=== PATIENT | female | born 1965 | race Caucasian/White ===

== ENCOUNTER 2020-11-22 10:21 | Outpatient (CLI) | payer OTHER, SELFPAY ==
--- NOTE | ~2020-11-22 | CT_ITS ---
EXAMINATION:CT lung screening DATE: 11/22/2020 10:38 INDICATION: Personal history of nicotine dependence. Current smoker with 30 pack year history. TECHNIQUE: Computed tomography (CT) of the chest was performed without intravenous contrast. Automate d exposure control and iterative reconstruction technique were employed. The dose-length product (DLP ) was 68.26 mGy-cm. COMPARISON: Chest CT 10/13/2018 FINDINGS: There is mild scarring at the lung apices. There is moderate emphysema. Calcified bilateral lung nodules and calcified right hilar lymph nodes are consistent with old granulomatous disease. Th ere is a 3 mm nodule in left upper lobe. There are three 1-2 mm nodules in right upper lobe. No pleur al effusion. The heart size is normal. There are coronary artery calcifications. No pericardial effus ion. Calcifications in the liver and spleen are consistent with old granulomatous disease. There are changes of anterior fusion procedure in cervical spine. There is mild thoracic spondylosis. IMPRESSION: 1. Lung-RADS category 2: Benign appearance or behavior. Continue annual screening with noncontrast lo w-dose chest CT in 12 months. Reviewed, dictated and finalized at location A. 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 Lung-RADS category 2: Benign appearance or behavior. Continue annual screeni ng with noncontrast low-dose chest CT in 12 months.
== END 2020-11-22 10:22 | disposition home or self-care (01) ==
PROVIDERS: PCP Family Medicine Sports Medicine; Visit Provider Nurse Practitioner Family
DX: Z12.2 Encounter for screening for malignant neoplasm of respiratory organs (principal); Z87.891 Personal history of nicotine dependence
CPT/HCPCS: 71271

== ENCOUNTER 2021-01-25 08:31 | Emergency (ER) | payer OTHER, SELFPAY ==
--- NOTE | ~2021-01-25 | XR_ITS ---
EXAMINATION: XR chest 2V EXAM DATE: 01/25/2021 09:01 INDICATION: Congestion, shortness of breath. TECHNIQUE: Frontal and lateral projections of the chest obtained and reviewed. Comparison is made to prior examination from 08/18/2019. FINDINGS: Some right lower lobe granulomata. The lungs are otherwise clear. Resolution of previous ly seen left midlung zone nodular density which was probably infection. The lungs are hyperinflated which can be seen with chronic obstructive pulmonary disease (a clinical diagnosis of functional impairment), but is not diagnostic of it. No pneumothorax or pleural effusion . There is narrow cardiac silhouette from the hyperinflated lungs. Cervical fusion hardware. IMPRESSION: 1. Severe hyperinflation. 2. No acute findings. Reviewed, dictated and finalized at location A.
--- NOTE | 2021-01-25 08:44 | ED.URI ---
HPI - URI/Sore Throat General Chief Complaint: Upper Respiratory Infection Stated Complaint: sinus infection Time Seen by Provider: 01/25/21 08:45 Source: patient and RN notes reviewed Mode of arrival: ambulatory Limitations: no limitations History of Present Illness HPI Narrative: 55-year-old female presents to the [facility] with complaints of sinus congestion and chest congestion for 1 week-10days. Patient reports that she has had congestion that started 10 to 14 days ago, and for the last week feels like the congestion has moved into her chest. Has had a nonproductive cough. Has been using her COPD medication. Has not used her rescue inhaler. Denies having chest pain. Denies abdominal pain. Denies fevers, nausea, vomiting or diarrhea. Has a history of COPD and is a smoker. Has tried taking mucinex and Tessalon Perles with no improvement. Related Data Home Medications Medication Instructions Recorded Confirmed [id number] 1 inh INHALATION BID 01/25/21 01/25/21 [Trelegy Ellipta] Allergies Allergy/AdvReac Type Severity Reaction Status Date / Time No Known Allergies Allergy Verified 01/25/21 09:18 Review of Systems Review of Systems: Narrative: CONSTITUTIONAL: Denies fever, chills, or sweats. EYES: Denies visual changes, redness, or discharge. ENT: Reports rhinorrhea and congestion. Denies sore throat, or otalgia. CARDIOVASCULAR: Denies chest pain, palpitations, or edema. RESPIRATORY: Reports nonproductive cough. Denies dyspnea. GASTROINTESTINAL: Denies abdominal pain, nausea, vomiting, or diarrhea. GENITOURINARY: Denies dysuria or hematuria. SKIN: Denies rash or itching. MUSCULOSKELETAL: Denies back pain, joint pain, or myalgia. NEUROLOGIC: Denies headache, numbness, or weakness. PSYCHIATRIC: Denies anxiety or depression. All other systems reviewed are negative, except as documented in HPI. [facility] Past Medical History Medical History Chronic obstructive pulmonary disease (COPD) Lung nodule Mildly underweight adult Recurrent pneumonia Shortness of breath Tobacco abuse Social History Social History Years smoked: 20 Smoking status: Current every day smoker Tobacco type: cigarettes Second hand tobacco smoke exposure: No Gender identity (if verbalized by the patient): Female Comments At the time of my signature, I reviewed and agree with the nursing past medical, surgical, social, and family history. There is no relevant family history pertinent to the patient complaint. Exam Narrative: Exam Narrative: GENERAL: This is a well-nourished, well-developed patient, in no apparent distress. Appears mildly ill. HEAD: normocephalic, atraumatic. EYES: PERRL. Sclera clear/white. Vision is grossly intact. EARS: External ears normal, auditory canals clear and without drainage, TMs normal without perforation. Hearing grossly intact. NOSE: External nose normal. Clear nasal drainage with nares red and inflamed. THROAT: Mucous membranes moist, posterior pharynx clear drainage noted. NECK: Neck supple, non-tender without lymphadenopathy, masses or thyromegaly. CARDIOVASCULAR: Regular rate and rhythm without murmurs, gallops, or rubs. RESPIRATORY: Coarseness bilaterally noted on auscultation. Strong cough noted GASTROINTESTINAL: Abdomen soft, non-tender, nondistended. SKIN: warm, intact with no suspicious lesions or rash, good texture and turgor. NEURO: awake, alert, and oriented to person, place and time. There were no obvious focal neurologic abnormalities. EXTREMITIES: No joint tenderness, effusion, or edema noted. BACK: Nontender without deformity. Course Vital Signs Vital signs: Vital Signs Temperature 97.1 F L 01/25/21 08:49 Pulse Rate 103 H 01/25/21 08:49 Respiratory Rate 20 01/25/21 08:49 Blood Pressure 129/67 01/25/21 08:49 Pulse Oximetry 97 01/25/21 08:49
[2021-01-25 08:49] VITALS: BP 129/67; PULSE 103; RESP 20; TEMP 36.2; O2SAT 97
[2021-01-26 00:39] LABS: SARS-CoV-2 RNA PCR Negative
== END 2021-01-25 09:36 | disposition home or self-care (01) ==
PROVIDERS: Emergency Provider Nurse Practitioner
DX: J40 Bronchitis, not specified as acute or chronic (principal); Z20.822 Contact with and (suspected) exposure to COVID-19; F17.210 Nicotine dependence, cigarettes, uncomplicated; J44.9 Chronic obstructive pulmonary disease, unspecified
CPT/HCPCS: 71046; 87426; 87804; 99213; C9803; G0463; U0003; U0005

== ENCOUNTER 2022-01-01 14:12 | Outpatient (CLI) | payer OTHER, SELFPAY ==
--- NOTE | ~2022-01-01 | CT_ITS ---
EXAMINATION: CT lung screening DATE: 01/01/2022 14:30 INDICATION: Tobacco use. History of smoking. COPD. TECHNIQUE: Computed tomography (CT) of the chest was performed without intravenous contrast. The dose -length product was 62.28 mGy-cm. Automated exposure control and iterative reconstruction technique w ere employed. COMPARISON: CT dated 11/22/2020 FINDINGS: No significant change to bilateral upper lobe nodules measuring 3 mm or less. There is a ne w 5 mm right upper lobe nodule, image 24. Moderate-severe emphysema. No endobronchial lesions. There are a few scattered calcified granulomas. No pneumothorax. No thoracic lymphadenopathy. There are balbina cified granulomas of the liver and spleen. There is atherosclerosis of the aorta and coronary arterie s. Mild thoracic spondylosis. IMPRESSION: 1. Lung-RADS category 3: Probably benign. Further evaluation is recommended with noncontrast low-dose chest CT in 6 months. Reviewed, dictated and finalized at location B. 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 Lung-RADS category 3: Probably benign. Further evaluation is recommended wit h noncontrast low-dose chest CT in 6 months.
== END 2022-01-01 14:13 | disposition home or self-care (01) ==
LOC: ANHIMG 14:16
PROVIDERS: Visit Provider Nurse Practitioner Family
DX: J44.9 Chronic obstructive pulmonary disease, unspecified (principal); Z87.891 Personal history of nicotine dependence
CPT/HCPCS: 71271

== ENCOUNTER → 2022-03-24 00:15 | Outpatient (CLI) | payer OTHER, SELFPAY ==
[2022-03-24 13:51] LABS: SARS-CoV-2 RNA PCR Negative
== END ==
DX: J01.90 Acute sinusitis, unspecified (principal); Z20.822 Contact with and (suspected) exposure to COVID-19
CPT/HCPCS: C9803; U0003; U0005

== ENCOUNTER 2022-05-13 09:32 | Emergency (ER) | payer OTHER, SELFPAY ==
--- NOTE | ~2022-05-13 | XR_ITS ---
XR chest 2V DATE: 05/13/2022 10:07 INDICATION: Difficulty breathing. Past smoker. TECHNIQUE: 2 views COMPARISON: None FINDINGS: Prominent bilateral hyperinflation with flattening the diaphragm and increased retrosternal airspace, consistent with emphysema. No pulmonary infiltrate or consolidation, pleural effusion or pulmonary vascular congestion or pneumo thorax is detected. There is old pulmonary granulomatous disease on the right. Normal heart size. No hilar or mediastinal enlargement. Lower lumbar posterior surgical spine fusion. IMPRESSION: COPD Reviewed, dictated and finalized at location A. IMPRESSION: COPD
--- NOTE | 2022-05-13 09:38 | ED.SOB ---
HPI - SOB/Dyspnea General Chief Complaint: Shortness of Breath/Dyspnea Stated Complaint: sob Source: patient, RN notes reviewed and old records reviewed Mode of arrival: ambulatory Limitations: no limitations History of Present Illness HPI Narrative: 56-year-old female presents to the [facility] with complaints of shortness of breath since Saturday. States that she quit smoking approximately 1 month ago. States that she was sick was given steroids and antibiotics and has not started smoking again. Patient states it feels like her COPD is acting up. Patient reports having albuterol at home but has not used it. elevated pulse. Oxygen saturation 92, patient states that is her normal. MD elicited complaint: shortness of breath Related Data Home Medications Medication Instructions Recorded Confirmed cyclobenzaprine 10 mg tablet 10 mg PO TID 02/13/22 05/13/22 hydrocodone 10 mg-acetaminophen 15 ml PO Q6H PRN Pain 02/13/22 05/13/22 325 mg/15 mL (15 mL) oral solution ergocalciferol (vitamin D2) 1,250 1 cap PO WEEKLY 05/13/22 05/13/22 mcg (50,000 unit) capsule metformin 500 mg tablet 1 tablet PO DAILY 05/13/22 05/13/22 rosuvastatin 40 mg tablet 1 tablet PO DAILY 05/13/22 05/13/22 Allergies Allergy/AdvReac Type Severity Reaction Status Date / Time No Known Allergies Allergy Verified 05/13/22 09:43 Review of Systems Review of Systems: All systems reviewed & are unremarkable except as noted in HPI and below Constitutional: Constitutional: Reports no additional constitutional complaints, Denies chills and Denies fever(s) Eyes: Eyes: Reports no additional eye complaints ENT: Reports system reviewed and no additional complaints, except as documented Cardiovascular: Cardiovascular: Reports no additional cardiovascular complaints Respiratory: Respiratory: Reports as per HPI and Reports dyspnea Gastrointestinal: Gastrointestinal: Reports no additional gastrointestinal complaints Musculoskeletal: Musculoskeletal: Reports no additional musculoskeletal complaints Integumentary/Breasts: Skin/Breast: Reports system reviewed and no additional complaints, except as docu Neurologic: Reports system reviewed and no additional complaints, except as documented Psychiatric: Psychiatric: Reports no additional psychiatric complaints Allergic/Immunologic: Allergic/Immunologic: Reports no additional allergic/immunologic complaints [facility] Past Medical History Medical History (Updated 05/13/22 @ 18:53 by Noris Lang, RENUKA) Chronic obstructive pulmonary disease (COPD) Lung nodule Mildly underweight adult Neck problem bone fusion on neck Recurrent pneumonia Shortness of breath Tobacco abuse Surgical History Surgical History H/O LEEP 1998 History of back surgery 2011 History of dilation and curettage 02/11/09 hscope d&c/novasure ablation History of endometrial ablation 02/11/09 hscope d&c/novasure ablation History of tubal ligation 2003 Family History Family History Sibling Chronic obstructive lung disease sister Mother Malignant tumor of urinary bladder Father Malignant neoplasm of bone Social History Social History (Updated 05/13/22 @ 18:50 by Noris Lang APRN) Smoking packs per day: 1 Smoking cigarettes per day: 20.0 Years smoked: 35 Smoking pack-years: 35.00 Smoking status: Current every day smoker Tobacco type: cigarettes Second hand tobacco smoke exposure: No Alcohol intake: never Substance use: never Substance use type: does not use Living arrangements: with family Additional living arrangements comments: 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
[2022-05-13 09:41] VITALS: BP 125/65; PULSE 120; RESP 16; TEMP 37.8; O2SAT 92
--- NOTE | 2022-05-13 10:01 | ECG_ITS ---
Measurements Intervals [place] Rate: 116 P: 83 DC: 115 QRS: 83 QRSD: 90 T: -10 QT: 283 QTc: 393 Interpretive Statements SINUS TACHYCARDIA WITH SHORT DC INTERVAL POSSIBLE LEFT ATRIAL ENLARGEMENT DELAYED PRECORDIAL R/S TRANSITION BORDERLINE ST-T WAVE ABNORMALITY- INFERIOR LEADS ABNORMAL ECG Electronically Signed On 05-13-2022 17:14:07 CDT by Herrera London D.O.
[2022-05-13] MEDS: LEVALBUTEROL NEB 1.25 MG/3 ML INHALATION (10:07)
[2022-05-13 10:30] VITALS: O2SAT 97
== END 2022-05-13 10:55 | disposition home or self-care (01) ==
PROVIDERS: Emergency Provider Nurse Practitioner; PCP Internal Medicine
DX: J44.9 Chronic obstructive pulmonary disease, unspecified (principal); F17.210 Nicotine dependence, cigarettes, uncomplicated; Z79.891 Long term (current) use of opiate analgesic; Z20.822 Contact with and (suspected) exposure to COVID-19
CPT/HCPCS: 71046; 87426; 87804; 93005; 99213; C9803; G0463

== ENCOUNTER 2022-11-26 16:21 | Emergency (ER) | payer OTHER, SELFPAY ==
[2022-11-26 16:50] VITALS: BP 116/71; PULSE 94; RESP 18; TEMP 36.2; O2SAT 97
--- NOTE | 2022-11-26 17:07 | ED.SKABFB ---
HPI - Skin/Abscess/Foreign Bdy General Chief complaint: Skin/Abscess/Foreign Body Stated complaint: Rash On Nose Time Seen by Provider: 11/26/22 17:07 Source: patient, RN notes reviewed and old records reviewed Mode of arrival: ambulatory Limitations: no limitations History of Present Illness HPI narrative: 57-year-old female presents to the [facility] with redness, warmth, irritation to the bilateral nares and surrounding facial tissue. Symptoms since Saturday, 3 days States has been there for several days. Had a similar episode back in July when she was prescribed an antibiotic. For small vesicular areas noted with induration surrounding tissue. Related Data Home Medications Medication Instructions Recorded Confirmed cyclobenzaprine 10 mg tablet 10 mg PO TID 02/13/22 11/26/22 hydrocodone 10 mg-acetaminophen 15 ml PO Q6H PRN Pain 02/13/22 11/26/22 325 mg/15 mL (15 mL) oral solution ergocalciferol (vitamin D2) 1,250 1 cap PO WEEKLY 05/13/22 11/26/22 mcg (50,000 unit) capsule metformin 500 mg tablet 1 tablet PO DAILY 05/13/22 11/26/22 rosuvastatin 40 mg tablet 1 tablet PO DAILY 05/13/22 11/26/22 Allergies Allergy/AdvReac Type Severity Reaction Status Date / Time No Known Allergies Allergy Verified 11/26/22 16:30 Review of Systems Review of Systems: All systems reviewed & are unremarkable except as noted in HPI and below Constitutional: Constitutional: Reports no additional constitutional complaints Eyes: Eyes: Reports no additional eye complaints ENT: Reports as per HPI Cardiovascular: Cardiovascular: Reports no additional cardiovascular complaints, Denies chest pain and Denies dyspnea Respiratory: Respiratory: Reports no additional respiratory complaints, Denies chest congestion, Denies cough and Denies dyspnea Gastrointestinal: Gastrointestinal: Reports no additional gastrointestinal complaints, Denies abdominal pain, Denies nausea and Denies vomiting Musculoskeletal: Musculoskeletal: Reports no additional musculoskeletal complaints Integumentary/Breasts: Skin/Breast: Reports system reviewed and no additional complaints, except as docu Neurologic: Reports system reviewed and no additional complaints, except as documented Psychiatric: Psychiatric: Reports no additional psychiatric complaints Allergic/Immunologic: Allergic/Immunologic: Reports no additional allergic/immunologic complaints PMFSH Past Medical History Medical History Chronic obstructive pulmonary disease (COPD) Lung nodule Mildly underweight adult Neck problem bone fusion on neck Recurrent pneumonia Shortness of breath Tobacco abuse Surgical History Surgical History H/O LEEP 1998 History of back surgery 2011 History of dilation and curettage 02/11/09 hscope d&c/novasure ablation History of endometrial ablation 02/11/09 hscope d&c/novasure ablation History of tubal ligation 2003 Family History Family History Sibling Chronic obstructive lung disease sister Mother Malignant tumor of urinary bladder Father Malignant neoplasm of bone Social History Social History Smoking packs per day: 1 Smoking cigarettes per day: 20.0 Years smoked: 35 Smoking pack-years: 35.00 Smoking status: Former smoker (recently quit 2 months ago) Tobacco type: cigarettes Second hand tobacco smoke exposure: Yes Smoking end date: 04/11/22 Alcohol intake: former Substance use: never Substance use type: does not use Additional living arrangements comments: 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
== END 2022-11-26 17:23 | disposition home or self-care (01) ==
PROVIDERS: Emergency Provider Nurse Practitioner; PCP Internal Medicine
DX: L03.211 Cellulitis of face (principal); R21 Rash and other nonspecific skin eruption; J44.9 Chronic obstructive pulmonary disease, unspecified; Z79.891 Long term (current) use of opiate analgesic; Z79.84 Long term (current) use of oral hypoglycemic drugs; Z87.891 Personal history of nicotine dependence
CPT/HCPCS: 87255; 99213; G0463

== ENCOUNTER 2022-12-11 15:09 | Outpatient (CLI) | payer OTHER, SELFPAY ==
[2022-12-11 15:22] LABS: Basophils Absolute Auto 0.1 K/mm3 (0.0-0.1); Basophils Percent Auto 0.6 % (0.2-1.2); Eosinophils Absolute Auto 0.1 K/mm3 (0-0.3); Eosinophils Percent Auto 1.3 % (0-4.4); Hematocrit 40.8 % (37.0-47.0); Hemoglobin 13.3 g/dL (12.0-15.0); Immature Granulocyte Absolute 0.02 K/mm3 (0.00-0.031); Immature Granulocyte Percent A 0.2 % (0-0.5); Lymphocytes Absolute Auto 3.14 K/mm3 (0.9-3.2); Lymphocytes Percent Auto 33.6 % (18.3-44.2); Mean Corpuscular HGB Conc 32.6 g/dl (32-36); Mean Corpuscular Hemoglobin 30.7 pg (26-34); Mean Corpuscular Volume 94.2 fl (80-100); Mean Platelet Volume 9.4 fl (7.4-10.4); Monocytes Absolute Auto 0.6 K/mm3 (0.1-0.6); Neutrophils Absolute Auto 5.5 K/mm3 (1.3-6.7); Neutrophils Percent Auto 58.3 % (45.5-73.1); Platelet Count Result 231 k/mm3 (150-375); Red Blood Count 4.33 M/mm3 (4.2-5.4); Red Cell Distribution Width 14.1 % (11.5-14.5); White Blood Count 9.4 K/mm3 (4.5-10.0)
[2022-12-11 15:59] LABS: Alanine Aminotransferase 27 U/L (6-35); Albumin Level 4.8 g/dL (3.5-5.1); Alkaline Phosphatase 65 U/L (38-126); Anion Gap 7 mmol/L (8-16); Aspartate Amino Transferase 33 U/L (14-36); Bilirubin,Total 0.6 mg/dL (0.2-1.3); Blood Urea Nitrogen 15 mg/dL (7-17); Calcium 9.1 mg/dL (8.4-10.2); Carbon Dioxide 30 mmol/L (22-30); Chloride 98 mmol/L (98-107); Estimated Glomerular Filt Rate > 60; Glucose 109 mg/dL (65-110); Potassium 4.3 mmol/L (3.4-5.0); Sodium 135 mmol/L (137-145)
[2022-12-13 16:25] LABS: Albumin 4.4 g/dL (3.8-4.8); Alpha 1 Globulin 0.4 g/dL (0.2-0.3); Alpha 2 Globulin 0.9 g/dL (0.5-0.9); Beta 1 Globulin 0.4 g/dL (0.4-0.6); Gamma Globulin 0.8 g/dL (0.8-1.7); Protein, Total 7.3 g/dL (6.1-8.1)
== END 2022-12-11 15:10 | disposition home or self-care (01) ==
LOC: ANHLAB 15:10
PROVIDERS: PCP Internal Medicine; Visit Provider Internal Medicine Hematology & Oncology
DX: R10.9 Unspecified abdominal pain (principal)
CPT/HCPCS: 36415; 80053; 84155; 84165; 84443; 85025

== ENCOUNTER 2022-12-19 12:14 | Outpatient (CLI) | payer OTHER, SELFPAY ==
--- NOTE | ~2022-12-19 | CT_ITS ---
EXAMINATION: CT chest abdomen pelvis w con DATE: 12/19/2022 12:59 INDICATION: Shortness of breath and abdominal pain, weight loss TECHNIQUE: Transaxial computed tomographic images of the chest, abdomen, and pelvis were obtained aft er the administration of 85 cc of Omnipaque 350 intravenous contrast. The dose-length product (DLP) w as 235.51 mGy-cm. Automated exposure control and iterative reconstruction technique were employed. COMPARISON: 01/01/2022 FINDINGS: CHEST CT: There is moderate emphysema. A stable 5 mm nodule is present in the right upper lobe. Additional stab le pulmonary nodules measure up to 3 mm. The lungs are free of acute opacities. No pleural effusion o r pneumothorax. Calcified pulmonary nodules and calcified right hilar No pathologically enlarged thor acic lymph nodes are identified. The heart size is normal. There is calcified coronary artery atheros clerosis. lymph nodes are consistent with old granulomatous disease. There are partially imaged garcia es of anterior fusion in the lower cervical spine. ABDOMEN/PELVIS CT: The mildly dilated common bile duct measures up to 8 mm. There is mild intrahepatic biliary dilatatio n. Punctate calcifications in otherwise normal appearing liver and spleen likely represent healed gra nulomatous disease. The pancreas, gallbladder, and adrenal glands are normal. The kidneys are unremar kable. There is calcified atherosclerosis of the aorta and many of the other arteries. No pathologica lly enlarged abdominal or pelvic lymph nodes are identified. A large volume of colonic stool is prese nt. There are changes of anterior and posterior fusion at L5-S1. IMPRESSION: 1. Moderate emphysema with stable pulmonary nodules. 2. Mild intrahepatic and extrahepatic biliary dilatation of unclear etiology. 3. Constipation. Reviewed, dictated and finalized at location B. WORK[employer]
== END 2022-12-19 12:15 | disposition home or self-care (01) ==
PROVIDERS: PCP Internal Medicine; Visit Provider Internal Medicine Hematology & Oncology
DX: R10.9 Unspecified abdominal pain (principal); R06.02 Shortness of breath; K59.00 Constipation, unspecified; J43.9 Emphysema, unspecified
CPT/HCPCS: 71260; 74177; Q9967

== ENCOUNTER 2023-02-04 11:33 | Emergency (ER) | payer OTHER, SELFPAY ==
--- NOTE | ~2023-02-04 | XR_ITS ---
XR chest 2V DATE: 02/04/2023 11:49 INDICATION: Left-sided chest pain. Shortness of breath. TECHNIQUE: PA and lateral views COMPARISON: December 2022 CT chest abdomen FINDINGS: There is bilateral hyperinflation consistent with emphysema. There is old pulmonary granulo matous disease. No pulmonary infiltrate or consolidation, pleural effusion or pulmonary vascular brody estion or pneumothorax is detected. Normal heart size. No hilar or mediastinal enlargement. Status post lower anterior cervical spine surgical fusion. IMPRESSION: COPD No active cardiopulmonary disease Reviewed, dictated and finalized at location B.
[2023-02-04 11:42] VITALS: BP 117/70; PULSE 108; RESP 18; TEMP 37; O2SAT 95
--- NOTE | 2023-02-04 11:57 | ED.GENADULT ---
HPI - General Adult General Chief complaint: Upper Respiratory Infection Stated complaint: SOB/Chest Pain Source: patient Mode of arrival: ambulatory Limitations: no limitations History of Present Illness HPI narrative: 57-year-old female with a history of COPD presented for complaint of left lower rib pain since this morning. Pain is worse with coughing, breathing, or movement. This is associated with frequent moist cough, nasal congestion, and not feeling well for 3-4 days. States it feels like pleurisy or pneumonia. Not taking anything for symptoms. Denies sick contacts. Denies significant shortness of breath, wheezing, nausea, vomiting, fevers or chills. current smoker down to 5 cigarettes per day. Has not required albuterol inhaler. Endorses compliance with Trelegy. History of pneumonia, emphysema, and pleurisy. Also with bilateral upper thompson nodules. Follows with pulmonology in [place]. Related Data Home Medications Medication Instructions Recorded Confirmed cyclobenzaprine 10 mg tablet 10 mg PO TID 02/13/22 02/04/23 hydrocodone 10 mg-acetaminophen 15 ml PO Q6H PRN Pain 02/13/22 02/04/23 325 mg/15 mL (15 mL) oral solution ergocalciferol (vitamin D2) 1,250 1 cap PO WEEKLY 05/13/22 02/04/23 mcg (50,000 unit) capsule metformin 500 mg tablet 1 tablet PO DAILY 05/13/22 02/04/23 rosuvastatin 40 mg tablet 1 tablet PO DAILY 05/13/22 02/04/23 calcitriol 0.25 mcg capsule 0.25 mcg PO DAILY 02/04/23 02/04/23 Allergies Allergy/AdvReac Type Severity Reaction Status Date / Time No Known Allergies Allergy Verified 02/04/23 12:01 Review of Systems Review of Systems: CONSTITUTIONAL: Denies body aches, fever, chills, or sweats. EYES: Denies visual changes, redness, or discharge. ENT: Reports rhinorrhea, congestion, denies sore throat, or otalgia. CARDIOVASCULAR: Denies chest pain, palpitations, or edema. RESPIRATORY: Reports cough, denies sob, wheezing. GASTROINTESTINAL: Denies abdominal pain, nausea, vomiting, or diarrhea. SKIN: Denies rash, itching, or wounds. MUSCULOSKELETAL: Reports left rib pain. NEUROLOGIC: Denies headache, numbness, tingling, or weakness. All systems reviewed & are unremarkable except as noted in HPI and below PMFSH Past Medical History Medical History Chronic obstructive pulmonary disease (COPD) Lung nodule Mildly underweight adult Neck problem bone fusion on neck Recurrent pneumonia Shortness of breath Tobacco abuse Surgical History Surgical History H/O LEEP 1998 History of back surgery 2011 History of dilation and curettage 02/11/09 hscope d&c/novasure ablation History of endometrial ablation 02/11/09 hscope d&c/novasure ablation History of tubal ligation 2003 Family History Family History Sibling Chronic obstructive lung disease sister Mother Malignant tumor of urinary bladder Father Malignant neoplasm of bone Social History Social History Smoking packs per day: 1 Smoking cigarettes per day: 20.0 Years smoked: 35 Smoking pack-years: 35.00 Smoking status: Former smoker (recently quit 2 months ago) Tobacco type: cigarettes Second hand tobacco smoke exposure: Yes Smoking end date: 04/11/22 Alcohol intake: former Substance use: never Substance use type: does not use Living arrangements: with family Additional living arrangements comments: 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
== END 2023-02-04 12:15 | disposition home or self-care (01) ==
PROVIDERS: Emergency Provider Nurse Practitioner Family; PCP Internal Medicine
DX: J40 Bronchitis, not specified as acute or chronic (principal); J44.9 Chronic obstructive pulmonary disease, unspecified; Z79.891 Long term (current) use of opiate analgesic; Z79.84 Long term (current) use of oral hypoglycemic drugs; Z87.891 Personal history of nicotine dependence
CPT/HCPCS: 71046; 99213; G0463

== ENCOUNTER 2024-08-03 09:36 | Emergency (ER) | payer OTHER, SELFPAY ==
--- NOTE | ~2024-08-03 | XR_ITS ---
XR chest 2V Ordering provider: Genevieve Smallwood APRN History: 58 years Female with . abnormal breath sounds RLL . Comparison: February 04, 2023, FINDINGS: MEDIASTINUM: The cardiac silhouette is not enlarged. LUNGS: No infiltrates, effusions or pneumothorax. Centimeters changes of the lungs. OTHER: No free air under the diaphragm. IMPRESSION: No acute cardiopulmonary pathology. Reviewed, dictated and finalized at location A.
[2024-08-03 09:38] VITALS: BP 115/80; PULSE 120; RESP 18; TEMP 37.4; O2SAT 96
--- NOTE | 2024-08-03 09:51 | ED.URI ---
HPI - URI/Sore Throat General Chief Complaint: Upper Respiratory Infection Stated Complaint: Sinus Time Seen by Provider: 08/03/24 09:51 Source: patient, RN notes reviewed and old records reviewed Mode of arrival: ambulatory Limitations: no limitations History of Present Illness HPI Narrative: Patient presents with complaints of cough for 5 days. She reports that she has pain in the right lower rib area, has had similar pain in the past when she has had pneumonia. She reports pain is increased when taking a deep breath. She reports the cough is gurgling, but nonproductive. She denies any shortness of breath. She denies any fever, chills, sweats. She does report that she has exhausted and has little energy. She has not been taking anything for her symptoms Related Data Home Medications Medication Instructions Recorded Confirmed cyclobenzaprine 10 mg tablet 10 mg PO TID 02/13/22 02/04/23 ergocalciferol (vitamin D2) 1,250 1 cap PO WEEKLY 05/13/22 02/04/23 mcg (50,000 unit) capsule metformin 500 mg tablet 1 tablet PO DAILY 05/13/22 02/04/23 rosuvastatin 40 mg tablet 1 tablet PO DAILY 05/13/22 02/04/23 calcitriol 0.25 mcg capsule 0.25 mcg PO DAILY 02/04/23 02/04/23 alendronate 70 mg tablet mg PO 08/03/24 hydrocodone 7.5 mg-acetaminophen tablet 08/03/24 325 mg tablet morphine 15 mg tablet,extended mg PO 08/03/24 release Allergies Allergy/AdvReac Type Severity Reaction Status Date / Time No Known Allergies Allergy Verified 08/03/24 09:52 Review of Systems Review of Systems: All systems reviewed & are unremarkable except as noted in HPI and below Constitutional: Constitutional: Reports no additional constitutional complaints ENT: Reports system reviewed and no additional complaints, except as documented Cardiovascular: Cardiovascular: Reports no additional cardiovascular complaints Respiratory: Respiratory: Reports as per HPI, Reports no additional respiratory complaints, Reports chest congestion, Reports cough, Reports pain on inspiration and Reports pain with cough Gastrointestinal: Gastrointestinal: Reports no additional gastrointestinal complaints PMFSH Past Medical History Medical History Chronic obstructive pulmonary disease (COPD) Lung nodule Mildly underweight adult Neck problem bone fusion on neck Recurrent pneumonia Shortness of breath Tobacco abuse Surgical History Surgical History H/O LEEP 1998 History of back surgery 2011 History of dilation and curettage 02/11/09 hscope d&c/novasure ablation History of endometrial ablation 02/11/09 hscope d&c/novasure ablation History of tubal ligation 2004 Family History Family History Sibling Chronic obstructive lung disease sister Mother Malignant tumor of urinary bladder Father Malignant neoplasm of bone Social History Social History Smoking packs per day: 1 Smoking cigarettes per day: 20.0 Years smoked: 35 Smoking pack-years: 35.00 Smoking status: Former smoker (recently quit 2 months ago) Tobacco type: cigarettes Second hand tobacco smoke exposure: Yes Smoking end date: 04/11/22 Alcohol intake: former Substance use: never Substance use type: does not use Living arrangements: with family Additional living arrangements comments: Occupation/Education: occupation 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 There is no relevant family history pertinent to the patient complaint. Exam Const: Gener
[2024-08-03 09:56] VITALS: PULSE 120; RESP 18; O2SAT 96
[2024-08-03 10:32] VITALS: PULSE 98; RESP 20; O2SAT 96
== END 2024-08-03 10:32 | disposition home or self-care (01) ==
PROVIDERS: Emergency Provider Nurse Practitioner Family; PCP Internal Medicine
DX: J44.1 Chronic obstructive pulmonary disease with (acute) exacerbation (principal); Z87.891 Personal history of nicotine dependence
CPT/HCPCS: 71046; 99213; G0463

== ENCOUNTER 2025-05-10 11:32 | Outpatient (CLI) | payer OTHER, SELFPAY ==
--- NOTE | ~2025-05-10 | US_ITS ---
EXAMINATION: US retroperitoneal comp DATE: 05/10/2025 11:55 INDICATION: Chronic kidney disease TECHNIQUE: Multiple ultrasound grayscale images of the kidneys were obtained. COMPARISON: CT dated 01/08/2023 FINDINGS: The right kidney measures 9.1 x 3.6 x 4.4 cm. The left kidney measures 9.3 x 4.3 x 4.2 cm. The kidney s demonstrate normal echogenicity. Mild right hydronephrosis. No left sided hydronephrosis. No stones identified. The bladder is normal. IMPRESSION: 1. Normal kidneys with mild right hydronephrosis. Reviewed, dictated and finalized at location B.
== END 2025-05-10 11:33 | disposition home or self-care (01) ==
LOC: MICIMG 11:33
PROVIDERS: PCP Internal Medicine; Visit Provider Specialist
DX: N13.30 Unspecified hydronephrosis (principal); N18.30 Chronic kidney disease, stage 3 unspecified
CPT/HCPCS: 76770

== ENCOUNTER 2025-08-29 12:57 | Emergency (ER) | payer OTHER, SELFPAY ==
--- NOTE | ~2025-08-29 | XR_ITS ---
Examination: XR chest 2V Clinical History: SOB cough Comparison: 08/03/2024 Technique: PA and Lateral Findings: Cardiomediastinal silhouette normal size and configuration. Lungs clear. Mild hyperinflation. No acute bony abnormality. IMPRESSION: 1. No acute cardiopulmonary findings. Reviewed, dictated and finalized at location R.
--- NOTE | 2025-08-29 13:02 | ED.URI ---
HPI - URI/Sore Throat General Chief Complaint: Upper Respiratory Infection Stated Complaint: SOB, Pneumonia? Time Seen by Provider: 08/29/25 13:00 Source: patient Mode of arrival: ambulatory Limitations: no limitations History of Present Illness HPI Narrative: Patient is a 5-year-old female who presents with low-grade temperature, shortness of breath on activity and cough. Patient has history of COPD. Patient was on Augmentin and prednisone 1 month ago, azithromycin and Medrol Dosepak finished 1 week ago. Denies any nausea, vomiting, diarrhea. Concern for pneumonia. Related Data Home Medications ?Medication ?Instructions ?Recorded ?Confirmed ?Last Taken ?Type cyclobenzaprine 10 mg tablet 10 mg PO TID 02/13/22 02/04/23 Unknown History ergocalciferol (vitamin D2) 1,250 1 cap PO WEEKLY 05/13/22 02/04/23 Unknown History mcg (50,000 unit) capsule metformin 500 mg tablet 1 tablet PO DAILY 05/13/22 02/04/23 Unknown History rosuvastatin 40 mg tablet 1 tablet PO DAILY 05/13/22 02/04/23 Unknown History calcitriol 0.25 mcg capsule 0.25 mcg PO DAILY 02/04/23 02/04/23 Unknown History alendronate 70 mg tablet mg PO 08/03/24 Unknown History hydrocodone 7.5 mg-acetaminophen tablet 08/03/24 Unknown History 325 mg tablet morphine 15 mg tablet,extended mg PO 08/03/24 Unknown History release Allergies Allergy/AdvReac Type Severity Reaction Status Date / Time No Known Allergies Allergy Verified 08/29/25 13:09 Review of Systems Review of Systems: All systems reviewed & are unremarkable except as noted in HPI and below Constitutional: Constitutional: Denies chills, Denies fatigue, Reports fever(s), Denies headache(s), Denies malaise and Denies weakness Eyes: Eyes: Denies blurry vision, Denies itchy eyes and Denies loss of vision ENT: Denies otalgia, Denies headache(s), Reports nasal congestion, Denies sinus pain and Denies sore throat Cardiovascular: Cardiovascular: Denies chest pain, Denies irregular heart rhythm and Reports dyspnea on exertion Respiratory: Respiratory: Reports cough and Denies dyspnea Gastrointestinal: Gastrointestinal: Denies abdominal pain, Denies diarrhea, Denies nausea and Denies vomiting Musculoskeletal: Musculoskeletal: Denies back pain, Denies myalgias and Denies arthralgias Integumentary/Breasts: Skin/Breast: Denies pruritus and Denies rash Neurologic: Denies headache(s), Denies loss of vision and Denies weakness Psychiatric: Psychiatric: Reports no additional psychiatric complaints Endocrine: Endocrine: Denies fatigue Allergic/Immunologic: Allergic/Immunologic: Denies itchy eyes PMFSH Past Medical History Medical History Neck problem bone fusion on neck Chronic obstructive pulmonary disease (COPD) Lung nodule Mildly underweight adult Recurrent pneumonia Shortness of breath Tobacco abuse Surgical History Surgical History H/O LEEP 1997 History of tubal ligation 2003 History of endometrial ablation 02/11/09 hscope d&c/novasure ablation History of dilation and curettage 02/11/09 hscope d&c/novasure ablation History of back surgery 2012 Family History Family History Sibling Chronic obstructive lung disease sister Mother Malignant tumor of urinary bladder Father Malignant neoplasm of bone Social History Social History Smoking packs per day: 1 Smoking cigarettes per day: 20.0 Years smoked: 35 Smoking pack-years: 35.00 Smoking status: Former smoker (recently quit 2 months ago) Tobacco type: cigarettes Second hand tobacco smoke exposure: Yes Smoking end date: 04/11/22 Alcohol intake: former Substance use: never Substance use type: does not use Living arrangements: with family Additional living arrangements comments: 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 There is no relevant family history pertinent to the presenting complaint. Exam Const: General: cooperative, healthy appearing, comfortable, no acute distress and well nourished Nutritional Appearance: well nourished Orientation/consciousness: patient oriented x3 Limitations: no limitations HENMT: Head: normal to inspection, normocephalic and atraumatic Ears: hearing grossly normal bilaterally, external ears normal, TM's normal bilaterally, EAC's normal and no periauricular adenopathy Face/Nose/Sinus: Normal external nose present, Abnormal mucous membranes and turbinates present erythematous bilateral and diffuse, normal facial exam, sinuses nontender and face symmetric Face and sinus: normal facial exam, sinuses nontender and face symmetric Mouth: Yes Normal oral and palatal mucosa present, Yes lip normal, Yes tongue normal, Yes Normal salivary glands and ducts present, Yes oropharynx normal and Yes moist mucous membranes Teeth and gingiva: dentition normal Throat: posterior oropharynx normal, tonsils normal and uvula midline Eyes: General: appearance normal, both eyes and all related structures Alignment and Position: alignment normal and position normal Periorbital: periorbital findings normal Eyelids: eyelids normal Pupils: Equal, round and reactive pupils present Neck: Neck: normal visual inspection, full ROM, no lymphadenopathy and supple Chest: Chest palpation & inspection: normal inspection of the chest and normal palpation of entire chest wall Resp: Effort & Inspection: normal respiratory effort and able to speak in complete sentences Auscultation: no crackles, no rales, no rhonchi, no wheezes and diminished lung sounds diffuse Cardio: Rate: tachycardic Rhythm: regular rhythm Heart sounds: S1 normal heart sound present and S2 normal heart sound present GI: Inspection: normal to inspection Skin: General skin exam: normal color and no rashes or lesions noted Neuro: General: patient oriented x3 and moves all extremities Cranial nerves: Yes Equal, round and reactive pupils present Speech: normal speech Gait exam (Neuro): Normal gait present Extrem: General: normal to inspection, full ROM and no edema Psych: Appearance: grossly normal and well kempt Mental Status: mental status grossly normal Speech and movement: Normal speech and movement present Affect: normal affect Attitude: cooperative Thought process: Normal thought process present Course Course Emergency Course: Discharge instructions reviewed with patient, as well as provided in writing per nursing staff. The instructions also include specific and strict return/GO TO THE ER as well as f/u information. All questions have been answered, and the patient deny any further questions with discharge and discharge plan. Portions of this record may have been created with voice recognition software Level of Care: Express Care Visit Vital Signs Vital signs: Reviewed MDM - URI/Sore Throat MDM Narrative Medical decision making narrative: Patient has not seen power generation technician in over a year and has been out of Trelegy inhaler for at least 6 months. Discussed that patient may need start wearing oxygen all times. Patient states her power generation technician did mention that a year ago. Patient states she will call her power generation technician tomorrow for appointment. Will treat with doxycycline. Will not treat with steroids as she has had 2 rounds in the last month. Pt well hydrated appearing, in no respiratory distress, hemodynamically stable. Recommend supportive care. The patient is stable at time of discharge the clinical impression was discussed and the patient was given the opportunity to ask questions, which were addressed as completely as possible given the information available at present. Anticipatory guidance and return to care precautions were discussed and the importance of primary care follow-up was stressed and encouraged. The patient voiced understanding of the plan, indications to return, and the need for follow-up. Exam findings show no acute concerns or changes Patient is appropriate for outpatient treatment and follow-up. Differential diagnosis considered: Newsome virus, strep pharyngitis, allergic rhinitis, upper respiratory tract infection, sinusitis, rhinosinusitis, nasopharyngitis. viral pharyngitis, otitis media, otitis externa, otitis effusion, foreign body, cerumen impaction, viral syndrome, and influenza.? Medical Records Attestation: I reviewed the patient's medical records. Imaging Data Radiologist's impression: Examination: XR chest 2V Clinical History: SOB cough Comparison: 08/03/2024 Technique: PA and Lateral Findings: Cardiomediastinal silhouette normal size and configuration. Lungs clear. Mild hyperinflation. No acute bony abnormality. IMPRESSION: 1. No acute cardiopulmonary findings. Reviewed, dictated and finalized at location R. Discharge Plan Discharge Clinical Impression: Acute exacerbation of chronic obstructive pulmonary disease, Tobacco abuse Patient Disposition: Home Condition: Stable Instructions: COPD (Chronic Obstructive Pulmonary Disease) (ED) Additional Instructions: Take antibiotic as prescribed Other symptomatic treatments include: -Alternate Tylenol and Motrin per package directions for fever or pain: Tylenol 650-1000mg by mouth every 4-6 hours. Do not exceed 4000mg in 24 hours. Advil (Ibuprofen) 600 mg by mouth every 6 hours. Do not exceed 2400mg in 24 hours. 8 AM: Tylenol 11 AM: Ibuprofen 2 PM: Tylenol 5 PM: Ibuprofen 8 PM: Tylenol 11 PM: Ibuprofen 2 AM: Tylenol 5 AM: Ibuprofen -Antihistamine medication such as Benadryl at night and Zyrtec/Claritin/Sarah during the day can help improve symptoms. -Use Flonase twice a day for 5 days then daily to help reduce the inflammation and dry up your sinuses. -You can also use Sudafed or Mucinex. Be sure to drink plenty of water with these medications at least 8 ounces with every dose and it is important to drink 8 to 10 glasses of water per day. Water is a natural decongestant -Eat and drink things that are easy to swallow, like tea or soup, or popsicles. -Oral rinses such as: Salt water gargles and/or may use topical anesthetic (eg. Chloraseptic spray) or lozenges to relieve dryness or throat pain). -Frequent hand washing or hand port drier is one of the best ways to prevent spread of infection. -Using a vaporizer or humidifier at night will also help thin secretions and help with coughing up phlegm. Call your Primary Care Doctor and make a follow-up appointment in 3 days. If your cough worsens, you develop a fever greater than 103, you develop shaking chills, a fast heartbeat, trouble breathing and/or feel you are are breathing much faster than usual, call your Primary Care Doctor or go to the ER. Patient Language: Salvadorean Prescriptions: New doxycycline monohydrate 100 mg tablet 100 mg PO BID 7 Days Qty: 14 0RF No Action metformin 500 mg tablet 1 tablet PO DAILY ergocalciferol (vitamin D2) 1,250 mcg (50,000 unit) capsule 1 cap PO WEEKLY rosuvastatin 40 mg tablet 1 tablet PO DAILY hydrocodone-acetaminophen 7.5-325 mg tablet morphine 15 mg tablet extended release PO alendronate 70 mg tablet PO prednisone 50 mg tablet 50 mg PO DAILY Qty: 5 0RF calcitriol 0.25 mcg capsule 0.25 mcg PO DAILY cyclobenzaprine 10 mg tablet 10 mg PO TID Rajeevlejuni Ellipta 100-62.5-25 mcg blister with device 1 inh INHALATION DAILY 90 Days Qty: 180 3RF Rx Instructions: rinse and spit Follow-up/Referrals: Josefina,MD Ken [Primary Care Provider, Unknown] - 3 Days Time of Disposition: 13:43
[2025-08-29 13:13] VITALS: BP 123/77; PULSE 107; RESP 16; TEMP 36.9; O2SAT 90
== END 2025-08-29 13:48 | disposition home or self-care (01) ==
PROVIDERS: Emergency Provider Nurse Practitioner Family; PCP Internal Medicine
DX: J44.1 Chronic obstructive pulmonary disease with (acute) exacerbation (principal); Z72.0 Tobacco use
CPT/HCPCS: 71046; 99213; G0463

== ENCOUNTER 2025-09-06 11:37 | Inpatient (IN) | payer OTHER, SELFPAY ==
--- OUTSIDE RECORDS SUMMARY | 2025-04-09 10:00 | XMS_ITS ---
Author Organization [facility] Office Address [address] [facility] 61 [facility] G30 [place] Child [address] Care Team Providers Care Funeral Home Makeup Artist Name Role Phone Jesse Vishnu Unavailable [phone] Medications Medication SIG (Take, Route, Frequency, Duration) Notes Start Date End Date Status Vitamin D (Ergocalciferol) 1.25 MG (24888 UT) TAKE 1 CAPSULE BY MOUTH ONCE A WEEK; Duration: 28 Active Losartan Potassium 25 MG 1 tablet Orally Once a day; Duration: 90 days 09/21/2022 Active Problems Problem Type SNOMED Code ICD Code Onset Dates Problem Status W/U Status Risk Notes Problem Essential hypertension (82415545) Essential hypertension (I10) Active confirmed Problem Chronic obstructive pulmonary disease (20192824) Chronic obstructive pulmonary disease, unspecified (J44.9) Active confirmed Encounters Encounter Location Date Provider Diagnosis [place] [facility] [address] [facility] 15 [place] [address] 04/09/2025 Vishnu Molina Chronic kidney disea se, [...] Name:Vishnu Jesse , 10/01/2025 03:45:00 PM, [address] [facility], [facility] 15, [place], [address], Progress Notes * Liya ROQUEaDOB:[birth year] (59 yo F)Acc No.[id number]:04/09/2025 Progress Notes Patient: Yoon HIRSCH Provider: Makenna BOWEN MD, F.A.C.P, F.A.S.N. :1965 A ge:59 Y S ex:Female Date:04/09/2025 Address:[address] [place] [address] Subjective: * Chief Complaints: * * Medical History: * Medications: T aking Losartan Potassium 25 MG Tablet 1 tablet Orally Once a day , Taking Vitamin D (Ergocalciferol) 1.25 MG (26323 UT) Capsule TAKE 1 CAPSULE BY MOUTH [...] Treatment: * Billing Information: * Visit Code: 42963 Office Visit, New Pt., Level 5. * Procedure Codes: * Electronic signature of Best Molina MD on 09/06/2025 at 01:18 PM CDT Sign off status: Pending * Provider: Makenna BOWEN MD, F.Morgan.C.P, F.A.S.N. Date: 0 04/09/2025 Generated for Printing/Faxing/eTransmitting on: 1 01:18 PM CDT
--- OUTSIDE RECORDS SUMMARY | 2025-05-28 09:00 | XMS_ITS ---
Author Organization [facility] Office Address [address] [address] [place] Child [address] Care Team Providers Care Exterminator Termite Name Role Phone Vishnu Molina Unavailable [phone] Problems Problem Type SNOMED Code ICD Code Onset Dates Problem Status W/U Status Risk Notes Problem Chronic kidney disease stage 1 (516691623) Chronic kidney disease, stage 1 (N18.1) Active confirmed Encounters Encounter Location Date Provider Diagnosis [place] [facility] [address] [facility] [address] [place] [address] 05/28/2025 Vishnu Molina Chronic kidney disea se, [...] INTACT AND CALCIUM (8837) COMPREHENSIVE METABOLIC PANEL (82067) URIC ACID (905) 05/28/2025 PROTEIN, TOTAL W/CREAT, RANDOM URINE (17 15) 05/28/2025 CBC (INCLUDES DIFF/PLT) (6399) URINALYSIS, COMPLETE W/REFLEX TO CULTURE (3020) 05/28/2025 URINALYSIS, COMPLETE (9423) 05/28/2025 SED RATE BY MODIFIED WESTERGREN (809) VITAMIN D,25-OH,TOTAL,IA (14112) 025 Next Appt Details Provider Name:Vishnu Molina , 10/01/2025 03:45:00 PM, [address] [facility], [place], [address], Progress Notes * Marlen ROQUEB:[birth year] (59 yo F)Acc No.[id number]:05/28/2025 Progress Notes Patient: Yoon HIRSCH Provider: Makenna BOWEN MD, F.A.CNataliyaP, F.A.S.N. :1965 A ge:59 Y S ex:Female Date:05/28/2025 Address:[address] [place] [address] Subjective: * Chief Complaints: * * Medical [...] Plan: * Treatment: ?LAB: COMPREHENSIVE METABOLIC PANEL (73531)* Justina Johns 08/30/2025 1 1:30:24 AM CDT >6 hr fasting ?LAB: URIC ACID (905)* Justina Johns 08/30/2025 1 1:30:24 AM CDT >6 hr fasting ?LAB: PROTEIN, TOTAL W/CREAT, RANDOM URINE (1715)* Justina Johns 08/30/2025 1 1:30:24 AM CDT >6 hr fasting ?LAB: CBC (INCLUDES DIFF/PLT) (6399)* Justina Johns 08/30/2025 1 1:30:24 AM CDT >6 hr fasting ?LAB: URINALYSIS, COMPLETE W/REFLEX TO CULTURE (0190)* Justina Johns 08/30/2025 1 1:30:24 AM CDT >6 hr fasting ?LAB: URINALYSIS, COMPLETE (0733)* Justina Johns 08/30/2025 1 1:30:24 AM CDT >6 hr fasting ?LAB: SED RATE BY MODIFIED WESTERGREN (749)* Justina Johns 08/30/2025 1 1:30:24 AM CDT >6 hr fasting ?LAB: VITAMIN D,25-OH,TOTAL,IA (46604)* Justina Johns 08/30/2025 1 1:30:24 AM CDT >6 hr fasting * Billing Information: * Visit Code: 44526 Office Visit, Est Pt., Level 4. * Procedure Codes: * Electronic signature of Best Molina MD on 09/06/2025 at 01:18 PM CDT Sign off status: Pending * Provider: Makenna BOWEN MD, F.A.C.P, F.A.S.N. Date: 0 05/28/2025 Generated for Printing/Faxing/eTransmitting on: 1 01:18 PM CDT
--- OUTSIDE RECORDS SUMMARY | 2025-07-09 14:00 | XMS_ITS ---
Author Organization [facility] Office Address [address] [facility] 61 [facility] [address] [place] Child [address] Care Team Providers Care Manager Of Financial Planning Name Role Phone Mario Molinajit Unavailable [phone] Encounters Encounter Location Date Provider Diagnosis [place] [facility] [address] [facility] [address] [place] [address] 07/09/2025 Vishnu Molina Plan Of Treatment Next Appt Details Provider Name:Vishnu Jesse , 10/01/2025 03:45:00 PM, [address] [facility], [facility] 15, [place], [address], Progress Notes * Liya ROQUEMeganB:[birth year] (59 yo F)Acc No.[id number]:07/09/2025 Progress Notes Patient: Yoon HIRSCH Provider: Makenna BOWEN MD, Sidney.Morgan.C.P, F.A.S.N. :1965 A ge:59 Y S ex:Female Date:07/09/2025 Address:[address] [place] [address] Subjective: * Chief Complaints: Objective: Assessment: Plan: * Billing Information: * Visit Code: * Procedure Codes: * Electronic signature of Best Molina MD on 09/06/2025 at 01:18 PM CDT Sign off status: Pending * Provider: Makenna BOWEN MD, Sidney.Morgan.C.P, F.A.S.N. Date: 0 07/09/2025 Generated for Printing/Faxing/eTransmitting on: 01:18 PM CDT
[2025-09-06] VITALS (15 sets, daily range): BP systolic 101–128; BP diastolic 70–89; PULSE 88–100; RESP 18–26; TEMP 36.6–36.7; O2SAT 92–100; BMI 14.5
--- NOTE | ~2025-09-06 | MR_ITS ---
EXAMINATION: MR MRCP wo/w con/w 3D wo ind DATE: 09/10/2025 13:22 INDICATION: Abnormal liver function tests. Biliary duct dilatation. TECHNIQUE: Magnetic resonance imaging (MRI) of the abdomen was performed without and with 9 mL MultiHance intravenous contrast. Sequences included coronal T2- weighted FS FSE, coronal T2-weighted FSE, axial T1-weighted LAVA, coronal FS FIESTA, axial dual-echo T1-weighted SPGR, coronal lava-FLEX, sagittal T2- weighted FSE, axial T2-weighted FSE, and axial DWI. Thick-slab T2-weighted FSE images were obtained for magnetic resonance cholangiopancreatography (MRCP). Maximum intensity projection 3-D reconstructions of the volumetric data were created by the technologist. Postcontrast sequences included coronal LAVA-flex and time course of axial T1-weighted LAVA. COMPARISON: Ultrasound 09/09/2025/29/20 FINDINGS: ABDOMEN MRI: There are small pleural effusions. The liver, gallbladder, spleen, pancreas, adrenal glands, and kidneys are normal. There is a large volume of stool in the colon. There are no dilated loops of bowel. There is a small volume of ascites. There are changes of posterior fusion procedure in the lumbosacral spine. ABDOMEN MRCP: The common duct is normal and measures 6 mm. No choledocholithiasis. IMPRESSION: 1. Small pleural effusions. 2. Small volume of ascites. Reviewed, dictated and finalized at location E.
--- NOTE | ~2025-09-06 | NM_ITS ---
EXAMINATION: NM lung vent and perfusion DATE: 09/08/2025 08:59 INDICATION: Severe right ventricular failure and COPD. TECHNIQUE: 8 mCi xenon-133 by inhalation and 5.5 mCi Tc-99m MAA by intravenous route. Scintigraphic images of the chest were obtained. COMPARISON: CT dated 12/19/2022 and chest radiograph dated 09/06/2025 FINDINGS: There is homogeneous radiotracer activity throughout the lungs on the single breath ventilation sequence. There is significant retention of activity diffusely throughout both lungs on the washout images consistent with provided history of COPD. There is a marked heterogeneous pattern of activity on the perfusion images with large perfusion defects at the superior segment and posterior basilar segment of the left lower lobe and anterobasilar segment of the right lower lobe. Multiple additional small to moderate-sized perfusion defects in each of the remaining lobes of both lungs. IMPRESSION: 1. Multiple perfusion defects involving all lobes of both lungs including large perfusion defects at the superior segment and posterior basilar segment of the left lower lobe and the anterior basilar segment of the right lower lobe. Perfusion imaging contributed alone would be consistent with a high probability for pulmonary embolism. There is however diffuse abnormal retention of activity on the washout images consistent with COPD which would render assessment formally nondiagnostic. Reviewed, dictated and finalized at location A. IMPRESSION: 1. Multiple perfusion defects involving all lobes of both lungs including larg e perfusion defects at the superior segment and posterior basilar segment of th e left lower lobe and the anterior basilar segment of the right lower lobe. Per fusion imaging contributed alone would be consistent with a high probability fo r pulmonary embolism. There is however diffuse abnormal retention of activity o n the washout images consistent with COPD which would render assessment formall y nondiagnostic.
--- NOTE | ~2025-09-06 | XR_ITS ---
Examination: XR chest 1V portable Clinical History: sob Comparison: Chest x-ray 08/29/2025 CT chest 12/19/2022 Technique: Portable AP Findings: Heart size normal. Lungs clear. Hyperinflation with emphysema. Right hilar calcifications. No acute bony abnormality. IMPRESSION: 1. No acute cardiopulmonary findings given portable technique. Reviewed, dictated and finalized at location R.
--- NOTE | ~2025-09-06 | CT_ITS ---
EXAMINATION: CTA chest PE protocol DATE: 09/08/2025 11:02 INDICATION: Hypoxia. TECHNIQUE: Computed tomography angiography (CTA) of the chest was performed with 100 mL Omnipaque-350 intravenous contrast timed to evaluate the pulmonary arteries. Coronal maximum intensity projection 3D-reconstructions were created by the technologist. Automated exposure control and iterative reconstruction technique were employed. The dose-length product was 148.29 mGy-cm. COMPARISON: Chest CT 12/19/2022 FINDINGS: There is severe emphysema. A calcified right lung nodule and calcified right hilar lymph nodes are consistent with old granulomatous disease. There are small pleural effusions. The heart size is normal. There are coronary artery calcifications. No pericardial effusion. There is no pulmonary embolus. Calcifications in the liver and spleen are consistent with old granulomatous disease. There are changes of anterior fusion procedure in cervical spine. There is mild thoracic spondylosis. IMPRESSION: 1. No pulmonary embolus. 2. Severe emphysema. 3. Small pleural effusions. Reviewed, dictated and finalized at location E.
--- NOTE | ~2025-09-06 | US_ITS ---
ULTRASOUND ABDOMEN LIMITED (RIGHT UPPER QUADRANT) Clinical History: elevated LFTs Comparison: None Technique: Right upper quadrant sonography Findings: Liver: Normal size. Echogenic. Intrahepatic biliary ductal dilatation. Normal hepatopedal flow main portal vein. Tiny calcified granulomata. Common Duct: 7 mm. Gallbladder: No stones. No wall thickening. No pericholecystic fluid. A few tiny polyps, no surveillance indicated given small size. Pancreas: Obscured by bowel gas. Ascites. Right pleural effusion. IMPRESSION: 1. Intrahepatic biliary ductal dilatation. Consider MRCP. 2. Hepatic steatosis and/or hepatocellular disease. 3. Ascites and right pleural effusion. Reviewed, dictated and finalized at location R.
--- NOTE | 2025-09-06 11:42 | ECG_ITS ---
Test Date: 2025-09-06 11:48:35 Measurements Intervals [place] Rate: 101 P: 86 WA: 104 QRS: 105 QRSD: 89 T: 0 QT: 312 QTc: 406 Interpretive Statements SINUS TACHYCARDIA RIGHT AXIS DEVIATION POSSIBLE LEFT ATRIAL ENLARGEMENT POOR R WAVE PROGRESSION BORDERLINE ST-T WAVE ABNORMALITY- INFERIOR LEADS BASELINE ARTIFACT- I, III, AVR, AVL, AVF, V1-V6 BORDERLINE ECG No previous ECG available for comparison Electronically Signed On 09-06-2025 12:56:38 CDT by Herrera London D.O.
--- NOTE | 2025-09-06 11:53 | ED.SOB ---
HPI - SOB/Dyspnea General Chief Complaint: Shortness of Breath/Dyspnea Stated Complaint: DIFF BREATHING,ANKLE SWELLING Time Seen by Provider: 09/06/25 11:44 Source: patient, family, RN notes reviewed and old records reviewed Mode of arrival: ambulatory Limitations: no limitations History of Present Illness HPI Narrative: THis is a 59 year old female with history of COPD who presents for evaluation of shortness of breath. She states starting 2 weeks ago she develop sinus infection, nonproductive cough . She reports she was started on antibiotics. She reports she has progressively developed shortness of breath, bilateral leg swelling, dizziness and fatigue. Her also reports patient has lost 60 pounds over the past year. She reports poor appetite. She denies chest pain, fever, nausea, vomiting or diarrhea. Related Data Home Medications ?Medication ?Instructions ?Recorded ?Confirmed ?Last Taken ?Type cyclobenzaprine 10 mg tablet 10 mg PO TID 02/13/22 09/06/25 Unknown History ergocalciferol (vitamin D2) 1,250 1 cap PO WEEKLY 05/13/22 09/06/25 09/03/25 08:00 History mcg (50,000 unit) capsule 1 cap calcitriol 0.25 mcg capsule 0.25 mcg PO DAILY 02/04/23 09/06/25 09/04/25 08:00 History 0.25 mcg atorvastatin 40 mg tablet 40 mg PO QPM 09/06/25 09/06/25 09/03/25 20:00 History 40 mg hydrocodone 10 mg-acetaminophen 1 tablet PO Q6H 09/06/25 09/06/25 09/06/25 08:00 History 325 mg tablet 1 tablet spironolactone 25 mg tablet 12.5 mg PO DAILY 09/06/25 09/06/25 09/03/25 08:00 History 12.5 mg Allergies Allergy/AdvReac Type Severity Reaction Status Date / Time No Known Allergies Allergy Verified 09/06/25 16:34 [facility] Past Medical History Medical History Neck problem bone fusion on neck Chronic obstructive pulmonary disease (COPD) Lung nodule Mildly underweight adult Recurrent pneumonia Shortness of breath Tobacco abuse Surgical History Surgical History H/O LEEP 1997 History of tubal ligation 2004 History of endometrial ablation 02/11/09 hscope d&c/novasure ablation History of dilation and curettage 02/11/09 hscope d&c/novasure ablation History of back surgery 2011 Family History Family History Sibling Chronic obstructive lung disease sister Mother Malignant tumor of urinary bladder Father Malignant neoplasm of bone Social History Social History Smoking packs per day: 1 Smoking cigarettes per day: 20.0 Years smoked: 40 Smoking pack-years: 40.00 Smoking status: Former smoker Tobacco type: cigarettes Second hand tobacco smoke exposure: Yes Smoking end date: 09/03/25 Alcohol intake: former Substance use: never Substance use type: painkillers Other substance usage details: prescrption pain pills per patient Lack of Transportation: No Lack of Food: Never True Current Housing: I Do Not Have Housing Concerned About Future Housing: No Difficulty Paying Gas/Electric Bills: No Difficulty Paying for Meds: No Currently Unemployed: No Education: Associate Degree Difficulty w/ Childcare or Family Care: No Living arrangements: with family Additional living arrangements comments: 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 I discussed plan to admit Date: 09/06/25 Time: 14:30 Consultations Consultation #1: I spoke with hospitalist about patient with no infection on chest xray and normal wbc. She accepts patient to service. Date: 09/06/25 Time: 14:32 Vital Signs Vital signs: Vital Signs Temperature 98.0 F 09/06/25 11:47 Pulse Rate 100 09/06/25 11:47 Respiratory Rate 25 H 09/06/25 11:47 Blood Pressure 128/89 09/06/25 11:47 Pulse Oximetry 96 09/06/25 11:47 Oxygen Delivery Nasal Cannula 09/06/25 11:47 Oxygen Flow Rate 2 09/06/25 11:47 Temperature 98 F 09/06/25 20:41 Pulse Rate 97 09/06/25 20:41 Respiratory Rate 18 09/06/25 20:41 Blood Pressure 101/70 09/06/25 20:41 Pulse Oximetry 92 09/06/25 20:41 Oxygen Delivery Nasal Cannula 09/06/25 20:15 Oxygen Flow Rate 2 09/06/25 20:15 MDM - SOB/Dyspnea MDM Narrative Medical decision making narrative: Patient presented ill appearing with shortness of breath. She was 89% on room air so she was placed on 2 l NC. labs, blood culture, chest xray ordered. Neb treatment ordered. PAtient given prednisone 40 mg PO given. labs shows normal wbc. CMP shows hyponatremia with elevated BUN. Patient is likely dehydrated. NS 500 ml given for hydration but will monitor closely has she seems to possible have heart failure. Chest xray shows hyperexpansion without infiltrates. Differential Diagnosis Differential diagnosis: Likely acute exacerbation of chronic obstructive airways disease, congestive heart failure, community acquired pneumonia, pulmonary embolism and other (cancer) Medical Records Attestation: I reviewed the patient's medical records. Lab Data Attestation: I reviewed the patient's lab results. 09/06/25 12:01 09/06/25 12:01 Labs: Lab Results 09/06/25 Range/Units 12:01 WBC 8.1 (4.5-10.0) K/mm3 RBC 4.72 (4.2-5.4) M/mm3 Hgb 14.0 (12.0-15.0) g/dL Hct 43.7 (37.0-47.0) % MCV 92.6 (80-100) fl MCH 29.7 (26-34) pg MCHC 32.0 (32-36) g/dl RDW 13.7 (11.5-14.5) % Plt Count 246 (150-375) k/mm3 MPV 9.5 (7.4-10.4) fl Immature Gran % (Auto) 0.4 (0-0.5) % Neut % (Auto) 78.7 H (45.5-73.1) % Lymph % (Auto) 12.4 L (18.3-44.2) % Barton % (Auto) 7.9 (2.6-8.5) % Eos % (Auto) 0.1 (0-4.4) % Baso % (Auto) 0.5 (0.2-1.2) % Lymph # (Auto) 1.01 (0.9-3.2) K/mm3 Barton # (Auto) 0.6 (0.1-0.6) K/mm3 Eos # (Auto) 0.0 (0-0.3) K/mm3 Baso # (Auto) 0.0 (0.0-0.1) K/mm3 Abs Immat Gran (auto) 0.03 (0.00-0.031) K/mm3 Absolute Neuts (auto) 6.4 (1.3-6.7) K/mm3 Absolute Nucleated RBC 0.000 (0.0-0.012) K/mm3 Nucleated RBC % 0.0 (0.0-0.2) % PT 15.2 H (11.1-14.7) Seconds INR 1.2 APTT 25.0 (22.3-36.8) Seconds Sodium 126 L (137-145) mmol/L Potassium 4.8 (3.4-5.0) mmol/L Chloride 83 L (98-107) mmol/L Carbon Dioxide 38 H (22-30) mmol/L Anion Gap 5 (4-12) mmol/L BUN 32 H D (7-17) mg/dL Creatinine 0.64 L (0.7-1.0) mg/dL Estim Creat Clear Calc 40 ml/min Estimated GFR > 60 (59 - ) Glucose 97 (65-110) mg/dL Calcium 8.5 (8.4-10.2) mg/dL Total Bilirubin 1.1 (0.2-1.3) mg/dL AST 161 H (14-36) U/L ALT 306 H (6-35) U/L Alkaline Phosphatase 83 (38-126) U/L Troponin I 0.013 (0.000-0.034) ng/mL NT-Pro-B Natriuret Pep 7860 H (19.9-100) pg/mL Total Protein 6.8 (6.3-8.2) g/dL Albumin 4.4 (3.5-5.1) g/dL Imaging Data Radiologist's impression: ITS Impressions Chest X-Ray 09/06/25 13:03 IMPRESSION: 1. No acute cardiopulmonary findings given portable technique. ECG Data EKG #1: Attestation: I personally reviewed and interpreted this ECG as follows: ECG completion date: 09/06/25 ECG completion time: 11:48 EKG Interpretation: tachycardia, sinus rhythm and right axis Critical Care Time Critical Care Time Critical Care Time: Yes Total Critical Care Time: 40 Discharge Plan Discharge Clinical Impression: Acute hypoxemic respiratory failure, Chronic obstructive pulmonary disease (COPD), Acute hyponatremia Patient Disposition: Still a Patient Condition: Serious
[2025-09-06 12:07] LABS: Hematocrit 43.7 % (37.0-47.0); Hemoglobin 14.0 g/dL (12.0-15.0); Immature Granulocyte Percent A 0.4 % (0-0.5); Lymphocytes Absolute Auto 1.01 K/mm3 (0.9-3.2); Mean Corpuscular HGB Conc 32.0 g/dl (32-36); Mean Corpuscular Hemoglobin 29.7 pg (26-34); Mean Corpuscular Volume 92.6 fl (80-100); Nucleated Red Blood Cells Absolute Auto 0.000 K/mm3 (0.0-0.012); Nucleated Red Blood Cells Perc 0.0 % (0.0-0.2); Platelet Count Result 246 k/mm3 (150-375); Red Blood Count 4.72 M/mm3 (4.2-5.4); White Blood Count 8.1 K/mm3 (4.5-10.0)
[2025-09-06] MEDS: IPRATROPIUM 0.5 MG/ALBUTEROL SULFATE 2.5 MG (BASE) AMPUL.NEB 3 ML INHALATION ×2 (12:09→20:05)
[2025-09-06 12:19] LABS: Alanine Aminotransferase 306 U/L (6-35); Albumin Level 4.4 g/dL (3.5-5.1); Alkaline Phosphatase 83 U/L (38-126); Anion Gap 5 mmol/L (4-12); Aspartate Amino Transferase 161 U/L (14-36); Bilirubin,Total 1.1 mg/dL (0.2-1.3); Blood Urea Nitrogen 32 mg/dL (7-17); Calcium 8.5 mg/dL (8.4-10.2); Carbon Dioxide 38 mmol/L (22-30); Chloride 83 mmol/L (98-107); Estimated CRCL calculation 40 ml/min; Estimated Glomerular Filt Rate > 60; Glucose 97 mg/dL (65-110); INR 1.2; Potassium 4.8 mmol/L (3.4-5.0); Prothrombin Time 15.2 Seconds (11.1-14.7); Sodium 126 mmol/L (137-145); Total Protein 6.8 g/dL (6.3-8.2)
[2025-09-06 12:20] LABS: Partial Thromboplastin Time 25.0 Seconds (22.3-36.8)
[2025-09-06 12:30] LABS: NT Pro B Type Natriuretic Pept 7860 pg/mL (19.9-100); Troponin I 0.013 ng/mL (0.000-0.034)
--- NOTE | 2025-09-06 12:33 | PCRCNOTE ---
Addendum entered by Caroline Weinberg, SMOG TECHNICIAN 09/07/25 09:53: ABG unobtained MD Newberry in room and aware. Original Note: ABG late due to hard stick. 2 RTs tried.
--- OUTSIDE RECORDS SUMMARY | 2025-09-06 13:18 | XMS_ITS | Patient Health Record ---
Author Organization [facility] Address [address] [place] [address] Care Team Providers Care Urology Physician Assistant Name Role Phone Vishnu Molina Unavailable [phone] Reason For Referral No Information Medications Medication SIG (Take, Route, Frequency, Duration) Notes Start Date End Date Status Spironolactone 25 MG 1/2 tablet Orally o nce a day; Duration: 90 days 04/09/2025 04/04/2026 Active Vitamin D (Ergocalciferol) 1.25 MG (40029 UT) TAKE 1 CAPSULE BY MOUTH ONCE A WEEK; Duration: 28 Active Losartan Potassium 25 MG 1 tablet Orally Once a day; Duration: 90 days 09/21/2022 Active Calcitriol 0.25 MCG 1 capsule Orally Onc e a day; Duration: 90 days 05/28/2025 05/23/2026 Active Ergocalciferol 1.25 MG (46582 UT) 1 capsule Orally twice a week; Duration: 30 days 05/28/2025 09/24/2025 Active Problems Problem Type SNOMED Code ICD Code Onset Dates Problem Status W/U Status Risk Notes Problem Hyperlipidemia (06212226) Hyperlipidemia, unspecified (E78.5) Active confirmed Problem Chronic obstructive pulmonary disease (01605869) Chronic obstructive pulmonary disease, unspecified (J44.9) Active confirmed Problem Chronic kidney disease stage 1 (577241151) Chronic kidney disease, stage 1 (N18.1) Active confirmed Problem Renal osteodystrophy (99377403) Renal osteodystrophy (N25.0) Active confirmed Problem Proteinuria (57495964) Other proteinuria (R80.8) Active confirmed Problem Essential hypertension (19134389) Essential hypertension (I10) Active confirmed Encounters Encounter Location Date Provider Diagnosis [place] [facility] [address] [facility] [address] [place] [address] 04/09/2025 Vishnu Molina Chronic kidney disea se, stage 2 (mild) N18.2 ; Hyperlipidemia, unspecified E78.5 ; Other proteinuria R80.8 ; Renal osteodystrophy N25.0 ; Essential hypertension I10 ; Proteinuria, unspecified R80.9 and Chronic obstructive pulmonary disease, unspecified J44.9 [facility] [address] [place] [address] 05/28/2025 Vishnu Molina Chronic kidney disea se, stage 1 N18.1 ; Hyperlipidemia, unspecified E78.5 ; Other proteinuria R80.8 ; Renal osteodystrophy N25.0 ; Essential hypertension I10 ; Chronic obstructive pulmonary disease, unspecified J44.9 and Tobacco use Z72.0 [facility] [address] [place] [address] 04/09/2025 Vishnu Molina [facility] [address] [place] [address] 05/28/2025 Vishnu Molina Assessments Encounter Date Diagnosis (ICD Code) Assessment Notes Treatment Notes Treatment Clinical Notes Section Notes 04/09/2025 Hyperlipidemia, unspecified (ICD-10 - E78.5) 04/09/2025 Chronic kidney disease, stage 2 (mild) (ICD-10 - N18.2) 05/28/2025 Hyperlipidemia, unspecified (ICD-10 - E78.5) 05/28/2025 Chronic kidney disease, stage 1 (ICD-10 - N18.1) 05/28/2025 Other proteinuria (ICD-10 - R80.8) 04/09/2025 Other proteinuria (ICD-10 - R80.8) 04/09/2025 Renal osteodystrophy (ICD-10 - N25.0) 05/28/2025 Renal osteodystrophy (ICD-10 - N25.0) 04/09/2025 Essential hypertension (ICD-10 - I10) 05/28/2025 Essential hypertension (ICD-10 - I10) 04/09/2025 Proteinuria, unspecified (ICD-10 - R80.9) 05/28/2025 Chronic obstructive pulmonary disease, unspecified (ICD-10 - J44.9) 05/28/2025 Tobacco use (ICD-10 - Z72.0) 04/09/2025 Chronic obstructive pulmonary disease, unspecified (ICD-10 - J44.9) Plan Of Treatment Pending Test Test Name Order Date PTH, INTACT AND CALCIUM (8837) COMPREHENSIVE METABOLIC PANEL (60067) URIC ACID (905) 05/28/2025 PROTEIN, TOTAL W/CREAT, RANDOM URINE (17 15) 05/28/2025 CBC (INCLUDES DIFF/PLT) (6399) URINALYSIS, COMPLETE W/REFLEX TO CULTURE (3020) 05/28/2025 URINALYSIS, COMPLETE (5863) 05/28/2025 SED RATE BY MODIFIED WESTERGREN (809) VITAMIN D,25-OH,TOTAL,IA (11094) 025 Next Appt Details Provider Name:Vishnu Molina , 10/01/2025 03:45:00 PM, [address] [facility], [facility] [address], [place], [address],
--- OUTSIDE RECORDS SUMMARY | 2025-09-06 13:18 | XMS_ITS | Clinical Summary ---
Author Organization [facility] Pavithra medina [facility] Address [address] [place] [address] Care Team Providers Care Boilermaker Mechanic Name Role Phone Ken Rocha MD Primary Care Provider Allergies No known active allergies Medications albuterol sulfate HFA 90 mcg/actuation aerosol inhaler 11/26/2022 Act julio c calcitRIOL (ROCALTROL) 0.25 mcg capsule 12/10/2022 Active ergocalciferol (VITAMIN D2) 50,000 unit capsule 12/10/2022 Active Trelegy Ellipta 100-62.5-25 mcg Disk with Device 11/26/2022 Ac tive metFORMIN (GLUCOPHAGE) 500 mg tablet 10/15/2022 Active rosuvastatin (CRESTOR) 40 mg tablet 10/31/2022 Active HYDROcodone-acetam inophen (NORCO) 10-325 mg Tablet 11/20/2022 Ac tive cyclobenzaprine (FLEXERIL) 10 mg tablet 10/15/2022 Active Active Problems No known active problems Family History Medical History Relation Name Comments Diabetes Brother Bone Cancer Father Cancer - Other Mother Bladder Cancer Sister Diabetes Sister Lung Cancer Sister Relation Name Status Comments Brother Alive Daughter Alive Father Mother Sister Alive Social History Tobacco Use Types Packs/Day Years Used Date Smoking Tobacco: Every Day Cigarettes Smokeless Tobacco: Never Tobacco Cessation:Ready to Q uit: Not Asked; Counseling Given: Not Answered Alcohol Use Standard Drinks/Week Comments Never 0 (1 standard drink = 0.6 oz pur e alcohol) Comments Unknown Sex and Gender Information Value Date Recorded Sex Assigned at Not on file Legal Sex Female 2:45 PM INFORMATION SERVICES MANAGER Gender Identity Not on file Sexual Orientation Not on file Last Filed Vital Signs Vital Sign Reading Time Taken Comments Blood Pressure 95/55 01/10/2023 3:04 PM INFORMATION SERVICES MANAGER Pulse 81 01/10/2023 3:04 PM INFORMATION SERVICES MANAGER Temperature 37.3 C (99.1 F) 01/10/2023 3:04 PM INFORMATION SERVICES MANAGER Respiratory Rate 8 01/10/2023 3:04 PM INFORMATION SERVICES MANAGER Oxygen Saturation 94% 01/10/2023 3:04 PM INFORMATION SERVICES MANAGER Inhaled Oxygen Concentration - - Weight 39.1 kg (86 lb 1.6 oz) 01/10/2023 3:04 PM INFORMATION SERVICES MANAGER Height 160 cm (5' 3) 12/11/2022 2:23 PM INFORMATION SERVICES MANAGER Body Mass Index 15.25 12/11/2022 2:23 PM INFORMATION SERVICES MANAGER Plan of Treatment Health Maintenance Due Date Last Done Comments HPV/Cotest (21-29) 1985 CERVICAL CANCER SCREENING 1994 HPV/Cotest (30-65) 1994 PAP SMEAR 1994 BREAST CANCER SCREENING 2004 COLORECTAL SCREENING 2009 Colorectal Cancer Screening 2009 FIT-DNA Q 3 years 2009 FIT/FOBT Q 1 year 2009 Flex Sig/CT Colonography Q 5 years 2009 RSV VACCINE (60+ or ) (1 - Risk 50-74 years 1-dose series) 2014 ZOSTER VACCINE (1 of 2) 2014 DTAP/TDAP/TD VACCINES (1 - Tdap) 06/15/2021 06/14/2021 INFLUENZA VACCINE (#1) 2025 08/14/2022 COVID-19 Vaccine ( season) 2025 10/03/2021, 08/20/2021, 01/21/2021, Additional history exists HEPATITIS B VACCINES Aged Out No long er eligible based on patient's age to complete this topic Insurance Care Teams Boilermaker Mechanic Relationship Specialty Start Date End Date Ken Rocha MD PCP - General Internal Medicine 12/11/22
--- OUTSIDE RECORDS SUMMARY | 2025-09-06 13:19 | XMS_ITS | Clinical Summary ---
Author Organization [facility] Address [address] [place] [address] Care Team Providers Care Tool Trouble Shooter Name Role Phone Unavailable Primary Care Provider Unavailabl e Immunizations Immunization Administration Dates Next Due Covid-19 Vaccine, Vector-nr, Rs-ad26, Pf, 0.5 Ml ([employer]) 10/03/2021 Social History Tobacco Use Types Packs/Day Years Used Date Smoking Tobacco: Never Assessed Comments Unknown Sex and Gender Information Value Date Recorded Sex Assigned at Not on file Legal Sex Female 9:54 PM CDT Gender Identity Not on file Sexual Orientation Not on file Plan of Treatment Health Maintenance Due Date Last Done Comments Hepatitis C Virus (HCV) Screening 1964 Pap Smear 1985 Cervical Cancer Screening (CCS) 1994 HPV/Cotest 1994 Cologuard 2009 Colonoscopy 2009 Colorectal Cancer Screening 2009 Immunochemical Fecal Occult Blood 2009 Pneumococcal Immunization (50+ years) (1 of 1 - PCV) 2014 Zoster Immunization (1 of 2) 2014 Influenza Immunization (#1) 2025 SARS-COV-2 Immunization ( season) 2025 10/03/2021, 08/20/2021, 01/21/2021, Additional history exists Respiratory Syncytial Virus (RSV) Immunization (Adult) (1 - 1-dose 75+ series) 2039 TdaP Immunization Completed 06/25/2020 DTaP/Tdap/Td Immunization Discontinued 06/14/2021, Hepatitis B Immunization Aged Out No longer eligible based on patient's age to complete this topic Human Papillomavirus (HPV) Immunization Aged Out No longer eligible based on patient's age to complete this topic Meningococcal Immunization (ACWY) Aged Out No longer eligible based on patient's age to complete this topic Rotavirus Immunization Aged Out No lo nger eligible based on patient's age to complete this topic
[2025-09-06] MEDS: ALBUTEROL SULFATE NEB 2.5 MG/3 ML INH 10 MG INHALATION (13:40)
--- OUTSIDE RECORDS SUMMARY | 2025-09-06 13:48 | XMS_ITS | Clinical Summary ---
Author Organization [facility] Pavithra medina [facility] Address [address] [place] [address] Care Team Providers Care Logistics Account Manager Name Role Phone Ken Rocha MD Primary [...] on file Legal Sex Female 2:45 PM ICE HOUSE SUPERVISOR Gender Identity Not on file Sexual Orientation Not on file Last Filed Vital Signs Vital Sign Reading Time Taken Comments Blood Pressure 95/55 01/10/2023 3:04 PM ICE HOUSE SUPERVISOR Pulse 81 01/10/2023 3:04 PM ICE HOUSE SUPERVISOR Temperature 37.3 C (99.1 F) 01/10/2023 3:04 PM ICE HOUSE SUPERVISOR Respiratory Rate 8 01/10/2023 3:04 PM ICE HOUSE SUPERVISOR Oxygen Saturation 94% 01/10/2023 3:04 PM ICE HOUSE SUPERVISOR Inhaled Oxygen Concentration - - Weight 39.1 kg (86 lb 1.6 oz) 01/10/2023 3:04 PM ICE HOUSE SUPERVISOR Height 160 cm (5' 3) 12/11/2022 2:23 PM ICE HOUSE SUPERVISOR Body Mass Index 15.25 12/11/2022 2:23 PM ICE HOUSE SUPERVISOR Plan of Treatment Health Maintenance Due Date [...] to complete this topic Insurance Care Teams Logistics Account Manager Relationship Specialty Start Date End Date Ken Rocha MD PCP - General Internal Medicine 12/11/22
--- OUTSIDE RECORDS SUMMARY | 2025-09-06 13:48 | XMS_ITS | Clinical Summary ---
Author Organization [facility] Address [address] [place] [address] Care Team Providers Care Bus Or Truck Garage Mechanic Name Role Phone Unavailable Primary Care Provider Unavailabl e Immunizations Immunization Administration Dates Next Due Covid-19 Vaccine, Vector-nr, Rs-ad26, Pf, 0.5 Ml ([employer]) 10/03/2021 Social History Tobacco Use Types Packs/Day [...]
--- OUTSIDE RECORDS SUMMARY | 2025-09-06 13:48 | XMS_ITS | Clinical Summary ---
Author Organization [facility] Address [address] [place] [id number] Care Team Providers Care Life Sciences Teacher Name Role Phone None, Provider Primary Care Provider Unavaila ble Social History Tobacco Use Types Packs/Day Years Used Date Smoking Tobacco: Never Assessed Comments Unknown Sex and Gender Information Value Date Recorded Sex Assigned at Not on file Legal Sex Female 2:52 PM CDT Gender Identity Not on file Sexual Orientation Not on file Plan of Treatment Health Maintenance Due Date Last Done Comments Cervical Cancer Screening Pa p Smear (Age 30 to 64) Every 3 Years 1964 Colorectal Cancer Screening Colonoscopy (10 Years) 1964 Annual Physical 1967 Hepatitis C 1982 Cervical Cancer Screening Pa p with HPV Testing (Age 30 to 64) Every 5 Years 1994 Cervical Cancer Screening wi th HPV 1994 Mammogram Screening 2004 Pneumococcal Vaccine: 50+ Years (1 of 1 - PCV) 2014 Zoster Vaccines (1 of 2) 2014 COVID-19 Vaccine ( - 2024-2 6 season) 2025 10/03/2021, 01/21/2021, 12/24/2020 Influenza Adult (#1) 2025 DTaP, Tdap and Td Vaccines ( 3 - Td or Tdap) 06/14/2031 06/14/2021, 06/25/2020 RSV Immunization or 60+ Years (1 - 1-dose 75+ series) 2039 Hepatitis A Vaccines Aged Out No long er eligible based on patient's age to complete this topic Meningococcal B Vaccine Aged Out No l onger eligible based on patient's age to complete this topic Meningococcal Vaccine Aged Out No rodolfo traci eligible based on patient's age to complete this topic RSV Immunizations Under 20 Months Aged Out No longer eligible b ased on patient's age to complete this topic Insurance [facility] Care Teams Life Sciences Teacher Relationship Specialty Start Date End Date None, Provider, PCP - General 04/10/22
[2025-09-06] MEDS: SODIUM CHLORIDE 0.9% IV 500 ML 999 ML IV CONT (14:21)
--- NOTE | 2025-09-06 16:39 | PM.IMHP ---
H&P: HPI History of Present Illness Date/Time: 09/06/25 16:39 Chief Complaint: Shortness of breath Narrative: 5-year-old female with a past medical history of COPD, tobacco abuse presents to the ED on 09/06/2025 with complaints of shortness of breath and ankle swelling. Patient states the shortness of breath and edema started 2 weeks ago when she developed a sinus infection with a nonproductive cough. Patient was on Augmentin and prednisone about 1 month ago and is erythromycin and Medrol Dosepak finished 2 weeks ago. Patient also endorses dizziness and fatigue. Her reports about a 60 lb weight loss over the past year. Patient denies chest pain, fever, nausea, vomiting or diarrhea. Initial vital signs 128/89, HR 100, respirations 25, afebrile, 86% on room air improved to 96% with 2 L nasal cannula. Labs revealed no leukocytosis, PT 15.2, sodium 126, chloride 83, carbon dioxide 38, BUN 32, creatinine 0.64, AST 161, ALT 306, proBNP is 7860. Chest x-ray shows no acute cardiopulmonary findings, hyperinflation with emphysema Review of Systems Review of Systems: All systems reviewed & are unremarkable except as noted in HPI and below PMFSH Past Medical History Medical History Neck problem bone fusion on neck Chronic obstructive pulmonary disease (COPD) Lung nodule Mildly underweight adult Recurrent pneumonia Shortness of breath Tobacco abuse Surgical History Surgical History H/O LEEP 1998 History of tubal ligation 2003 History of endometrial ablation 02/11/09 hscope d&c/novasure ablation History of dilation and curettage 02/11/09 hscope d&c/novasure ablation History of back surgery 2011 Family History Family History Sibling Chronic obstructive lung disease sister Mother Malignant tumor of urinary bladder Father Malignant neoplasm of bone Social History Social History Smoking packs per day: 1 Smoking cigarettes per day: 20.0 Years smoked: 40 Smoking pack-years: 40.00 Smoking status: Former smoker Tobacco type: cigarettes Second hand tobacco smoke exposure: Yes Smoking end date: 09/03/25 Alcohol intake: former Substance use: never Substance use type: painkillers Other substance usage details: prescrption pain pills per patient Lack of Transportation: No Lack of Food: Never True Current Housing: I Do Not Have Housing Concerned About Future Housing: No Difficulty Paying Gas/Electric Bills: No Difficulty Paying for Meds: No Currently Unemployed: No Education: Associate Degree Difficulty w/ Childcare or Family Care: No Living arrangements: with family Additional living arrangements comments: Occupation/Education: occupation 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 Gender identity (if verbalized by the patient): Female Sexual Orientation (if Verbalized by the Patient): Straight or Heterosexual Spiritual care concerns: No Meds Home Medications and Allergies Home Medications ?Medication ?Instructions ?Recorded ?Confirmed ?Type cyclobenzaprine 10 mg tablet 10 mg PO TID 02/13/22 09/06/25 History ergocalciferol (vitamin D2) 1,250 1 cap PO WEEKLY 05/13/22 09/06/25 History mcg (50,000 unit) capsule calcitriol 0.25 mcg capsule 0.25 mcg PO DAILY 02/04/23 09/06/25 History atorvastatin 40 mg tablet 40 mg PO QPM 09/06/25 09/06/25 History hydrocodone 10 mg-acetaminophen 1 tablet PO Q6H 09/06/25 09/06/25 History 325 mg tablet spironolactone 25 mg tablet 12.5 mg PO DAILY 09/06/25 09/06/25 History Allergies Allergy/AdvReac Type Severity Reaction Status Date / Time No Known Allergies Allergy Verified 09/06/25 16:34 Vital Signs Vital Signs - 24 hr 09/06/25 11:47 09/06/25 11:55 09/06/25 12:09 Temperature 98.0 F Pulse Rate 100 98 Respiratory Rate 25 H 19 Blood Pressure 128/89 Pulse Oximetry 96 96 Oxygen Delivery Nasal Cannula Nasal Cannula Oxygen Flow Rate 2 2 09/06/25 12:12 09/06/25 12:25 09/06/25 13:41 Temperature Pulse Rate 100 96 Respiratory Rate 26 H 19 Blood Pressure Pulse Oximetry 100 Oxygen Delivery Nasal Cannula Oxygen Flow Rate 2 09/06/25 14:25 09/06/25 14:42 Temperature Pulse Rate 97 Respiratory Rate 22 H Blood Pressure Pulse Oximetry 97 Oxygen Delivery Oxygen Flow Rate 2 Exam Narrative: GENERAL: non-toxic appearing, in no acute distress. HEAD: Normocephalic, atraumatic. EYES: PERRLA. Conjunctivae clear. NOSE: Normal no drainage. THROAT: Pharynx clear, no exudate. NECK: Trachea midline. No adenopathy, no masses. RESPIRATORY: Airway patent, respirations nonlabored. Decreased breath sounds throughout. On 2 L nasal cannula CARDIOVASCULAR: Regular rate and rhythm BREASTS: Defer GASTROINTESTINAL: Abdomen is soft and nontender. No organomegaly. Bowel sounds normal in all quadrants. GENITOURINARY: Defer MUSCULOSKELETAL: Moves all extremities. No gross deformities. No calf tenderness. SKIN: Warm, dry, normal color. Bilateral lower extremity edema from knees down. +2 pitting NEURO: A&O X4. Speech clear PSYCHIATRIC: Flat affect H&P: Results Labs Labs: Short CBC 09/06/25 Range/Units 12:01 WBC 8.1 (4.5-10.0) K/mm3 Hgb 14.0 (12.0-15.0) g/dL Hct 43.7 (37.0-47.0) % Plt Count 246 (150-375) k/mm3 BMP 09/06/25 12:01 Sodium 126 L Potassium 4.8 Chloride 83 L Carbon Dioxide 38 H BUN 32 H D Creatinine 0.64 L Glucose 97 Calcium 8.5 Cardiac Enzymes 09/06/25 Range/Units 12:01 Troponin I 0.013 (0.000-0.034) ng/mL Liver Function 09/06/25 Range/Units 12:01 Total Bilirubin 1.1 (0.2-1.3) mg/dL AST 161 H (14-36) U/L ALT 306 H (6-35) U/L Alkaline Phosphatase 83 (38-126) U/L Albumin 4.4 (3.5-5.1) g/dL Assessment and Plan Assessment and plan (1) Acute hypoxemic respiratory failure: Code(s): J96.01 - Acute respiratory failure with hypoxia Status: Acute Assessment and Plan: Patient with history of severe COPD presents to the ED with complaints of increased shortness of breath. Currently on no maintenance drugs for COPD but had been on trilogy in the past. Documented severe COPD in past pulmonology notes. Chest x-ray shows no acute cardiopulmonary findings, hyperinflation with emphysema -unable to obtain ABG - DuoNebs Q6H anthony - steroids: Prednisone 40 mg p.o. once in ED. methylprednisone 60 mg IV push q.6 hours scheduled -holding antibiotics as no signs of infection and recently treated for suspected pneumonia - currently requiring supplemental O2 at 2 L (2) Edema: Qualifiers: Edema type: localized Qualified Code(s): R60.0 - Localized edema Code(s): R60.9 - Edema, unspecified Status: Acute Assessment and Plan: Patient states this edema has been present for about 2 weeks. No signs of cellulitis. Concern for CHF -echo ordered. No past echo to compare to -continue home spironolactone 12.5 mg daily -compression stockings (3) Acute hyponatremia: Code(s): E87.1 - Hypo-osmolality and hyponatremia Status: Acute Assessment and Plan: Sodium 126. -500 mL NS bolus -trend electrolytes Plan Diet: Heart healthy GI prophylaxis: NA DVT prophylaxis: SCDs lines/drains: PIV Fluids: 500 mL NS bolus Code status: Full Quality VTE Prophylaxis VTE prophylaxis: mechanical ordered Hospitalist [facility] Advance Care Plan I have confirmed that the patient's Advanced Care Plan is present, code status is documented, or surrogate decision maker is listed in patient medical record.: Yes Medication Reconciliation I have utilized all available resources to obtain, update and review the patients current medications (includes all prescriptions, OTC, herbals, cannabis, and nutritional supplements).: Yes
--- NOTE | 2025-09-06 16:43 | PC.NURSE ---
Patient arrived from ER. Admission completed. Telemetry applied.
[2025-09-06] MEDS: ATORVASTATIN 40 MG TABLET PO (17:29)
[2025-09-06] MEDS: CYCLOBENZAPRINE HCL 10 MG TABLET PO (17:29)
[2025-09-06] MEDS: HYDROcodone/acetaminophen (*CRX) 10-325 MG TABLET 1 TAB PO (17:29)
--- NOTE | 2025-09-06 18:40 | PC.NURSE ---
This patient, Yoon Galvan, was received from [facility] on 09/06/25 at 1820. Patient/family oriented to unit policies and routines.
[2025-09-07] VITALS (16 sets, daily range): BP systolic 97–134; BP diastolic 65–87; PULSE 94–113; RESP 16–20; TEMP 36.1–36.9; O2SAT 91–97; BMI 17.0
--- NOTE | 2025-09-07 | ECHO_ITS ---
Patient Info Name: Yoon Galvan Age: 59 years : 1965 Gender: Female Ht: 63 in Wt: 82 lbs BSA: 1.27 m2 HR: 101 bpm BP: 111 / 75 mmHg Heart Rhythm: Sinus Rhythm Technical Quality: Poor Exam Date: 09/07/2025 9:22 AM Patient Status: I Admit Date: 09/06/2025 Exam Type: CA echo dop color flow w con Complete two-dimensional, color flow and Doppler transthoracic echocardiogram is performed with contrast to opacify the left ventricle and to improve the deliniation of the left ventricle endocardial borders. Staff Referring Physician: Fransisca Newberry MD Compensation Associate: Kevin Mulligan III Attending Provider: Timothy Barbour MD Contrast/Agitated Saline Contrast/Ag. Saline: Definity Amount: 2.00 ml Administered By: Kevin Mulligan III Existing IV Access: Yes IV Access Condition: patent with no signs of infiltration Reason for Poor Study: poor echocardiographic windows Summary 1. Poor windows. Tech used Definity to try and enhance images. [place] views, doppler data likely skewed. 2. Normal left ventricular size and systolic function. 3. Septal flattening consistent with right ventricular pressure overload. 4. Moderate to severe right ventricular enlargement with significantly reduced RV systolic function. 5. Dilated right atrium. 6. Mild tricuspid regurgitation velocity suggest at least moderate pulmonary hypertension. 7. Estimated PA systolic pressure 48 mmHg. Left Ventricle Left ventricular chamber dimension is normal. Left ventricular systolic function is normal, estimated at 65-70. The left ventricular diastolic function is normal. Right Ventricle Right ventricular chamber dimension is moderately enlarged. Right ventricular systolic function is reduced. Left Atria Left atrial chamber dimension is normal. Right Atria Right atrial chamber dimension is mildly enlarged. Aortic Valve The aortic valve is normal. Pulmonic Valve The pulmonic valve is not well visualized. Mitral Valve The mitral valve has normal leaflets. There is trace mitral valve regurgitation. Tricuspid Valve The tricuspid valve leaflets are normal. There is mild tricuspid valve regurgitation. Pericardium/Pleural The pericardium appears normal. Aorta The aortic root size at the sinus of Valsalva is normal. Left Ventricular Outflow Tract Name Value Normal LVOT 2D LVOT Diameter 2.0 cm LVOT Doppler LVOT Peak Velocity 67 cm/s LVOT Peak Gradient 2 mmHg LVOT Mean Gradient 1 mmHg LVOT VTI 10 cm LVOT VTI/AV VTI Ratio 0.7 LVOT Stroke Volume 32 ml LVOT CO 3.3 l/min LVOT CI 2.6 l/min/m2 Pulmonic Valve Name Value Normal PV Doppler PV Peak Velocity 74 cm/s PV Peak Gradient 2 mmHg PV Mean Gradient 1 mmHg Tricuspid Valve Name Value Normal TV Regurgitation Doppler TR Peak Velocity 307 cm/s TR Peak Gradient 38 mmHg Estimated PAP/RSVP RA Pressure 10 mmHg <=5 PA Systolic Pressure 48 mmHg <36 RV Systolic Pressure 48 mmHg <36 TV Annular TDI TV Lateral Kathi s' Velocity 14.4 cm/s >=9.5 Aortic Valve Name Value Normal AV Doppler AV Peak Velocity 100 cm/s AV Peak Gradient 4 mmHg AV Mean Gradient 2 mmHg AV VTI 14 cm AV Area (Cont Eq VTI) 2.3 cm2 >=3.0 AV Area (Cont Eq Ferny) 2.1 cm2 AV DI (Ferny) 0.67 AV Regurgitation 2D LVOT Area 3.2 cm2 Ventricles Name Value Normal LV Dimensions 2D/MM IVS Diastolic Thickness (2D) 0.5 cm 0.6-1.0 LVID Diastole (2D) 3.8 cm 3.8-5.2 LVIW Diastolic Thickness (2D) 0.6 cm 0.6-0.9 LVID Systole (2D) 2.5 cm 2.2-3.5 LVOT Diameter 2.0 cm LV Mass (2D Cubed) 53.57 g 67.00-162.00 LV Mass Index (2D Cubed) 42 g/m2 43-95 Relative Wall Thickness (2D) 0.33 <=0.42 LV Fractional Shortening/Ejection Fraction 2D/MM LV Fractional Shortening (2D) 35 % 27-45 LV EF (2D Teichholz) 64 % LV Diastolic Volume (4C MOD) 45 ml LV EF (4C MOD) 68 % LV Diastolic Length (4C) 7.5 cm LV Systolic Length (4C) 6.0 cm LV Stroke Volume (4C MOD) 31 ml Atria Name Value Normal LA Dimensions LA Volume (4C A-L) 37 ml RA Dimensions RA Systolic Major [place] Length (4C) 5.4 cm 2.2-2.8 RA Area (4C) 23.6 cm2 <=18.0 Report Signatures
[2025-09-07] MEDS: HYDROcodone/acetaminophen (*CRX) 10-325 MG TABLET 1 TAB PO ×5 (00:04→23:39)
[2025-09-07] MEDS: IPRATROPIUM 0.5 MG/ALBUTEROL SULFATE 2.5 MG (BASE) AMPUL.NEB 3 ML INHALATION ×4 (02:07→19:49)
[2025-09-07 05:05] LABS: Hematocrit 41.1 % (37.0-47.0); Hemoglobin 13.1 g/dL (12.0-15.0); Immature Granulocyte Percent A 0.5 % (0-0.5); Lymphocytes Absolute Auto 0.19 K/mm3 (0.9-3.2); Mean Corpuscular HGB Conc 31.9 g/dl (32-36); Mean Corpuscular Hemoglobin 29.2 pg (26-34); Mean Corpuscular Volume 91.5 fl (80-100); Nucleated Red Blood Cells Absolute Auto 0.000 K/mm3 (0.0-0.012); Nucleated Red Blood Cells Perc 0.0 % (0.0-0.2); Platelet Count Result 209 k/mm3 (150-375); Red Blood Count 4.49 M/mm3 (4.2-5.4); White Blood Count 2.1 K/mm3 (4.5-10.0)
[2025-09-07 05:29] LABS: Alanine Aminotransferase 294 U/L (6-35); Albumin Level 3.6 g/dL (3.5-5.1); Alkaline Phosphatase 67 U/L (38-126); Aspartate Amino Transferase 136 U/L (14-36); Bilirubin,Total 1.1 mg/dL (0.2-1.3); Blood Urea Nitrogen 22 mg/dL (7-17); Calcium 8.5 mg/dL (8.4-10.2); Carbon Dioxide > 40 mmol/L (22-30); Chloride 86 mmol/L (98-107); Estimated CRCL calculation 58 ml/min; Estimated Glomerular Filt Rate > 60; Glucose 104 mg/dL (65-110); Potassium 4.7 mmol/L (3.4-5.0); Sodium 126 mmol/L (137-145); Total Protein 6.0 g/dL (6.3-8.2)
--- NOTE | 2025-09-07 08:29 | P.PNIM_ITS ---
Progress Note: A&P Assessment and Plan (1) Acute hypoxemic respiratory failure: Code(s): J96.01 - Acute respiratory failure with hypoxia Status: Acute Assessment and Plan: Patient with history of severe COPD presents to the ED with complaints of increased shortness of breath. Currently on no maintenance drugs for COPD but had been on trilogy in the past. Documented severe COPD in past pulmonology notes. Chest x-ray shows no acute cardiopulmonary findings, hyperinflation with emphysema * unable to obtain ABG * DuoNebs Q6H atnhony * steroids: Prednisone 40 mg p.o. once in ED. methylprednisone 60 mg IV push q .6 hours scheduled * holding antibiotics as no signs of infection and recently treated for suspected pneumonia * currently requiring supplemental O2 at 2 L * Likely multifactorial: undiagnosed CHF, possible COPD exacerbation (2) Edema: Qualifiers: Edema type: localized Qualified Code(s): R60.0 - Localized edema Code(s): R60.9 - Edema, unspecified Status: Acute Assessment and Plan: Patient states this edema has been present for about 2 weeks. No signs of cellulitis. Concern for CHF * echo ordered. No past echo to compare to * continue home spironolactone 12.5 mg daily * compression stockings * Echo 09/07: Septal flattening consistent with RV pressure overload, moderate to severe RV enlargement with significantly reduced RV systolic function, dilated RA, mild tricuspid regurgitation suggesting at least moderate pulmonary hypertension (3) Right-sided heart failure: Code(s): I50.810 - Right heart failure, unspecified Status: Acute Assessment and Plan: * Symptoms: Shortness of breath, lower extremity swelling * BNP: 7860 * EKG: Sinus tachycardia, sinus rhythm * Chest XR: No acute cardiopulmonary findings given portable technique * Echo:mod-severe RV enlargement w/ significantly reduced RV systolic function, mild TVR suggestive of moderate Pulm HTN. Will consult cardiology for further recommendation * Monitor vital signs, I&Os, BUN/creatinine, daily weights, neuro status and patient is a fall risk * Monitor serum electrolytes, Keep serum Potassium>4 and serum Magnesium>2 and CBC * Cardio consult for further recommendations (4) Acute hyponatremia: Code(s): E87.1 - Hypo-osmolality and hyponatremia Status: Acute Assessment and Plan: * Upon admission: Na 126 * 500 mL NS bolus * trend electrolytes * On spironolactone - Na likely chronically low while on this * 09/07: Na still 126 * Will trial salt tablets as patient is fluid overloaded already Plan Diet: Heart healthy GI prophylaxis: NA DVT prophylaxis: SCDs lines/drains: PIV Fluids: 500 mL NS bolus Code status: Full Subjective Date/time seen: 09/07/25 08:29 Interval history: 59-year-old female with a past medical history of COPD, tobacco abuse presents to the ED on 09/06/2025 with complaints of shortness of breath and ankle swelling. Patient states the shortness of breath and edema started 2 weeks ago when she developed a sinus infection with a nonproductive cough. 09/07/2025 Patient sitting comfortably in bed at time of examination. Denies any chest pain or shortness of breath at this moment. Lower extremities both appear edematous, 1+ pitting edema bilaterally. She states her lower extremity swelling has greatly improved since yesterday, and that her breathing is near baseline. Echo showed mod-severe RV enlargement w/ significantly reduced RV systolic function, mild TVR suggestive of moderate pulm htn. Will consult ca rdiology for further recommendation. Review of Systems Review of Systems: All systems reviewed & are unremarkable except as noted in HPI and below Exam Narrative: GENERAL: non-toxic appearing, in no acute distress. HEAD: Normocephalic, atraumatic. EYES: PERRLA. Conjunctivae clear. NOSE: Normal no drainage. THROAT: Pharynx clear, no exudate. NECK: Trachea midline. No adenopathy, no masses. RESPIRATORY: Airway patent, respirations nonlabored. Decreased breath sounds throughout. On 2 L nasal cannula CARDIOVASCULAR: Regular rate and rhythm BREASTS: Defer GASTROINTESTINAL: Abdomen is soft and nontender. No organomegaly. Bowel sounds normal in all quadrants. GENITOURINARY: Defer MUSCULOSKELETAL: Moves all extremities. No gross deformities. No calf tenderness. SKIN: 2+ pitting edema in bilateral LE, knees down. Warm, dry, normal color. NEURO: A&O X4. Speech clear PSYCHIATRIC: Flat affect Objective Data Vital Signs Vital Signs: Vital Signs - 24 hr 09/06/25 11:47 09/06/25 11:55 09/06/25 12:09 Temperature 98.0 F Pulse Rate 100 98 Respiratory Rate 25 H 19 Blood Pressure 128/89 Pulse Oximetry 96 96 Oxygen Delivery Nasal Cannula Nasal Cannula Oxygen Flow Rate 2 2 09/06/25 12:12 09/06/25 12:25 09/06/25 13:41 Temperature Pulse Rate 100 96 Respiratory Rate 26 H 19 Blood Pressure Pulse Oximetry 100 Oxygen Delivery Nasal Cannula Oxygen Flow Rate 2 09/06/25 14:25 09/06/25 14:42 09/06/25 16:25 Temperature 97.9 F Pulse Rate 97 98 Respiratory Rate 22 H 22 H Blood Pressure 115/77 Pulse Oximetry 97 93 Oxygen Delivery Oxygen Flow Rate 2 09/06/25 18:50 09/06/25 18:54 09/06/25 20:00 Temperature Pulse Rate 92 91 Respiratory Rate Blood Pressure Pulse Oximetry 97 Oxygen Delivery Nasal Cannula Oxygen Flow Rate 2 09/06/25 20:05 09/06/25 20:15 09/06/25 20:15 Temperature Pulse Rate 88 92 Respiratory Rate 20 20 Blood Pressure Pulse Oximetry 94 Oxygen Delivery Nasal Cannula Oxygen Flow Rate 2 09/06/25 20:41 09/07/25 00:00 09/07/25 00:02 Temperature 98 F 98.2 F Pulse Rate 97 109 H 104 H Respiratory Rate 18 16 Blood Pressure 101/70 134/87 Pulse Oximetry 92 91 Oxygen Delivery Oxygen Flow Rate 09/07/25 02:08 09/07/25 02:19 09/07/25 04:00 Temperature Pulse Rate 96 100 97 Respiratory Rate 20 20 Blood Pressure Pulse Oximetry Oxygen Delivery Oxygen Flow Rate 09/07/25 04:00 09/07/25 08:06 09/07/25 08:06 Temperature 98.1 F Pulse Rate 101 H 96 Respiratory Rate 20 20 Blood Pressure 111/75 Pulse Oximetry 96 91 Oxygen Delivery Nasal Cannula Oxygen Flow Rate 2 09/07/25 08:11 Temperature Pulse Rate 96 Respiratory Rate 20 Blood Pressure Pulse Oximetry Oxygen Delivery Oxygen Flow Rate Intake/Output Intake/Output: Intake & Output 09/04/25 09/05/25 09/06/25 09/07/25 23:59 23:59 23:59 23:59 Intake Total 740 200 Output Total 600 Balance 740 -400 Meds/Results Medications: Active Medications Generic Name Dose Route Start Last Admin Trade Name Freq PRN Reason Stop Dose Admin Acetaminophen 650 mg 09/06/25 15:09 Acetaminophen 325 Mg Tablet PO Q4H PRN Mild Pain (1-3) or Fever Hydrocodone Bitart/Acetaminophen 1 tab 09/06/25 17:00 09/07/25 05:32 Hydrocodone/Acetaminophen (*Crx) 10-325 Mg Tablet PO 1 tab Q6HR ANTHONY Administration Albuterol/Ipratropium 3 ml 09/06/25 20:00 09/07/25 08:05 Ipratropium 0.5 Mg/Albuterol Sulfate 2.5 Mg (Base) Ampul.Neb 3 Ml INHALATION 3 ml Q6HRT ANTHONY Administration Atorvastatin Calcium 40 mg 09/06/25 18:00 09/06/25 17:29 Atorvastatin 40 Mg Tablet PO 40 mg QPM ANTHONY Administration Calcitriol 0.25 mcg 09/07/25 09:00 Calcitriol 0.25 Mcg Capsule PO DAILY [facility] Cyclobenzaprine HCl 10 mg 09/06/25 17:00 09/06/25 17:29 Cyclobenzaprine Hcl 10 Mg Tablet PO 10 mg TID ANTHONY Administration Methylprednisolone Sodium Succinate 60 mg 09/06/25 18:00 09/07/25 05:32 Methylprednisolone Sod Succ 125 Mg Vial IV PUSH 60 mg Q6HR ANTHONY Administration Ondansetron HCl 4 mg 09/06/25 15:09 Ondansetron Inj 4 Mg/2 Ml Vial IV PUSH Q4H PRN Nausea Perflutren Lipid Microsphere 0 ml 09/06/25 22:57 Perflutren Lipid Microspheres 1.5 Ml Vial Diluted To 10 Ml Total Volume IV PUSH 09/09/25 22:57 ONCE PRN adequate visualization Protocol Spironolactone 12.5 mg 09/07/25 09:00 Spironolactone 12.5 Mg Tablet PO DAILY [facility] Radiology Results: ITS Impressions Chest X-Ray 09/06/25 13:03 IMPRESSION: 1. No acute cardiopulmonary findings given portable technique. Labs Labs: Laboratory Results - last 24 hr 09/06/25 09/07/25 12:01 04:54 WBC 8.1 2.1 L RBC 4.72 4.49 Hgb 14.0 13.1 Hct 43.7 41.1 MCV 92.6 91.5 MCH 29.7 29.2 MCHC 32.0 31.9 L RDW 13.7 13.6 Plt Count 246 209 MPV 9.5 9.4 Immature Gran % (Auto) 0.4 0.5 Neut % (Auto) 78.7 H 89.0 H Lymph % (Auto) 12.4 L 9.1 L Fajardo % (Auto) 7.9 1.4 L Eos % (Auto) 0.1 0.0 Baso % (Auto) 0.5 0.0 L Lymph # (Auto) 1.01 0.19 L [place]ardo # (Auto) 0.6 0.0 L Eos # (Auto) 0.0 0.0 Baso # (Auto) 0.0 0.0 Abs Immat Gran (auto) 0.03 0.01 Absolute Neuts (auto) 6.4 1.9 Absolute Nucleated RBC 0.000 0.000 Nucleated RBC % 0.0 0.0 PT 15.2 H INR 1.2 APTT 25.0 Sodium 126 L 126 L Potassium 4.8 4.7 Chloride 83 L 86 L Carbon Dioxide 38 H > 40 H Anion Gap 5 BUN 32 H D 22 H D Creatinine 0.64 L 0.60 L Estim Creat Clear Calc 40 58 Estimated GFR > 60 > 60 Glucose 97 104 Calcium 8.5 8.5 Total Bilirubin 1.1 1.1 AST 161 H 136 H ALT 306 H 294 H Alkaline Phosphatase 83 67 Troponin I 0.013 NT-Pro-B Natriuret Pep 7860 H Total Protein 6.8 6.0 L Albumin 4.4 3.6 Quality VTE Prophylaxis VTE prophylaxis: mechanical ordered
[2025-09-07] MEDS: CYCLOBENZAPRINE HCL 10 MG TABLET PO ×3 (08:59→17:14)
[2025-09-07] MEDS: PERFLUTREN LIPID MICROSPHERES 1.5 ML VIAL DILUTED TO 10 ML TOTAL VOLUME IV PUSH (11:22)
--- NOTE | 2025-09-07 11:23 | IVDEFINITY ---
Prior to administration of IV Definity the patient was educated on the risks and benefits of the imaging enhancing agent including potential adverse side effects. The patient verbalized understanding. Allergies were verified. No exclusion criteria were identified and at least one of the following inclusion criteria were met: 1) physician request, 2) patient technically difficult to image (per the [place] [employer]chocardi[employer] guidelines of two or more segments not discernable within the apical view), or 3) questionable left ventricular function. ?
--- NOTE | 2025-09-07 13:01 | P.CDI_ITS ---
CDI Query Clarification Request BMI: 17.1 Nutritional Diagnostic Statement: Please refer to the comprehensive nutrition assessment for further information. If you agree with diagnosis of Severe protein calorie malnutrition related to inadequate energy intake as evidenced by pt report of weight loss, poor po intake for greater than 1 month, and NFPE findings for severe subcutaneous fat loss (cheeks, biceps) and severe muscle wasting (muslim, clavicle, shoulder). Please specify severity if known: * Mild * Moderate * Severe * Other/Unknown <Kajal Rainey RN - Last Filed: 09/07/25 13:02> Clarified Diagnosis Clarified Diagnosis: Agree with diagnosis of Severe protein calorie malnutrition - consult control officer manager <Jeffery Franks PA-C - Last Filed: 09/07/25 13:25>
--- NOTE | 2025-09-07 15:26 | PM.CNCAR ---
Assessment and Plan Assessment and plan (1) Right-sided heart failure: Code(s): I50.810 - Right heart failure, unspecified Status: Acute (2) Chronic obstructive pulmonary disease (COPD): Code(s): J44.9 - Chronic obstructive pulmonary disease, unspecified Status: Acute Plan This is a 59-year-old woman with obvious chronic lung disease which appears to be severe by exam and by chest x-ray who found on echo to have a typical findings of cor pulmonale with marked RV enlargement systolic dysfunction and findings compatible with elevated RV pressure RV pressure overload. There is obviously nothing I can do to resolve her chronic lung disease. The principal issue that needs to be answered is to rule out chronic pulmonary thromboembolic disease as and additional cause of this type of profound right ventricular dysfunction. Along those lines I will arrange for a ventilation perfusion scan to be done tomorrow which is an excellent tool for answering this question. If this suggests chronic pulmonary thromboembolic disease obviously anticoagulation needs to be recommended. Beyond this there are no specific cardiac recommendations to make. She should also undergo an evaluation to see if she qualifies for home oxygen Armani Hummel MD [facility] History of Present Illness History of Present Illness Consult date/time: 09/07/25 15:26 Reason For Visit: acute respiratory failure with hypoxia Narrative: This is a very pleasant but very unfortunate 59-year-old lady who I am seeing at the request of the hospitalist because of what appears to be clear evidence of cor pulmonale. The patient has a longstanding history of a heavy-set tobacco use who is known to have severe COPD and follows with pulmonology as well. She reports no knowledge of any cardiac problems in the past. She came to the hospital 2 days ago through the emergency room with with worsening shortness of breath. She also has some lower extremity edema which was new for her. An echocardiogram was done as part of this evaluation which demonstrates classical findings of chronic pulmonary hypertension with severe RV enlargement, septal flattening and some tricuspid insufficiency with at least moderately elevated PA pressures. Her right her left ventricle is small and compressed by the large right ventricle and there is no significant valvular disease. Her chest x-ray shows severe hyperinflation, COPD loss of lung volume and small cardiac silhouette. The echocardiographic findings have triggered this consultation for me to see her today. She does not experience any chest pain palpitations orthopnea or PND. 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 Review of Systems Constitutional: Constitutional: Reports fatigue Eyes: Eyes: Reports no additional eye complaints ENT: Reports system reviewed and no additional complaints, except as documented Cardiovascular: Cardiovascular: Reports pedal edema Respiratory: Respiratory: Reports dyspnea Gastrointestinal: Gastrointestinal: Reports no additional gastrointestinal complaints Musculoskeletal: Musculoskeletal: Reports no additional musculoskeletal complaints Integumentary/Breasts: Skin/Breast: Reports system reviewed and no additional complaints, except as docu Neurologic: Reports system reviewed and no additional complaints, except as documented Endocrine: Endocrine: Reports no additional endocrine complaints Hematologic/Lymphatic: Hematologic/Lymphatic: Reports no additional hematologic/lymphatic complaints Allergic/Immunologic: Allergic/Immunologic: Reports no additional allergic/immunologic complaints [facility] Past Medical History Medical History Neck problem bone fusion on neck Chronic obstructive pulmonary disease (COPD) Lung nodule Mildly underweight adult Recurrent pneumonia Shortness of breath Tobacco abuse Surgical History Surgical History H/O LEEP 1997 History of tubal ligation 2003 History of endometrial ablation 02/11/09 hscope d&c/novasure ablation History of dilation and curettage 02/11/09 hscope d&c/novasure ablation History of back surgery 2011 Family History Family History Sibling Chronic obstructive lung disease sister Mother Malignant tumor of urinary bladder Father Malignant neoplasm of bone Social History Social History Smoking packs per day: 1 Smoking cigarettes per day: 20.0 Years smoked: 40 Smoking pack-years: 40.00 Smoking status: Former smoker Tobacco type: cigarettes Second hand tobacco smoke exposure: Yes Smoking end date: 09/03/25 Alcohol intake: former Substance use: never Substance use type: painkillers Other substance usage details: prescrption pain pills per patient Lack of Transportation: No Lack of Food: Never True Current Housing: I Do Not Have Housing Concerned About Future Housing: No Difficulty Paying Gas/Electric Bills: No Difficulty Paying for Meds: No Currently Unemployed: No Education: Associate Degree Difficulty w/ Childcare or Family Care: No Living arrangements: with family Additional living arrangements comments: Occupation/Education: occupation 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 Gender identity (if verbalized by the patient): Female Sexual Orientation (if Verbalized by the Patient): Straight or Heterosexual Spiritual care concerns: No Meds Home Medications and Allergies Home Medications ?Medication ?Instructions ?Recorded ?Confirmed ?Type cyclobenzaprine 10 mg tablet 10 mg PO TID 02/13/22 09/06/25 History ergocalciferol (vitamin D2) 1,250 1 cap PO WEEKLY 05/13/22 09/06/25 History mcg (50,000 unit) capsule calcitriol 0.25 mcg capsule 0.25 mcg PO DAILY 02/04/23 09/06/25 History atorvastatin 40 mg tablet 40 mg PO QPM 09/06/25 09/06/25 History hydrocodone 10 mg-acetaminophen 1 tablet PO Q6H 09/06/25 09/06/25 History 325 mg tablet spironolactone 25 mg tablet 12.5 mg PO DAILY 09/06/25 09/06/25 History Allergies Allergy/AdvReac Type Severity Reaction Status Date / Time No Known Allergies Allergy Verified 09/06/25 16:34 Vital Signs Vital Signs - 24 hr 09/06/25 16:25 09/06/25 18:50 09/06/25 18:54 Temperature 36.6 C Pulse Rate 98 92 Respiratory Rate 22 H Blood Pressure 115/77 Pulse Oximetry 93 97 Oxygen Delivery Nasal Cannula Oxygen Flow Rate 2 09/06/25 20:00 09/06/25 20:05 09/06/25 20:15 Temperature Pulse Rate 91 88 92 Respiratory Rate 20 20 Blood Pressure Pulse Oximetry Oxygen Delivery Oxygen Flow Rate 09/06/25 20:15 09/06/25 20:41 09/07/25 00:00 Temperature 36.6 C Pulse Rate 97 109 H Respiratory Rate 18 Blood Pressure 101/70 Pulse Oximetry 94 92 Oxygen Delivery Nasal Cannula Oxygen Flow Rate 2 09/07/25 00:02 09/07/25 02:08 09/07/25 02:19 Temperature 36.8 C Pulse Rate 104 H 96 100 Respiratory Rate 16 20 20 Blood Pressure 134/87 Pulse Oximetry 91 Oxygen Delivery Oxygen Flow Rate 09/07/25 04:00 09/07/25 04:00 09/07/25 08:00 Temperature 36.7 C 36.1 C L Pulse Rate 97 101 H 105 H Respiratory Rate 20 20 Blood Pressure 111/75 100/70 Pulse Oximetry 96 97 Oxygen Delivery Oxygen Flow Rate 09/07/25 08:00 09/07/25 08:00 09/07/25 08:06 Temperature Pulse Rate 96 94 Respiratory Rate 20 Blood Pressure Pulse Oximetry 91 91 Oxygen Delivery Nasal Cannula Nasal Cannula Oxygen Flow Rate 2 2 09/07/25 08:06 09/07/25 08:11 09/07/25 12:00 Temperature 36.4 C L Pulse Rate 96 96 104 H Respiratory Rate 20 20 20 Blood Pressure 100/70 Pulse Oximetry 97 Oxygen Delivery Oxygen Flow Rate 09/07/25 12:00 09/07/25 14:28 09/07/25 14:34 Temperature Pulse Rate 113 H 103 H 99 Respiratory Rate 20 20 Blood Pressure Pulse Oximetry Oxygen Delivery Oxygen Flow Rate Exam Const: General: comfortable Other: Thin chronically ill rather cachectic appearing woman BMI 17 HENMT: Mouth: Yes moist mucous membranes Eyes: Sclera: sclerae normal Neck: Neck: supple Other: JVD about 3 cm above the angle of Baltazar with the patient at 45? Resp: Effort & Inspection: normal respiratory effort Other: Breath sounds are markedly diminished in both lung calero Cardio: Rate: regular rate Rhythm: regular rhythm Other: Right parasternal lift is noted no obvious murmur GI: GI Palp: Yes Soft to palpation Auscultation: normal bowel sounds Skin: General skin exam: normal color Neuro: Other: Intact normal cognition Extrem: Other: Minimal peripheral edema Results Labs and Meds 09/07/25 04:54 09/07/25 04:54 Lab results: Cardiac Enzymes 09/07/25 Range/Units 04:54 AST 136 H (14-36) U/L CBC 09/07/25 Range/Units 04:54 WBC 2.1 L (4.5-10.0) K/mm3 RBC 4.49 (4.2-5.4) M/mm3 Hgb 13.1 (12.0-15.0) g/dL Hct 41.1 (37.0-47.0) % Plt Count 209 (150-375) k/mm3 Lymph # (Auto) 0.19 L (0.9-3.2) K/mm3 [place] # (Auto) 0.0 L (0.1-0.6) K/mm3 Eos # (Auto) 0.0 (0-0.3) K/mm3 Baso # (Auto) 0.0 (0.0-0.1) K/mm3 Comprehensive Metabolic Panel 09/07/25 Range/Units 04:54 Sodium 126 L (137-145) mmol/L Potassium 4.7 (3.4-5.0) mmol/L Chloride 86 L (98-107) mmol/L Carbon Dioxide > 40 H (22-30) mmol/L BUN 22 H D (7-17) mg/dL Creatinine 0.60 L (0.7-1.0) mg/dL Glucose 104 (65-110) mg/dL Calcium 8.5 (8.4-10.2) mg/dL AST 136 H (14-36) U/L ALT 294 H (6-35) U/L Alkaline Phosphatase 67 (38-126) U/L Total Protein 6.0 L (6.3-8.2) g/dL Albumin 3.6 (3.5-5.1) g/dL Intake and Output 09/06/25 09/07/25 09/07/25 23:59 07:59 15:59 Intake Total 240 200 480 Output Total 600 Balance 240 -400 480 Intake: Oral 240 200 480 Output: Urine 600 Other: # Unmeasured Voids 1 Patient Weight 09/07/25 23:59 Weight 43.7 kg
[2025-09-07] MEDS: SODIUM CHLORIDE 500 MG TABLET PO (17:14)
[2025-09-07] MEDS: ATORVASTATIN 40 MG TABLET PO (17:14)
[2025-09-08] VITALS (16 sets, daily range): BP systolic 102–110; BP diastolic 62–73; PULSE 90–116; RESP 16–27; TEMP 36.1–36.6; O2SAT 90–98
[2025-09-08] MEDS: IPRATROPIUM 0.5 MG/ALBUTEROL SULFATE 2.5 MG (BASE) AMPUL.NEB 3 ML INHALATION ×4 (01:28→19:17)
[2025-09-08] MEDS: HYDROcodone/acetaminophen (*CRX) 10-325 MG TABLET 1 TAB PO ×3 (05:31→17:18)
[2025-09-08] MEDS: SODIUM CHLORIDE 500 MG TABLET PO ×2 (09:02→17:18)
[2025-09-08] MEDS: CYCLOBENZAPRINE HCL 10 MG TABLET PO ×3 (09:02→17:18)
--- NOTE | 2025-09-08 09:10 | P.PNIM_ITS ---
Progress Note: A&P Assessment and Plan (1) Acute respiratory failure with hypoxia and hypercapnia: Code(s): J96.01 - Acute respiratory failure with hypoxia; J96.02 - Acute respiratory failure with hypercapnia Status: Acute Assessment and Plan: Patient with history of severe COPD presents to the ED with complaints of increased shortness of breath. Currently on no maintenance drugs for COPD but had been on Trelegy in the past. Documented severe COPD in past pulmonology notes. Has not seen pulmonology in 2 years. - currently requiring 1L NC to maintain spO2> 88%. Now starting BiPAP due to ABG with respiratory acidosis. -Chest x-ray shows no acute cardiopulmonary findings, hyperinflation with emphysema - CTA chest no PE, severe emphysema, small effusions - ABG - home O2 eval - pulmonology consulted - recommended to transition to PO prednisone, continue Duonebs. Start BiPAP. -holding antibiotics as no signs of infection and recently treated for suspected pneumonia (2) Edema: Qualifiers: Edema type: localized Qualified Code(s): R60.0 - Localized edema Code(s): R60.9 - Edema, unspecified Status: Acute Assessment and Plan: Patient states this edema has been present for about 2 weeks. No signs of cellulitis. Concern for CHF -Echo 09/07: Normal systolic function. Septal flattening consistent with RV pressure overload, moderate to severe RV enlargement with significantly reduced RV systolic function, dilated RA, mild tricuspid regurgitation suggesting at least moderate pulmonary hypertension - holding Aldactone due to hyponatremia -compression stockings - cardiology following - VQ scan with high probability, but CTA negative for acute PE (3) Right-sided heart failure: Code(s): I50.810 - Right heart failure, unspecified Status: Acute Assessment and Plan: -Symptoms: Shortness of breath, lower extremity swelling -BNP: 7860 -EKG: Sinus tachycardia, sinus rhythm -Chest XR: No acute cardiopulmonary findings given portable technique -Echo:mod-severe RV enlargement w/ significantly reduced RV systolic function, mild TVR suggestive of moderate Pulm HTN. Will consult cardiology for further recommendation - cardiology consulted, appreciate recs (4) Acute hyponatremia: Code(s): E87.1 - Hypo-osmolality and hyponatremia Status: Acute Assessment and Plan: -Upon admission: Na 126. Received small fluid bolus with no improvement. - check urine Na/osm -suspect multifactorial in setting of poor PO intake, diuretic use -started salt tabs 09/07 with improvement to 131 - monitor BMP (5) Elevated LFTs: Code(s): R79.89 - Other specified abnormal findings of blood chemistry Status: Acute Assessment and Plan: - AST 119, ALT 321. Alk phos and tbili WNL. - denied abdominal pain - check RUQ US, hepatitis panel - hold statin Plan Diet: Heart healthy DVT prophylaxis: SCDs, Lovenox Code status: Full Dispo: home in 1-2 days pending work-up Subjective Date/time seen: 09/08/25 09:10 Interval history: 59-year-old female with a past medical history of COPD, tobacco abuse presents to the ED on 09/06/2025 with complaints of shortness of breath and ankle swelling. Patient states the shortness of breath and edema started 2 weeks ago when she developed a sinus infection with a nonproductive cough. Patient seen and examined at bedside. Breathing feels improved. Admits to poor PO intake. Review of Systems Review of Systems: All systems reviewed & are unremarkable except as noted in HPI and below Exam Narrative: General: NAD, frail Eyes: EOMI ENT: neck supple Cardiovascular: Regular rate and rhythm Respiratory: breath sounds diminished bilaterally, but otherwise clear Gastrointestinal: Soft, non tender Genitourinary: no suprapubic tenderness Musculoskeletal: trace BLE edema Skin: warm, dry Neuro: Alert. Psych: Mood appropriate Objective Data Vital Signs Vital Signs: Vital Signs - 24 hr 09/07/25 12:00 09/07/25 12:00 09/07/25 14:28 Temperature 97.5 F L Pulse Rate 104 H 113 H 103 H Respiratory Rate 20 20 Blood Pressure 100/70 Pulse Oximetry 97 Oxygen Delivery Oxygen Flow Rate Fraction of Inspired Oxygen 09/07/25 14:34 09/07/25 16:00 09/07/25 19:49 Temperature 98.0 F Pulse Rate 99 101 H 101 H Respiratory Rate 20 18 20 Blood Pressure 97/65 L Pulse Oximetry 93 Oxygen Delivery Oxygen Flow Rate Fraction of Inspired Oxygen 09/07/25 19:51 09/07/25 20:01 09/07/25 22:36 Temperature 98.4 F Pulse Rate 101 H 102 H 103 H Respiratory Rate 20 20 16 Blood Pressure 102/67 Pulse Oximetry 97 96 Oxygen Delivery Nasal Cannula Oxygen Flow Rate 2 Fraction of Inspired Oxygen 09/08/25 00:25 09/08/25 01:28 09/08/25 01:37 Temperature 97.9 F Pulse Rate 108 H 110 H 105 H Respiratory Rate 16 20 20 Blood Pressure 105/69 Pulse Oximetry 97 Oxygen Delivery Oxygen Flow Rate Fraction of Inspired Oxygen 09/08/25 06:00 09/08/25 07:29 09/08/25 07:29 Temperature 97.7 F Pulse Rate 108 H 109 H Respiratory Rate 16 20 Blood Pressure 110/73 Pulse Oximetry 98 90 Oxygen Delivery Nasal Cannula Oxygen Flow Rate 2 Fraction of Inspired Oxygen 09/08/25 07:37 09/08/25 08:00 Temperature 97.6 F Pulse Rate 111 H 110 H Respiratory Rate 20 16 Blood Pressure 102/63 Pulse Oximetry 96 Oxygen Delivery Oxygen Flow Rate Fraction of Inspired Oxygen Intake/Output Intake/Output: Intake & Output 09/05/25 09/06/25 09/07/25 09/08/25 23:59 23:59 23:59 23:59 Intake Total 740 1160 600 Output Total 1000 2400 Balance 740 160 -1800 Meds/Results Medications: Active Medications Generic Name Dose Route Start Last Admin Trade Name Freq PRN Reason Stop Dose Admin Acetaminophen 650 mg 09/06/25 15:09 Acetaminophen 325 Mg Tablet PO Q4H PRN Mild Pain (1-3) or Fever Hydrocodone Bitart/Acetaminophen 1 tab 09/06/25 17:00 09/08/25 05:31 Hydrocodone/Acetaminophen (*Crx) 10-325 Mg Tablet PO 1 tab Q6HR JOANN Administration Albuterol/Ipratropium 3 ml 09/06/25 20:00 09/08/25 07:28 Ipratropium 0.5 Mg/Albuterol Sulfate 2.5 Mg (Base) Ampul.Neb 3 Ml INHALATION 3 ml Q6HRT JOANN Administration Atorvastatin Calcium 40 mg 09/06/25 18:00 09/07/25 17:14 Atorvastatin 40 Mg Tablet PO 40 mg QPM JOANN Administration Calcitriol 0.25 mcg 09/07/25 09:00 09/08/25 09:02 Calcitriol 0.25 Mcg Capsule PO 0.25 mcg DAILY JOANN Administration Cyclobenzaprine HCl 10 mg 09/06/25 17:00 09/08/25 09:02 Cyclobenzaprine Hcl 10 Mg Tablet PO 10 mg TID JOANN Administration Methylprednisolone Sodium Succinate 60 mg 09/06/25 18:00 09/08/25 05:31 Methylprednisolone Sod Succ 125 Mg Vial IV PUSH 60 mg Q6HR JOANN Administration Ondansetron HCl 4 mg 09/06/25 15:09 Ondansetron Inj 4 Mg/2 Ml Vial IV PUSH Q4H PRN Nausea Sodium Chloride 500 mg 09/07/25 17:00 09/08/25 09:02 Sodium Chloride 500 Mg Tablet PO 500 mg BID JOANN Administration Spironolactone 12.5 mg 09/07/25 09:00 09/08/25 09:02 Spironolactone 12.5 Mg Tablet PO 12.5 mg DAILY JOANN Administration Radiology Results: ITS Impressions Chest X-Ray 09/06/25 13:03 IMPRESSION: 1. No acute cardiopulmonary findings given portable technique. Quality VTE Prophylaxis VTE prophylaxis: mechanical ordered
--- NOTE | 2025-09-08 09:52 | P.PNCA_ITS ---
Progress Note: A&P Assessment and Plan (1) Right-sided heart failure: Code(s): I50.810 - Right heart failure, unspecified Status: Acute Assessment and Plan: * echo demonstrated normal LV systolic and diastolic function with moderate to severe RV enlargement and RV systolic dysfunction with mild TR and moderate pulmonary HTN. Septal flattening consistent with RV pressure overload noted * VQ scan is pending to r/o CTEPH * if noted will need AC * on aldactone 12.5 mg daily * no other cardiac recommendations at this time as this is most likley all related to her severe COPD (2) Acute hyponatremia: Code(s): E87.1 - Hypo-osmolality and hyponatremia Status: Acute Assessment and Plan: * persistent with sodium of 126 yesterday up to 131 today-monitor * s/p IVF with persistent hyponatremia * may be r/t RV volume overload and could consider trial of diuretic therapy * renal consult may be helpful in managing (3) Chronic obstructive pulmonary disease (COPD): Code(s): J44.9 - Chronic obstructive pulmonary disease, unspecified Status: Acute Assessment and Plan: * severe pulmonary is following (4) Tobacco abuse: Code(s): Z72.0 - Tobacco use Status: Acute Assessment and Plan: * cessation is encouraged (5) Elevated LFTs: Code(s): R79.89 - Other specified abnormal findings of blood chemistry Status: Acute Assessment and Plan: * noted on admission * remain elevated may represent hepatic congestion * will trend * management per primary team Subjective Date/time seen: 09/08/25 09:52 Interval history: Date of Service 09/08/25: Patient is sitting up in bed, her is at the bedside. No c/o any chest pain. Chronic SOB, but no worsening. No dizziness or palpitations. Review of Systems Review of Systems: All systems reviewed & are unremarkable except as noted in HPI and below Exam Const: General: comfortable and no acute distress Eyes: General: appearance normal, both eyes and all related structures Neck: Neck: supple and No no JVD Resp: Effort & Inspection: normal respiratory effort Auscultation: diminished lung sounds Cardio: Rate: regular rate Rhythm: regular rhythm Heart sounds: no gallops, no murmurs and no rubs Skin: General skin exam: normal color and no erythema Neuro: Speech: normal speech Extrem: General: edema Psych: Mental Status: mental status grossly normal Objective Data Vital Signs Vital Signs: Vital Signs - 24 hr 09/07/25 12:00 09/07/25 12:00 09/07/25 14:28 Temperature 36.4 C L Pulse Rate 104 H 113 H 103 H Respiratory Rate 20 20 Blood Pressure 100/70 Pulse Oximetry 97 Oxygen Delivery Oxygen Flow Rate Fraction of Inspired Oxygen 09/07/25 14:34 09/07/25 16:00 09/07/25 19:49 Temperature 36.7 C Pulse Rate 99 101 H 101 H Respiratory Rate 20 18 20 Blood Pressure 97/65 L Pulse Oximetry 93 Oxygen Delivery Oxygen Flow Rate Fraction of Inspired Oxygen 09/07/25 19:51 09/07/25 20:01 09/07/25 22:36 Temperature 36.9 C Pulse Rate 101 H 102 H 103 H Respiratory Rate 20 20 16 Blood Pressure 102/67 Pulse Oximetry 97 96 Oxygen Delivery Nasal Cannula Oxygen Flow Rate 2 Fraction of Inspired Oxygen 28 09/08/25 00:25 09/08/25 01:28 09/08/25 01:37 Temperature 36.6 C Pulse Rate 108 H 110 H 105 H Respiratory Rate 16 20 20 Blood Pressure 105/69 Pulse Oximetry 97 Oxygen Delivery Oxygen Flow Rate Fraction of Inspired Oxygen 09/08/25 06:00 09/08/25 07:29 09/08/25 07:29 Temperature 36.5 C Pulse Rate 108 H 109 H Respiratory Rate 16 20 Blood Pressure 110/73 Pulse Oximetry 98 90 Oxygen Delivery Nasal Cannula Oxygen Flow Rate 2 Fraction of Inspired Oxygen 09/08/25 07:37 09/08/25 08:00 Temperature 36.4 C Pulse Rate 111 H 110 H Respiratory Rate 20 16 Blood Pressure 102/63 Pulse Oximetry 96 Oxygen Delivery Oxygen Flow Rate Fraction of Inspired Oxygen Intake/Output Intake/Output: Intake & Output 09/05/25 09/06/25 09/07/25 09/08/25 23:59 23:59 23:59 23:59 Intake Total 740 1160 600 Output Total 1000 2400 Balance 740 160 -1800 Meds/Results Medications: Active Medications Generic Name Dose Route Start Last Admin Trade Name Freq PRN Reason Stop Dose Admin Acetaminophen 650 mg 09/06/25 15:09 Acetaminophen 325 Mg Tablet PO Q4H PRN Mild Pain (1-3) or Fever Hydrocodone Bitart/Acetaminophen 1 tab 09/06/25 17:00 09/08/25 05:31 Hydrocodone/Acetaminophen (*Crx) 10-325 Mg Tablet PO 1 tab Q6HR JOANN Administration Albuterol/Ipratropium 3 ml 09/06/25 20:00 09/08/25 07:28 Ipratropium 0.5 Mg/Albuterol Sulfate 2.5 Mg (Base) Ampul.Neb 3 Ml INHALATION 3 ml Q6HRT JOANN Administration Atorvastatin Calcium 40 mg 09/06/25 18:00 09/07/25 17:14 Atorvastatin 40 Mg Tablet PO 40 mg QPM JOANN Administration Calcitriol 0.25 mcg 09/07/25 09:00 09/08/25 09:02 Calcitriol 0.25 Mcg Capsule PO 0.25 mcg DAILY JOANN Administration Cyclobenzaprine HCl 10 mg 09/06/25 17:00 09/08/25 09:02 Cyclobenzaprine Hcl 10 Mg Tablet PO 10 mg TID JOANN Administration Methylprednisolone Sodium Succinate 60 mg 09/06/25 18:00 09/08/25 05:31 Methylprednisolone Sod Succ 125 Mg Vial IV PUSH 60 mg Q6HR JOANN Administration Ondansetron HCl 4 mg 09/06/25 15:09 Ondansetron Inj 4 Mg/2 Ml Vial IV PUSH Q4H PRN Nausea Sodium Chloride 500 mg 09/07/25 17:00 09/08/25 09:02 Sodium Chloride 500 Mg Tablet PO 500 mg BID JOANN Administration Spironolactone 12.5 mg 09/07/25 09:00 09/08/25 09:02 Spironolactone 12.5 Mg Tablet PO 12.5 mg On Hold: 09/08/25 09:16 DAILY JOANN Administration Radiology Results: ITS Impressions Chest X-Ray 09/06/25 13:03 IMPRESSION: 1. No acute cardiopulmonary findings given portable technique.
[2025-09-08 10:14] LABS: Hematocrit 35.6 % (37.0-47.0); Hemoglobin 11.0 g/dL (12.0-15.0); Immature Granulocyte Percent A 0.6 % (0-0.5); Lymphocytes Absolute Auto 0.14 K/mm3 (0.9-3.2); Mean Corpuscular HGB Conc 30.9 g/dl (32-36); Mean Corpuscular Hemoglobin 28.9 pg (26-34); Mean Corpuscular Volume 93.7 fl (80-100); Nucleated Red Blood Cells Absolute Auto 0.000 K/mm3 (0.0-0.012); Nucleated Red Blood Cells Perc 0.0 % (0.0-0.2); Platelet Count Result 209 k/mm3 (150-375); Red Blood Count 3.80 M/mm3 (4.2-5.4); White Blood Count 4.7 K/mm3 (4.5-10.0)
--- NOTE | 2025-09-08 10:16 | PM.CNPUL ---
Assessment and Plan Assessment and plan (1) Chronic obstructive pulmonary disease (COPD): Code(s): J44.9 - Chronic obstructive pulmonary disease, unspecified Status: Acute Assessment and Plan: GOLD grade 3 group E COPD patient with a 60 pack year tobacco use, quit 09/03/2025. Alpha 1 anti trypsin MM on 09/17/2018. PFTs on 10/13/2018 with an FEV1 of 0.96 L, 41% predicted. FEV1: FVC ratio 33%. No bronchodilator response. Hyperinflation. Mildly decreased DLCO that normalized when adjusted for alveolar volume. CT scan of the chest on 09/08/2025 with severe centrilobular emphysema throughout all lung calero with small bilateral pleural effusions. She has not been on home oxygen but was going to be tested for this in 2022 by her outside rampman. Blood gas 10/13/2018 7.42/38/63 on room air. Had been maintained on trelegy inhaler until 1 year ago and has been on no maintenance or rescue albuterol inhaler since then. 09/06/2025: White blood cell 8.1, eosinophils 0.1% equals 8 per micro L. 12/11/2022 white blood cell count 9.4, eosinophils 1.3% = 122 per micro L. echocardiogram 09/07/2025 with normal LVEF, normal LV diastolic function. Septal flattening consistent with RV pressure overload. RV is moderately to severely enlarged with decreased function. Right atrium is mildly enlarged. Mild tricuspid regurg. 09/06/2025 patient presents with COPD exacerbation and bilateral lower extremity swelling. She has been treated for COPD exacerbation with IV steroids, bronchodilators. and has improved. 09/08/2025: The patient is doing much better today. She says that she is 80% back to her normal. She is walking around the room and her says that her dyspnea on exertion is much improved. Her dry cough is better, her wheezing has improved and her swelling has resolved. White blood cell count 4.7, creatinine 0.63 TSH 0.85. Procalcitonin 0.1, BNP 4640. When I enter the room the patient was on 2 L nasal cannula saturations 96%. I turned her to room air and after 7 minutes her saturations were 88%. I placed her on 1 L nasal cannula her saturations were 94%. Patient had a V/Q scan which was high probability and had a CT angiogram of the chest showed no PE, severe centrilobular emphysema throughout all lung calero with no evidence of pneumonia, small bilateral pleural effusions. no interstitial lung disease. Plan: patient has no wheezing today and I will change her Solu-Medrol to prednisone 40 mg p.o. q.day. I will continue DuoNebs at q.6 hours. Her procalcitonin is 0.1 and she has no evidence of bacterial infection and I agree with no antibiotics at this time. I will check a COVID, influenza RSV swab. I will check a respiratory pathogen panel. Smoking cessation counseling was provided. Will follow with you. (2) Acute hypoxemic respiratory failure: Code(s): J96.01 - Acute respiratory failure with hypoxia Status: Acute Assessment and Plan: Blood gas 10/13/2018 7.42/38/63 on room air. Patient was followed by rampman a [facility] wanted to test her for supplemental oxygen in 2022 but this was never completed. 09/07/25: Currently patient is requiring 1 L nasal cannula saturations 94%. Plan: I will check an ABG on 1 L to assess for hypercarbic respiratory failure. Goal saturation 90-94% and will wean accordingly. I will perform overnight oximetry on room air to determine if she qualifies for oxygen at night. (3) Right-sided heart failure: Code(s): I50.810 - Right heart failure, unspecified Status: Acute Assessment and Plan: Patient with GOLD grade 3 group B COPD, currently is having a COPD exacerbation with hypoxemic respiratory failure, no evidence of LV dysfunction or diastolic dysfunction, normal TSH and free T4. She presents with bilateral pedal edema, small bilateral pleural effusions and elevated BNP. High probability V/Q scan with CT angiogram of the chest is negative for PE. Etiology of right heart failure includes COPD, COPD exacerbation, chronic hypoxemic respiratory failure. Plan: Will optimize treatment for COPD as above, correct her chronic hypoxemic respiratory failure as above and assess for chronic hypercarbic respiratory failure as above. patient is lower extremity edema has resolved with correction of her sodium, Gian hose and treatment of COPD exacerbation without any Lasix. Will follow patient clinically and consider outpatient sleep study in the future. (4) Former smoker: Code(s): Z87.891 - Personal history of nicotine dependence Status: Acute Assessment and Plan: Patient was 60 pack year tobacco use, quit 09/03/2025. CT scan of the chest 09/07/2025 with no concerning nodules or masses. Plan: Patient should have a yearly low-dose CT scan next on 09/07/2026. History of Present Illness History of Present Illness Consult date: 09/08/25 Chief complaint: acute respiratory failure with hypoxia Narrative: 09/08/2025: This is a new pulmonary consult for severe COPD with cor pulmonale I will and acute respiratory failure. Patient was previously followed in the Pulmonary Clinic in last seen on 06/07/2022: This is a copy of the note 5 month follow-up regarding COPD. Patient went to the express car earlier this month regarding dyspnea. CXR showed no acute CP process. Was given neb tx, doxycycline, and pred taper. She was treated previously before this by PCP, felt medication did not help. She reports sharp stabbing pains, pain on inspiration during that time; symptoms seem to mimic pleurisy and she felt better after high dose pred taper given by express care. She reports today with improving symptoms. Pain has greatly improved. Breathing and cough is better, She reports she also quit smoking 2 months ago and reports improvement with chest congestion and less rattling. She is maintained on Trelegy. Doing well with this. BP is low today. She reports is has been low lately. Recommend to start tracking daily at home and report to PCP is persistently below 100/60. Denies syncope, headache, dizziness. She is due for f/u CT next month, however, her insurance says she has to pay her deductible which is $1000 to have it done. CAT score 10/20, was 20 last visit so improvement. Weight 90 lb. Room air saturation 94% decreased breath sounds Assessment and plan: COPD: Continue tripod and rescue albuterol, recommend Acapella device or flutter valve, follow-up 6 months. Low BMI, increase diet. Former smoker: Quit 2 months ago. Low-dose CT scan 01/02/2022 bilateral upper lobe nodules measuring 3 mm or less. There is a new 5 mm right upper lobe nodule. Moderate to severe emphysema. No endobronchial lesions. Repeat CT scan in 1 month. patient smoked tobacco from age 19 to 09/03/2025 at 1 and half packs per day for total of 60 pack years. Patient was exposed to secondhand smoke from both of her parents and from her current until 09/06/2025. Patient denies vaping, illicit drug use, sand blasting, welding, asbestos work, professional painting, steel horizontal boring mill operator, senior construction project manager, or coal mining. 1-2 months ago patient felt well and she could walk half a block and would have to stop for dyspnea on exertion. One year ago she could walk 1 block. At baseline she has a dry cough, daily wheezes with no phlegm and no hemoptysis. Patient's physicians are [facility] at [facility] and she started to see pulmonology at [facility] in [address] Sanchez in 2022. at that time he wanted to do testing to to see if she required oxygen. She had been on trilogy inhaler through him but this ran out approximately 1 year and she has not followed up with Dr. Sanchez. 08/03/2025: Patient developed nasal congestion, body aches, fatigue and worsening shortness of breath and called her PCP 0 prescribed her antibiotics. She does not know the name of the antibiotics. She developed a facial rash and was then prescribed prednisone and a Z-Dewey. After she finished this she recovered back to her baseline. But off of the prednisone and the Z-Dewey she began to get sick again on approximately 08/25/2025. 08/25/2025 the patient noted worse breathing with no fever, chills, cough, phlegm production or hemoptysis. She had wheezing and bilateral feet swelling. She had rest and worsening dyspnea on exertion. Her symptoms progressed and patient presented to the emergency room on 09/06/2025. 09/06/2025 in the emergency room Her blood pressure was 128/89, heart rate 100, respirations 25 and on to room air her saturations were 89% and she was placed on 2 L nasal cannula with saturations 96%. she had decreased breath sounds but no wheezes were documented. White blood cell count was 8.1 with eosinophils 0.1%. Her creatinine was 0.64. sodium was 126. Her BNP was 7860. Her chest x-ray showed hyperexpansion but no focal infiltrates. They were unable to obtain an ABG after 3 attempts. Patient was treated for COPD exacerbation with Solu-Medrol and DuoNebs. 09/07/25: patient improved. On 2 L nasal cannula saturations were 90%. White blood cell count 4.6, creatinine 0.64. Echocardiogram showed poor windows. LVEF was 65-70%. left ventricular diastolic function was normal. Right ventricular size was moderately enlarged with reduced function. Right atrial dimension was enlarged. Left atrium was normal. Normal aortic valve. Trace mitral regurg. Mild tricuspid regurg with PASP of 48. 09/08/2025: The patient is doing much better today. She says that she is 80% back to her normal. She is walking around the room and her says that her dyspnea on exertion is much improved. Her dry cough is better, her wheezing has improved and her swelling has resolved. White blood cell count 4.7, creatinine 0.63 TSH 0.85. Procalcitonin 0.1, BNP 4640. When I enter the room the patient was on 2 L nasal cannula saturations 96%. I turned her to room air and after 7 minutes her saturations were 88%. I placed her on 1 L nasal cannula her saturations were 94%. DATA: 09/08/25: EXAMINATION: CTA chest PE protocol INDICATION: Hypoxia. COMPARISON: Chest CT 12/19/2022 FINDINGS: There is severe emphysema. A calcified right lung nodule and calcified right hilar lymph nodes are consistent with old granulomatous disease. There are small pleural effusions. The heart size is normal. There are coronary artery calcifications. No pericardial effusion. There is no pulmonary embolus. Calcifications in the liver and spleen are consistent with old granulomatous disease. There are changes of anterior fusion procedure in cervical spine. There is mild thoracic spondylosis. IMPRESSION: 1. No pulmonary embolus. 2. Severe emphysema. 3. Small pleural effusions. 09/08/25: EXAMINATION: NM lung vent and perfusion INDICATION: Severe right ventricular failure and COPD. COMPARISON: CT dated 12/19/2022 and chest radiograph dated 09/06/2025 FINDINGS: There is homogeneous radiotracer activity throughout the lungs on the single breath ventilation sequence. There is significant retention of activity diffusely throughout both lungs on the washout images consistent with provided history of COPD. There is a marked heterogeneous pattern of activity on the perfusion images with large perfusion defects at the superior segment and posterior basilar segment of the left lower lobe and anterobasilar segment of the right lower lobe. Multiple additional small to moderate-sized perfusion defects in each of the remaining lobes of both lungs. IMPRESSION: 1. Multiple perfusion defects involving all lobes of both lungs including large perfusion defects at the superior segment and posterior basilar segment of the left lower lobe and the anterior basilar segment of the right lower lobe. Perfusion imaging contributed alone would be consistent with a high probability for pulmonary embolism. There is however diffuse abnormal retention of activity on the washout images consistent with COPD which would render assessment formally nondiagnostic. 09/07/2025: Echo Summary 1. Poor windows. Tech used Definity to try and enhance images. [place] views, doppler data likely skewed. 2. Normal left ventricular size and systolic function. 3. Septal flattening consistent with right ventricular pressure overload. 4. Moderate to severe right ventricular enlargement with significantly reduced RV systolic function. 5. Dilated right atrium. 6. Mild tricuspid regurgitation velocity suggest at least moderate pulmonary hypertension. 7. Estimated PA systolic pressure 48 mmHg. Right Ventricle Right ventricular chamber dimension is moderately enlarged. Right ventricular systolic function is reduced. Right Atria Right atrial chamber dimension is mildly enlarged. 12/19/2022: EXAMINATION: CT chest abdomen pelvis w con DATE: 12/19/2022 12:59 INDICATION: Shortness of breath and abdominal pain, weight loss TECHNIQUE: Transaxial computed tomographic images of the chest, abdomen, and pelvis were obtained after the administration of 85 cc of Omnipaque 350 intravenous contrast. The dose-length product (DLP) was 235.51 mGy-cm. Automated exposure control and iterative reconstruction technique were employed. COMPARISON: 01/01/2022 FINDINGS: CHEST CT: There is moderate emphysema. A stable 5 mm nodule is present in the right upper lobe. Additional stable pulmonary nodules measure up to 3 mm. The lungs are free of acute opacities. No pleural effusion or pneumothorax. Calcified pulmonary nodules and calcified right hilar No pathologically enlarged thoracic lymph nodes are identified. The heart size is normal. There is calcified coronary artery atherosclerosis. lymph nodes are consistent with old granulomatous disease. There are partially imaged changes of anterior fusion in the lower cervical spine. ABDOMEN/PELVIS CT: The mildly dilated common bile duct measures up to 8 mm. There is mild intrahepatic biliary dilatation. Punctate calcifications in otherwise normal appearing liver and spleen likely represent healed granulomatous disease. The pancreas, gallbladder, and adrenal glands are normal. The kidneys are unremarkable. There is calcified atherosclerosis of the aorta and many of the other arteries. No pathologically enlarged abdominal or pelvic lymph nodes are identified. A large volume of colonic stool is present. There are changes of anterior and posterior fusion at L5-S1. IMPRESSION: 1. Moderate emphysema with stable pulmonary nodules. 2. Mild intrahepatic and extrahepatic biliary dilatation of unclear etiology. 3. Constipation. 01/01/2022: EXAMINATION: CT lung screening DATE: 01/01/2022 14:30 INDICATION: Tobacco use. History of smoking. COPD. TECHNIQUE: Computed tomography (CT) of the chest was performed without intravenous contrast. The dose-length product was 62.28 mGy-cm. Automated exposure control and iterative reconstruction technique were employed. COMPARISON: CT dated 11/22/2020 FINDINGS: No significant change to bilateral upper lobe nodules measuring 3 mm or less. There is a new 5 mm right upper lobe nodule, image 24. Moderate-severe emphysema. No endobronchial lesions. There are a few scattered calcified granulomas. No pneumothorax. No thoracic lymphadenopathy. There are calcified granulomas of the liver and spleen. There is atherosclerosis of the aorta and coronary arteries. Mild thoracic spondylosis. IMPRESSION: 1. Lung-RADS category 3: Probably benign. Further evaluation is recommended with noncontrast low-dose chest CT in 6 months. PFT's 10/13/2018: Findings: Spirometry: There is decreased maximal expiratory airflow at all lung volumes with a concave expiratory flow tracing. The contour the inspiratory flow tracing is normal. The pre bronchodilator FVC is 2.89 L, 93% predicted. The pre bronchodilator FEV1 is 0.96 L, 41% predicted. The pre bronchodilator FEV1: FVC ratio is 33%. The post bronchodilator FVC is 2.96 L, representing a 2% increase. The post bronchodilator FEV1 is 1.04 L, representing an 8% increase. The post bronchodilator FEV1: FVC ratio is 35%. Plethysmography: The total lung capacity is 6.63 L, 140% predicted. The functional residual capacity is 4.85 L, 168% predicted. The residual volume is 3.73 L, 219% predicted. The residual volume: Total lung capacity ratio is 56%. Diffusing capacity: The diffusing capacity unadjusted for hemoglobin and carboxyhemoglobin is 10.8, 61% predicted. The diffusing capacity adjusted for alveolar volume is 3.39, 85% predicted. Impression: There is a severe obstructive abnormality. There is no significant improvement after inhaling a single dose of albuterol. The increase in residual volume to total lung volume ratio is consistent with hyperinflation from an obstructive abnormality. The diffusing capacity unadjusted for hemoglobin and carboxyhemoglobin is mildly decreased and normalizes when adjusted for alveolar volume. There are no prior studies for comparison 10/13/2018:ABG On room air: PH 7.42/38/63. Carboxyhemoglobin 6.1%. 6 minute walk-mild oxygen desaturations with exertion but not enough to require oxygen Methacholine Challenge - negative. 09/17/2018: Alpha 1 Anti Trypsin Level MM -Normal Review of Systems Constitutional: Constitutional: Reports no additional constitutional complaints Eyes: Eyes: Reports no additional eye complaints ENT: Reports system reviewed and no additional complaints, except as documented Cardiovascular: Cardiovascular: Reports no additional cardiovascular complaints Respiratory: Respiratory: Reports no additional respiratory complaints Gastrointestinal: Gastrointestinal: Reports no additional gastrointestinal complaints Musculoskeletal: Musculoskeletal: Reports no additional musculoskeletal complaints Neurologic: Reports system reviewed and no additional complaints, except as documented Psychiatric: Psychiatric: Reports no additional psychiatric complaints Endocrine: Endocrine: Reports no additional endocrine complaints Hematologic/Lymphatic: Hematologic/Lymphatic: Reports no additional hematologic/lymphatic complaints Allergic/Immunologic: Allergic/Immunologic: Reports no additional allergic/immunologic complaints FOR[facility]LY [facility] Past Medical History Medical History Neck problem bone fusion on neck Chronic obstructive pulmonary disease (COPD) Lung nodule Mildly underweight adult Recurrent pneumonia Shortness of breath Tobacco abuse Surgical History Surgical History H/O LEEP 1998 History of tubal ligation 2003 History of endometrial ablation 02/11/09 hscope d&c/novasure ablation History of dilation and curettage 02/11/09 hscope d&c/novasure ablation History of back surgery 2011 Family History Family History Sibling Chronic obstructive lung disease sister Mother Malignant tumor of urinary bladder Father Malignant neoplasm of bone Social History Social History Smoking packs per day: 1 Smoking cigarettes per day: 20.0 Years smoked: 40 Smoking pack-years: 40.00 Smoking status: Former smoker Tobacco type: cigarettes Second hand tobacco smoke exposure: Yes Smoking end date: 09/03/25 Alcohol intake: former Substance use: never Substance use type: painkillers Other substance usage details: prescrption pain pills per patient Lack of Transportation: No Lack of Food: Never True Current Housing: I Do Not Have Housing Concerned About Future Housing: No Difficulty Paying Gas/Electric Bills: No Difficulty Paying for Meds: No Currently Unemployed: No Education: Associate Degree Difficulty w/ Childcare or Family Care: No Living arrangements: with family Additional living arrangements comments: 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/Education: occupation 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 Gender identity (if verbalized by the patient): Female Sexual Orientation (if Verbalized by the Patient): Straight or Heterosexual Spiritual care concerns: No Meds Home Medications and Allergies Home Medications ?Medication ?Instructions ?Recorded ?Confirmed ?Type cyclobenzaprine 10 mg tablet 10 mg PO TID 02/13/22 09/06/25 History ergocalciferol (vitamin D2) 1,250 1 cap PO WEEKLY 05/13/22 09/06/25 History mcg (50,000 unit) capsule calcitriol 0.25 mcg capsule 0.25 mcg PO DAILY 02/04/23 09/06/25 History atorvastatin 40 mg tablet 40 mg PO QPM 09/06/25 09/06/25 History hydrocodone 10 mg-acetaminophen 1 tablet PO Q6H 09/06/25 09/06/25 History 325 mg tablet spironolactone 25 mg tablet 12.5 mg PO DAILY 09/06/25 09/06/25 History Allergies Allergy/AdvReac Type Severity Reaction Status Date / Time No Known Allergies Allergy Verified 09/06/25 16:34 Vital Signs Vital Signs - 24 hr 09/07/25 12:00 09/07/25 12:00 09/07/25 14:28 Temperature 36.4 C L Pulse Rate 104 H 113 H 103 H Respiratory Rate 20 20 Blood Pressure 100/70 Pulse Oximetry 97 Oxygen Delivery Oxygen Flow Rate Fraction of Inspired Oxygen 09/07/25 14:34 09/07/25 16:00 09/07/25 19:49 Temperature 36.7 C Pulse Rate 99 101 H 101 H Respiratory Rate 20 18 20 Blood Pressure 97/65 L Pulse Oximetry 93 Oxygen Delivery Oxygen Flow Rate Fraction of Inspired Oxygen 09/07/25 19:51 09/07/25 20:01 09/07/25 22:36 Temperature 36.9 C Pulse Rate 101 H 102 H 103 H Respiratory Rate 20 20 16 Blood Pressure 102/67 Pulse Oximetry 97 96 Oxygen Delivery Nasal Cannula Oxygen Flow Rate 2 Fraction of Inspired Oxygen 09/08/25 00:25 09/08/25 01:28 09/08/25 01:37 Temperature 36.6 C Pulse Rate 108 H 110 H 105 H Respiratory Rate 16 20 20 Blood Pressure 105/69 Pulse Oximetry 97 Oxygen Delivery Oxygen Flow Rate Fraction of Inspired Oxygen 09/08/25 06:00 09/08/25 07:29 09/08/25 07:29 Temperature 36.5 C Pulse Rate 108 H 109 H Respiratory Rate 16 20 Blood Pressure 110/73 Pulse Oximetry 98 90 Oxygen Delivery Nasal Cannula Oxygen Flow Rate 2 Fraction of Inspired Oxygen 09/08/25 07:37 09/08/25 08:00 Temperature 36.4 C Pulse Rate 111 H 110 H Respiratory Rate 20 16 Blood Pressure 102/63 Pulse Oximetry 96 Oxygen Delivery Oxygen Flow Rate Fraction of Inspired Oxygen Exam Const: General: cooperative, comfortable and no acute distress Orientation/consciousness: oriented to person, oriented to place and oriented to time Other: Cachectic HENMT: Head: normal to inspection Ears: hearing grossly normal bilaterally Eyes: General: appearance normal, both eyes and all related structures Neck: Neck: normal visual inspection Chest: Chest palpation & inspection: normal inspection of the chest Resp: Effort & Inspection: normal respiratory effort and able to speak in complete sentences Auscultation: no crackles, no rales, no rhonchi, wheezes and diminished lung sounds Other: decreased breath sounds throughout, few end-expiratory wheezes right upper lobe. Cardio: Jugular venous distension: no JVD GI: Inspection: normal to inspection GI Palp: No abdominal tenderness Skin: General skin exam: normal color Neuro: General: oriented to person, oriented to place and oriented to time Extrem: General: normal to inspection and no edema Psych: Appearance: grossly normal Results Laboratory Findings 09/08/25 10:07 09/08/25 10:07 ABG, PT/INR, D-dimer: PT/INR, D-dimer PT 15.2 Seconds (11.1-14.7) H 09/06/25 12:01 INR 1.2 09/06/25 12:01 Abnormal lab findings: Abnormal Labs 09/06/25 09/07/25 12:01 04:54 WBC 2.1 L MCHC 31.9 L Neut % (Auto) 78.7 H 89.0 H Lymph % (Auto) 12.4 L 9.1 L [place] % (Auto) 1.4 L Baso % (Auto) 0.0 L Lymph # (Auto) 0.19 L [place] # (Auto) 0.0 L PT 15.2 H Sodium 126 L 126 L Chloride 83 L 86 L Carbon Dioxide 38 H > 40 H BUN 32 H D 22 H D Creatinine 0.64 L 0.60 L AST 161 H 136 H ALT 306 H 294 H NT-Pro-B Natriuret Pep 7860 H Total Protein 6.0 L Diagnostic Findings Additional studies: ITS Impressions Chest X-Ray 09/06/25 13:03 IMPRESSION: 1. No acute cardiopulmonary findings given portable technique. Pulmonary Perfusion Imaging 09/08/25 09:26 IMPRESSION: 1. Multiple perfusion defects involving all lobes of both lungs including large perfusion defects at the superior segment and posterior basilar segment of the left lower lobe and the anterior basilar segment of the right lower lobe. Perfusion imaging contributed alone would be consistent with a high probability for pulmonary embolism. There is however diffuse abnormal retention of activity on the washout images consistent with COPD which would render assessment formally nondiagnostic. Chest CTA 09/08/25 11:08
[2025-09-08 10:38] LABS: Alanine Aminotransferase 321 U/L (6-35); Albumin Level 3.4 g/dL (3.5-5.1); Alkaline Phosphatase 85 U/L (38-126); Anion Gap 4 mmol/L (4-12); Aspartate Amino Transferase 119 U/L (14-36); Bilirubin,Total 0.7 mg/dL (0.2-1.3); Blood Urea Nitrogen 14 mg/dL (7-17); Calcium 8.1 mg/dL (8.4-10.2); Carbon Dioxide 39 mmol/L (22-30); Chloride 88 mmol/L (98-107); Estimated CRCL calculation 55 ml/min; Estimated Glomerular Filt Rate > 60; Glucose 167 mg/dL (65-110); Potassium 3.9 mmol/L (3.4-5.0); Sodium 131 mmol/L (137-145); Total Protein 5.6 g/dL (6.3-8.2)
[2025-09-08 11:04] LABS: NT Pro B Type Natriuretic Pept 4640 pg/mL (19.9-100)
[2025-09-08 11:22] LABS: Thyroid Stimulating Hormone 0.854 uIU/mL (0.465-4.680)
[2025-09-08 12:40] LABS: Procalcitonin 0.1 ng/mL
[2025-09-08 12:41] LABS: Free T4 Free Thyroxine 1.10 ng/dL (0.78-2.19)
[2025-09-08 13:41] LABS: Alveolar/Arterial O2 Gradient 14.9 mmHg; Fractional Inspired Oxygen 24 %; HCO3 ABG 37.3 mEq/l (22.0-26.0); Oxygen Content ABG 15.1 %vol (16.0-22.0); PO2 ABG 60.7 mmHg (80.0-100.0); PO2 FiO2 Ratio Arterial Blood 2.53 %
[2025-09-08 13:42] LABS: PCO2 ABG 80.3 mmHg (35.0-45.0)
[2025-09-08 13:43] LABS: Liters per Minute 1.0 LPM; Modified Allen's Test Pass; Oxygen Saturation ABG 87.0 % (95.0-100.0); Site Drawn RIGHT RADIAL
[2025-09-08 15:16] LABS: Influenza A QL RT-PCR Negative (Negative); Influenza B QL RT-PCR Negative (Negative); RSV RNA, RT-PCR Negative (Negative); SARS-CoV-2 RNA PCR Negative (Negative)
[2025-09-09] VITALS (15 sets, daily range): BP systolic 92–103; BP diastolic 60–66; PULSE 67–115; RESP 16–25; TEMP 36.6–37; O2SAT 92–99
[2025-09-09] MEDS: HYDROcodone/acetaminophen (*CRX) 10-325 MG TABLET 1 TAB PO ×4 (01:24→17:17)
[2025-09-09 05:53] LABS: Hematocrit 39.0 % (37.0-47.0); Hemoglobin 12.0 g/dL (12.0-15.0); Immature Granulocyte Percent A 0.5 % (0-0.5); Lymphocytes Absolute Auto 0.66 K/mm3 (0.9-3.2); Mean Corpuscular HGB Conc 30.8 g/dl (32-36); Mean Corpuscular Hemoglobin 29.3 pg (26-34); Mean Corpuscular Volume 95.4 fl (80-100); Nucleated Red Blood Cells Absolute Auto 0.000 K/mm3 (0.0-0.012); Nucleated Red Blood Cells Perc 0.0 % (0.0-0.2); Platelet Count Result 216 k/mm3 (150-375); Red Blood Count 4.09 M/mm3 (4.2-5.4); White Blood Count 8.1 K/mm3 (4.5-10.0)
[2025-09-09 05:59] LABS: PCO2 ABG 79.8 mmHg (35.0-45.0)
[2025-09-09 06:00] LABS: HCO3 ABG 40.8 mEq/l (22.0-26.0); Oxygen Saturation ABG 96.0 % (95.0-100.0); PO2 ABG 91.2 mmHg (80.0-100.0)
[2025-09-09 06:01] LABS: Alveolar/Arterial O2 Gradient 14.3 mmHg
[2025-09-09 06:02] LABS: Fractional Inspired Oxygen 28 %; PO2 FiO2 Ratio Arterial Blood 3.26 %; Site Drawn RIGHT RADIAL
[2025-09-09 06:03] LABS: Oxygen Content ABG 16.5 %vol (16.0-22.0)
[2025-09-09 06:36] LABS: Hepatitis B Surface Antigen Negative (Negative)
[2025-09-09 06:41] LABS: HAV RESULT Negative (Negative); Hepatitis B Core IgM Result Negative (Negative)
[2025-09-09] MEDS: IPRATROPIUM 0.5 MG/ALBUTEROL SULFATE 2.5 MG (BASE) AMPUL.NEB 3 ML INHALATION ×2 (07:33→13:47)
--- NOTE | 2025-09-09 08:03 | P.PNIM_ITS ---
Progress Note: A&P Assessment and Plan (1) Acute respiratory failure with hypoxia and hypercapnia: Code(s): J96.01 - Acute respiratory failure with hypoxia; J96.02 - Acute respiratory failure with hypercapnia Status: Acute Assessment and Plan: Patient with history of severe COPD presents to the ED with complaints of increased shortness of breath. Currently on no maintenance drugs for COPD but had been on Trelegy in the past. Documented severe COPD in past pulmonology notes. Has not seen pulmonology in 2 years. - currently requiring 1L NC to maintain spO2> 88%. S/p BiPAP due to ABG with respiratory acidosis. -Chest x-ray shows no acute cardiopulmonary findings, hyperinflation with emphysema - CTA chest no PE, severe emphysema, small effusions - initial ABG pH 7.285, pCO2 80.3, pO2 60.7, bicarb 37.3 - home O2 eval - pulmonology consulted - recommended to transition to PO prednisone, continue Duonebs. Continue BiPA qHS and with naps.. Pulm to assist with obtaining home BiPAP. -holding antibiotics as no signs of infection and recently treated for suspected pneumonia (2) Edema: Qualifiers: Edema type: localized Qualified Code(s): R60.0 - Localized edema Code(s): R60.9 - Edema, unspecified Status: Acute Assessment and Plan: Patient states this edema has been present for about 2 weeks. No signs of cellulitis. Concern for CHF -Echo 09/07: Normal systolic function. Septal flattening consistent with RV pressure overload, moderate to severe RV enlargement with significantly reduced RV systolic function, dilated RA, mild tricuspid regurgitation suggesting at least moderate pulmonary hypertension - continue Aldactone -compression stockings - cardiology following - VQ scan with high probability, but CTA negative for acute PE (3) Right-sided heart failure: Code(s): I50.810 - Right heart failure, unspecified Status: Acute Assessment and Plan: -Symptoms: Shortness of breath, lower extremity swelling -BNP: 7860 -EKG: Sinus tachycardia, sinus rhythm -Chest XR: No acute cardiopulmonary findings given portable technique -Echo:mod-severe RV enlargement w/ significantly reduced RV systolic function, mild TVR suggestive of moderate Pulm HTN. Will consult cardiology for further recommendation - cardiology consulted, recommended to continue Aldactone. May consider diuresis. (4) Acute hyponatremia: Code(s): E87.1 - Hypo-osmolality and hyponatremia Status: Acute Assessment and Plan: -Upon admission: Na 126. Received small fluid bolus with no improvement. -suspect multifactorial in setting of poor PO intake, diuretic use -started salt tabs 09/07 with improvement to 133 - monitor BMP (5) Elevated LFTs: Code(s): R79.89 - Other specified abnormal findings of blood chemistry Status: Acute Assessment and Plan: - AST 119, ALT 358. Alk phos and t bili WNL. - denied abdominal pain - RUQ US with intrahepatic biliary ductal dilation. Hepatic steatosis and/or hepatocellular disease. Ascites and R pleural effusion. - hold statin - GI consulted, appreciate recs Plan Diet: Heart healthy DVT prophylaxis: SCDs, Lovenox Code status: Full Dispo: home in 1-2 days pending work-up Subjective Date/time seen: 09/09/25 08:03 Interval history: 59-year-old female with a past medical history of COPD, tobacco abuse presents to the ED on 09/06/2025 with complaints of shortness of breath and ankle swelling. Patient states the shortness of breath and edema started 2 weeks ago when she developed a sinus infection with a nonproductive cough. Patient seen and examined at bedside. Breathing feels improved this AM. Denied chest pain. Agreeable to stay in the hospital to titrate and arrange BiPAP. Review of Systems Review of Systems: All systems reviewed & are unremarkable except as noted in HPI and below Exam Narrative: General: NAD, frail Eyes: EOMI ENT: neck supple Cardiovascular: Regular rate and rhythm Respiratory: breath sounds diminished bilaterally, but otherwise clear. Respirations even and unlabored on RA. Gastrointestinal: Soft, non tender Genitourinary: no suprapubic tenderness Musculoskeletal: trace BLE edema Skin: warm, dry Neuro: Alert. Psych: Mood appropriate Objective Data Vital Signs Vital Signs: Vital Signs - 24 hr 09/08/25 12:00 09/08/25 13:30 09/08/25 13:37 Temperature 97.4 F L Pulse Rate 90 111 H 112 H Respiratory Rate 16 20 20 Blood Pressure 105/62 Pulse Oximetry 97 Oxygen Delivery Oxygen Flow Rate 09/08/25 16:00 09/08/25 19:18 09/08/25 19:18 Temperature 97.9 F Pulse Rate 113 H 113 H 113 H Respiratory Rate 16 18 18 Blood Pressure 105/65 Pulse Oximetry 96 94 Oxygen Delivery CPAP Oxygen Flow Rate 09/08/25 19:28 09/08/25 21:58 09/08/25 22:50 Temperature Pulse Rate 112 H 98 107 H Respiratory Rate 16 27 H Blood Pressure Pulse Oximetry 90 94 Oxygen Delivery Nasal Cannula CPAP Oxygen Flow Rate 09/08/25 23:48 09/09/25 04:55 09/09/25 06:00 Temperature 97.0 F L 98.6 F Pulse Rate 116 H 100 98 Respiratory Rate 16 16 18 Blood Pressure 106/70 92/66 L Pulse Oximetry 92 99 99 Oxygen Delivery CPAP Oxygen Flow Rate 09/09/25 07:33 09/09/25 07:35 09/09/25 07:41 Temperature Pulse Rate 107 H 111 H Respiratory Rate 17 18 Blood Pressure Pulse Oximetry 93 Oxygen Delivery Nasal Cannula Oxygen Flow Rate 2 Intake/Output Intake/Output: Intake & Output 09/06/25 09/07/25 09/08/25 09/09/25 23:59 23:59 23:59 23:59 Intake Total 740 1160 720 600 Output Total 1000 2800 Balance 740 160 -2080 600 Meds/Results Medications: Active Medications Generic Name Dose Route Start Last Admin Trade Name Freq PRN Reason Stop Dose Admin Acetaminophen 650 mg 09/06/25 15:09 Acetaminophen 325 Mg Tablet PO Q4H PRN Mild Pain (1-3) or Fever Hydrocodone Bitart/Acetaminophen 1 tab 09/06/25 17:00 09/09/25 06:10 Hydrocodone/Acetaminophen (*Crx) 10-325 Mg Tablet PO 1 tab Q6HR JOANN Administration Albuterol/Ipratropium 3 ml 09/06/25 20:00 09/09/25 07:33 Ipratropium 0.5 Mg/Albuterol Sulfate 2.5 Mg (Base) Ampul.Neb 3 Ml INHALATION 3 ml Q6HRT JOANN Administration Atorvastatin Calcium 40 mg 09/06/25 18:00 09/07/25 17:14 Atorvastatin 40 Mg Tablet PO 40 mg On Hold: 09/08/25 14:33 QPM JOANN Administration Calcitriol 0.25 mcg 09/07/25 09:00 09/08/25 09:02 Calcitriol 0.25 Mcg Capsule PO 0.25 mcg DAILY JOANN Administration Cyclobenzaprine HCl 10 mg 09/06/25 17:00 09/08/25 17:18 Cyclobenzaprine Hcl 10 Mg Tablet PO 10 mg TID JOANN Administration Enoxaparin Sodium 40 mg 09/09/25 09:00 Enoxaparin 40 Mg/0.4 Ml Syringe SUB-Q DAILY JOANN Hydroxyzine HCl 25 mg 09/08/25 22:08 09/09/25 06:10 Hydroxyzine Hcl 25 Mg Tablet PO 25 mg Q8H PRN Administration Itching Ondansetron HCl 4 mg 09/06/25 15:09 Ondansetron Inj 4 Mg/2 Ml Vial IV PUSH Q4H PRN Nausea Prednisone 40 mg 09/08/25 12:55 09/08/25 12:58 Prednisone 20 Mg Tablet PO 40 mg DAILY@0800 JOANN Administration Sodium Chloride 500 mg 09/07/25 17:00 09/08/25 17:18 Sodium Chloride 500 Mg Tablet PO 500 mg BID JOANN Administration Spironolactone 12.5 mg 09/07/25 09:00 09/08/25 09:02 Spironolactone 12.5 Mg Tablet PO 12.5 mg DAILY JOANN Administration Radiology Results: ITS Impressions Chest X-Ray 09/06/25 13:03 IMPRESSION: 1. No acute cardiopulmonary findings given portable technique. Pulmonary Perfusion Imaging 09/08/25 09:26 IMPRESSION: 1. Multiple perfusion defects involving all lobes of both lungs including large perfusion defects at the superior segment and posterior basilar segment of the left lower lobe and the anterior basilar segment of the right lower lobe. Perfusion imaging contributed alone would be consistent with a high probability for pulmonary embolism. There is however diffuse abnormal retention of activity on the washout images consistent with COPD which would render assessment formally nondiagnostic. Chest CTA 09/08/25 11:08 IMPRESSION: 1. No pulmonary embolus. 2. Severe emphysema. 3. Small pleural effusions. Labs Labs: Laboratory Results - last 24 hr 09/08/25 09/08/25 09/08/25 10:07 10:33 12:26 WBC 4.7 RBC 3.80 L Hgb 11.0 L Hct 35.6 L MCV 93.7 MCH 28.9 MCHC 30.9 L RDW 14.0 Plt Count 209 MPV 9.1 Immature Gran % (Auto) 0.6 H Neut % (Auto) 89.9 H Lymph % (Auto) 3.0 L [place] % (Auto) 6.5 Eos % (Auto) 0.0 Baso % (Auto) 0.0 L Lymph # (Auto) 0.14 L [place] # (Auto) 0.3 Eos # (Auto) 0.0 Baso # (Auto) 0.0 Abs Immat Gran (auto) 0.03 Absolute Neuts (auto) 4.2 Absolute Nucleated RBC 0.000 Nucleated RBC % 0.0 Puncture Site ABG pH ABG pCO2 ABG pO2 ABG PO2/FiO2 Ratio ABG HCO3 ABG O2 Saturation ABG O2 Content ABG Base Excess A-a Gradient Oxyhemoglobin Total Hemoglobin O2 Delivery Device O2 Liters/Min FiO2 Sodium 131 L Potassium 3.9 Chloride 88 L Carbon Dioxide 39 H Anion Gap 4 BUN 14 D Creatinine 0.63 L Estim Creat Clear Calc 55 Estimated GFR > 60 Glucose 167 H Calcium 8.1 L Total Bilirubin 0.7 AST 119 H ALT 321 H Alkaline Phosphatase 85 NT-Pro-B Natriuret Pep 4640 H Total Protein 5.6 L Albumin 3.4 L Procalcitonin 0.1 TSH 0.854 Free T4 1.10 Ur Random Sodium < 5 Hepatitis A IgM Ab Hep Bs Antigen Hep B Core IgM Ab Hepatitis C Ab Screen Influenza A (RT-PCR) Influenza B (RT-PCR) RSV (RT-PCR) SARS-CoV-2 RNA (RT-PCR) 09/08/25 09/08/25 09/09/25 12:49 13:29 05:01 WBC RBC Hgb Hct MCV MCH MCHC RDW Plt Count MPV Immature Gran % (Auto) Neut % (Auto) Lymph % (Auto) [place] % (Auto) Eos % (Auto) Baso % (Auto) Lymph # (Auto) [place] # (Auto) Eos # (Auto) Baso # (Auto) Abs Immat Gran (auto) Absolute Neuts (auto) Absolute Nucleated RBC Nucleated RBC % Puncture Site Right radial Right radial ABG pH 7.285 L* 7.326 L ABG pCO2 80.3 H* 79.8 H* ABG pO2 60.7 L 91.2 ABG PO2/FiO2 Ratio 2.53 3.26 ABG HCO3 37.3 H 40.8 H ABG O2 Saturation 87.0 L* 96.0 ABG O2 Content 15.1 L 16.5 ABG Base Excess 8.0 11.7 A-a Gradient 14.9 14.3 Oxyhemoglobin 87.4 L* 95.6 Total Hemoglobin 12.3 12.2 O2 Delivery Device Nasal cannula Bipap O2 Liters/Min 1.0 Not Reportable FiO2 24 28 Sodium Potassium Chloride Carbon Dioxide Anion Gap BUN Creatinine Estim Creat Clear Calc Estimated GFR Glucose Calcium Total Bilirubin AST ALT Alkaline Phosphatase NT-Pro-B Natriuret Pep Total Protein Albumin Procalcitonin TSH Free T4 Ur Random Sodium Hepatitis A IgM Ab Hep Bs Antigen Hep B Core IgM Ab Hepatitis C Ab Screen Influenza A (RT-PCR) Negative Influenza B (RT-PCR) Negative RSV (RT-PCR) Negative SARS-CoV-2 RNA (RT-PCR) Negative 09/09/25 05:46 WBC 8.1 RBC 4.09 L Hgb 12.0 Hct 39.0 MCV 95.4 MCH 29.3 MCHC 30.8 L RDW 14.1 Plt Count 216 MPV 9.6 Immature Gran % (Auto) 0.5 Neut % (Auto) 83.2 H Lymph % (Auto) 8.2 L [place] % (Auto) 8.1 Eos % (Auto) 0.0 Baso % (Auto) 0.0 L Lymph # (Auto) 0.66 L [place] # (Auto) 0.7 H Eos # (Auto) 0.0 Baso # (Auto) 0.0 Abs Immat Gran (auto) 0.04 H Absolute Neuts (auto) 6.7 Absolute Nucleated RBC 0.000 Nucleated RBC % 0.0 Puncture Site ABG pH ABG pCO2 ABG pO2 ABG PO2/FiO2 Ratio ABG HCO3 ABG O2 Saturation ABG O2 Content ABG Base Excess A-a Gradient Oxyhemoglobin Total Hemoglobin O2 Delivery Device O2 Liters/Min FiO2 Sodium Potassium Chloride Carbon Dioxide Anion Gap BUN Creatinine Estim Creat Clear Calc Estimated GFR Glucose Calcium Total Bilirubin AST ALT Alkaline Phosphatase NT-Pro-B Natriuret Pep Total Protein Albumin Procalcitonin TSH Free T4 Ur Random Sodium Hepatitis A IgM Ab Negative Hep Bs Antigen Negative Hep B Core IgM Ab Negative Hepatitis C Ab Screen Negative Influenza A (RT-PCR) Influenza B (RT-PCR) RSV (RT-PCR) SARS-CoV-2 RNA (RT-PCR) Quality VTE Prophylaxis VTE prophylaxis: mechanical ordered
--- NOTE | 2025-09-09 09:30 | P.PNPL_ITS ---
Progress Note: A&P Assessment and Plan (1) Chronic obstructive pulmonary disease (COPD): Code(s): J44.9 - Chronic obstructive pulmonary disease, unspecified Status: Acute Assessment and Plan: GOLD grade 3 group E COPD patient with a 60 pack year tobacco use, quit 09/03/2025. Alpha 1 anti trypsin MM on 09/17/2018. PFTs on 10/13/2018 with an FEV1 of 0.96 L, 41% predicted. FEV1: FVC ratio 33%. No bronchodilator response. Hyperinflation. Mildly decreased DLCO that normalized when adjusted for alveolar volume. CT scan of the chest on 09/08/2025 with severe centrilobular emphysema throughout all lung calero with small bilateral pleural effusions. 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 Blood gas 10/13/2018 7.42/38/63 on room air. Had been maintained on trelegy inhaler until 1 year ago and has been on no maintenance or rescue albuterol inhaler since then. 09/06/2025: White blood cell 8.1, eosinophils 0.1% equals 8 per micro L. 12/11/2022 white blood cell count 9.4, eosinophils 1.3% = 122 per micro L. echocardiogram 09/07/2025 with normal LVEF, normal LV diastolic function. Septal flattening consistent with RV pressure overload. RV is moderately to severely enlarged with decreased function. Right atrium is mildly enlarged. Mild tricuspid regurg. 09/06/2025 patient presents with COPD exacerbation and bilateral lower extremity swelling. She has been treated for COPD exacerbation with IV steroids, bronchodilators. and has improved. 09/08/2025: The patient is doing much better today. She says that she is 80% back to her normal. She is walking around the room and her says that her dyspnea on exertion is much improved. Her dry cough is better, her wheezing has improved and her swelling has resolved. White blood cell count 4.7, creatinine 0.63 TSH 0.85. Procalcitonin 0.1, BNP 4640. When I enter the room the patient was on 2 L nasal cannula saturations 96%. I turned her to room air and after 7 minutes her saturations were 88%. I placed her on 1 L nasal cannula her saturations were 94%. Patient had a V/Q scan which was high probability and had a CT angiogram of the chest showed no PE, severe centrilobular emphysema throughout all lung calero with no evidence of pneumonia, small bilateral pleural effusions. no interstitial lung disease. Plan: patient has some wheezing today and I will change her Solu-Medrol to prednisone 40 mg p.o. q.day. I will continue DuoNebs at q.6 hours. Her procalcitonin is 0.1 and she has no evidence of bacterial infection and I agree with no antibiotics at this time. I will check a COVID, influenza RSV swab. I will check a respiratory pathogen panel. Smoking cessation counseling was provided. 09/09/25: Patient tells me she continues to improve. She is feeling better than yesterday. Her cough is a little bit better and she denies phlegm or hemoptysis. She does have difficulty expectorating. When I enter the room she was on 2 L nasal cannula saturation 97%. I decreased her to room air and her saturations were 90%. She is afebrile. white blood cell count 8.1. Yesterday she was -2.0 L. Cumulative she is -580 mL since admission. Plan: Patient with no wheezing on exam today. Will continue prednisone 40 mg p.o. q.day, day 4 steroids. Continue DuoNebs q.6 hours. Patient has difficulty expectorating and I will add guaifenesin 1200 mg p.o. b.i.d. and Cornet flutter valve. out of bed to chair. Physical therapy and occupational therapy to help in mobility. Discussed with Katherine Monroe, will follow with you. (2) Chronic respiratory failure: Code(s): J96.10 - Chronic respiratory failure, unspecified whether with hypoxia or hypercapnia Status: Acute Assessment and Plan: Blood gas 10/13/2018 was 7.42/38/63 on room air. Patient was followed by diesel mechanic construction a [facility] wanted to test her for supplemental oxygen in 2022 but this was never completed. 09/07/25: Currently patient is requiring 1 L nasal cannula saturations 94%. Plan: I will check an ABG on 1 L to assess for hypercarbic respiratory failure. Goal saturation 90-94% and will wean accordingly. I will perform overnight oximetry on room air to determine if she qualifies for oxygen at night. Later in day: ABG on 1 L nasal cannula 7.29/80.3/60.7. Patient has chronic hypercarbic respiratory failure secondary to COPD. Patient would benefit from BiPAP or noninvasive ventilation to prevent further deterioration and subsequent hospitalizations. I explained these results to the patient and her and they are in agreement for trial of BiPAP or noninvasive ventilation. I placed the patient on BiPAP and adjusted the settings to comfort resulting in rate of 4, pressures 14/4, inspiratory time 1.0, rise of 5 which is the slowest and 28% FiO2. The patient was placed on these settings and her respiratory rate was 7 with tidal volumes 420-520 resulting in a low minute ventilation of 3-4 L. I increased her backup respiratory rate to 14 resulting in a minute ventilation of 7-8 L. I will perform overnight oximetry on these settings and ABG prior to removal. 09/09/25: Patient wore the hospital BiPAP rate of 14, pressures 14/4 and 28% FiO2 overnight and said she slept well and tolerated the machine. She feels well rested this morning. Patient had an overnight oximetry on these settings with recording duration of 7 hours and 21 minutes. Average saturation 94%. Low saturation 86%. Time with saturation less than or equal to 88% was 4 minutes. Oxygen desaturation index 4.5. ABG at the end of none then night was 7.33/80/91. Plan: Current BiPAP settings provided adequate oxygenation but inadequate ventilation. Patient felt like she could tolerate more rate and tidal volume and he increased her to BiPAP rate of 20 pressures 20/4. She could not tolerate these pressures but could tolerate 16/4. Tonight I will place the patient on BiPAP rate of 20, pressure is 16/4, inspiratory time 1.0, rise of 3, FiO2 28% and perform an ABG in the morning prior to removal. once we determine if patient will need BiPAP or noninvasive ventilation with the AVAPS mode will initiate process for home respiratory assist device through a [employer] and [facility] insurance. (3) Right-sided heart failure: Code(s): I50.810 - Right heart failure, unspecified Status: Acute Assessment and Plan: Patient with GOLD grade 3 group B COPD, currently is having a COPD exac erbation with hypoxemic respiratory failure, no evidence of LV dysfunction or diastolic dysfunction, normal TSH and free T4. She presents with bilateral pedal edema, small bilateral pleural effusions and elevated BNP. High probability V/Q scan with CT angiogram of the chest is negative for PE. Etiology of right heart failure includes COPD, COPD exacerbation, chronic hypoxemic respiratory failure. 09/08/25: Plan: Will optimize treatment for COPD as above, correct her chronic hypoxemic respiratory failure as above and assess for chronic hypercarbic respiratory failure as above. patient is lower extremity edema has resolved with correction of her sodium, Gian hose and treatment of COPD exacerbation without any Lasix. Will follow patient clinically and consider outpatient sleep study in the future. 09/09/2025:Yesterday she was -2.0 L. Cumulative she is -580 mL since admission. Weight today is 44.5 Kg. Plan: Patient auto diuresed with BiPAP use last night. Will follow clinically. (4) Former smoker: Code(s): Z87.891 - Personal history of nicotine dependence Status: Acute Assessment and Plan: Patient was 60 pack year tobacco use, quit 09/03/2025. 09/08/25: CT scan of the chest 09/07/2025 with no concerning nodules or masses. Plan: Patient should have a yearly low-dose CT scan next on 09/07/2026. Importance of continued tobacco cessation was stressed. Subjective Date/time seen: 09/09/25 09:30 Interval history: 09/08/2025: This is a new pulmonary consult for severe COPD with cor pulmonale I will and acute respiratory failure. Patient was previously followed in the [facility]monary [facility] in last seen on 06/07/2022: This is a copy of the note 5 month follow-up regarding COPD. Patient went to the express car earlier this month regarding dyspnea. CXR showed no acute CP process. Was given neb tx, doxycycline, and pred taper. She was treated previously before this by PCP, felt medication did not help. She reports sharp stabbing pains, pain on inspiration during that time; symptoms seem to mimic pleurisy and she felt better after high dose pred taper given by express care. She reports today with improving symptoms. Pain has greatly improved. Breathing and cough is better, She reports she also quit smoking 2 months ago and reports improvement with chest congestion and less rattling. She is maintained on Trelegy. Doing well with this. BP is low today. She reports is has been low lately. Recommend to start tracking daily at home and report to PCP is persistently below 100/60. Denies syncope, headache, dizziness. She is due for f/u CT next month, however, her insurance says she has to pay her deductible which is $1000 to have it done. CAT score 10/20, was 20 last visit so improvement. Weight 90 lb. Room air saturation 94% decreased breath sounds Assessment and plan: COPD: Continue tripod and rescue albuterol, recommend Acapella device or flutter valve, follow-up 6 months. Low BMI, increase diet. Former smoker: Quit 2 months ago. Low-dose CT scan 01/02/2022 bilateral upper lobe nodules measuring 3 mm or less. There is a new 5 mm right upper lobe nodule. Moderate to severe emphysema. No endobronchial lesions. Repeat CT scan in 1 month. patient smoked tobacco from age 19 to 09/03/2025 at 1 and half packs per day for total of 60 pack years. Patient was exposed to secondhand smoke from both of her parents and from her current until 09/06/2025. Patient denies vaping, illicit drug use, sand blasting, welding, asbestos work, professional painting, steel feed mill operator, building construction estimator, or coal mining. 1-2 months ago patient felt well and she could walk half a block and would have to stop for dyspnea on exertion. One year ago she could walk 1 block. At baseline she has a dry cough, daily wheezes with no phlegm and no hemoptysis. Patient's physicians are [facility] at [facility] and she started to see pulmonology at [facility] in [address] Sanchez in 2022. at that time he wanted to do testing to to see if she required oxygen. She had been on trilogy inhaler through him but this ran out approximately 1 year and she has not followed up with Dr. Sanchez. 08/03/2025: Patient developed nasal congestion, body aches, fatigue and worsening shortness of breath and called her PCP 0 prescribed her antibiotics. She does not know the name of the antibiotics. She developed a facial rash and was then prescribed prednisone and a Z-Dewey. After she finished this she recovered back to her baseline. But off of the prednisone and the Z-Dewey she began to get sick again on approximately 08/25/2025. 08/25/2025 the patient noted worse breathing with no fever, chills, cough, phlegm production or hemoptysis. She had wheezing and bilateral feet swelling. She had rest and worsening dyspnea on exertion. Her symptoms progressed and patient presented to the emergency room on 09/06/2025. 09/06/2025 in the emergency room Her blood pressure was 128/89, heart rate 100, respirations 25 and on to room air her saturations were 89% and she was placed on 2 L nasal cannula with saturations 96%. she had decreased breath sounds but no wheezes were documented. White blood cell count was 8.1 with eosinophils 0.1%. Her creatinine was 0.64. sodium was 126. Her BNP was 7860. Her chest x-ray showed hyperexpansion but no focal infiltrates. They were unable to obtain an ABG after 3 attempts. Patient was treated for COPD exacerbation with Solu-Medrol and DuoNebs. 09/07/25: patient improved. On 2 L nasal cannula saturations were 90%. White blood cell count 4.6, creatinine 0.64. Echocardiogram showed poor windows. LVEF was 65-70%. left ventricular diastolic function was normal. Right ventricular size was moderately enlarged with reduced function. Right atrial dimension was enlarged. Left atrium was normal. Normal aortic valve. Trace mitral regurg. Mild tricuspid regurg with PASP of 48. 09/08/2025: The patient is doing much better today. She says that she is 80% back to her normal. She is walking around the room and her says that her dyspnea on exertion is much improved. Her dry cough is better, her wheezing has improved and her swelling has resolved. White blood cell count 4.7, creatinine 0.63 TSH 0.85. Procalcitonin 0.1, BNP 4640. When I enter the room the patient was on 2 L nasal cannula saturations 96%. I turned her to room air and after 7 minutes her saturations were 88%. I placed her on 1 L nasal cannula her saturations were 94%. Later in day: ABG on 1 L nasal cannula 7.29/80.3/60.7. I explained these results to the patient and her and they are in agreement for trial of BiPAP or noninvasive ventilation. I placed the patient on BiPAP and adjusted the settings to comfort resulting in rate of 4, pressures 14/4, inspiratory time 1.0, rise of 5 which is the slowest and 28% FiO2. The patient was placed on these settings and her respiratory rate was 7 with tidal volumes 420-520 resulting in a low minute ventilation of 3-4 L. I increased her backup respiratory rate to 14 resulting in a minute ventilation of 7-8 L. I will perform overnight oximetry on these settings and ABG prior to removal. 09/09/25: Patient tells me she continues to improve. She is feeling better than yesterday. Her cough is a little bit better and she denies phlegm or hemoptysis. She does have difficulty expectorating. When I enter the room she was on 2 L nasal cannula saturation 97%. I decreased her to room air and her saturations were 90%. She is afebrile. white blood cell count 8.1. Yesterday she was -2.0 L. Cumulative she is -580 mL since admission. Patient wore the hospital BiPAP rate of 14, pressures 14/4 and 28% FiO2 overnight and said she slept well and tolerated the machine. She feels well rested this morning. Patient had an overnight oximetry on these settings with recording duration of 7 hours and 21 minutes. Average saturation 94%. Low saturation 86%. Time with saturation less than or equal to 88% was 4 minutes. Oxygen desaturation index 4.5. ABG at the end of none then night was 7. 33/80/91. Patient felt like she could tolerate more rate and tidal volume and he increased her to BiPAP rate of 20 pressures 20/4. She could not tolerate these pressures but could tolerate 16/4. DATA: 09/08/25: EXAMINATION: CTA chest PE protocol INDICATION: Hypoxia. COMPARISON: Chest CT 12/19/2022 FINDINGS: There is severe emphysema. A calcified right lung nodule and calcified right hilar lymph nodes are consistent with old granulomatous disease. There are small pleural effusions. The heart size is normal. There are coronary artery calcifications. No pericardial effusion. There is no pulmonary embolus. Calcifications in the liver and spleen are consistent with old granulomatous disease. There are changes of anterior fusion procedure in cervical spine. There is mild thoracic spondylosis. IMPRESSION: 1. No pulmonary embolus. 2. Severe emphysema. 3. Small pleural effusions. 09/08/25: EXAMINATION: NM lung vent and perfusion INDICATION: Severe right ventricular failure and COPD. COMPARISON: CT dated 12/19/2022 and chest radiograph dated 09/06/2025 FINDINGS: There is homogeneous radiotracer activity throughout the lungs on the single breath ventilation sequence. There is significant retention of activity diffusely throughout both lungs on the washout images consistent with provided history of COPD. There is a marked heterogeneous pattern of activity on the perfusion images with large perfusion defects at the superior segment and posterior basilar segment of the left lower lobe and anterobasilar segment of th e right lower lobe. Multiple additional small to moderate-sized perfusion defects in each of the remaining lobes of both lungs. IMPRESSION: 1. Multiple perfusion defects involving all lobes of both lungs including large perfusion defects at the superior segment and posterior basilar segment of the left lower lobe and the anterior basilar segment of the right lower lobe. Perfusion imaging contributed alone would be consistent with a high probability for pulmonary embolism. There is however diffuse abnormal retention of activity on the washout images consistent with COPD which would render assessment formally nondiagnostic. 09/07/2025: Echo Summary 1. Poor windows. Tech used Definity to try and enhance images. [place] views, doppler data likely skewed. 2. Normal left ventricular size and systolic function. 3. Septal flattening consistent with right ventricular pressure overload. 4. Moderate to severe right ventricular enlargement with significantly reduced RV systolic function. 5. Dilated right atrium. 6. Mild tricuspid regurgitation velocity suggest at least moderate pulmonary hypertension. 7. Estimated PA systolic pressure 48 mmHg. Right Ventricle Right ventricular chamber dimension is moderately enlarged. Right ventricular systolic function is reduced. Right Atria Right atrial chamber dimension is mildly enlarged. 12/19/2022: EXAMINATION: CT chest abdomen pelvis w con DATE: 12/19/2022 12:59 INDICATION: Shortness of breath and abdominal pain, weight loss TECHNIQUE: Transaxial computed tomographic images of the chest, abdomen, and pelvis were obtained after the administration of 85 cc of Omnipaque 350 intravenous contrast. The dose-length product (DLP) was 235.51 mGy-cm. Automated exposure control and iterative reconstruction technique were employed. COMPARISON: 01/01/2022 FINDINGS: CHEST CT: There is moderate emphysema. A stable 5 mm nodule is present in the right upper lobe. Additional stable pulmonary nodules measure up to 3 mm. The lungs are free of acute opacities. No pleural effusion or pneumothorax. Calcified pulmonary nodules and calcified right hilar No pathologically enlarged thoracic lymph nodes are identified. The heart size is normal. There is calcified coronary artery atherosclerosis. lymph nodes are consistent with old granulomatous disease. There are partially imaged changes of anterior fusion in the lower cervical spine. ABDOMEN/PELVIS CT: The mildly dilated common bile duct measures up to 8 mm. There is mild intrahepatic biliary dilatation. Punctate calcifications in otherwise normal appearing liver and spleen likely represent healed granulomatous disease. The pancreas, gallbladder, and adrenal glands are normal. The kidneys are unremarkable. There is calcified atherosclerosis of the aorta and many of the other arteries. No pathologically enlarged abdominal or pelvic lymph nodes are identified. A large volume of colonic stool is present. There are changes of anterior and posterior fusion at L5-S1. IMPRESSION: 1. Moderate emphysema with stable pulmonary nodules. 2. Mild intrahepatic and extrahepatic biliary dilatation of unclear etiology. 3. Constipation. 01/01/2022: EXAMINATION: CT lung screening DATE: 01/01/2022 14:30 INDICATION: Tobacco use. History of smoking. COPD. TECHNIQUE: Computed tomography (CT) of the chest was performed without intravenous contrast. The dose-length product was 62.28 mGy-cm. Automated exposure control and iterative reconstruction technique were employed. COMPARISON: CT dated 11/22/2020 FINDINGS: No significant change to bilateral upper lobe nodules measuring 3 mm or less. There is a new 5 mm right upper lobe nodule, image 24. Moderate-severe emphysema. No endobronchial lesions. There are a few scattered calcified granulomas. No pneumothorax. No thoracic lymphadenopathy. There are calcified granulomas of the liver and spleen. There is atherosclerosis of the aorta and coronary arteries. Mild thoracic spondylosis. IMPRESSION: 1. Lung-RADS category 3: Probably benign. Further evaluation is recommended with noncontrast low-dose chest CT in 6 months. PFT's 10/13/2018: Findings: Spirometry: There is decreased maximal expiratory airflow at all lung volumes with a concave expiratory flow tracing. The contour the inspiratory flow tracing is normal. The pre bronchodilator FVC is 2.89 L, 93% predicted. The pre bronchodilator FEV1 is 0.96 L, 41% predicted. The pre bronchodilator FEV1: FVC ratio is 33%. The post bronchodilator FVC is 2.96 L, representing a 2% increase. The post bronchodilator FEV1 is 1.04 L, representing an 8% increase. The post bronchodilator FEV1: FVC ratio is 35%. Plethysmography: The total lung capacity is 6.63 L, 140% predicted. The functional residual capacity is 4.85 L, 168% predicted. The residual volume is 3.73 L, 219% predicted. The residual volume: Total lung capacity ratio is 56%. Diffusing capacity: The diffusing capacity unadjusted for hemoglobin and c arboxyhemoglobin is 10.8, 61% predicted. The diffusing capacity adjusted for alveolar volume is 3.39, 85% predicted. Impression: There is a severe obstructive abnormality. There is no significant improvement after inhaling a single dose of albuterol. The increase in residual volume to total lung volume ratio is consistent with hyperinflation from an obstructive abnormality. The diffusing capacity unadjusted for hemoglobin and carboxyhemoglobin is mildly decreased and normalizes when adjusted for alveolar volume. There are no prior studies for comparison 10/13/2018:ABG On room air: PH 7.42/38/63. Carboxyhemoglobin 6.1%. 6 minute walk-mild oxygen desaturations with exertion but not enough to require oxygen Methacholine Challenge - negative. 09/17/2018: Alpha 1 Anti Trypsin Level MM -Normal Review of Systems Constitutional: Constitutional: Reports no additional constitutional complaints Eyes: Eyes: Reports no additional eye complaints ENT: Reports system reviewed and no additional complaints, except as documented Cardiovascular: Cardiovascular: Reports no additional cardiovascular complaints Respiratory: Respiratory: Reports no additional respiratory complaints Gastrointestinal: Gastrointestinal: Reports no additional gastrointestinal complaints Musculoskeletal: Musculoskeletal: Reports no additional musculoskeletal complaints Neurologic: Reports system reviewed and no additional complaints, except as documented Psychiatric: Psychiatric: Reports no additional psychiatric complaints Endocrine: Endocrine: Reports no additional endocrine complaints Hematologic/Lymphatic: Hematologic/Lymphatic: Reports no additional hematologic/lymphatic complaints Allergic/Immunologic: Allergic/Immunologic: Reports no additional allergic/immunologic complaints Exam Const: General: cooperative, comfortable and no acute distress Orientation/consciousness: oriented to person, oriented to place and oriented to time Other: Cachectic HENMT: Head: normal to inspection Ears: hearing grossly normal bilaterally Eyes: General: appearance normal, both eyes and all related structures Neck: Neck: normal visual inspection Chest: Chest palpation & inspection: normal inspection of the chest Resp: Effort & Inspection: normal respiratory effort and able to speak in complete sentences Auscultation: no crackles, no rales, no rhonchi, no wheezes and diminished lung sounds Other: decreased breath sounds throughout, no wheezes Cardio: Jugular venous distension: no JVD GI: Inspection: normal to inspection Skin: General skin exam: normal color Neuro: General: oriented to person, oriented to place and oriented to time Extrem: General: normal to inspection and no edema Psych: Appearance: grossly normal Objective Data Vital Signs Vital Signs: Vital Signs - 24 hr 09/08/25 12:00 09/08/25 13:30 09/08/25 13:37 Temperature 36.3 C L Pulse Rate 90 111 H 112 H Respiratory Rate 16 20 20 Blood Pressure 105/62 Pulse Oximetry 97 Oxygen Delivery Oxygen Flow Rate Fraction of Inspired Oxygen 09/08/25 16:00 09/08/25 19:18 09/08/25 19:18 Temperature 36.6 C Pulse Rate 113 H 113 H 113 H Respiratory Rate 16 18 18 Blood Pressure 105/65 Pulse Oximetry 96 94 Oxygen Delivery CPAP Oxygen Flow Rate Fraction of Inspired Oxygen 09/08/25 19:28 09/08/25 21:58 09/08/25 22:50 Temperature Pulse Rate 112 H 98 107 H Respiratory Rate 16 27 H Blood Pressure Pulse Oximetry 90 94 Oxygen Delivery Nasal Cannula CPAP Oxygen Flow Rate Fraction of Inspired Oxygen 09/08/25 23:48 09/09/25 04:55 09/09/25 06:00 Temperature 36.1 C L 37.0 C Pulse Rate 116 H 100 98 Respiratory Rate 16 16 18 Blood Pressure 106/70 92/66 L Pulse Oximetry 92 99 99 Oxygen Delivery CPAP Oxygen Flow Rate Fraction of Inspired Oxygen 09/09/25 07:33 09/09/25 07:35 09/09/25 07:41 Temperature Pulse Rate 107 H 111 H Respiratory Rate 17 18 Blood Pressure Pulse Oximetry 93 Oxygen Delivery Nasal Cannula Oxygen Flow Rate 2 Fraction of Inspired Oxygen 09/09/25 08:00 Temperature Pulse Rate Respiratory Rate 18 Blood Pressure Pulse Oximetry 93 Oxygen Delivery Nasal Cannula Oxygen Flow Rate 2 Fraction of Inspired Oxygen 28 Intake/Output Intake/Output: Intake & Output 09/06/25 09/07/25 09/08/25 09/09/25 23:59 23:59 23:59 23:59 Intake Total 740 1160 720 600 Output Total 1000 2800 Balance 740 160 -2080 600 Meds/Results Medications: Active Medications Generic Name Dose Route Start Last Admin Trade Name Freq PRN Reason Stop Dose Admin Acetaminophen 650 mg 09/06/25 15:09 Acetaminophen 325 Mg Tablet PO Q4H PRN Mild Pain (1-3) or Fever Hydrocodone Bitart/Acetaminophen 1 tab 09/06/25 17:00 09/09/25 06:10 Hydrocodone/Acetaminophen (*Crx) 10-325 Mg Tablet PO 1 tab Q6HR JOANN Administration Albuterol/Ipratropium 3 ml 09/06/25 20:00 09/09/25 07:33 Ipratropium 0.5 Mg/Albuterol Sulfate 2.5 Mg (Base) Ampul.Neb 3 Ml INHALATION 3 ml Q6HRT JOANN Administration Atorvastatin Calcium 40 mg 09/06/25 18:00 09/07/25 17:14 Atorvastatin 40 Mg Tablet PO 40 mg On Hold: 09/08/25 14:33 QPM JOANN Administration Calcitriol 0.25 mcg 09/07/25 09:00 09/08/25 09:02 Calcitriol 0.25 Mcg Capsule PO 0.25 mcg DAILY JOANN Administration Cyclobenzaprine HCl 10 mg 09/06/25 17:00 09/08/25 17:18 Cyclobenzaprine Hcl 10 Mg Tablet PO 10 mg TID JOANN Administration Enoxaparin Sodium 40 mg 09/09/25 09:00 Enoxaparin 40 Mg/0.4 Ml Syringe SUB-Q DAILY JOANN Hydroxyzine HCl 25 mg 09/08/25 22:08 09/09/25 06:10 Hydroxyzine Hcl 25 Mg Tablet PO 25 mg Q8H PRN Administration Itching Ondansetron HCl 4 mg 09/06/25 15:09 Ondansetron Inj 4 Mg/2 Ml Vial IV PUSH Q4H PRN Nausea Prednisone 40 mg 09/08/25 12:55 09/08/25 12:58 Prednisone 20 Mg Tablet PO 40 mg DAILY@0800 JOANN Administration Sodium Chloride 500 mg 09/07/25 17:00 09/08/25 17:18 Sodium Chloride 500 Mg Tablet PO 500 mg BID JOANN Administration Spironolactone 12.5 mg 09/07/25 09:00 09/08/25 09:02 Spironolactone 12.5 Mg Tablet PO 12.5 mg DAILY JOANN Administration Radiology Results: ITS Impressions Chest X-Ray 09/06/25 13:03 IMPRESSION: 1. No acute cardiopulmonary findings given portable technique. Pulmonary Perfusion Imaging 09/08/25 09:26 IMPRESSION: 1. Multiple perfusion defects involving all lobes of both lungs including large perfusion defects at the superior segment and posterior basilar segment of the left lower lobe and the anterior basilar segment of the right lower lobe. Perfusion imaging contributed alone would be consistent with a high probability for pulmonary embolism. There is however diffuse abnormal retention of activity on the washout images consistent with COPD which would render assessment formally nondiagnostic. Chest CTA 09/08/25 11:08 IMPRESSION: 1. No pulmonary embolus. 2. Severe emphysema. 3. Small pleural effusions. Labs Labs: Laboratory Results - last 24 hr 09/08/25 09/08/25 09/08/25 10:07 10:33 12:26 WBC 4.7 RBC 3.80 L Hgb 11.0 L Hct 35.6 L MCV 93.7 MCH 28.9 MCHC 30.9 L RDW 14.0 Plt Count 209 MPV 9.1 Immature Gran % (Auto) 0.6 H Neut % (Auto) 89.9 H Lymph % (Auto) 3.0 L [place] % (Auto) 6.5 Eos % (Auto) 0.0 Baso % (Auto) 0.0 L Lymph # (Auto) 0.14 L [place] # (Auto) 0.3 Eos # (Auto) 0.0 Baso # (Auto) 0.0 Abs Immat Gran (auto) 0.03 Absolute Neuts (auto) 4.2 Absolute Nucleated RBC 0.000 Nucleated RBC % 0.0 Puncture Site ABG pH ABG pCO2 ABG pO2 ABG PO2/FiO2 Ratio ABG HCO3 ABG O2 Saturation ABG O2 Content ABG Base Excess A-a Gradient Oxyhemoglobin Total Hemoglobin O2 Delivery Device O2 Liters/Min FiO2 Expiratory Pressure Inspiratory Pressure Sodium 131 L Potassium 3.9 Chloride 88 L Carbon Dioxide 39 H Anion Gap 4 BUN 14 D Creatinine 0.63 L Estim Creat Clear Calc 55 Estimated GFR > 60 Glucose 167 H Calcium 8.1 L Total Bilirubin 0.7 AST 119 H ALT 321 H Alkaline Phosphatase 85 NT-Pro-B Natriuret Pep 4640 H Total Protein 5.6 L Albumin 3.4 L Procalcitonin 0.1 TSH 0.854 Free T4 1.10 Ur Random Sodium < 5 Hepatitis A IgM Ab Hep Bs Antigen Hep B Core IgM Ab Hepatitis C Ab Screen Influenza A (RT-PCR) Influenza B (RT-PCR) RSV (RT-PCR) SARS-CoV-2 RNA (RT-PCR) 09/08/25 09/08/25 09/09/25 12:49 13:29 05:01 WBC RBC Hgb Hct MCV MCH MCHC RDW Plt Count MPV Immature Gran % (Auto) Neut % (Auto) Lymph % (Auto) [place] % (Auto) Eos % (Auto) Baso % (Auto) Lymph # (Auto) [place] # (Auto) Eos # (Auto) Baso # (Auto) Abs Immat Gran (auto) Absolute Neuts (auto) Absolute Nucleated RBC Nucleated RBC % Puncture Site Right radial Right radial ABG pH 7.285 L* 7.326 L ABG pCO2 80.3 H* 79.8 H* ABG pO2 60.7 L 91.2 ABG PO2/FiO2 Ratio 2.53 3.26 ABG HCO3 37.3 H 40.8 H ABG O2 Saturation 87.0 L* 96.0 ABG O2 Content 15.1 L 16.5 ABG Base Excess 8.0 11.7 A-a Gradient 14.9 14.3 Oxyhemoglobin 87.4 L* 95.6 Total Hemoglobin 12.3 12.2 O2 Delivery Device Nasal cannula Bipap O2 Liters/Min 1.0 Not Reportable FiO2 24 28 Expiratory Pressure 4 Inspiratory Pressure 14 Sodium Potassium Chloride Carbon Dioxide Anion Gap BUN Creatinine Estim Creat Clear Calc Estimated GFR Glucose Calcium Total Bilirubin AST ALT Alkaline Phosphatase NT-Pro-B Natriuret Pep Total Protein Albumin Procalcitonin TSH Free T4 Ur Random Sodium Hepatitis A IgM Ab Hep Bs Antigen Hep B Core IgM Ab Hepatitis C Ab Screen Influenza A (RT-PCR) Negative Influenza B (RT-PCR) Negative RSV (RT-PCR) Negative SARS-CoV-2 RNA (RT-PCR) Negative 09/09/25 05:46 WBC 8.1 RBC 4.09 L Hgb 12.0 Hct 39.0 MCV 95.4 MCH 29.3 MCHC 30.8 L RDW 14.1 Plt Count 216 MPV 9.6 Immature Gran % (Auto) 0.5 Neut % (Auto) 83.2 H Lymph % (Auto) 8.2 L [place] % (Auto) 8.1 Eos % (Auto) 0.0 Baso % (Auto) 0.0 L Lymph # (Auto) 0.66 L [place] # (Auto) 0.7 H Eos # (Auto) 0.0 Baso # (Auto) 0.0 Abs Immat Gran (auto) 0.04 H Absolute Neuts (auto) 6.7 Absolute Nucleated RBC 0.000 Nucleated RBC % 0.0 Puncture Site ABG pH ABG pCO2 ABG pO2 ABG PO2/FiO2 Ratio ABG HCO3 ABG O2 Saturation ABG O2 Content ABG Base Excess A-a Gradient Oxyhemoglobin Total Hemoglobin O2 Delivery Device O2 Liters/Min FiO2 Expiratory Pressure Inspiratory Pressure Sodium Potassium Chloride Carbon Dioxide Anion Gap BUN Creatinine Estim Creat Clear Calc Estimated GFR Glucose Calcium Total Bilirubin AST ALT Alkaline Phosphatase NT-Pro-B Natriuret Pep Total Protein Albumin Procalcitonin TSH Free T4 Ur Random Sodium Hepatitis A IgM Ab Negative Hep Bs Antigen Negative Hep B Core IgM Ab Negative Hepatitis C Ab Screen Negative Influenza A (RT-PCR) Influenza B (RT-PCR) RSV (RT-PCR) SARS-CoV-2 RNA (RT-PCR)
[2025-09-09 09:57] LABS: Alanine Aminotransferase 358 U/L (6-35); Albumin Level 3.9 g/dL (3.5-5.1); Alkaline Phosphatase 73 U/L (38-126); Aspartate Amino Transferase 111 U/L (14-36); Bilirubin,Total 0.6 mg/dL (0.2-1.3); Blood Urea Nitrogen 13 mg/dL (7-17); Calcium 8.8 mg/dL (8.4-10.2); Carbon Dioxide > 40 mmol/L (22-30); Chloride 89 mmol/L (98-107); Estimated CRCL calculation 60 ml/min; Estimated Glomerular Filt Rate > 60; Glucose 74 mg/dL (65-110); Potassium 4.3 mmol/L (3.4-5.0); Sodium 133 mmol/L (137-145); Total Protein 6.0 g/dL (6.3-8.2)
[2025-09-09] MEDS: CYCLOBENZAPRINE HCL 10 MG TABLET PO ×3 (10:13→17:17)
[2025-09-09] MEDS: ENOXAPARIN 40 MG/0.4 ML SYRINGE SUB-Q (10:13)
[2025-09-09] MEDS: SODIUM CHLORIDE 500 MG TABLET PO ×2 (10:13→17:17)
[2025-09-09] MEDS: guaiFENesin 12 HR 600 MG TABCR 1200 MG PO ×2 (10:15→20:12)
[2025-09-09] MEDS: FUROSEMIDE INJ 40 MG/4 ML VIAL 20 MG IV PUSH (10:15)
--- NOTE | 2025-09-09 10:50 | PM.PNCARD ---
Progress Note: A&P Assessment and Plan (1) Right-sided heart failure: Code(s): I50.810 - Right heart failure, unspecified Status: Acute Assessment and Plan: echo demonstrated normal LV systolic and diastolic function with moderate to severe RV enlargement and RV systolic dysfunction with mild TR and severe pulmonary HTN. Septal flattening consistent with RV pressure overload noted VQ scan showed large perfusion defects, but non-diagnostic in the setting of her severe COPD CTA chest done and negative for PE on aldactone 12.5 mg daily, will give one time dose of IV lasix 20 mg today and monitor no other cardiac recommendations at this time as this is most likley all related to her severe COPD (2) Acute hyponatremia: Code(s): E87.1 - Hypo-osmolality and hyponatremia Status: Acute Assessment and Plan: sodium of 126 initially, has resolved. s/p IVF may be r/t RV volume overload will given one time dose of IV lasix 20 mg and monitor (3) Chronic obstructive pulmonary disease (COPD): Code(s): J44.9 - Chronic obstructive pulmonary disease, unspecified Status: Acute Assessment and Plan: severe pulmonary is following bipap for all sleep (4) Tobacco abuse: Code(s): Z72.0 - Tobacco use Status: Acute Assessment and Plan: cessation is encouraged (5) Elevated LFTs: Code(s): R79.89 - Other specified abnormal findings of blood chemistry Status: Acute Assessment and Plan: noted on admission remain elevated may represent hepatic congestion hepatic US showed, Intrahepatic biliary ductal dilatation, hepatic steatosis and/or hepatocellular disease. Ascites and right pleural effusion. give dose of IV lasix and monitor further management asper primary team Subjective Date/time seen: 09/09/25 10:50 Interval history: Date of Service 09/08/25: Patient is sitting up in bed, her is at the bedside. No c/o any chest pain. Chronic SOB, but no worsening. No dizziness or palpitations. Date of Service 09/09/25: Patient is sitting up in bed. She wore bipap last night and feeling a little less SOB this am. Remains on O2 per NC. No chest pain or pressure. No dizziness. Review of Systems Review of Systems: All systems reviewed & are unremarkable except as noted in HPI and below Exam Const: General: comfortable HENMT: Mouth: Yes moist mucous membranes Neck: Neck: supple Resp: Auscultation: diminished lung sounds Cardio: Rate: tachycardic Rhythm: regular rhythm Heart sounds: no gallops, no murmurs and no rubs Skin: General skin exam: normal color Psych: Mental Status: mental status grossly normal Objective Data Vital Signs Vital Signs: Vital Signs - 24 hr 09/08/25 12:00 09/08/25 13:30 09/08/25 13:37 Temperature 36.3 C L Pulse Rate 90 111 H 112 H Respiratory Rate 16 20 20 Blood Pressure 105/62 Pulse Oximetry 97 Oxygen Delivery Oxygen Flow Rate Fraction of Inspired Oxygen 09/08/25 16:00 09/08/25 19:18 09/08/25 19:18 Temperature 36.6 C Pulse Rate 113 H 113 H 113 H Respiratory Rate 16 18 18 Blood Pressure 105/65 Pulse Oximetry 96 94 Oxygen Delivery CPAP Oxygen Flow Rate Fraction of Inspired Oxygen 09/08/25 19:28 09/08/25 21:58 09/08/25 22:50 Temperature Pulse Rate 112 H 98 107 H Respiratory Rate 16 27 H Blood Pressure Pulse Oximetry 90 94 Oxygen Delivery Nasal Cannula CPAP Oxygen Flow Rate Fraction of Inspired Oxygen 09/08/25 23:48 09/09/25 04:55 09/09/25 06:00 Temperature 36.1 C L 37.0 C Pulse Rate 116 H 100 98 Respiratory Rate 16 16 18 Blood Pressure 106/70 92/66 L Pulse Oximetry 92 99 99 Oxygen Delivery CPAP Oxygen Flow Rate Fraction of Inspired Oxygen 09/09/25 07:33 09/09/25 07:35 09/09/25 07:41 Temperature Pulse Rate 107 H 111 H Respiratory Rate 17 18 Blood Pressure Pulse Oximetry 93 Oxygen Delivery Nasal Cannula Oxygen Flow Rate 2 Fraction of Inspired Oxygen 09/09/25 08:00 Temperature Pulse Rate Respiratory Rate 18 Blood Pressure Pulse Oximetry 93 Oxygen Delivery Nasal Cannula Oxygen Flow Rate 2 Fraction of Inspired Oxygen 28 Intake/Output Intake/Output: Intake & Output 09/06/25 09/07/25 09/08/25 09/09/25 23:59 23:59 23:59 23:59 Intake Total 740 1160 720 600 Output Total 1000 2800 Balance 740 160 -2080 600 Meds/Results Medications: Active Medications Generic Name Dose Route Start Last Admin Trade Name Freq PRN Reason Stop Dose Admin Acetaminophen 650 mg 09/06/25 15:09 Acetaminophen 325 Mg Tablet PO Q4H PRN Mild Pain (1-3) or Fever Hydrocodone Bitart/Acetaminophen 1 tab 09/06/25 17:00 09/09/25 06:10 Hydrocodone/Acetaminophen (*Crx) 10-325 Mg Tablet PO 1 tab Q6HR JOANN Administration Albuterol/Ipratropium 3 ml 09/06/25 20:00 09/09/25 10:14 Ipratropium 0.5 Mg/Albuterol Sulfate 2.5 Mg (Base) Ampul.Neb 3 Ml INHALATION Not Given Q6HRT [facility] Atorvastatin Calcium 40 mg 09/06/25 18:00 09/07/25 17:14 Atorvastatin 40 Mg Tablet PO 40 mg On Hold: 09/08/25 14:33 QPM JOANN Administration Calcitriol 0.25 mcg 09/07/25 09:00 09/09/25 10:12 Calcitriol 0.25 Mcg Capsule PO 0.25 mcg DAILY JOANN Administration Cyclobenzaprine HCl 10 mg 09/06/25 17:00 09/09/25 10:13 Cyclobenzaprine Hcl 10 Mg Tablet PO 10 mg TID JOANN Administration Enoxaparin Sodium 40 mg 09/09/25 09:00 09/09/25 10:13 Enoxaparin 40 Mg/0.4 Ml Syringe SUB-Q 40 mg DAILY JOANN Administration Guaifenesin 1,200 mg 09/09/25 09:45 09/09/25 10:15 Guaifenesin 12 Hr 600 Mg Tabcr PO 1,200 mg Q12HR JOANN Administration Hydroxyzine HCl 25 mg 09/08/25 22:08 09/09/25 06:10 Hydroxyzine Hcl 25 Mg Tablet PO 25 mg Q8H PRN Administration Itching Ondansetron HCl 4 mg 09/06/25 15:09 Ondansetron Inj 4 Mg/2 Ml Vial IV PUSH Q4H PRN Nausea Prednisone 40 mg 09/08/25 12:55 09/09/25 10:13 Prednisone 20 Mg Tablet PO 40 mg DAILY@0800 JOANN Administration Sodium Chloride 500 mg 09/07/25 17:00 09/09/25 10:13 Sodium Chloride 500 Mg Tablet PO 500 mg BID JOANN Administration Spironolactone 12.5 mg 09/07/25 09:00 09/09/25 10:13 Spironolactone 12.5 Mg Tablet PO 12.5 mg DAILY JOANN Administration Radiology Results: ITS Impressions Chest X-Ray 09/06/25 13:03 IMPRESSION: 1. No acute cardiopulmonary findings given portable technique. Pulmonary Perfusion Imaging 09/08/25 09:26 IMPRESSION: 1. Multiple perfusion defects involving all lobes of both lungs including large perfusion defects at the superior segment and posterior basilar segment of the left lower lobe and the anterior basilar segment of the right lower lobe. Perfusion imaging contributed alone would be consistent with a high probability for pulmonary embolism. There is however diffuse abnormal retention of activity on the washout images consistent with COPD which would render assessment formally nondiagnostic. Chest CTA 09/08/25 11:08 IMPRESSION: 1. No pulmonary embolus. 2. Severe emphysema. 3. Small pleural effusions. Abdomen Ultrasound 09/09/25 10:21 IMPRESSION: 1. Intrahepatic biliary ductal dilatation. Consider MRCP. 2. Hepatic steatosis and/or hepatocellular disease. 3. Ascites and right pleural effusion. Labs Labs: Laboratory Results - last 24 hr 09/08/25 09/08/25 09/08/25 10:07 10:33 12:26 WBC RBC Hgb Hct MCV MCH MCHC RDW Plt Count MPV Immature Gran % (Auto) Neut % (Auto) Lymph % (Auto) [place] % (Auto) Eos % (Auto) Baso % (Auto) Lymph # (Auto) [place] # (Auto) Eos # (Auto) Baso # (Auto) Abs Immat Gran (auto) Absolute Neuts (auto) Absolute Nucleated RBC Nucleated RBC % Puncture Site ABG pH ABG pCO2 ABG pO2 ABG PO2/FiO2 Ratio ABG HCO3 ABG O2 Saturation ABG O2 Content ABG Base Excess A-a Gradient Oxyhemoglobin Total Hemoglobin O2 Delivery Device O2 Liters/Min FiO2 Expiratory Pressure Inspiratory Pressure Sodium Potassium Chloride Carbon Dioxide Anion Gap BUN Creatinine Estim Creat Clear Calc Estimated GFR Glucose Calcium Total Bilirubin AST ALT Alkaline Phosphatase NT-Pro-B Natriuret Pep 4640 H Total Protein Albumin Procalcitonin 0.1 TSH 0.854 Free T4 1.10 Ur Random Sodium < 5 Hepatitis A IgM Ab Hep Bs Antigen Hep B Core IgM Ab Hepatitis C Ab Screen Influenza A (RT-PCR) Influenza B (RT-PCR) RSV (RT-PCR) SARS-CoV-2 RNA (RT-PCR) 09/08/25 09/08/25 09/09/25 12:49 13:29 05:01 WBC RBC Hgb Hct MCV MCH MCHC RDW Plt Count MPV Immature Gran % (Auto) Neut % (Auto) Lymph % (Auto) [place] % (Auto) Eos % (Auto) Baso % (Auto) Lymph # (Auto) [place] # (Auto) Eos # (Auto) Baso # (Auto) Abs Immat Gran (auto) Absolute Neuts (auto) Absolute Nucleated RBC Nucleated RBC % Puncture Site Right radial Right radial ABG pH 7.285 L* 7.326 L ABG pCO2 80.3 H* 79.8 H* ABG pO2 60.7 L 91.2 ABG PO2/FiO2 Ratio 2.53 3.26 ABG HCO3 37.3 H 40.8 H ABG O2 Saturation 87.0 L* 96.0 ABG O2 Content 15.1 L 16.5 ABG Base Excess 8.0 11.7 A-a Gradient 14.9 14.3 Oxyhemoglobin 87.4 L* 95.6 Total Hemoglobin 12.3 12.2 O2 Delivery Device Nasal cannula Bipap O2 Liters/Min 1.0 Not Reportable FiO2 24 28 Expiratory Pressure 4 Inspiratory Pressure 14 Sodium Potassium Chloride Carbon Dioxide Anion Gap BUN Creatinine Estim Creat Clear Calc Estimated GFR Glucose Calcium Total Bilirubin AST ALT Alkaline Phosphatase NT-Pro-B Natriuret Pep Total Protein Albumin Procalcitonin TSH Free T4 Ur Random Sodium Hepatitis A IgM Ab Hep Bs Antigen Hep B Core IgM Ab Hepatitis C Ab Screen Influenza A (RT-PCR) Negative Influenza B (RT-PCR) Negative RSV (RT-PCR) Negative SARS-CoV-2 RNA (RT-PCR) Negative 09/09/25 05:46 WBC 8.1 RBC 4.09 L Hgb 12.0 Hct 39.0 MCV 95.4 MCH 29.3 MCHC 30.8 L RDW 14.1 Plt Count 216 MPV 9.6 Immature Gran % (Auto) 0.5 Neut % (Auto) 83.2 H Lymph % (Auto) 8.2 L [place] % (Auto) 8.1 Eos % (Auto) 0.0 Baso % (Auto) 0.0 L Lymph # (Auto) 0.66 L [place] # (Auto) 0.7 H Eos # (Auto) 0.0 Baso # (Auto) 0.0 Abs Immat Gran (auto) 0.04 H Absolute Neuts (auto) 6.7 Absolute Nucleated RBC 0.000 Nucleated RBC % 0.0 Puncture Site ABG pH ABG pCO2 ABG pO2 ABG PO2/FiO2 Ratio ABG HCO3 ABG O2 Saturation ABG O2 Content ABG Base Excess A-a Gradient Oxyhemoglobin Total Hemoglobin O2 Delivery Device O2 Liters/Min FiO2 Expiratory Pressure Inspiratory Pressure Sodium 133 L Potassium 4.3 Chloride 89 L Carbon Dioxide > 40 H Anion Gap BUN 13 Creatinine 0.60 L Estim Creat Clear Calc 60 Estimated GFR > 60 Glucose 74 Calcium 8.8 Total Bilirubin 0.6 AST 111 H ALT 358 H Alkaline Phosphatase 73 NT-Pro-B Natriuret Pep Total Protein 6.0 L Albumin 3.9 Procalcitonin TSH Free T4 Ur Random Sodium Hepatitis A IgM Ab Negative Hep Bs Antigen Negative Hep B Core IgM Ab Negative Hepatitis C Ab Screen Negative Influenza A (RT-PCR) Influenza B (RT-PCR) RSV (RT-PCR) SARS-CoV-2 RNA (RT-PCR)
--- NOTE | 2025-09-09 14:44 | WPDGICN ---
Assessment and Plan Assessment and plan (1) Elevated LFTs: Code(s): R79.89 - Other specified abnormal findings of blood chemistry Status: Acute Assessment and Plan: I think this is most likely from congestive hepatopathy from advanced copd/cor pulmonale with Rt heart failure ultrasound noted dilated bile duct, we can order mrcp but I do not anticipate to find any significant abnormalities management is treatment by cardiology and supportive care (2) Cor pulmonale: Code(s): I27.81 - Cor pulmonale (chronic) Status: Acute (3) Acute respiratory failure with hypoxia and hypercapnia: Code(s): J96.01 - Acute respiratory failure with hypoxia; J96.02 - Acute respiratory failure with hypercapnia Status: Acute Assessment and Plan: better with medical treatment (4) Right-sided heart failure: Code(s): I50.810 - Right heart failure, unspecified Status: Acute (5) Acute exacerbation of chronic obstructive pulmonary disease: Code(s): J44.1 - Chronic obstructive pulmonary disease with (acute) exacerbation Status: Inactive (6) Tobacco abuse: Code(s): Z72.0 - Tobacco use Status: Acute (7) Acute hyponatremia: Code(s): E87.1 - Hypo-osmolality and hyponatremia Status: Acute (8) Dilated bile duct: Code(s): K83.8 - Other specified diseases of biliary tract Status: Acute Assessment and Plan: mrcp GI Consult Note Consult date/time: 09/09/25 14:44 Reason for consult: elevated liver enzymes HPI: Yoon Galvan is a 59 year old femalewith longstanding history of tobacco use with severe COPD and follows with pulmonology as well. Here with progressive worsening shortness of breath and lower extremity edema which was new for her. An echocardiogram was done as part of this evaluation which demonstrates classical findings of chronic pulmonary hypertension with severe RV enlargement, septal flattening and some tricuspid insufficiency . Her chest x-ray shows severe hyperinflation, COPD loss of lung volume and small cardiac silhouette. She is evaluated by cardiology and pulmonary, also noted to have new elevated transaminases, she denies liver disease, no alcohol use. abd us showed Intrahepatic biliary ductal dilatation. Hepatic steatosis and/or hepatocellular disease. Ascites and right pleural effusion. Her SOB has improved with medical treatment, bipap, oxygen, etc. Review of Systems Constitutional: Constitutional: Reports fatigue Eyes: Eyes: Denies blurry vision ENT: Reports Normal hearing present Cardiovascular: Cardiovascular: Reports leg edema Respiratory: Respiratory: Reports dyspnea on exertion Gastrointestinal: Gastrointestinal: Denies abdominal pain Genitourinary: Genitourinary: Denies dysuria Musculoskeletal: Musculoskeletal: Denies neck pain Integumentary/Breasts: Skin/Breast: Denies rash Neurologic: Denies Abnormal speech present Psychiatric: Psychiatric: Denies confusion [facility] Past Medical History Medical History (Updated 09/09/25 @ 14:49 by Suhail Siddiqui MD) Dilated bile duct Cor pulmonale Neck problem bone fusion on neck Chronic obstructive pulmonary disease (COPD) Lung nodule Mildly underweight adult Recurrent pneumonia Shortness of breath Tobacco abuse Surgical History Surgical History H/O LEEP 1997 History of tubal ligation 2003 History of endometrial ablation 02/11/09 hscope d&c/novasure ablation History of dilation and curettage 02/11/09 hscope d&c/novasure ablation History of back surgery 2011 Family History Family History Sibling Chronic obstructive lung disease sister Mother Malignant tumor of urinary bladder Father Malignant neoplasm of bone Social History Social History Smoking packs per day: 1 Smoking cigarettes per day: 20.0 Years smoked: 40 Smoking pack-years: 40.00 Smoking status: Former smoker Tobacco type: cigarettes Second hand tobacco smoke exposure: Yes Smoking end date: 09/03/25 Alcohol intake: former Substance use: never Substance use type: painkillers Other substance usage details: prescrption pain pills per patient Lack of Transportation: No Lack of Food: Never True Current Housing: I Do Not Have Housing Concerned About Future Housing: No Difficulty Paying Gas/Electric Bills: No Difficulty Paying for Meds: No Currently Unemployed: No Education: Associate Degree Difficulty w/ Childcare or Family Care: No Living arrangements: with family Additional living arrangements comments: 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/Education: occupation 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 Gender identity (if verbalized by the patient): Female Sexual Orientation (if Verbalized by the Patient): Straight or Heterosexual Spiritual care concerns: No Meds Home Medications and Allergies Home Medications ?Medication ?Instructions ?Recorded ?Confirmed ?Type cyclobenzaprine 10 mg tablet 10 mg PO TID 02/13/22 09/06/25 History ergocalciferol (vitamin D2) 1,250 1 cap PO WEEKLY 05/13/22 09/06/25 History mcg (50,000 unit) capsule calcitriol 0.25 mcg capsule 0.25 mcg PO DAILY 02/04/23 09/06/25 History atorvastatin 40 mg tablet 40 mg PO QPM 09/06/25 09/06/25 History hydrocodone 10 mg-acetaminophen 1 tablet PO Q6H 09/06/25 09/06/25 History 325 mg tablet spironolactone 25 mg tablet 12.5 mg PO DAILY 09/06/25 09/06/25 History Allergies Allergy/AdvReac Type Severity Reaction Status Date / Time No Known Allergies Allergy Verified 09/06/25 16:34 Vital Signs Vital Signs - 24 hr 09/08/25 16:00 09/08/25 19:18 09/08/25 19:18 Temperature 97.9 F Pulse Rate 113 H 113 H 113 H Respiratory Rate 16 18 18 Blood Pressure 105/65 Pulse Oximetry 96 94 Oxygen Delivery CPAP Oxygen Flow Rate Fraction of Inspired Oxygen 09/08/25 19:28 09/08/25 21:58 09/08/25 22:50 Temperature Pulse Rate 112 H 98 107 H Respiratory Rate 16 27 H Blood Pressure Pulse Oximetry 90 94 Oxygen Delivery Nasal Cannula CPAP Oxygen Flow Rate Fraction of Inspired Oxygen 09/08/25 23:48 09/09/25 04:55 09/09/25 06:00 Temperature 97.0 F L 98.6 F Pulse Rate 116 H 100 98 Respiratory Rate 16 16 18 Blood Pressure 106/70 92/66 L Pulse Oximetry 92 99 99 Oxygen Delivery CPAP Oxygen Flow Rate Fraction of Inspired Oxygen 09/09/25 07:33 09/09/25 07:35 09/09/25 07:41 Temperature Pulse Rate 107 H 111 H Respiratory Rate 17 18 Blood Pressure Pulse Oximetry 93 Oxygen Delivery Nasal Cannula Oxygen Flow Rate 2 Fraction of Inspired Oxygen 09/09/25 08:00 09/09/25 13:47 09/09/25 13:59 Temperature Pulse Rate 104 H 105 H Respiratory Rate 18 20 20 Blood Pressure Pulse Oximetry 93 Oxygen Delivery Nasal Cannula Oxygen Flow Rate 2 Fraction of Inspired Oxygen 28 09/09/25 14:22 Temperature 97.9 F Pulse Rate 115 H Respiratory Rate 20 Blood Pressure 93/60 L Pulse Oximetry 92 Oxygen Delivery Oxygen Flow Rate Fraction of Inspired Oxygen Exam Const: General: comfortable Other: thin chronically ill appearing HENMT: Mouth: Yes moist mucous membranes Eyes: Sclera: sclerae normal Neck: Neck: supple Resp: Auscultation: diminished lung sounds Other: using oxygen Cardio: Rate: tachycardic Rhythm: regular rhythm GI: GI Palp: Yes Soft to palpation and No Tenderness to palpation present (GI) Auscultation: normal bowel sounds Skin: General skin exam: normal color Neuro: Speech: normal speech Motor exam (neuro): 5/5 motor strength present throughout Psych: Mental Status: mental status grossly normal Results Labs 09/09/25 05:46 09/09/25 05:46 Labs: Short CBC 09/09/25 Range/Units 05:46 WBC 8.1 (4.5-10.0) K/mm3 Hgb 12.0 (12.0-15.0) g/dL Hct 39.0 (37.0-47.0) % Plt Count 216 (150-375) k/mm3 BMP 09/09/25 05:46 Sodium 133 L Potassium 4.3 Chloride 89 L Carbon Dioxide > 40 H BUN 13 Creatinine 0.60 L Glucose 74 Calcium 8.8 Liver Function 09/09/25 Range/Units 05:46 Total Bilirubin 0.6 (0.2-1.3) mg/dL AST 111 H (14-36) U/L ALT 358 H (6-35) U/L Alkaline Phosphatase 73 (38-126) U/L Albumin 3.9 (3.5-5.1) g/dL
[2025-09-09 16:33] LABS: Alveolar/Arterial O2 Gradient 46.1 mmHg; Fractional Inspired Oxygen 28 %; HCO3 ABG 43.1 mEq/l (22.0-26.0); Oxygen Content ABG 16.8 %vol (16.0-22.0); Oxygen Saturation ABG 94.5 % (95.0-100.0); PO2 ABG 73.7 mmHg (80.0-100.0); PO2 FiO2 Ratio Arterial Blood 2.63 %
[2025-09-09 16:39] LABS: Liters per Minute 2.0 LPM; Modified Allen's Test Pass; PCO2 ABG 67.7 mmHg (35.0-45.0); Site Drawn RIGHT RADIAL
--- NOTE | 2025-09-09 17:52 | PC.NURSE ---
This nurse found patient napping. Pt should be wearing bipap for naps and at bedtime. Woke pt and asked if we could put bipap on. Pt does not want it on at this time. Education provided on the need for wearing it. Pt refusing.
[2025-09-09] MEDS: IPRATROPIUM BR 0.02% INH SOLN 0.5 MG/2.5 ML VIAL INHALATION (20:37)
[2025-09-10] VITALS (14 sets, daily range): BP systolic 92–103; BP diastolic 56–77; PULSE 90–116; RESP 20–26; TEMP 36.4–36.9; O2SAT 86–99
[2025-09-10] MEDS: HYDROcodone/acetaminophen (*CRX) 10-325 MG TABLET 1 TAB PO ×3 (00:16→12:07)
[2025-09-10 04:09] LABS: Alveolar/Arterial O2 Gradient 31.6 mmHg; Carboxyhemoglobin 0.7 % THb (0-2.0); Fractional Inspired Oxygen 28 %; HCO3 ABG 41.3 mEq/l (22.0-26.0); Methemoglobin ABG 0.3 %THb (0-1.5); Oxygen Content ABG 16.1 %vol (16.0-22.0); Oxygen Saturation ABG 95.5 % (95.0-100.0); PO2 ABG 83.2 mmHg (80.0-100.0); PO2 FiO2 Ratio Arterial Blood 2.97 %; Reduced Hemoglobin 4.3 %THb (0-5.0)
[2025-09-10 04:12] LABS: PCO2 ABG 71.9 mmHg (35.0-45.0); Site Drawn RIGHT BRACHIAL
[2025-09-10 04:14] LABS: Liters per Minute 2.0 LPM
--- NOTE | 2025-09-10 04:36 | PCRCNOTE ---
ABG drawn on 2L nasal cannula due to patient wanting bipap mask off.
--- NOTE | 2025-09-10 04:38 | PCRCNOTE ---
Patient did not receive 0200 updraft treatment due to being on an overnight oximetry study. Treatment to resume at 0800.
[2025-09-10 05:46] LABS: Hematocrit 35.6 % (37.0-47.0); Hemoglobin 10.9 g/dL (12.0-15.0); Immature Granulocyte Percent A 0.4 % (0-0.5); Lymphocytes Absolute Auto 1.62 K/mm3 (0.9-3.2); Mean Corpuscular HGB Conc 30.6 g/dl (32-36); Mean Corpuscular Hemoglobin 28.8 pg (26-34); Mean Corpuscular Volume 94.2 fl (80-100); Nucleated Red Blood Cells Absolute Auto 0.000 K/mm3 (0.0-0.012); Nucleated Red Blood Cells Perc 0.0 % (0.0-0.2); Platelet Count Result 161 k/mm3 (150-375); Red Blood Count 3.78 M/mm3 (4.2-5.4); White Blood Count 8.0 K/mm3 (4.5-10.0)
[2025-09-10 06:07] LABS: Alanine Aminotransferase 274 U/L (6-35); Albumin Level 3.2 g/dL (3.5-5.1); Alkaline Phosphatase 63 U/L (38-126); Aspartate Amino Transferase 74 U/L (14-36); Bilirubin,Total 0.7 mg/dL (0.2-1.3); Blood Urea Nitrogen 16 mg/dL (7-17); Calcium 8.1 mg/dL (8.4-10.2); Carbon Dioxide > 40 mmol/L (22-30); Chloride 87 mmol/L (98-107); Estimated CRCL calculation 50 ml/min; Estimated Glomerular Filt Rate > 60; Glucose 83 mg/dL (65-110); Potassium 4.1 mmol/L (3.4-5.0); Sodium 133 mmol/L (137-145); Total Protein 5.2 g/dL (6.3-8.2)
[2025-09-10] MEDS: IPRATROPIUM BR 0.02% INH SOLN 0.5 MG/2.5 ML VIAL INHALATION ×2 (07:48→14:48)
[2025-09-10] MEDS: SODIUM CHLORIDE 500 MG TABLET PO (08:20)
[2025-09-10] MEDS: guaiFENesin 12 HR 600 MG TABCR 1200 MG PO (08:20)
[2025-09-10] MEDS: ACETAMINOPHEN 325 MG TABLET 650 MG PO (08:20)
[2025-09-10] MEDS: ENOXAPARIN 40 MG/0.4 ML SYRINGE SUB-Q (08:21)
[2025-09-10] MEDS: CYCLOBENZAPRINE HCL 10 MG TABLET PO ×2 (08:21→12:07)
[2025-09-10 08:43] LABS: NT Pro B Type Natriuretic Pept 4870 pg/mL (19.9-100)
--- NOTE | 2025-09-10 10:13 | P.PNCA_ITS ---
Progress Note: A&P Assessment and Plan (1) Right-sided heart failure: Code(s): I50.810 - Right heart failure, unspecified Status: Acute Assessment and Plan: * echo demonstrated normal LV systolic and diastolic function with moderate to severe RV enlargement and RV systolic dysfunction with mild TR and severe pulmonary HTN. Septal flattening consistent with RV pressure overload noted * VQ scan showed large perfusion defects, but non-diagnostic in the setting of her severe COPD * CTA chest done and negative for PE * on aldactone 12.5 mg daily, given lasix 20 mg IVP yesterday feeling improved, her Na is stable and LFTs down slightly-can add lasix 20 mg daily PO * no other cardiac recommendations at this time as this is most likley all related to her severe COPD (2) Acute hyponatremia: Code(s): E87.1 - Hypo-osmolality and hyponatremia Status: Acute Assessment and Plan: * sodium of 126 initially, has resolved. * s/p IVF * may be r/t RV volume overload will given one time dose of IV lasix 20 mg * sodium improved (3) Chronic obstructive pulmonary disease (COPD): Code(s): J44.9 - Chronic obstructive pulmonary disease, unspecified Status: Acute Assessment and Plan: * severe pulmonary is following * bipap for all sleep (4) Tobacco abuse: Code(s): Z72.0 - Tobacco use Status: Acute Assessment and Plan: * cessation is encouraged (5) Elevated LFTs: Code(s): R79.89 - Other specified abnormal findings of blood chemistry Status: Acute Assessment and Plan: * noted on admission * remain elevated may represent hepatic congestion * hepatic US showed, Intrahepatic biliary ductal dilatation, hepatic steatosis and/or hepatocellular disease. Ascites and right pleural effusion. * give dose of IV lasix and monitor * planned for MRCP today Subjective Date/time seen: 09/10/25 10:13 Interval history: Date of Service 09/08/25: Patient is sitting up in bed, her is at the bedside. No c/o any chest pain. Chronic SOB, but no worsening. No dizziness or palpitations. Date of Service 09/09/25: Patient is sitting up in bed. She wore bipap last night and feeling a little less SOB this am. Remains on O2 per NC. No chest pain or pressure. No dizziness. Date of Service 09/10/25: Patient sitting up in bed, at bedside. She reports feeling improved this am and has been up in room. No chest pain or pressure. Still with SOB. Able to tolerate bipap 4 hours last night. Review of Systems Review of Systems: All systems reviewed & are unremarkable except as noted in HPI and below Exam Const: General: comfortable and no acute distress Eyes: Sclera: sclerae normal Neck: Neck: supple Thyroid: thyroid normal Carotids: no bruits Resp: Effort & Inspection: normal respiratory effort Auscultation: diminished lung sounds Cardio: Rate: tachycardic Rhythm: regular rhythm Heart sounds: no gallops, no murmurs and no rubs Skin: General skin exam: normal color Neuro: General: gait normal Extrem: General: no edema Psych: Mental Status: mental status grossly normal Objective Data Vital Signs Vital Signs: Vital Signs - 24 hr 09/09/25 13:47 09/09/25 13:59 09/09/25 14:22 Temperature 36.6 C Pulse Rate 104 H 105 H 115 H Respiratory Rate 20 20 20 Blood Pressure 93/60 L Pulse Oximetry 92 Oxygen Delivery Oxygen Flow Rate Fraction of Inspired Oxygen 09/09/25 18:30 09/09/25 20:00 09/09/25 20:00 Temperature 36.7 C Pulse Rate 67 115 H Respiratory Rate 25 H 20 20 Blood Pressure 103/61 Pulse Oximetry 97 93 94 Oxygen Delivery BiPAP Nasal Cannula Oxygen Flow Rate 2 Fraction of Inspired Oxygen 09/09/25 20:37 09/09/25 20:47 09/09/25 21:01 Temperature Pulse Rate 108 H 108 H 105 H Respiratory Rate 20 20 Blood Pressure Pulse Oximetry 94 Oxygen Delivery Nasal Cannula Oxygen Flow Rate 1.5 Fraction of Inspired Oxygen 09/09/25 23:29 09/09/25 23:29 09/10/25 02:12 Temperature Pulse Rate 92 92 90 Respiratory Rate 20 26 H Blood Pressure Pulse Oximetry 95 95 96 Oxygen Delivery BiPAP BiPAP BiPAP Oxygen Flow Rate Fraction of Inspired Oxygen 09/10/25 04:00 09/10/25 07:48 09/10/25 07:51 Temperature 36.9 C Pulse Rate 98 104 H Respiratory Rate 20 20 Blood Pressure 103/77 Pulse Oximetry 99 93 Oxygen Delivery Nasal Cannula Oxygen Flow Rate 2 Fraction of Inspired Oxygen 09/10/25 07:57 09/10/25 08:00 09/10/25 08:00 Temperature 36.4 C L Pulse Rate 101 H 97 Respiratory Rate 20 20 Blood Pressure 100/67 Pulse Oximetry 96 96 Oxygen Delivery Nasal Cannula Oxygen Flow Rate 2 Fraction of Inspired Oxygen 09/10/25 09:15 Temperature Pulse Rate Respiratory Rate Blood Pressure Pulse Oximetry Oxygen Delivery Nasal Cannula Oxygen Flow Rate 2 Fraction of Inspired Oxygen Intake/Output Intake/Output: Intake & Output 09/07/25 09/08/25 09/09/25 09/10/25 23:59 23:59 23:59 23:59 Intake Total 9575 662 2636 0 Output Total 1000 2800 Balance 160 -2080 1380 0 Meds/Results Medications: Active Medications Generic Name Dose Route Start Last Admin Trade Name Freq PRN Reason Stop Dose Admin Acetaminophen 650 mg 09/06/25 15:09 09/10/25 08:20 Acetaminophen 325 Mg Tablet PO 650 mg Q4H PRN Administration Mild Pain (1-3) or Fever Hydrocodone Bitart/Acetaminophen 1 tab 09/06/25 17:00 09/10/25 04:53 Hydrocodone/Acetaminophen (*Crx) 10-325 Mg Tablet PO 1 tab Q6HR JOANN Administration Atorvastatin Calcium 40 mg 09/06/25 18:00 09/07/25 17:14 Atorvastatin 40 Mg Tablet PO 40 mg On Hold: 09/08/25 14:33 QPM JOANN Administration Calcitriol 0.25 mcg 09/07/25 09:00 09/10/25 08:20 Calcitriol 0.25 Mcg Capsule PO 0.25 mcg DAILY JOANN Administration Cyclobenzaprine HCl 10 mg 09/06/25 17:00 09/10/25 08:21 Cyclobenzaprine Hcl 10 Mg Tablet PO 10 mg TID JOANN Administration Enoxaparin Sodium 40 mg 09/09/25 09:00 09/10/25 08:21 Enoxaparin 40 Mg/0.4 Ml Syringe SUB-Q 40 mg DAILY JOANN Administration Guaifenesin 1,200 mg 09/09/25 09:45 09/10/25 08:20 Guaifenesin 12 Hr 600 Mg Tabcr PO 1,200 mg Q12HR JOANN Administration Hydroxyzine HCl 25 mg 09/08/25 22:08 09/10/25 08:20 Hydroxyzine Hcl 25 Mg Tablet PO 25 mg Q8H PRN Administration Itching Ipratropium [place] 0.5 mg 09/09/25 20:00 09/10/25 07:48 Ipratropium Br 0.02% Inh Soln 0.5 Mg/2.5 Ml Vial INHALATION 0.5 mg Q6HRT JOANN Administration Levalbuterol HCl 1.25 mg 09/09/25 20:00 09/10/25 07:48 Levalbuterol Neb 1.25 Mg/3 Ml INHALATION 1.25 mg Q6HRT JOANN Administration Ondansetron HCl 4 mg 09/06/25 15:09 Ondansetron Inj 4 Mg/2 Ml Vial IV PUSH Q4H PRN Nausea Prednisone 40 mg 09/08/25 12:55 09/10/25 08:20 Prednisone 20 Mg Tablet PO 40 mg DAILY@0800 JOANN Administration Sodium Chloride 500 mg 09/07/25 17:00 09/10/25 08:20 Sodium Chloride 500 Mg Tablet PO 500 mg BID JOANN Administration Spironolactone 12.5 mg 09/07/25 09:00 09/10/25 08:20 Spironolactone 12.5 Mg Tablet PO 12.5 mg DAILY JOANN Administration Radiology Results: ITS Impressions Chest X-Ray 09/06/25 13:03 IMPRESSION: 1. No acute cardiopulmonary findings given portable technique. Pulmonary Perfusion Imaging 09/08/25 09:26 IMPRESSION: 1. Multiple perfusion defects involving all lobes of both lungs including large perfusion defects at the superior segment and posterior basilar segment of the left lower lobe and the anterior basilar segment of the right lower lobe. Perfusion imaging contributed alone would be consistent with a high probability for pulmonary embolism. There is however diffuse abnormal retention of activity on the washout images consistent with COPD which would render assessment formally nondiagnostic. Chest CTA 09/08/25 11:08 IMPRESSION: 1. No pulmonary embolus. 2. Severe emphysema. 3. Small pleural effusions. Abdomen Ultrasound 09/09/25 10:21 IMPRESSION: 1. Intrahepatic biliary ductal dilatation. Consider MRCP. 2. Hepatic steatosis and/or hepatocellular disease. 3. Ascites and right pleural effusion. Labs Labs: Laboratory Results - last 24 hr 09/08/25 09/09/25 09/10/25 12:49 16:19 03:52 WBC RBC Hgb Hct MCV MCH MCHC RDW Plt Count MPV Immature Gran % (Auto) Neut % (Auto) Lymph % (Auto) [place] % (Auto) Eos % (Auto) Baso % (Auto) Lymph # (Auto) [place] # (Auto) Eos # (Auto) Baso # (Auto) Abs Immat Gran (auto) Absolute Neuts (auto) Absolute Nucleated RBC Nucleated RBC % Puncture Site Right radial Right brachial ABG pH 7.422 7.377 ABG pCO2 67.7 H* 71.9 H* ABG pO2 73.7 L 83.2 ABG PO2/FiO2 Ratio 2.63 2.97 ABG HCO3 43.1 H 41.3 H ABG O2 Saturation 94.5 L 95.5 ABG O2 Content 16.8 16.1 ABG Base Excess 15.5 13.2 A-a Gradient 46.1 31.6 Oxyhemoglobin 93.6 94.7 Carboxyhemoglobin 0.7 Methemoglobin 0.3 Reduced Hemoglobin 4.3 Total Hemoglobin 12.7 12.0 O2 Delivery Device Nasal cannula Nasal cannula O2 Liters/Min 2.0 2.0 FiO2 28 28 Sodium Potassium Chloride Carbon Dioxide Anion Gap BUN Creatinine Estim Creat Clear Calc Estimated GFR Glucose Calcium Total Bilirubin AST ALT Alkaline Phosphatase NT-Pro-B Natriuret Pep Total Protein Albumin Chlamy pneumoniae PCR Not detected Adenovirus (PCR) Not detected B. pertussis DNA (PCR) Not detected B.parapertussis DNA PCR Not detected Coronavirus OC43 (PCR) Not detected Coronavirus HKU1 (PCR) Not detected Coronavirus 229E (PCR) Not detected Coronavirus NL63 (PCR) Not detected Human Metapneumovir PCR Not detected Influenza A (H1) PCR Not detected Influ A (H1/09) PCR Not detected Influenza A (H3) PCR Not detected Influenza Type A (PCR) Not detected Influenza Type B (PCR) Not detected M. pneumoniae (PCR) Not detected Parainfluenza 1 (PCR) Not detected Parainfluenza 2 (PCR) Not detected Parainfluenza 3 (PCR) Not detected Parainfluenza 4 (PCR) Not detected RSV (PCR) Not detected Entero/Rhino (PCR) Not detected SARS-CoV-2 (PCR) Not detected 09/10/25 05:18 WBC 8.0 RBC 3.78 L Hgb 10.9 L Hct 35.6 L MCV 94.2 MCH 28.8 MCHC 30.6 L RDW 14.2 Plt Count 161 MPV 9.4 Immature Gran % (Auto) 0.4 Neut % (Auto) 70.5 Lymph % (Auto) 20.3 [place] % (Auto) 8.8 H Eos % (Auto) 0.0 Baso % (Auto) 0.0 L Lymph # (Auto) 1.62 [place] # (Auto) 0.7 H Eos # (Auto) 0.0 Baso # (Auto) 0.0 Abs Immat Gran (auto) 0.03 Absolute Neuts (auto) 5.6 Absolute Nucleated RBC 0.000 Nucleated RBC % 0.0 Puncture Site ABG pH ABG pCO2 ABG pO2 ABG PO2/FiO2 Ratio ABG HCO3 ABG O2 Saturation ABG O2 Content ABG Base Excess A-a Gradient Oxyhemoglobin Carboxyhemoglobin Methemoglobin Reduced Hemoglobin Total Hemoglobin O2 Delivery Device O2 Liters/Min FiO2 Sodium 133 L Potassium 4.1 Chloride 87 L Carbon Dioxide > 40 H Anion Gap BUN 16 Creatinine 0.71 Estim Creat Clear Calc 50 Estimated GFR > 60 Glucose 83 Calcium 8.1 L Total Bilirubin 0.7 AST 74 H ALT 274 H Alkaline Phosphatase 63 NT-Pro-B Natriuret Pep 4870 H Total Protein 5.2 L Albumin 3.2 L Chlamy pneumoniae PCR Adenovirus (PCR) B. pertussis DNA (PCR) B.parapertussis DNA PCR Coronavirus OC43 (PCR) Coronavirus HKU1 (PCR) Coronavirus 229E (PCR) Coronavirus NL63 (PCR) Human Metapneumovir PCR Influenza A (H1) PCR Influ A (H1/09) PCR Influenza A (H3) PCR Influenza Type A (PCR) Influenza Type B (PCR) M. pneumoniae (PCR) Parainfluenza 1 (PCR) Parainfluenza 2 (PCR) Parainfluenza 3 (PCR) Parainfluenza 4 (PCR) RSV (PCR) Entero/Rhino (PCR) SARS-CoV-2 (PCR)
--- NOTE | 2025-09-10 13:00 | P.PNPL_ITS ---
Progress Note: A&P Assessment and Plan (1) Chronic obstructive pulmonary disease (COPD): Code(s): J44.9 - Chronic obstructive pulmonary disease, unspecified Status: Acute Assessment and Plan: GOLD grade 3 group E COPD patient with a 60 pack year tobacco use, quit 09/03/2025. Alpha 1 anti trypsin MM on 09/17/2018. PFTs on 10/13/2018 with an FEV1 of 0.96 L, 41% predicted. FEV1: FVC ratio 33%. No bronchodilator response. Hyperinflation. Mildly decreased DLCO that normalized when adjusted for alveolar volume. CT scan of the chest on 09/08/2025 with severe centrilobular emphysema throughout all lung calero with small bilateral pleural effusions. She has not been on home oxygen but was going to be tested for this in 2022 by her outside convex grinder. Blood gas 10/13/2018 7.42/38/63 on room air. Had been maintained on trelegy inhaler until 1 year ago and has been on no maintenance or rescue albuterol inhaler since then. 09/06/2025: White blood cell 8.1, eosinophils 0.1% equals 8 per micro L. 12/11/2022 white blood cell count 9.4, eosinophils 1.3% = 122 per micro L. echocardiogram 09/07/2025 with normal LVEF, normal LV diastolic function. Septal flattening consistent with RV pressure overload. RV is moderately to severely enlarged with decreased function. Right atrium is mildly enlarged. Mild tricuspid regurg. 09/06/2025 patient presents with COPD exacerbation and bilateral lower extremity swelling. She has been treated for COPD exacerbation with IV steroids, bronchodilators. and has improved. 09/08/2025: The patient is doing much better today. She says that she is 80% back to her normal. She is walking around the room and her says that her dyspnea on exertion is much improved. Her dry cough is better, her wheezing has improved and her swelling has resolved. White blood cell count 4.7, creatinine 0.63 TSH 0.85. Procalcitonin 0.1, BNP 4640. When I enter the room the patient was on 2 L nasal cannula saturations 96%. I turned her to room air and after 7 minutes her saturations were 88%. I placed her on 1 L nasal cannula her saturations were 94%. Patient had a V/Q scan which was high probability and had a CT angiogram of the chest showed no PE, severe centrilobular emphysema throughout all lung calero with no evidence of pneumonia, small bilateral pleural effusions. no interstitial lung disease. Plan: patient has some wheezing today and I will change her Solu-Medrol to prednisone 40 mg p.o. q.day. I will continue DuoNebs at q.6 hours. Her procalcitonin is 0.1 and she has no evidence of bacterial infection and I agree with no antibiotics at this time. I will check a COVID, influenza RSV swab. I will check a respiratory pathogen panel. Smoking cessation counseling was provided. 09/09/25: Patient tells me she continues to improve. She is feeling better than yesterday. Her cough is a little bit better and she denies phlegm or hemoptysis. She does have difficulty expectorating. When I enter the room she was on 2 L nasal cannula saturation 97%. I decreased her to room air and her saturations were 90%. She is afebrile. white blood cell count 8.1. Yesterday she was -2.0 L. Cumulative she is -580 mL since admission. Plan: Patient with no wheezing on exam today. Will continue prednisone 40 mg p.o. q.day, day 4 steroids. Continue DuoNebs q.6 hours. Patient has difficulty expectorating and I will add guaifenesin 1200 mg p.o. b.i.d. and Cornet flutter valve. out of bed to chair. Physical therapy and occupational therapy to help in mobility. 09/10/2025: Patient tells me she is doing better than yesterday. She is not back to her normal but has improved. She has no rest shortness of breath. Her dyspnea on exertion is better she still has rattling phlegm. When I enter the room she is on 2 L nasal cannula saturations 99%. On 1 L nasal cannula her saturations were 93%. White blood cell count 8.0, creatinine 0.71. Weight today is 43.6. Patient tells me she has improved and ready to be discharged today.She has completed 5 days of prednisone. From pulmonary perspective patient is ready to be discharged on these pulmonary medications: Beta agonist and muscarinic antagonist that insurance will cover (Anoro Ellipta 62.5/25 at 1 puff Q day, stiolto respimat 2.5/2.5 at 1 puff BID, bevespi aerosphere 9 mcg/4.8 at 2 puffs BID, combivent respimat at 2 puffs Q 4 HR or separate albuterol and atrovent inhalers at 2 puffs Q 4 HR). Rescue albuterol 2 puffs q.4 hours p.r.n. shortness of breath or wheezing. guaifenesin 1200 mg p.o. b.i.d. p.r.n. congestion Oxygen at rest and with activity per formal home O2 assessment which I have ordered. Oxygen at night at 2 L while she is waiting for her approval for BiPAP rate of 20, pressure is 16/4 and 2 L bleed in follow-up in the Pulmonary Clinic in 3-4 weeks. I gave the patient the phone number and informed our factory manager. Discussed with Katherine Monroe, will sign off, call with questions. (2) Chronic respiratory failure: Code(s): J96.10 - Chronic respiratory failure, unspecified whether with hypoxia or hypercapnia Status: Acute Assessment and Plan: Blood gas 10/13/2018 was 7.42/38/63 on room air. Patient was followed by convex grinder a [facility] wanted to test her for supplemental oxygen in 2022 but this was never completed. 09/07/25: Currently patient is requiring 1 L nasal cannula saturations 94%. Plan: I will check an ABG on 1 L to assess for hypercarbic respiratory failure. Goal saturation 90-94% and will wean accordingly. I will perform overnight oximetry on room air to determine if she qualifies for oxygen at night. Later in day: ABG on 1 L nasal cannula 7.29/80.3/60.7. Patient has chronic hypercarbic respiratory failure secondary to COPD. Patient would benefit from BiPAP or noninvasive ventilation to prevent further deterioration and subsequent hospitalizations. I explained these results to the patient and her and they are in agreement for trial of BiPAP or noninvasive ventilation. I placed the patient on BiPAP and adjusted the settings to comfort resulting in rate of 4, pressures 14/4, inspiratory time 1.0, rise of 5 which is the slowest and 28% FiO2. The patient was placed on these settings and her respiratory rate was 7 with tidal volumes 420-520 resulting in a low minute ventilation of 3-4 L. I increased her backup respiratory rate to 14 resulting in a minute ventilation of 7-8 L. I will perform overnight oximetry on these settings and ABG prior to removal. 09/09/25: Patient wore the hospital BiPAP rate of 14, pressures 14/4 and 28% FiO2 overnight and said she slept well and tolerated the machine. She feels well rested this morning. Patient had an overnight oximetry on these settings with recording duration of 7 hours and 21 minutes. Average saturation 94%. Low saturation 86%. Time with saturation less than or equal to 88% was 4 minutes. Oxygen desaturation index 4.5. ABG at the end of none then night was 7.33/80/91. Plan: Current BiPAP settings provided adequate oxygenation but inadequate ventilation. Patient felt like she could tolerate more rate and tidal volume and he increased her to BiPAP rate of 20 pressures 20/4. She could not tolerate these pressures but could tolerate 16/4. Tonight I will place the patient on BiPAP rate of 20, pressure is 16/4, inspiratory time 1.0, rise of 3, FiO2 28% and perform an ABG in the morning prior to removal. once we determine if patient will need BiPAP or noninvasive ventilation with the AVAPS mode will initiate process for home respiratory assist device through a [employer] and [facility] insurance. 09/10/25: Patient wore the hospital noninvasive ventilation with a BiPAP rate of 20, pressure 16/4 and 28% FiO2. Patient states she slept well and tolerated the machine. Patient had an overnight oximetry on these settings with recording duration of 4 hours and 7 minutes. Average saturation 96%. Low saturation 79%. Time with saturation less than or equal to 88% was 4 minutes. Oxygen desaturation index 4.7. Patient had an ABG at the end of the night with a pH of 7.38/ 72/83. Plan: Patient is tolerating BiPAP rate of 20, pressure 16/4 in 28% FiO2 with adequate oxygenation and ventilation. We will submit these settings to the patient's insurance, [facility], for approval. This may take weeks and will discharge the patient on 2 L nasal cannula bleed in at night pending this approval. (3) Right-sided heart failure: Code(s): I50.810 - Right heart failure, unspecified Status: Acute Assessment and Plan: Patient with GOLD grade 3 group B COPD, currently is having a COPD exacerba tion with hypoxemic respiratory failure, no evidence of LV dysfunction or diastolic dysfunction, normal TSH and free T4. She presents with bilateral pedal edema, small bilateral pleural effusions and elevated BNP. High probability V/Q scan with CT angiogram of the chest is negative for PE. Etiology of right heart failure includes COPD, COPD exacerbation, chronic hypoxemic respiratory failure. 09/08/25: Plan: Will optimize treatment for COPD as above, correct her chronic hypoxemic respiratory failure as above and assess for chronic hypercarbic respiratory failure as above. patient is lower extremity edema has resolved with correction of her sodium, Gian hose and treatment of COPD exacerbation without any Lasix. Will follow patient clinically and consider outpatient sleep study in the future. 09/09/2025:Yesterday she was -2.0 L. Cumulative she is -580 mL since admission. Weight today is 44.5 Kg. Plan: Patient auto diuresed with BiPAP use last night. Will follow manish sullivan. 09/10/2025: No urine output her weight was measured today. (4) Former smoker: Code(s): Z87.891 - Personal history of nicotine dependence Status: Acute Assessment and Plan: Patient was 60 pack year tobacco use, quit 09/03/2025. 09/08/25: CT scan of the chest 09/07/2025 with no concerning nodules or masses. Plan: Patient should have a yearly low-dose CT scan next on 09/07/2026. Importance of continued tobacco cessation was stressed. Subjective Date/time seen: 09/10/25 13:00 Interval history: 09/08/2025: This is a new pulmonary consult for severe COPD with cor pulmonale I will and acute respiratory failure. Patient was previously followed in the Pulmonary Clinic in last seen on 06/07/20 22: This is a copy of the note 5 month follow-up regarding COPD. Patient went to the express car earlier this month regarding dyspnea. CXR showed no acute CP process. Was given neb tx, doxycycline, and pred taper. She was treated previously before this by PCP, felt medication did not help. She reports sharp stabbing pains, pain on inspiration during that time; symptoms seem to mimic pleurisy and she felt better after high dose pred taper given by express care. She reports today with improving symptoms. Pain has greatly improved. Breathing and cough is better, She reports she also quit smoking 2 months ago and reports improvement with chest congestion and less rattling. She is maintained on Trelegy. Doing well with this. BP is low today. She reports is has been low lately. Recommend to start tracking daily at home and report to PCP is persistently below 100/60. Denies syncope, headache, dizziness. She is due for f/u CT next month, however, her insurance says she has to pay her deductible which is $1000 to have it done. CAT score 08/30, was 20 last visit so improvement. Weight 90 lb. Room air saturation 94% decreased breath sounds Assessment and plan: COPD: Continue tripod and rescue albuterol, recommend Acapella device or flutter valve, follow-up 6 months. Low BMI, increase diet. Former smoker: Quit 2 months ago. Low-dose CT scan 01/02/2022 bilateral upper l obe nodules measuring 3 mm or less. There is a new 5 mm right upper lobe nodule. Moderate to severe emphysema. No endobronchial lesions. Repeat CT scan in 1 month. patient smoked tobacco from age 19 to 09/03/2025 at 1 and half packs per day for total of 60 pack years. Patient was exposed to secondhand smoke from both of her parents and from her current until 09/06/2025. Patient denies vaping, illicit drug use, sand blasting, welding, asbestos work, professional painting, steel wire mill rover, building construction contractor, or coal mining. 1-2 months ago patient felt well and she could walk half a block and would have to stop for dyspnea on exertion. One year ago she could walk 1 block. At baseline she has a dry cough, daily wheezes with no phlegm and no hemoptysis. Patient's physicians are [facility] at [facility] and she started to see pulmonology at [facility] in [address] Sanchez in 2022. at that time he wanted to do testing to to see if she required oxygen. She had been on trilogy inhaler through him but this ran out approximately 1 year and she has not followed up with Dr. Sanchez. 08/03/2025: Patient developed nasal congestion, body aches, fatigue and worsening shortness of breath and called her PCP 0 prescribed her antibiotics. She does not know the name of the antibiotics. She developed a facial rash and was then prescribed prednisone and a Z-Dewey. After she finished this she recovered back to her baseline. But off of the prednisone and the Z-Dewey she began to get sick again on approximately 08/25/2025. 08/25/2025 the patient noted worse breathing with no fever, chills, cough, phlegm production or hemoptysis. She had wheezing and bilateral feet swelling. She had rest and worsening dyspnea on exertion. Her symptoms progressed and patient presented to the emergency room on 09/06/2025. 09/06/2025 in the emergency room Her blood pressure was 128/89, heart rate 100, respirations 25 and on to room air her saturations were 89% and she was placed on 2 L nasal cannula with saturations 96%. she had decreased breath sounds but no wheezes were documented. White blood cell count was 8.1 with eosinophils 0.1%. Her creatinine was 0.64. sodium was 126. Her BNP was 7860. Her chest x-ray showed hyperexpansion but no focal infiltrates. They were unable to obtain an ABG after 3 attempts. Patient was treated for COPD exacerbation with Solu-Medrol and DuoNebs. 09/07/25: patient improved. On 2 L nasal cannula saturations were 90%. White blood cell count 4.6, creatinine 0.64. Echocardiogram showed poor windows. LVEF was 65-70%. left ventricular diastolic function was normal. Right ventricular size was moderately enlarged with reduced function. Right atrial dimension was enlarged. Left atrium was normal. Normal aortic valve. Trace mitral regurg. Mild tricuspid regurg with PASP of 48. 09/08/2025: The patient is doing much better today. She says that she is 80% back to her normal. She is walking around the room and her says that her dyspnea on exertion is much improved. Her dry cough is better, her wheezing has improved and her swelling has resolved. White blood cell count 4.7, creatinine 0.63 TSH 0.85. Procalcitonin 0.1, BNP 4640. When I enter the room the patient was on 2 L nasal cannula saturations 96%. I turned her to room air and after 7 minutes her saturations were 88%. I placed her on 1 L nasal cannula her saturations were 94%. Later in day: ABG on 1 L nasal cannula 7.29/80.3/60.7. I explained these results to the patient and her and they are in agreement for trial of BiPAP or noninvasive ventilation. I placed the patient on BiPAP and adjusted the settings to comfort resulting in rate of 4, pressures 14/4, inspiratory time 1.0, rise of 5 which is the slowest and 28% FiO2. The patient was placed on these settings and her respiratory rate was 7 with tidal volumes 420-520 resulting in a low minute ventilation of 3-4 L. I increased her backup r espiratory rate to 14 resulting in a minute ventilation of 7-8 L. I will perform overnight oximetry on these settings and ABG prior to removal. 09/09/25: Patient tells me she continues to improve. She is feeling better than yesterday. Her cough is a little bit better and she denies phlegm or hemoptysis. She does have difficulty expectorating. When I enter the room she was on 2 L nasal cannula saturation 97%. I decreased her to room air and her saturations were 90%. She is afebrile. white blood cell count 8.1. Yesterday she was -2.0 L. Cumulative she is -580 mL since admission. Patient wore the hospital BiPAP rate of 14, pressures 14/4 and 28% FiO2 overnight and said she slept well and tolerated the machine. She feels well rested this morning. Patient had an overnight oximetry on these settings with recording duration of 7 hours and 21 minutes. Average saturation 94%. Low saturation 86%. Time with saturation less than or equal to 88% was 4 minutes. Oxygen desaturation index 4.5. ABG at the end of none then night was 7.33/80/91. Patient felt like she could tolerate more rate and tidal volume and he increased her to BiPAP rate of 20 pressures 20/4. She could not tolerate these pressures but could tolerate 16/4. 09/10/2025: Patient tells me she is doing better than yesterday. She is not back to her normal but has improved. She has no rest shortness of breath. Her dyspnea on exertion is better she still has rattling phlegm. When I enter the room she is on 2 L nasal cannula saturations 99%. On 1 L nasal cannula her saturations were 93%. White blood cell count 8.0, creatinine 0.71. Weight today is 43.6. Patient tells me she has improved and ready to be discharged today. Patient wore the hospital noninvasive ventilation with a BiPAP rate of 20, pressure 16/4 and 28% FiO2. Patient states she slept well and tolerated the machine. Patient had an overnight oximetry on these settings with recording duration of 4 hours and 7 minutes. Average saturation 96%. Low saturation 79%. Time with saturation less than or equal to 88% was 4 minutes. Oxygen desaturation index 4.7. Patient had an ABG at the end of the night with a pH of 7.38/ 72/83. DATA: 09/08/25: EXAMINATION: CTA chest PE protocol INDICATION: Hypoxia. COMPARISON: Chest CT 12/19/2022 FINDINGS: There is severe emphysema. A calcified right lung nodule and calcified right hilar lymph nodes are consistent with old granulomatous disease. There are small pleural effusions. The heart size is normal. There are coronary artery calcifications. No pericardial effusion. There is no pulmonary embolus. Calcifications in the liver and spleen are consistent with old granulomatous disease. There are changes of anterior fusion procedure in cervical spine. There is mild thoracic spondylosis. IMPRESSION: 1. No pulmonary embolus. 2. Severe emphysema. 3. Small pleural effusions. 09/08/25: EXAMINATION: NM lung vent and perfusion INDICATION: Severe right ventricular failure and COPD. COMPARISON: CT dated 12/19/2022 and chest radiograph dated 09/06/2025 FINDINGS: There is homogeneous radiotracer activity throughout the lungs on the single breath ventilation sequence. There is significant retention of activity diffusely throughout both lungs on the washout images consistent with provided history of COPD. There is a marked heterogeneous pattern of activity on the perfusion images with large perfusion defects at the superior segment and posterior basilar segment of the left lower lobe and anterobasilar segment of the right lower lobe. Multiple additional small to moderate-sized perfusion defects in each of the remaining lobes of both lungs. IMPRESSION: 1. Multiple perfusion defects involving all lobes of both lungs including large perfusion defects at the superior segment and posterior basilar segment of the left lower lobe and the anterior basilar segment of the right lower lobe. Perfusion imaging contributed alone would be consistent with a high probability for pulmonary embolism. There is however diffuse abnormal retention of activity on the washout images consistent with COPD which would render assessment formally nondiagnostic. 09/07/2025: Echo Summary 1. Poor windows. Tech used Definity to try and enhance images. [place] views, doppler data likely skewed. 2. Normal left ventricular size and systolic function. 3. Septal flattening consistent with right ventricular pressure overload. 4. Moderate to severe right ventricular enlargement with significantly reduced RV systolic function. 5. Dilated right atrium. 6. Mild tricuspid regurgitation velocity suggest at least moderate pulmonary hypertension. 7. Estimated PA systolic pressure 48 mmHg. Right Ventricle Right ventricular chamber dimension is moderately enlarged. Right ventricular systolic function is reduced. Right Atria Right atrial chamber dimension is mildly enlarged. 12/19/2022: EXAMINATION: CT chest abdomen pelvis w con DATE: 12/19/2022 12:59 INDICATION: Shortness of breath and abdominal pain, weight loss TECHNIQUE: Transaxial computed tomographic images of the chest, abdomen, and pelvis were obtained after the administration of 85 cc of Omnipaque 350 intravenous contrast. The dose-length product (DLP) was 235.51 mGy-cm. Automated exposure control and iterative reconstruction technique were employed. COMPARISON: 01/01/2022 FINDINGS: CHEST CT: There is moderate emphysema. A stable 5 mm nodule is present in the right upper lobe. Additional stable pulmonary nodules measure up to 3 mm. The lungs are free of acute opacities. No pleural effusion or pneumothorax. Calcified pulmonary nodules and calcified right hilar No pathologically enlarged thoracic lymph nodes are identified. The heart size is normal. There is calcified coronary artery atherosclerosis. lymph nodes are consistent with old granulomatous disease. There are partially imaged changes of anterior fusion in the lower cervical spine. ABDOMEN/PELVIS CT: The mildly dilated common bile duct measures up to 8 mm. There is mild intrahepatic biliary dilatation. Punctate calcifications in otherwise normal appearing liver and spleen likely represent healed granulomatous disease. The pancreas, gallbladder, and adrenal glands are normal. The kidneys are unremarkable. There is calcified atherosclerosis of the aorta and many of the other arteries. No pathologically enlarged abdominal or pelvic lymph nodes are identified. A large volume of colonic stool is present. There are changes of anterior and posterior fusion at L5-S1. IMPRESSION: 1. Moderate emphysema with stable pulmonary nodules. 2. Mild intrahepatic and extrahepatic biliary dilatation of unclear etiology. 3. Constipation. 01/01/2022: EXAMINATION: CT lung screening DATE: 01/01/2022 14:30 INDICATION: Tobacco use. History of smoking. COPD. TECHNIQUE: Computed tomography (CT) of the chest was performed without intravenous contrast. The dose-length product was 62.28 mGy-cm. Automated exposure control and iterative reconstruction technique were employed. COMPARISON: CT dated 11/22/2020 FINDINGS: No significant change to bilateral upper lobe nodules measuring 3 mm or less. There is a new 5 mm right upper lobe nodule, image 24. Moderate-severe emphysema. No endobronchial lesions. There are a few scattered calcified granulomas. No pneumothorax. No thoracic lymphadenopathy. There are calcified granulomas of the liver and spleen. There is atherosclerosis of the aorta and coronary arteries. Mild thoracic spondylosis. IMPRESSION: 1. Lung-RADS category 3: Probably benign. Further evaluation is recommended with noncontrast low-dose chest CT in 6 months. PFT's 10/13/2018: Findings: Spirometry: There is decreased maximal expiratory airflow at all lung volumes with a concave expiratory flow tracing. The contour the inspiratory flow tracing is normal. The pre bronchodilator FVC is 2.89 L, 93% predicted. The pre bronchodilator FEV1 is 0.96 L, 41% predicted. The pre bronchodilator FEV1: FVC ratio is 33%. The post bronchodilator FVC is 2.96 L, representing a 2% increase. The post bronchodilator FEV1 is 1.04 L, representing an 8% increase. The post bronchodilator FEV1: FVC ratio is 35%. Plethysmography: The total lung capacity is 6.63 L, 140% predicted. The functional residual capacity is 4.85 L, 168% predicted. The residual volume is 3.73 L, 219% predicted. The residual volume: Total lung capacity ratio is 56%. Diffusing capacity: The diffusing capacity unadjusted for hemoglobin and carboxyhemoglobin is 10.8, 61% predicted. The diffusing capacity adjusted for alveolar volume is 3.39, 85% predicted. Impression: There is a severe obstructive abnormality. There is no significant improvement after inhaling a single dose of albuterol. The increase in residual volume to total lung volume ratio is consistent with hyperinflation from an obstructive abnormality. The diffusing capacity unadjusted for hemoglobin and carboxyhemoglobin is mildly decreased and normalizes when adjusted for alveolar volume. There are no prior studies for comparison 10/13/2018:ABG On room air: PH 7.42/38/63. Carboxyhemoglobin 6.1%. 6 minute walk-mild oxygen desaturations with exertion but not enough to require oxygen Methacholine Challenge - negative. 09/17/2018: Alpha 1 Anti Trypsin Level MM -Normal Review of Systems Constitutional: Constitutional: Reports no additional constitutional complaints Eyes: Eyes: Reports no additional eye complaints ENT: Reports system reviewed and no additional complaints, except as documented Cardiovascular: Cardiovascular: Reports no additional cardiovascular complaints Respiratory: Respiratory: Reports no additional respiratory complaints Gastrointestinal: Gastrointestinal: Reports no additional gastrointestinal complaints Musculoskeletal: Musculoskeletal: Reports no additional musculoskeletal complaints Neurologic: Reports system reviewed and no additional complaints, except as documented Psychiatric: Psychiatric: Reports no additional psychiatric complaints Endocrine: Endocrine: Reports no additional endocrine complaints Hematologic/Lymphatic: Hematologic/Lymphatic: Reports no additional hematologic/lymphatic complaints Allergic/Immunologic: Allergic/Immunologic: Reports no additional allergic/immunologic complaints Exam Const: General: cooperative, comfortable and no acute distress Orientation/consciousness: oriented to person, oriented to place and oriented to time Other: Cachectic HENMT: Head: normal to inspection Ears: hearing grossly normal bilaterally Eyes: General: appearance normal, both eyes and all related structures Neck: Neck: normal visual inspection Chest: Chest palpation & inspection: normal inspection of the chest Resp: Effort & Inspection: normal respiratory effort and able to speak in complete sentences Auscultation: no crackles, no rales, no rhonchi, no wheezes and diminished lung sounds Other: decreased breath sounds throughout, no wheezes Cardio: Jugular venous distension: no JVD GI: Inspection: normal to inspection Skin: General skin exam: normal color Neuro: General: oriented to person, oriented to place and oriented to time Extrem: General: normal to inspection and no edema Psych: Appearance: grossly normal Objective Data Vital Signs Vital Signs: Vital Signs - 24 hr 09/09/25 13:47 09/09/25 13:59 09/09/25 14:22 Temperature 36.6 C Pulse Rate 104 H 105 H 115 H Respiratory Rate 20 20 20 Blood Pressure 93/60 L Pulse Oximetry 92 Oxygen Delivery Oxygen Flow Rate Fraction of Inspired Oxygen 09/09/25 18:30 09/09/25 20:00 09/09/25 20:00 Temperature 36.7 C Pulse Rate 67 115 H Respiratory Rate 25 H 20 20 Blood Pressure 103/61 Pulse Oximetry 97 93 94 Oxygen Delivery BiPAP Nasal Cannula Oxygen Flow Rate 2 Fraction of Inspired Oxygen 28 09/09/25 20:37 09/09/25 20:47 09/09/25 21:01 Temperature Pulse Rate 108 H 108 H 105 H Respiratory Rate 20 20 Blood Pressure Pulse Oximetry 94 Oxygen Delivery Nasal Cannula Oxygen Flow Rate 1.5 Fraction of Inspired Oxygen 09/09/25 23:29 09/09/25 23:29 09/10/25 02:12 Temperature Pulse Rate 92 92 90 Respiratory Rate 20 26 H Blood Pressure Pulse Oximetry 95 95 96 Oxygen Delivery BiPAP BiPAP BiPAP Oxygen Flow Rate Fraction of Inspired Oxygen 28 09/10/25 04:00 09/10/25 07:48 09/10/25 07:51 Temperature 36.9 C Pulse Rate 98 104 H Respiratory Rate 20 20 Blood Pressure 103/77 Pulse Oximetry 99 93 Oxygen Delivery Nasal Cannula Oxygen Flow Rate 2 Fraction of Inspired Oxygen 09/10/25 07:57 09/10/25 08:00 09/10/25 08:00 Temperature 36.4 C L Pulse Rate 101 H 97 Respiratory Rate 20 20 Blood Pressure 100/67 Pulse Oximetry 96 96 Oxygen Delivery Nasal Cannula Oxygen Flow Rate 2 Fraction of Inspired Oxygen 09/10/25 09:15 Temperature Pulse Rate Respiratory Rate Blood Pressure Pulse Oximetry Oxygen Delivery Nasal Cannula Oxygen Flow Rate 2 Fraction of Inspired Oxygen Intake/Output Intake/Output: Intake & Output 09/07/25 09/08/25 09/09/25 09/10/25 23:59 23:59 23:59 23:59 Intake Total 6683 224 5931 0 Output Total 1000 2800 Balance 160 -2080 1380 0 Meds/Results Medications: Active Medications Generic Name Dose Route Start Last Admin Trade Name Freq PRN Reason Stop Dose Admin Acetaminophen 650 mg 09/06/25 15:09 09/10/25 08:20 Acetaminophen 325 Mg Tablet PO 650 mg Q4H PRN Administration Mild Pain (1-3) or Fever Hydrocodone Bitart/Acetaminophen 1 tab 09/06/25 17:00 09/10/25 12:07 Hydrocodone/Acetaminophen (*Crx) 10-325 Mg Tablet PO 1 tab Q6HR JOANN Administration Atorvastatin Calcium 40 mg 09/06/25 18:00 09/07/25 17:14 Atorvastatin 40 Mg Tablet PO 40 mg On Hold: 09/08/25 14:33 QPM JOANN Administration Calcitriol 0.25 mcg 09/07/25 09:00 09/10/25 08:20 Calcitriol 0.25 Mcg Capsule PO 0.25 mcg DAILY JOANN Administration Cyclobenzaprine HCl 10 mg 09/06/25 17:00 09/10/25 12:07 Cyclobenzaprine Hcl 10 Mg Tablet PO 10 mg TID JOANN Administration Enoxaparin Sodium 40 mg 09/09/25 09:00 09/10/25 08:21 Enoxaparin 40 Mg/0.4 Ml Syringe SUB-Q 40 mg DAILY JOANN Administration Furosemide 20 mg 09/11/25 09:00 Furosemide 20 Mg Tablet PO DAILY JOANN Guaifenesin 1,200 mg 09/09/25 09:45 09/10/25 08:20 Guaifenesin 12 Hr 600 Mg Tabcr PO 1,200 mg Q12HR JOANN Administration Hydroxyzine HCl 25 mg 09/08/25 22:08 09/10/25 08:20 Hydroxyzine Hcl 25 Mg Tablet PO 25 mg Q8H PRN Administration Itching Ipratropium Reseda 0.5 mg 09/09/25 20:00 09/10/25 07:48 Ipratropium Br 0.02% Inh Soln 0.5 Mg/2.5 Ml Vial INHALATION 0.5 mg Q6HRT JOANN Administration Levalbuterol HCl 1.25 mg 09/09/25 20:00 09/10/25 07:48 Levalbuterol Neb 1.25 Mg/3 Ml INHALATION 1.25 mg Q6HRT JOANN Administration Ondansetron HCl 4 mg 09/06/25 15:09 Ondansetron Inj 4 Mg/2 Ml Vial IV PUSH Q4H PRN Nausea Prednisone 40 mg 09/08/25 12:55 09/10/25 08:20 Prednisone 20 Mg Tablet PO 40 mg DAILY@0800 JOANN Administration Sodium Chloride 500 mg 09/07/25 17:00 09/10/25 08:20 Sodium Chloride 500 Mg Tablet PO 500 mg BID JOANN Administration Spironolactone 12.5 mg 09/07/25 09:00 09/10/25 08:20 Spironolactone 12.5 Mg Tablet PO 12.5 mg DAILY JOANN Administration Radiology Results: ITS Impressions Chest X-Ray 09/06/25 13:03 IMPRESSION: 1. No acute cardiopulmonary findings given portable technique. Pulmonary Perfusion Imaging 09/08/25 09:26 IMPRESSION: 1. Multiple perfusion defects involving all lobes of both lungs including large perfusion defects at the superior segment and posterior basilar segment of the left lower lobe and the anterior basilar segment of the right lower lobe. Perfusion imaging contributed alone would be consistent with a high probability for pulmonary embolism. There is however diffuse abnormal retention of activity on the washout images consistent with COPD which would render assessment formally nondiagnostic. Chest CTA 09/08/25 11:08 IMPRESSION: 1. No pulmonary embolus. 2. Severe emphysema. 3. Small pleural effusions. Abdomen Ultrasound 09/09/25 10:21 IMPRESSION: 1. Intrahepatic biliary ductal dilatation. Consider MRCP. 2. Hepatic steatosis and/or hepatocellular disease. 3. Ascites and right pleural effusion. Labs Labs: Laboratory Results - last 24 hr 09/08/25 09/09/25 09/10/25 12:49 16:19 03:52 WBC RBC Hgb Hct MCV MCH MCHC RDW Plt Count MPV Immature Gran % (Auto) Neut % (Auto) Lymph % (Auto) Pine % (Auto) Eos % (Auto) Baso % (Auto) Lymph # (Auto) Pine # (Auto) Eos # (Auto) Baso # (Auto) Abs Immat Gran (auto) Absolute Neuts (auto) Absolute Nucleated RBC Nucleated RBC % Puncture Site Right radial Right brachial ABG pH 7.422 7.377 ABG pCO2 67.7 H* 71.9 H* ABG pO2 73.7 L 83.2 ABG PO2/FiO2 Ratio 2.63 2.97 ABG HCO3 43.1 H 41.3 H ABG O2 Saturation 94.5 L 95.5 ABG O2 Content 16.8 16.1 ABG Base Excess 15.5 13.2 A-a Gradient 46.1 31.6 Oxyhemoglobin 93.6 94.7 Carboxyhemoglobin 0.7 Methemoglobin 0.3 Reduced Hemoglobin 4.3 Total Hemoglobin 12.7 12.0 O2 Delivery Device Nasal cannula Nasal cannula O2 Liters/Min 2.0 2.0 FiO2 28 28 Sodium Potassium Chloride Carbon Dioxide Anion Gap BUN Creatinine Estim Creat Clear Calc Estimated GFR Glucose Calcium Total Bilirubin AST ALT Alkaline Phosphatase NT-Pro-B Natriuret Pep Total Protein Albumin Chlamy pneumoniae PCR Not detected Adenovirus (PCR) Not detected B. pertussis DNA (PCR) Not detected B.parapertussis DNA PCR Not detected Coronavirus OC43 (PCR) Not detected Coronavirus HKU1 (PCR) Not detected Coronavirus 229E (PCR) Not detected Coronavirus NL63 (PCR) Not detected Human Metapneumovir PCR Not detected Influenza A (H1) PCR Not detected Influ A (H1/09) PCR Not detected Influenza A (H3) PCR Not detected Influenza Type A (PCR) Not detected Influenza Type B (PCR) Not detected M. pneumoniae (PCR) Not detected Parainfluenza 1 (PCR) Not detected Parainfluenza 2 (PCR) Not detected Parainfluenza 3 (PCR) Not detected Parainfluenza 4 (PCR) Not detected RSV (PCR) Not detected Entero/Rhino (PCR) Not detected SARS-CoV-2 (PCR) Not detected 09/10/25 05:18 WBC 8.0 RBC 3.78 L Hgb 10.9 L Hct 35.6 L MCV 94.2 MCH 28.8 MCHC 30.6 L RDW 14.2 Plt Count 161 MPV 9.4 Immature Gran % (Auto) 0.4 Neut % (Auto) 70.5 Lymph % (Auto) 20.3 Pine % (Auto) 8.8 H Eos % (Auto) 0.0 Baso % (Auto) 0.0 L Lymph # (Auto) 1.62 Pine # (Auto) 0.7 H Eos # (Auto) 0.0 Baso # (Auto) 0.0 Abs Immat Gran (auto) 0.03 Absolute Neuts (auto) 5.6 Absolute Nucleated RBC 0.000 Nucleated RBC % 0.0 Puncture Site ABG pH ABG pCO2 ABG pO2 ABG PO2/FiO2 Ratio ABG HCO3 ABG O2 Saturation ABG O2 Content ABG Base Excess A-a Gradient Oxyhemoglobin Carboxyhemoglobin Methemoglobin Reduced Hemoglobin Total Hemoglobin O2 Delivery Device O2 Liters/Min FiO2 Sodium 133 L Potassium 4.1 Chloride 87 L Carbon Dioxide > 40 H Anion Gap BUN 16 Creatinine 0.71 Estim Creat Clear Calc 50 Estimated GFR > 60 Glucose 83 Calcium 8.1 L Total Bilirubin 0.7 AST 74 H ALT 274 H Alkaline Phosphatase 63 NT-Pro-B Natriuret Pep 4870 H Total Protein 5.2 L Albumin 3.2 L Chlamy pneumoniae PCR Adenovirus (PCR) B. pertussis DNA (PCR) B.parapertussis DNA PCR Coronavirus OC43 (PCR) Coronavirus HKU1 (PCR) Coronavirus 229E (PCR) Coronavirus NL63 (PCR) Human Metapneumovir PCR Influenza A (H1) PCR Influ A (H1/09) PCR Influenza A (H3) PCR Influenza Type A (PCR) Influenza Type B (PCR) M. pneumoniae (PCR) Parainfluenza 1 (PCR) Parainfluenza 2 (PCR) Parainfluenza 3 (PCR) Parainfluenza 4 (PCR) RSV (PCR) Entero/Rhino (PCR) SARS-CoV-2 (PCR)
--- NOTE | 2025-09-10 13:58 | P.DS_ITS ---
DS: Admitting Diagnosis Discharge Date 09/10/25 Admitting Diagnosis - acute respiratory failure with hypoxia and hypercapnia - edema - right-sided hear failure - hyponatremia - elevated LFTs DS: Discharge Diagnosis Discharge Diagnosis (1) Acute respiratory failure with hypoxia and hypercapnia: Code(s): J96.01 - Acute respiratory failure with hypoxia; J96.02 - Acute respiratory gali lure with hypercapnia Status: Acute (2) Edema: Qualifiers: Edema type: localized Qualified Code(s): R60.0 - Localized edema Code(s): R60.9 - Edema, unspecified Status: Acute (3) Right-sided heart failure: Code(s): I50.810 - Right heart failure, unspecified Status: Acute (4) Acute hyponatremia: Code(s): E87.1 - Hypo-osmolality and hyponatremia Status: Acute (5) Elevated LFTs: Code(s): R79.89 - Other specified abnormal findings of blood chemistry Status: Acute DS: Summary Hospital Course Reason for hospitalization: - acute respiratory failure with hypoxia and hypercapnia - edema - right-sided hear failure - hyponatremia - elevated LFTs Hospital Course: 59-year-old female with a past medical history of COPD, tobacco abuse presents to the ED on 09/06/2025 with complaints of shortness of breath and ankle swelling. Initial vital signs 128/89, HR 100, respirations 25, afebrile, 86% on room air improved to 96% with 2 L nasal cannula. Labs revealed no leukocytosis, PT 15.2, sodium 126, chloride 83, carbon dioxide 38, BUN 32, creatinine 0.64, AST 161, ALT 306, proBNP is 7860. Chest x-ray shows no acute cardiopulmonary findings, hyperinflation with emphys sreedhar. Patient was admitted for further evaluation and management. Patient with history of severe COPD presents to the ED with complaints of increased shortness of breath. Currently on no maintenance drugs for COPD but had been on Trelegy in the past. Documented severe COPD in past pulmonology notes. Has not seen pulmonology in 2 years. Required 1-3 L to maintain spO2> 88%. S/p BiPAP due to ABG with acute on chronic respiratory acidosis. CTA chest no PE, severe emphysema, small effusions. Patient completed 5 days of p.o. prednisone. Pulmonology followed during admission who will assist with obtaining BiPAP in the outpatient setting. She had a home oxygen evaluation and qualified for 1 L at rest, 3 L with activity and pulmonology recommended 2 L at night until BiPAP is obtained. She was discharged with prescriptions for albuterol and Anoro inhalers. Did not feel antibiotics were warranted given no consolidation on imaging. She remained afebrile without leukocytosis with minimal sputum production. Patient presented with concerns for lower extremity edema. Echo 09/07: Normal systolic function. Septal flattening consistent with RV pressure overload, moderate to severe RV enlargement with significantly reduced RV systolic function, dilated RA, mild tricuspid regurgitation suggesting at least moderate pulmonary hypertension. Cardiology was consulted. Aldactone was continued and patient received IV Lasix x1 with improvement in her symptoms. Cardiology recommended to continue Aldactone and start Lasix 20 mg p.o. on discharge. Upon admission patient had to be hyponatremic with sodium 126. She admitted to poor p.o. intake. Also had signs hypervolemia which may be contributing. She was started on salt tablets and received IV Lasix with improvement. She will continue Aldactone, Lasix on discharge. Do not feel salt tablets are warranted on discharge as intake is improved. She will have a repeat BMP completed in 5-7 days and follow up with her primary care provider. Patient also had to have elevated liver enzymes. AST 119, ALT 358. Alk phos and t bili WNL. RUQ US with intrahepatic biliary ductal dilation. Hepatic steatosis and/or hepatocellular disease. Ascites and R pleural effusion. MRCP showed small pleural effusions and small volume ascites, but otherwise no concern for acute process in the abdomen. GI was consulted in suspect these findings were secondary to right-sided heart failure. Liver enzymes were improving at discharge. Patient was instructed to hold statin and have a repeat CMP completed in 5-7 days. She will follow-up with her primary care provider. Patient is currently maintain on [place] for chronic back pain. She follows with pain management. Did discuss concerns of respiratory depression while on chronic opiate therapy. Patient was aware of risks and did not wish to make changes to her pain regimen at this time. Patient will follow-up with her pain management provider to discuss potential alternatives for pain management. Patient ambulated independently on day of discharge. She was discharged home with her in stable condition. Status at Discharge Functional status at discharge: independent ambulation Overall status at discharge: patient is back to baseline Time Spent with Patient Time attestation: Total time spent providing and/or coordinating discharge services: Time spent: Greater than 30 minutes Exam Narrative: General: NAD, frail Eyes: EOMI ENT: neck supple Cardiovascular: Regular rate and rhythm Respiratory: breath sounds diminished bilaterally, but otherwise clear. Respirations even and unlabored on 2L NC. Gastrointestinal: Soft, non tender Genitourinary: no suprapubic tenderness Musculoskeletal: no edema Skin: warm, dry Neuro: Alert. Psych: Mood appropriate DS: Data Data Completed and Pending Completed studies during hospitalization: ITS Impressions Chest X-Ray 09/06/25 13:03 IMPRESSION: 1. No acute cardiopulmonary findings given portable technique. Pulmonary Perfusion Imaging 09/08/25 09:26 IMPRESSION: 1. Multiple perfusion defects involving all lobes of both lungs including large perfusion defects at the superior segment and posterior basilar segment of the left lower lobe and the anterior basilar segment of the right lower lobe. Perfusion imaging contributed alone would be consistent with a high probability for pulmonary embolism. There is however diffuse abnormal retention of activity on the washout images consistent with COPD which would render assessment formally nondiagnostic. Chest CTA 09/08/25 11:08 IMPRESSION: 1. No pulmonary embolus. 2. Severe emphysema. 3. Small pleural effusions. Abdomen Ultrasound 09/09/25 10:21 IMPRESSION: 1. Intrahepatic biliary ductal dilatation. Consider MRCP. 2. Hepatic steatosis and/or hepatocellular disease. 3. Ascites and right pleural effusion. MRCP 09/10/25 13:26 IMPRESSION: 1. Small pleural effusions. 2. Small volume of ascites. Labs on day of discharge: Labs from last 24 hours 09/10/25 09/10/25 09/09/25 05:18 03:52 16:19 WBC 8.0 RBC 3.78 L Hgb 10.9 L Hct 35.6 L MCV 94.2 MCH 28.8 MCHC 30.6 L RDW 14.2 Plt Count 161 MPV 9.4 Immature Gran % (Auto) 0.4 Neut % (Auto) 70.5 Lymph % (Auto) 20.3 Cuming % (Auto) 8.8 H Eos % (Auto) 0.0 Baso % (Auto) 0.0 L Lymph # (Auto) 1.62 Cuming # (Auto) 0.7 H Eos # (Auto) 0.0 Baso # (Auto) 0.0 Abs Immat Gran (auto) 0.03 Absolute Neuts (auto) 5.6 Absolute Nucleated RBC 0.000 Nucleated RBC % 0.0 Puncture Site Right brachial Right radial ABG pH 7.377 7.422 ABG pCO2 71.9 H* 67.7 H* ABG pO2 83.2 73.7 L ABG PO2/FiO2 Ratio 2.97 2.63 ABG HCO3 41.3 H 43.1 H ABG O2 Saturation 95.5 94.5 L ABG O2 Content 16.1 16.8 ABG Base Excess 13.2 15.5 A-a Gradient 31.6 46.1 Oxyhemoglobin 94.7 93.6 Carboxyhemoglobin 0.7 Methemoglobin 0.3 Reduced Hemoglobin 4.3 Total Hemoglobin 12.0 12.7 O2 Delivery Device Nasal cannula Nasal cannula O2 Liters/Min 2.0 2.0 FiO2 28 28 Sodium 133 L Potassium 4.1 Chloride 87 L Carbon Dioxide > 40 H Anion Gap BUN 16 Creatinine 0.71 Estim Creat Clear Calc 50 Estimated GFR > 60 Glucose 83 Calcium 8.1 L Total Bilirubin 0.7 AST 74 H ALT 274 H Alkaline Phosphatase 63 NT-Pro-B Natriuret Pep 4870 H Total Protein 5.2 L Albumin 3.2 L Chlamy pneumoniae PCR Adenovirus (PCR) B. pertussis DNA (PCR) B.parapertussis DNA PCR Coronavirus OC43 (PCR) Coronavirus HKU1 (PCR) Coronavirus 229E (PCR) Coronavirus NL63 (PCR) Human Metapneumovir PCR Influenza A (H1) PCR Influ A (H1/09) PCR Influenza A (H3) PCR Influenza Type A (PCR) Influenza Type B (PCR) M. pneumoniae (PCR) Parainfluenza 1 (PCR) Parainfluenza 2 (PCR) Parainfluenza 3 (PCR) Parainfluenza 4 (PCR) RSV (PCR) Entero/Rhino (PCR) SARS-CoV-2 (PCR) 09/08/25 12:49 WBC RBC Hgb Hct MCV MCH MCHC RDW Plt Count MPV Immature Gran % (Auto) Neut % (Auto) Lymph % (Auto) Cuming % (Auto) Eos % (Auto) Baso % (Auto) Lymph # (Auto) Cuming # (Auto) Eos # (Auto) Baso # (Auto) Abs Immat Gran (auto) Absolute Neuts (auto) Absolute Nucleated RBC Nucleated RBC % Puncture Site ABG pH ABG pCO2 ABG pO2 ABG PO2/FiO2 Ratio ABG HCO3 ABG O2 Saturation ABG O2 Content ABG Base Excess A-a Gradient Oxyhemoglobin Carboxyhemoglobin Methemoglobin Reduced Hemoglobin Total Hemoglobin O2 Delivery Device O2 Liters/Min FiO2 Sodium Potassium Chloride Carbon Dioxide Anion Gap BUN Creatinine Estim Creat Clear Calc Estimated GFR Glucose Calcium Total Bilirubin AST ALT Alkaline Phosphatase NT-Pro-B Natriuret Pep Total Protein Albumin Chlamy pneumoniae PCR Not detected Adenovirus (PCR) Not detected B. pertussis DNA (PCR) Not detected B.parapertussis DNA PCR Not detected Coronavirus OC43 (PCR) Not detected Coronavirus HKU1 (PCR) Not detected Coronavirus 229E (PCR) Not detected Coronavirus NL63 (PCR) Not detected Human Metapneumovir PCR Not detected Influenza A (H1) PCR Not detected Influ A (H1/09) PCR Not detected Influenza A (H3) PCR Not detected Influenza Type A (PCR) Not detected Influenza Type B (PCR) Not detected M. pneumoniae (PCR) Not detected Parainfluenza 1 (PCR) Not detected Parainfluenza 2 (PCR) Not detected Parainfluenza 3 (PCR) Not detected Parainfluenza 4 (PCR) Not detected RSV (PCR) Not detected Entero/Rhino (PCR) Not detected SARS-CoV-2 (PCR) Not detected Preliminary micro results at discharge 09/06/25 12:22 Blood Culture - Preliminary Blood 09/06/25 12:23 Blood Culture - Preliminary Blood Discharge Plan Discharge Attending physician on discharge: Ammon Ricardo Consulting providers: Jeffery Franks; Armani Hummel; Katherine Monroe; Armani Ritter Discharging Clinician: Katherine Monroe Anticipated Discharge Date/Time: 09/10/25 15:38 Patient Disposition: Home Activity: may shower Diet: as tolerated Discharge Instructions: Take all medications as prescribed. Oxygen: - 1L during the day - 3L with activity - 2L with rest Obtain a pulse oximeter to monitor your oxygen levels. Your goal oxygen level is >88%. Follow-up with your primary care provider as scheduled. Have your lab work repeated prior to this visit. You have been started on Lasix in addition to the spironolactone to help keep fluid off your lungs. Follow-up with pulmonology in 3-4 weeks. Right-sided heart failure means that the right side of your heart is not pumping blood as well as it should. This can happen in people with chronic obstructive pulmonary disease (COPD), which is a long-term lung condition that makes it hard to breathe. How does COPD affect the heart? When you have COPD, your lungs don?t get enough oxygen. Low oxygen levels cause the blood vessels in your lungs to tighten, making it harder for blood to flow through them. Over time, this extra pressure makes the right side of your heart work harder to push blood into your lungs. Eventually, the right side of the heart can become weak or enlarged, leading to right-sided heart failure. What are the symptoms? You might notice swelling in your legs or belly, feeling more tired than usual, or getting short of breath even with small activities. These symptoms happen because your heart isn?t able to move blood around your body as well as it should. Why is this important? Right-sided heart failure can make breathing problems worse and affect your quality of life. It?s important to treat both your lung condition and your heart to help you feel better and prevent complications. What can be done? Treatments focus on helping your lungs work better and supporting your heart. This may include medicines, oxygen therapy, and lifestyle changes like quitting smoking and staying active. Your healthcare team will work with you to find the best plan for your needs. If you notice new or worsening symptoms, talk to your healthcare provider. Early treatment can help you feel better and keep you healthier. Return to the emergency department if you develop chest pain, shortness of breath, persistent fever >100.4, confusion, loss of consciousness, increasing oxygen needs to keep oxygen level greater than 88%. Patient Instructions: Antibiotic Form, Using Oxygen at Home (DC), COPD (Chronic Obstructive Pulmonary Disease) (GEN), Hypoxia (GEN), Pulse Oximetry (DC) Patient Language: Danish Stand Alone Forms: General Discharge Information Follow-up/Referrals: Josefina,MD Ken [Primary Care Provider, Unknown] - Call for Appointment Referral Note: keep scheduled appointment have lab work rechecked prior to this appointment Armani Ritter MD [Physician, Pulmonology] - Call for Appointment Referral Note: follow-up in 3-4 weeks Discharge Medications: New umeclidinium-vilanterol [Anoro Ellipta] 62.5-25 mcg/actuation blister with device 1 inh inhalation DAILY Qty: 60 0RF albuterol sulfate 90 mcg/actuation aerosol powdr breath activated 2 inh inhalation Q4-6H PRN (Reason: shortness of breath or wheezing) Qty: 1 0RF furosemide 20 mg Tablet 20 mg PO DAILY 30 Days Qty: 30 0RF guaifenesin [Mucus Relief ER] 600 mg Tablet Extended Release 12hr 1,200 mg PO Q12HR PRN (Reason: congestion) Qty: 120 0RF umeclidinium-vilanterol [Anoro Ellipta] 62.5-25 mcg/actuation blister with device 1 inh inhalation DAILY Qty: 60 0RF Continued ergocalciferol (vitamin D2) 1,250 mcg (50,000 unit) capsule 1 cap PO WEEKLY calcitriol 0.25 mcg capsule 0.25 mcg PO DAILY cyclobenzaprine 10 mg tablet 10 mg PO TID hydrocodone-acetaminophen 10-325 mg tablet 1 tablet PO Q6H spironolactone 25 mg tablet 12.5 mg PO DAILY Held atorvastatin 40 mg tablet 40 mg PO QPM Hold Instructions: Resume on 09/17/25. HOLD until liver enzymes are rechecked and you follow-up with your PCP. Atorvastatin can elevated the liver enzymes Other Ambulatory Orders: Comprehensive Metabolic Panel (Routine) Timeframe: 7 Days Location: Determined by Patient Ordered By: Katherine Monroe Date of admission: 09/06/25 15:09 Primary Care Provider: Josefina,Ken Admitting Provider: Timothy Barbour Attending physician on admission: Timothy Barbour Condition: Stable
[2025-09-10 14:46] LABS: Alveolar/Arterial O2 Gradient 40.3 mmHg; Fractional Inspired Oxygen 24 %; HCO3 ABG 41.2 mEq/l (22.0-26.0); Oxygen Content ABG 16.7 %vol (16.0-22.0); Oxygen Saturation ABG 89.2 % (95.0-100.0); PO2 ABG 56.2 mmHg (80.0-100.0); PO2 FiO2 Ratio Arterial Blood 2.34 %
[2025-09-10 14:50] LABS: PCO2 ABG 62.7 mmHg (35.0-45.0)
[2025-09-10 14:52] LABS: Liters per Minute 1.0 LPM; Modified Allen's Test Pass; Site Drawn RIGHT RADIAL
--- NOTE | 2025-09-10 15:37 | WPDGIPROGNO ---
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 (2) Dilated bile duct: Code(s): K83.8 - Other specified diseases of biliary tract Status: Acute Assessment and Plan: normal biliary system in recent mrcp (3) Right-sided heart failure: Code(s): I50.810 - Right heart failure, unspecified Status: Acute (4) Cor pulmonale: Code(s): I27.81 - Cor pulmonale (chronic) Status: Acute (5) Acute respiratory failure with hypoxia and hypercapnia: Code(s): J96.01 - Acute respiratory failure with hypoxia; J96.02 - Acute respiratory failure with hypercapnia Status: Acute (6) Chronic obstructive pulmonary disease (COPD): Code(s): J44.9 - Chronic obstructive pulmonary disease, unspecified Status: Acute Subjective Date/time seen: 09/10/25 11:37 Interval history: feeling better close to her baseline with less sob Review of Systems Review of Systems: All systems reviewed & are unremarkable except as noted in HPI and below Exam Const: General: comfortable Other: thin chronically ill appearing HENMT: Mouth: Yes moist mucous membranes Eyes: Sclera: sclerae normal Neck: Neck: supple Resp: Auscultation: diminished lung sounds Cardio: Rate: tachycardic Rhythm: regular rhythm GI: GI Palp: Yes Soft to palpation and No Tenderness to palpation present (GI) Auscultation: normal bowel sounds Skin: General skin exam: normal color Neuro: Speech: normal speech Motor exam (neuro): 5/5 motor strength present throughout Psych: Mental Status: mental status grossly normal Objective Data Vital Signs Vital Signs: Vital Signs - 24 hr 09/09/25 18:30 09/09/25 20:00 09/09/25 20:00 Temperature 98.1 F Pulse Rate 67 115 H Respiratory Rate 25 H 20 20 Blood Pressure 103/61 Pulse Oximetry 97 93 94 Oxygen Delivery BiPAP Nasal Cannula Oxygen Flow Rate 2 Fraction of Inspired Oxygen 28 09/09/25 20:37 09/09/25 20:47 09/09/25 21:01 Temperature Pulse Rate 108 H 108 H 105 H Respiratory Rate 20 20 Blood Pressure Pulse Oximetry 94 Oxygen Delivery Nasal Cannula Oxygen Flow Rate 1.5 Fraction of Inspired Oxygen 09/09/25 23:29 09/09/25 23:29 09/10/25 02:12 Temperature Pulse Rate 92 92 90 Respiratory Rate 20 26 H Blood Pressure Pulse Oximetry 95 95 96 Oxygen Delivery BiPAP BiPAP BiPAP Oxygen Flow Rate Fraction of Inspired Oxygen 09/10/25 04:00 09/10/25 07:48 09/10/25 07:51 Temperature 98.4 F Pulse Rate 98 104 H Respiratory Rate 20 20 Blood Pressure 103/77 Pulse Oximetry 99 93 Oxygen Delivery Nasal Cannula Oxygen Flow Rate 2 Fraction of Inspired Oxygen 09/10/25 07:57 09/10/25 08:00 09/10/25 08:00 Temperature 97.5 F L Pulse Rate 101 H 97 Respiratory Rate 20 20 Blood Pressure 100/67 Pulse Oximetry 96 96 Oxygen Delivery Nasal Cannula Oxygen Flow Rate 2 Fraction of Inspired Oxygen 09/10/25 09:15 09/10/25 11:30 09/10/25 11:31 Temperature Pulse Rate Respiratory Rate Blood Pressure Pulse Oximetry 86 L 87 L Oxygen Delivery Nasal Cannula Room Air Nasal Cannula Oxygen Flow Rate 2 1 Fraction of Inspired Oxygen 09/10/25 11:32 09/10/25 11:35 09/10/25 11:36 Temperature Pulse Rate Respiratory Rate Blood Pressure Pulse Oximetry 92 87 L 93 Oxygen Delivery Nasal Cannula Nasal Cannula Nasal Cannula Oxygen Flow Rate 2 2 3 Fraction of Inspired Oxygen 09/10/25 14:43 09/10/25 14:48 09/10/25 14:48 Temperature Pulse Rate 116 H 112 H Respiratory Rate 20 20 Blood Pressure 92/56 L Pulse Oximetry 90 97 Oxygen Delivery Nasal Cannula Oxygen Flow Rate 3 Fraction of Inspired Oxygen 32 09/10/25 14:55 Temperature Pulse Rate 112 H Respiratory Rate 20 Blood Pressure Pulse Oximetry Oxygen Delivery Oxygen Flow Rate Fraction of Inspired Oxygen Intake/Output Intake/Output: Intake & Output 09/07/25 09/08/25 09/09/25 09/10/25 23:59 23:59 23:59 23:59 Intake Total 5186 130 1392 0 Output Total 1000 2800 Balance 160 -2080 1380 0 Meds/Results Medications: Active Medications Generic Name Dose Route Start Last Admin Trade Name Freq PRN Reason Stop Dose Admin Acetaminophen 650 mg 09/06/25 15:09 09/10/25 08:20 Acetaminophen 325 Mg Tablet PO 650 mg Q4H PRN Administration Mild Pain (1-3) or Fever Hydrocodone Bitart/Acetaminophen 1 tab 09/06/25 17:00 09/10/25 12:07 Hydrocodone/Acetaminophen (*Crx) 10-325 Mg Tablet PO 1 tab Q6HR JOANN Administration Atorvastatin Calcium 40 mg 09/06/25 18:00 09/07/25 17:14 Atorvastatin 40 Mg Tablet PO 40 mg On Hold: 09/08/25 14:33 QPM JOANN Administration Calcitriol 0.25 mcg 09/07/25 09:00 09/10/25 08:20 Calcitriol 0.25 Mcg Capsule PO 0.25 mcg DAILY JOANN Administration Cyclobenzaprine HCl 10 mg 09/06/25 17:00 09/10/25 12:07 Cyclobenzaprine Hcl 10 Mg Tablet PO 10 mg TID JOANN Administration Enoxaparin Sodium 40 mg 09/09/25 09:00 09/10/25 08:21 Enoxaparin 40 Mg/0.4 Ml Syringe SUB-Q 40 mg DAILY JOANN Administration Furosemide 20 mg 09/11/25 09:00 Furosemide 20 Mg Tablet PO DAILY JOANN Guaifenesin 1,200 mg 09/09/25 09:45 09/10/25 08:20 Guaifenesin 12 Hr 600 Mg Tabcr PO 1,200 mg Q12HR JOANN Administration Hydroxyzine HCl 25 mg 09/08/25 22:08 09/10/25 08:20 Hydroxyzine Hcl 25 Mg Tablet PO 25 mg Q8H PRN Administration Itching Ipratropium [place] 0.5 mg 09/09/25 20:00 09/10/25 14:48 Ipratropium Br 0.02% Inh Soln 0.5 Mg/2.5 Ml Vial INHALATION 0.5 mg Q6HRT JOANN Administration Levalbuterol HCl 1.25 mg 09/09/25 20:00 09/10/25 14:48 Levalbuterol Neb 1.25 Mg/3 Ml INHALATION 1.25 mg Q6HRT JOANN Administration Ondansetron HCl 4 mg 09/06/25 15:09 Ondansetron Inj 4 Mg/2 Ml Vial IV PUSH Q4H PRN Nausea Prednisone 40 mg 09/08/25 12:55 09/10/25 08:20 Prednisone 20 Mg Tablet PO 40 mg DAILY@0800 JOANN Administration Sodium Chloride 500 mg 09/07/25 17:00 09/10/25 08:20 Sodium Chloride 500 Mg Tablet PO 500 mg BID JOANN Administration Spironolactone 12.5 mg 09/07/25 09:00 09/10/25 08:20 Spironolactone 12.5 Mg Tablet PO 12.5 mg DAILY JOANN Administration Radiology Results: ITS Impressions Chest X-Ray 09/06/25 13:03 IMPRESSION: 1. No acute cardiopulmonary findings given portable technique. Pulmonary Perfusion Imaging 09/08/25 09:26 IMPRESSION: 1. Multiple perfusion defects involving all lobes of both lungs including large perfusion defects at the superior segment and posterior basilar segment of the left lower lobe and the anterior basilar segment of the right lower lobe. Perfusion imaging contributed alone would be consistent with a high probability for pulmonary embolism. There is however diffuse abnormal retention of activity on the washout images consistent with COPD which would render assessment formally nondiagnostic. Chest CTA 09/08/25 11:08 IMPRESSION: 1. No pulmonary embolus. 2. Severe emphysema. 3. Small pleural effusions. Abdomen Ultrasound 09/09/25 10:21 IMPRESSION: 1. Intrahepatic biliary ductal dilatation. Consider MRCP. 2. Hepatic steatosis and/or hepatocellular disease. 3. Ascites and right pleural effusion. MRCP 09/10/25 13:26 IMPRESSION: 1. Small pleural effusions. 2. Small volume of ascites. Labs Labs: Laboratory Results - last 24 hr 09/08/25 09/09/25 09/10/25 12:49 16:19 03:52 WBC RBC Hgb Hct MCV MCH MCHC RDW Plt Count MPV Immature Gran % (Auto) Neut % (Auto) Lymph % (Auto) [place] % (Auto) Eos % (Auto) Baso % (Auto) Lymph # (Auto) [place] # (Auto) Eos # (Auto) Baso # (Auto) Abs Immat Gran (auto) Absolute Neuts (auto) Absolute Nucleated RBC Nucleated RBC % Puncture Site Right radial Right brachial ABG pH 7.422 7.377 ABG pCO2 67.7 H* 71.9 H* ABG pO2 73.7 L 83.2 ABG PO2/FiO2 Ratio 2.63 2.97 ABG HCO3 43.1 H 41.3 H ABG O2 Saturation 94.5 L 95.5 ABG O2 Content 16.8 16.1 ABG Base Excess 15.5 13.2 A-a Gradient 46.1 31.6 Oxyhemoglobin 93.6 94.7 Carboxyhemoglobin 0.7 Methemoglobin 0.3 Reduced Hemoglobin 4.3 Total Hemoglobin 12.7 12.0 O2 Delivery Device Nasal cannula Nasal cannula O2 Liters/Min 2.0 2.0 FiO2 28 28 Sodium Potassium Chloride Carbon Dioxide Anion Gap BUN Creatinine Estim Creat Clear Calc Estimated GFR Glucose Calcium Total Bilirubin AST ALT Alkaline Phosphatase NT-Pro-B Natriuret Pep Total Protein Albumin Chlamy pneumoniae PCR Not detected Adenovirus (PCR) Not detected B. pertussis DNA (PCR) Not detected B.parapertussis DNA PCR Not detected Coronavirus OC43 (PCR) Not detected Coronavirus HKU1 (PCR) Not detected Coronavirus 229E (PCR) Not detected Coronavirus NL63 (PCR) Not detected Human Metapneumovir PCR Not detected Influenza A (H1) PCR Not detected Influ A (H1/09) PCR Not detected Influenza A (H3) PCR Not detected Influenza Type A (PCR) Not detected Influenza Type B (PCR) Not detected M. pneumoniae (PCR) Not detected Parainfluenza 1 (PCR) Not detected Parainfluenza 2 (PCR) Not detected Parainfluenza 3 (PCR) Not detected Parainfluenza 4 (PCR) Not detected RSV (PCR) Not detected Entero/Rhino (PCR) Not detected SARS-CoV-2 (PCR) Not detected 09/10/25 09/10/25 05:18 14:33 WBC 8.0 RBC 3.78 L Hgb 10.9 L Hct 35.6 L MCV 94.2 MCH 28.8 MCHC 30.6 L RDW 14.2 Plt Count 161 MPV 9.4 Immature Gran % (Auto) 0.4 Neut % (Auto) 70.5 Lymph % (Auto) 20.3 [place] % (Auto) 8.8 H Eos % (Auto) 0.0 Baso % (Auto) 0.0 L Lymph # (Auto) 1.62 [place] # (Auto) 0.7 H Eos # (Auto) 0.0 Baso # (Auto) 0.0 Abs Immat Gran (auto) 0.03 Absolute Neuts (auto) 5.6 Absolute Nucleated RBC 0.000 Nucleated RBC % 0.0 Puncture Site Right radial ABG pH 7.435 ABG pCO2 62.7 H* ABG pO2 56.2 L ABG PO2/FiO2 Ratio 2.34 ABG HCO3 41.2 H ABG O2 Saturation 89.2 L ABG O2 Content 16.7 ABG Base Excess 14.0 A-a Gradient 40.3 Oxyhemoglobin 88.3 L Carboxyhemoglobin Methemoglobin Reduced Hemoglobin Total Hemoglobin 13.5 O2 Delivery Device Nasal cannula O2 Liters/Min 1.0 FiO2 24 Sodium 133 L Potassium 4.1 Chloride 87 L Carbon Dioxide > 40 H Anion Gap BUN 16 Creatinine 0.71 Estim Creat Clear Calc 50 Estimated GFR > 60 Glucose 83 Calcium 8.1 L Total Bilirubin 0.7 AST 74 H ALT 274 H Alkaline Phosphatase 63 NT-Pro-B Natriuret Pep 4870 H Total Protein 5.2 L Albumin 3.2 L Chlamy pneumoniae PCR Adenovirus (PCR) B. pertussis DNA (PCR) B.parapertussis DNA PCR Coronavirus OC43 (PCR) Coronavirus HKU1 (PCR) Coronavirus 229E (PCR) Coronavirus NL63 (PCR) Human Metapneumovir PCR Influenza A (H1) PCR Influ A (H1/09) PCR Influenza A (H3) PCR Influenza Type A (PCR) Influenza Type B (PCR) M. pneumoniae (PCR) Parainfluenza 1 (PCR) Parainfluenza 2 (PCR) Parainfluenza 3 (PCR) Parainfluenza 4 (PCR) RSV (PCR) Entero/Rhino (PCR) SARS-CoV-2 (PCR)
[2025-09-14 05:08] LABS: Osmolality, Urine 300 mOsmol/kg (.)
== END 2025-09-10 15:35 | disposition home or self-care (01) | DRG 189 ==
LOC: ANHED 14:32 → ANHIMU 15:50 → ANH3MED 18:00
PROVIDERS: Internal Medicine Pulmonary Disease; Admitting Provider Internal Medicine; Emergency Provider General Practice; PCP Internal Medicine; Visit Provider Physician Assistant
DX: J96.01 Acute respiratory failure with hypoxia (principal); E43 Unspecified severe protein-calorie malnutrition; E87.1 Hypo-osmolality and hyponatremia; Z68.1 Body mass index [BMI] 19.9 or less, adult; J44.1 Chronic obstructive pulmonary disease with (acute) exacerbation; J43.9 Emphysema, unspecified; I27.81 Cor pulmonale (chronic); I50.810 Right heart failure, unspecified; J96.12 Chronic respiratory failure with hypercapnia; I27.29 Other secondary pulmonary hypertension; K76.0 Fatty (change of) liver, not elsewhere classified; R79.89 Other specified abnormal findings of blood chemistry; Z20.822 Contact with and (suspected) exposure to COVID-19; Z87.891 Personal history of nicotine dependence
CPT/HCPCS: 36415; 36600; 71045; 71275; 74183; 76376; 76705; 78582; 80053; 80074; 82375; 82805; 83050; 83880; 83935; 84145; 84300; 84439; 84443; 84484; 85018; 85025; 85610; 85730; 87040; 87637; 93005; 94002; 94003; 94640; 94762; 97161; 99291; A9270; A9540; A9558; A9577; C8929; J1650; J1938; J2919; J7040; J7512; Q9957; Q9967

== ENCOUNTER 2025-09-29 14:47 | Outpatient (CLI) | payer OTHER, SELFPAY ==
--- OUTSIDE RECORDS SUMMARY | 2025-04-09 09:00 | XMS_ITS ---
Author Organization [facility] Office Address [address] [facility] 61 [facility] G30 [place] Child [id number] Care Team Providers Care Pharmaceutical Process Engineer Name Role Phone Jesse Vishnu Unavailable [phone] Medications Medication SIG (Take, Route, Frequency, Duration) Notes Start Date End Date Status Vitamin D (Ergocalciferol) 1.25 MG (91056 UT) TAKE 1 CAPSULE BY MOUTH ONCE A WEEK; Duration: 28 Active Losartan Potassium 25 MG 1 tablet Orally Once a day; Duration: 90 days 09/21/2022 Active Problems Problem Type SNOMED Code ICD Code Onset Dates Problem Status W/U Status Risk Notes Problem Essential hypertension (17029896) Essential hypertension (I10) Active confirmed Problem Chronic obstructive pulmonary disease (12432183) Chronic obstructive pulmonary disease, unspecified (J44.9) Active confirmed Encounters Encounter Location Date Provider Diagnosis [place] [facility] [address] [facility] 15 [place] [address] 04/09/2025 Vishnu Molina Chronic kidney disea se, stage 2 (mild) N18.2 ; Hyperlipidemia, unspecified E78.5 ; Other proteinuria R80.8 ; Renal osteodystrophy N25.0 ; Essential hypertension I10 ; Proteinuria, unspecified R80.9 and Chronic obstructive pulmonary disease, unspecified J44.9 Assessments Encounter Date Diagnosis (ICD Code) Assessment Notes Treatment Notes Treatment Clinical Notes Section Notes 04/09/2025 Chronic kidney disease, stage 2 (mild) (ICD-10 - N18.2) 04/09/2025 Hyperlipidemia, unspecified (ICD-10 - E78.5) 04/09/2025 Other proteinuria (ICD-10 - R80.8) 04/09/2025 Renal osteodystrophy (ICD-10 - N25.0) 04/09/2025 Essential hypertension (ICD-10 - I10) 04/09/2025 Proteinuria, unspecified (ICD-10 - R80.9) 04/09/2025 Chronic obstructive pulmonary disease, unspecified (ICD-10 - J44.9) Plan Of Treatment Next Appt Details Provider Name:Vishnu Jesse , 10/01/2025 03:45:00 PM, [address] [facility], [address], [place], [address], Progress Notes * Liya ROQUEaDOB:[birth year] (59 yo F)Acc No.[id number]:04/09/2025 Progress Notes Patient: Yoon HIRSCH Provider: Makenna BOWEN MD, F.Morgan.C.P, F.A.S.N. :1965 A ge:59 Y S ex:Female Date:04/09/2025 Address:[address] [place] [address] Subjective: * Chief Complaints: * * Medical History: * Medications: T aking Losartan Potassium 25 MG Tablet 1 tablet Orally Once a day , Taking Vitamin D (Ergocalciferol) 1.25 MG (87222 UT) Capsule TAKE 1 CAPSULE BY MOUTH ONCE A WEEK Objective: * Vitals: Assessment: * Assessment: 1. C hronic kidney disease, stage 2 (mild) - N18.2 (Primary) 2 . H yperlipidemia, unspecified - E78.5 3 . O ther proteinuria - R80.8 4 .?Renal osteodystrophy - N25.0 5 . E ssential hypertension - I10 6. P roteinuria, unspecified - R80.9 7 . C hronic obstructive pulmonary disease, unspecified - J44.9 Plan: * Treatment: * Billing Information: * Visit Code: 88963 Office Visit, New Pt., Level 5. * Procedure Codes: * Electronic signature of Best Molina MD on 09/29/2025 at 10:58 PM ARTIFICIAL INSEMINATOR Sign off status: Pending * Provider: Makenna BOWEN MD, Sidney.Morgan.C.P, F.A.S.N. Date: 0 04/09/2025 Generated for Printing/Faxing/eTransmitting on: 1 11/29/2024 10:58 PM ARTIFICIAL INSEMINATOR
--- OUTSIDE RECORDS SUMMARY | 2025-05-28 08:00 | XMS_ITS ---
Author Organization [facility] Office Address [address] [address] [place] Child [address] Care Team Providers Care Bunk Assembler Name Role Phone Vishnu Molina Unavailable [phone] Problems Problem Type SNOMED Code ICD Code Onset Dates Problem Status W/U Status Risk Notes Problem Chronic kidney disease stage 1 (926515510) Chronic kidney disease, stage 1 (N18.1) Active confirmed Encounters Encounter Location Date Provider Diagnosis [place] [facility] [address] [facility] [address] [place] [address] 05/28/2025 Vishnu Molina Chronic kidney disea se, stage 1 N18.1 ; Hyperlipidemia, unspecified E78.5 ; Other proteinuria R80.8 ; Renal osteodystrophy N25.0 ; Essential hypertension I10 ; Chronic obstructive pulmonary disease, unspecified J44.9 and Tobacco use Z72.0 Assessments Encounter Date Diagnosis (ICD Code) Assessment Notes Treatment Notes Treatment Clinical Notes Section Notes 05/28/2025 Chronic kidney disease, stage 1 (ICD-10 - N18.1) 05/28/2025 Hyperlipidemia, unspecified (ICD-10 - E78.5) 05/28/2025 Other proteinuria (ICD-10 - R80.8) 05/28/2025 Renal osteodystrophy (ICD-10 - N25.0) 05/28/2025 Essential hypertension (ICD-10 - I10) 05/28/2025 Chronic obstructive pulmonary disease, unspecified (ICD-10 - J44.9) 05/28/2025 Tobacco use (ICD-10 - Z72.0) Plan Of Treatment Pending Test Test Name Order Date PTH, INTACT AND CALCIUM (8837) COMPREHENSIVE METABOLIC PANEL (65539) URIC ACID (905) 05/28/2025 PROTEIN, TOTAL W/CREAT, RANDOM URINE (17 15) 05/28/2025 CBC (INCLUDES DIFF/PLT) (6399) URINALYSIS, COMPLETE W/REFLEX TO CULTURE (3020) 05/28/2025 URINALYSIS, COMPLETE (4193) 05/28/2025 SED RATE BY MODIFIED WESTERGREN (809) VITAMIN D,25-OH,TOTAL,IA (97124) 025 Next Appt Details Provider Name:Vishnu Molina , 10/01/2025 03:45:00 PM, 20[address] [facility] 15, [place], [address], Progress Notes * Marlen ROQUEB:[birth year] (59 yo F)Acc No.[id number]:05/28/2025 Progress Notes Patient: Yoon HIRSCH Provider: Makenna BOWEN MD, F.A.CNataliyaP, F.A.S.N. :1965 A ge:59 Y S ex:Female Date:05/28/2025 Address:[address] [place] [address] Subjective: * Chief Complaints: * * Medical History: Objective: * Vitals: Assessment: * Assessment: 1. C hronic kidney disease, stage 1 - N18.1 (Primary) 2 . H yperlipidemia, unspecified - E78.5 3 . O ther proteinuria - R80.8 4 . R enal osteodystrophy - N25.0 5 . E ssential hypertension - I10 6 . Chronic obstructive pulmonary disease, unspecified - J44.9 7 . T obacco use - Z72.0 Plan: * Treatment: ?LAB: COMPREHENSIVE METABOLIC PANEL (89993)* Justina Johns 08/30/2025 1 1:30:24 AM CDT >6 hr fasting ?LAB: URIC ACID (905)* Justina Johns 08/30/2025 1 1:30:24 AM CDT >6 hr fasting ?LAB: PROTEIN, TOTAL W/CREAT, RANDOM URINE (1715)* Justina Johns 08/30/2025 1 1:30:24 AM CDT >6 hr fasting ?LAB: CBC (INCLUDES DIFF/PLT) (6399)* Justina Johns 08/30/2025 1 1:30:24 AM CDT >6 hr fasting ?LAB: URINALYSIS, COMPLETE W/REFLEX TO CULTURE (7110)* Justina Johns 08/30/2025 1 1:30:24 AM CDT >6 hr fasting ?LAB: URINALYSIS, COMPLETE (9713)* Justina Johns 08/30/2025 1 1:30:24 AM CDT >6 hr fasting ?LAB: SED RATE BY MODIFIED WESTERGREN (839)* Justina Johns 08/30/2025 1 1:30:24 AM CDT >6 hr fasting ?LAB: VITAMIN D,25-OH,TOTAL,IA (44756)* Justina Johns 08/30/2025 1 1:30:24 AM CDT >6 hr fasting * Billing Information: * Visit Code: 03226 Office Visit, Est Pt., Level 4. * Procedure Codes: * Electronic signature of Best Molina MD on 09/29/2025 at 10:59 PM RETAIL MANAGER IN TRAINING Sign off status: Pending * Provider: Makenna BOWEN MD, F.A.C.P, F.A.S.N. Date: 0 05/28/2025 Generated for Printing/Faxing/eTransmitting on: 1 11/29/2024 10:59 PM RETAIL MANAGER IN TRAINING
--- OUTSIDE RECORDS SUMMARY | 2025-07-09 13:00 | XMS_ITS ---
Author Organization [facility] Office Address [address] [facility] 61 [facility] [address]30 [place] Child [address] Care Team Providers Care Identification And Records Commander Name Role Phone Vishnu Molina Unavailable [phone] Encounters Encounter Location Date Provider Diagnosis [place] [facility] [address] [facility] [address] [place] [address] 07/09/2025 Vishnu Molina Plan Of Treatment Next Appt Details Provider Name:Vishnu Jesse , 10/01/2025 03:45:00 PM, 20[address] [facility], [facility] 15, [place], [address], Progress Notes * Liya ROQUEMeganB:[birth year] (59 yo F)Acc No.[id number]:07/09/2025 Progress Notes Patient: Yoon HIRSCH Provider: Makenna BOWEN MD, Sidney.Morgan.C.P, F.A.S.N. :1965 A ge:59 Y S ex:Female Date:07/09/2025 Address:[address] [place] [address] Subjective: * Chief Complaints: Objective: Assessment: Plan: * Billing Information: * Visit Code: * Procedure Codes: * Electronic signature of Best Molina MD on 09/29/2025 at 10:58 PM BUS DRIVER/MONITOR Sign off status: Pending * Provider: Mkaenna BOWEN MD, Sidney.Morgan.C.P, F.A.S.N. Date: 07/09/2025 Generated for Printing/Faxing/eTransmitting on: 11/29/2024 10:58 PM BUS DRIVER/MONITOR
--- NOTE | ~2025-09-29 | CT_ITS ---
EXAMINATION:CT lung screening DATE: 09/29/2025 15:14 INDICATION: Smoking history. COPD. TECHNIQUE: Computed tomography (CT) of the chest was performed without intravenous contrast. Automated exposure control and iterative reconstruction technique were employed. The dose-length product (DLP) was 64.84 mGy-cm. COMPARISON: Previous CT chest dated 12/19/2022. FINDINGS: Severe centrilobular pattern of emphysema lungs. Irregular, solid, stellate nodule is noted in the left upper lobe on image 42 of lung window series. The nodule measures 13 x 6 mm in axial dimensions and was not seen on previous CT of 12/19/2022. No additional mass or nodule are seen. Stable calcified lymph nodes of the right hilum and mediastinum. Stable calcified granuloma right lower lobe. No evidence of pleural or pericardial effusion. IMPRESSION: 1. Severe emphysematous changes of lungs. 2. Appearance of an irregular noncalcified nodule in the left upper lobe posterior segment, 13 x 6 mm in axial dimensions, not seen on 12/19/2022. Further evaluation with PET/CT is recommended. Lung RADS category 4 Reviewed, dictated and finalized at location [facility] [employer] IMPRESSION: 1. Severe emphysematous changes of lungs. 2. Appearance of an irregular noncalcified nodule in the left upper lobe exercise physiologist ior segment, 13 x 6 mm in axial dimensions, not seen on 12/19/2022. Further evalu ation with PET/CT is recommended. Lung RADS category 4
--- OUTSIDE RECORDS SUMMARY | 2025-09-29 22:58 | XMS_ITS | Patient Health Record ---
Author Organization [facility] Address [address] [place] [address] Care Team Providers Care Cardiovascular Specialist Name Role Phone Vishnu Molina Unavailable [phone] Reason For Referral No Information Medications Medication SIG (Take, Route, Frequency, Duration) Notes Start Date End Date Status Spironolactone 25 MG 1/2 tablet Orally o nce a day; Duration: 90 days 04/09/2025 04/04/2026 Active Losartan Potassium 25 MG 1 tablet Orally Once a day; Duration: 90 days 09/21/2022 Active Vitamin D (Ergocalciferol) 1.25 MG (87282 UT) TAKE 1 CAPSULE BY MOUTH TWICE A WEEK; Duration: 28 Active Calcitriol 0.25 MCG 1 capsule Orally Onc e a day; Duration: 90 days 05/28/2025 05/23/2026 Active Problems Problem Type SNOMED Code ICD Code Onset Dates Problem Status W/U Status Risk Notes Problem Hyperlipidemia (30152045) Hyperlipidemia, unspecified (E78.5) Active confirmed Problem Chronic obstructive pulmonary disease (89834590) Chronic obstructive pulmonary disease, unspecified (J44.9) Active confirmed Problem Chronic kidney disease stage 1 (272146088) Chronic kidney disease, stage 1 (N18.1) Active confirmed Problem Renal osteodystrophy (19162864) Renal osteodystrophy (N25.0) Active confirmed Problem Proteinuria (90301724) Other proteinuria (R80.8) Active confirmed Problem Essential hypertension (78832634) Essential hypertension (I10) Active confirmed Encounters Encounter Location Date Provider Diagnosis [facility] [address] [facility] [address] [place] [address] 04/09/2025 Vishnu Molina Chronic kidney disea se, stage 2 (mild) N18.2 ; Hyperlipidemia, unspecified E78.5 ; Other proteinuria R80.8 ; Renal osteodystrophy N25.0 ; Essential hypertension I10 ; Proteinuria, unspecified R80.9 and Chronic obstructive pulmonary disease, unspecified J44.9 [facility] [address] [address] 05/28/2025 Vishnu Molina Chronic kidney disea se, stage 1 N18.1 ; Hyperlipidemia, unspecified E78.5 ; Other proteinuria R80.8 ; Renal osteodystrophy N25.0 ; Essential hypertension I10 ; Chronic obstructive pulmonary disease, unspecified J44.9 and Tobacco use Z72.0 [facility] [address] [place] [address] 04/09/2025 Vishnu Molina [facility] [address] [place] [address] 05/28/2025 Vishnu Molina Assessments Encounter Date Diagnosis [...] INTACT AND CALCIUM (8837) COMPREHENSIVE METABOLIC PANEL (66645) URIC ACID (905) 05/28/2025 PROTEIN, TOTAL W/CREAT, RANDOM URINE (17 15) 05/28/2025 CBC (INCLUDES DIFF/PLT) (6399) URINALYSIS, COMPLETE W/REFLEX TO CULTURE (3020) 05/28/2025 URINALYSIS, COMPLETE (5463) 05/28/2025 SED RATE BY MODIFIED WESTERGREN (809) VITAMIN D,25-OH,TOTAL,IA (81733) 025 Next Appt Details Provider Name:Vishnu Jesse , 10/01/2025 03:45:00 PM, [address] [facility] [address], [place], [address],
--- OUTSIDE RECORDS SUMMARY | 2025-09-29 22:58 | XMS_ITS | Clinical Summary ---
Author Organization [facility] [address] [facility] [place] [address] Care Team Providers Care Assistant Buyer Name Role Phone Ken Rocha MD Primary [...] on file Legal Sex Female 2:45 PM APPRISE COUNSELOR Gender Identity Not on file Sexual Orientation Not on file Last Filed Vital Signs Vital Sign Reading Time Taken Comments Blood Pressure 95/55 01/10/2023 3:04 PM APPRISE COUNSELOR Pulse 81 01/10/2023 3:04 PM APPRISE COUNSELOR Temperature 37.3 C (99.1 F) 01/10/2023 3:04 PM APPRISE COUNSELOR Respiratory Rate 8 01/10/2023 3:04 PM APPRISE COUNSELOR Oxygen Saturation 94% 01/10/2023 3:04 PM APPRISE COUNSELOR Inhaled Oxygen Concentration - - Weight 39.1 kg (86 lb 1.6 oz) 01/10/2023 3:04 PM APPRISE COUNSELOR Height 160 cm (5' 3) 12/11/2022 2:23 PM APPRISE COUNSELOR Body Mass Index 15.25 12/11/2022 2:23 PM APPRISE COUNSELOR Plan of Treatment Health Maintenance Due Date [...] patient's age to complete this topic Insurance Member Subscriber Plan / Payer (Ef fective 2022-Present) Name:Yoon Galvan Relation to Subscriber:Self Name:Yoon Galvan Payer ID:[id number] (NAIC) Type:O Address: [facility] [id number] [place] [id number] Care Teams Assistant Buyer Relationship Specialty Start Date End Date Ken Rocha MD PCP - General Internal Medicine 12/11/22
--- OUTSIDE RECORDS SUMMARY | 2025-09-29 22:58 | XMS_ITS | Clinical Summary ---
Author Organization [facility] Address [address] [place] [address] Care Team Providers Care Home Worker Name Role Phone None, Provider Primary Care [...] patient's age to complete this topic Insurance [facility] Care Teams Home Worker Relationship Specialty Start Date End Date None, Provider, PCP - General 04/10/22
--- OUTSIDE RECORDS SUMMARY | 2025-09-29 22:59 | XMS_ITS | Data Portability ---
Author Organization [place] [employer], Main Office Address [address] [place] [address] Care Team Providers Care Lif[facility] Representatives Name Role Phone ROMANA HUMPHREYS Cage Manager ZAN HUMPHREYS Mixing Supervisor ROGELIO JETT Pain Management ISRAEL SANCHEZ Bobbin Painter KEN ROCHA Primary Care Provider Assessment Encounter Date Assessment Date Assessment LastModified by Organization Details LastModified Time 04/01/2025 04/01/2025 05/27/2023: A1C 6.0 11/22/2023: A1C 5.8 AST 38 05/19/2024: A1C 6.1 Urine micro alb 17.5H VIT D 29.6 Chol 248, LDL 126 08/24/2024: A1C 5.9 Urine micro alb 86.2 12/17/2024: Urine random alb 442 Chol 233, LDL 143 Gluc 103 A1C 6.0 03/30/2025: Urine random alb 509 A1C 6.0 Not available 04/01/2025 16:48:52 08/03/2025 08/03/2025 05/27/2023: A1C 6.0 11/22/2023: A1C 5.8 AST 38 05/19/2024: A1C 6.1 Urine micro alb 17.5H VIT D 29.6 Chol 248, LDL 126 08/24/2024: A1C 5.9 Urine micro alb 86.2 12/17/2024: Urine random alb 442 Chol 233, LDL 143 Gluc 103 A1C 6.0 03/30/2025: Urine random alb 509 A1C 6.0 Not available 08/03/2025 16:06:01 09/13/2025 09/13/2025 05/27/2023: A1C 6.0 11/22/2023: A1C 5.8 AST 38 05/19/2024: A1C 6.1 Urine micro alb 17.5H VIT D 29.6 Chol 248, LDL 126 08/24/2024: A1C 5.9 Urine micro alb 86.2 12/17/2024: Urine random alb 442 Chol 233, LDL 143 Gluc 103 A1C 6.0 03/30/2025: Urine random alb 509 A1C 6.0 I have reconciled the patient's medications post their discharge from inpatient facility. Not available 09/13/2025 13:08:51 09/15/2025 09/15/2025 Assessment: Nicotine smoke: 1 ppd 1983-01-05 = 43 pack years Severe COPD Latent TB since 2002, s/p Rifampin 02/2023 - 06/30/23 Plan: The following were reviewed and explained to the patient: Dr. Heriberto Ewing note 02/14/23 Rifampin x [address] 09/07/[address] CT 09/30/23 RML, lingula and RLL opacities, bronchiectasis Lab data 11/16/22 (+) Quantiferon TB Gold test PFT 10/13/18 FEV1 1.04 L (45%), TLC 6.63 L (140%), RV 3.73 L (219%), DLCO 61%, DLCO/VA 85% PFT 09/25/22 FEV1 0.84 L (35%), TLC 7.29 L (154%), RV 4.55 L (262%), DLCO 47%, DLCO/VA 55% 6MW 12/18/23 O2 dropped from 90% to 86%, 1 L/min to keep saturation at 89% or higher during exertion [facility] hospitalization 09/06/25 -> 09/10/25 hypoxic hypercapnic respiratory failure -> O2 with exertion 6MW 12/18/23 1 Lpm O2 to keep saturation @ 93% and higher during exertion The United States Preventive Services Task Force (USPSTF) recommends annual screening for lung cancer with low-dose computed tomography (LDCT) for adults aged 50 to 80 years who have a 20 pack-year smoking history and currently smoke or have quit within the past 15 years. The [place] [employer] (ACS) similarly recommends screening for individuals aged 50 to 80 years with a 20 pack-year history of smoking. Continue albuterol HFA as needed. Resume Trelegy Ellipta 100/62.5/25 mcg 1 inhalation daily. Gargle after use. The patient does not know how to accurately administer the inhalers. Today, the patient was shown how to take these medications. The proper technique for delivering these medications was instructed. The patient expressed a clear understanding and demonstrated back how to use these medications. Without the proper technique, the patient will not reap the benefits of these medications as the contents will not reach the lower airways as intended to be. Adherence to therapy is advocated. Nonadherence may lead to treatment failure, further progression of the condition, and other complications. Hospitals admissions are often the result of individuals not taking prescription medications accurately. Alternatively, greater adherence to medication regimens have shown to lower rates of hospitalization and decrease total medical costs in patients with chronic medical conditions. Pulmonary rehabilitation may be included in the management of patients with chronic obstructive pulmonary disease (COPD). For respiratory diseases different from COPD, there have been no formal statements regarding patient selection. Pulmonary rehabilitation consists of assessment, exercise, education, and emotional support. It covers the goals of rehabilitation, the techniques of breathing, the necessity of nicotine cessation, the strategies to deal with panic attacks, the rationale of pulmonary medications, and the importance of nutrition. As the patient learns to live with her pulmonary condition through exercise and education, the patient will regain confidence with her abilities and feel improvement in her overall quality of life. The patient's FEV1 is 35%. The patient was enrolled in pulmonary rehabilitation but she could not afford a $30 copay per session. Advocated influenza vaccination annually and pneumonia vaccination ANCA. Encouraged patient to adjust caloric intake to maintain/achieve ideal body weight, emphasizing on fruits, vegetables, whole grains, and fat-free or low-fat products. These include lean meats, poultry, fish, beans, eggs, and nuts and foods that are low in saturated fats, trans-fats, cholesterol, salt (sodium), and glycemic index. Stressed the importance of regular exercise up to the patient's capacity limits. In this case, we recommend 20 min daily walking, 2 days a week of resistance training. Patient to monitor BP daily and bring records to PCP for further management. Follow-up: [address] Not available 09/16/2025 17:24:14 09/22/2025 09/22/2025 Assessment: Nicotine smoke: 1 ppd 1983-01[birth year] = 43 pack years Severe COPD Latent TB since 2002, s/p Rifampin 02/2023 - 06/30/23 Plan: The following were reviewed and explained to the patient: Dr. Heriberto Ewing note 02/14/23 Rifampin x [address] 09/07/[address] no pulmonary nodules Chest CT 09/30/23 RML, lingula and RLL opacities, bronchiectasis Lab data 11/16/22 (+) Quantiferon TB Gold test PFT 10/13/18 FEV1 1.04 L (45%), TLC 6.63 L (140%), RV 3.73 L (219%), DLCO 61%, DLCO/VA 85% PFT 09/25/22 FEV1 0.84 L (35%), TLC 7.29 L (154%), RV 4.55 L (262%), DLCO 47%, DLCO/VA 55% 6MW 12/18/23 O2 dropped from 90% to 86%, 1 L/min to keep saturation at 89% or higher during exertion [facility] hospitalization 09/06/25 -> 09/10/25 hypoxic hypercapnic respiratory failure -> O2 with exertion 6MW 12/18/23 1 Lpm O2 to keep saturation @ 93% and higher during exertion Six minute walk study carried out. Patient covered 1022 feet at a fast pace in 6 minutes. Patient tolerated walk well without stops. Pulse oximeter reading dropped from 93% to 90% with exercise. Oxygen supplementation is not needed to keep saturation at 89% or higher during exertion. The [place] States Preventive Services Task Force (USPSTF) recommends annual screening for lung cancer with low-dose computed tomography (LDCT) for adults aged 50 to 80 years who have a 20 pack-year smoking history and currently smoke or have quit within the past 15 years. The [place] [employer] (ACS) similarly recommends screening for individuals aged 50 to 80 years with a 20 pack-year history of smoking. Continue albuterol HFA as needed. Continue Trelegy Ellipta 100/62.5/25 mcg 1 inhalation daily. Gargle after use. The patient does not know how to accurately administer the inhalers. Today, the patient was shown how to take these medications. The proper technique for delivering these medications was instructed. The patient expressed a clear understanding and demonstrated back how to use these medications. Without the proper technique, the patient will not reap the benefits of these medications as the contents will not reach the lower airways as intended to be. Adherence to therapy is advocated. Nonadherence may lead to treatment failure, further progression of the condition, and other complications. Hospitals admissions are often the result of individuals not taking prescription medications accurately. Alternatively, greater adherence to medication regimens have shown to lower rates of hospitalization and decrease total medical costs in patients with chronic medical conditions. Pulmonary rehabilitation may be included in the management of patients with chronic obstructive pulmonary disease (COPD). For respiratory diseases different from COPD, there have been no formal statements regarding patient selection. Pulmonary rehabilitation consists of assessment, exercise, education, and emotional support. It covers the goals of rehabilitation, the techniques of breathing, the necessity of nicotine cessation, the strategies to deal with panic attacks, the rationale of pulmonary medications, and the importance of nutrition. As the patient learns to live with her pulmonary condition through exercise and education, the patient will regain confidence with her abilities and feel improvement in her overall quality of life. The patient's FEV1 is 35%. The patient was enrolled in pulmonary rehabilitation but she could not afford a $30 copay per session. Advocated influenza vaccination annually and pneumonia vaccination ANCA. Encouraged patient to adjust caloric intake to maintain/achieve ideal body weight, emphasizing on fruits, vegetables, whole grains, and fat-free or low-fat products. These include lean meats, poultry, fish, beans, eggs, and nuts and foods that are low in saturated fats, trans-fats, cholesterol, salt (sodium), and glycemic index. Stressed the importance of regular exercise up to the patient's capacity limits. In this case, we recommend 20 min daily walking, 2 days a week of resistance training. Patient to monitor BP daily and bring records to PCP for further management. Follow-up: [address] Not available 09/22/2025 09:11:31 Plan of Treatment Reminders Order Date Submit Date Provider Last Modified By Organization Details Last Modified Time Details Appointments Follow Up 15 2025 01:45P Js mack MD Not available Not available Not available Any 15 2025 10:00A M Ken mack MD Not available Not available Not available Lab glycohemo globin, total, blood [address] (Lab), [address] [place], [address], 09/14/2025 16:30:23 microalbu min, urine [address] (Lab), [address] [place], [address], 09/14/2025 16:30:23 lipid panel, serum [address] (Lab), [address] [place], [address], 09/14/2025 16:30:23 CBC w/ auto diff [address] (Lab), [address] [place], [address], 09/14/2025 16:30:23 CMP, serum or plasma [address] (Lab), [address] [place], [address], 09/14/2025 16:30:23 TSH, serum or plasma [address] (Lab), [address] [place], [address], 09/14/2025 16:30:24 vitamin D, 25-hydrox y, total, serum [address] (Lab), [address] [place], [address], 09/14/2025 16:30:24 gamma-glu tamyl transfera se (ggt), serum 2024 025 [facility], [address], [place], [address], 09/13/2025 13:00:28 hepatitis panel (A+B+C), acute, serum 2024 025 [facility], [address], [place], [address], 09/13/2025 13:00:27 vitamin B12 + folate, serum or blood [email or web address] [place] [address] (Lab), [address] [place], [address], 09/14/2025 16:30:24 glycohemo globin, total, blood [address] (Lab), [address] [place], [address], 08/03/2025 16:14:43 microalbu min, urine [address] (Lab), [address] [place], [address], 08/03/2025 16:14:43 lipid panel, serum [address] (Lab), [address] [place], [address], 08/03/2025 16:14:43 CBC w/ auto diff [address] (Lab), [address] [place], [address], 08/03/2025 16:14:43 CMP, serum or plasma [address] (Lab), [address] [place], [address], 08/03/2025 16:14:44 TSH, serum or plasma [address] (Lab), [address] [place], [address], 08/03/2025 16:14:44 vitamin D, 25-hydrox y, total, serum [address] (Lab), [address] [place], [address], 08/03/2025 16:14:45 vitamin B12 + folate, serum or blood [address] (Lab), [address] [place], [address], 08/03/2025 16:14:44 glycohemo globin, total, blood 2024 025 [facility] (Lab), [address] [place], [address], 09/29/2025 04:17:08 microalbu min, urine 2024 025 [facility] (Lab), [address] [place], [address], 09/29/2025 04:17:08 lipid panel, serum 2024 025 [facility] (Lab), [address] [place], [address], 09/29/2025 04:17:08 CBC w/ auto diff 2024 025 [facility] (Lab), [address] [place], [address], 09/29/2025 04:17:08 CMP, serum or plasma 2024 025 [facility] (Lab), [address] [place], [address], 09/29/2025 04:17:08 TSH, serum or plasma 2024 025 [facility] (Lab), [address] [place], [address], 09/29/2025 04:17:09 vitamin D, 25-hydrox y, total, serum 2024 025 [facility] (Lab), [address] [place], [address], 09/29/2025 04:17:09 vitamin B12 + folate, serum or blood 2024 025 [facility] (Lab), [address] [place], [address], 09/29/2025 04:17:09 Referral pulmonolo gist referral - Please call pt to schedule appt. Thank you 2024 025 [email or web address] Israel Sanchez MD, [address] [place], [address], 09/13/2025 16:30:56 cardiolog ist referral - Please call patient to schedule an appointme nt. Thank you. 2024 025 [place], [address], [address], 09/13/2025 16:30:55 pulmonolo gist referral - Please call pt to schedule appt. Thank you 2024 025 [email or web address] Israel Sanchez MD, [address] [place], [address], 08/10/2025 09:30:48 cardiolog ist referral - Please call patient to schedule an appointme nt. Thank you. 2024 025 [place], [address], [address], [place], [address], 08/10/2025 10:15:25 pulmonolo gist referral - Please call pt to schedule appt. Thank you 2024 025 josue Sanchez MD, [address] [place], [address], 07/05/2025 11:13:46 nephrolog ist referral - Please call patient to schedule an appointme nt. Thank you. 2024 025 josue Humphreys MD (Nephrology, [address], [address], [place], [address], 07/05/2025 11:13:47 cardiolog ist referral - Please call patient to schedule an appointme nt. Thank you. 2024 025 [place], [address], [address], [place], [address], 07/05/2025 11:13:45 Procedures None recorded. Surgeries None recorded. Imaging LDCT, chest, for lung cancer screening [address] ([facility]), [address] [place], [address], 09/22/2025 14:06:59 LDCT, chest, for lung cancer screening - Updated order for 5. 2024 025 [facility], [address], [address], 09/27/2025 14:56:15 MAMMO, screening , digital, bilateral - Please call patient to schedule. [address] ([facility]), [address] [place], [address], 09/13/2025 15:24:32 DEXA, axial skeleton - Please call patient to schedule. [address] ([facility]), [address] [place], [address], 09/13/2025 15:25:03 US, liver - Please call patient to schedule. 2024 025 LYRIC Warren, [address] [place] [address] , [address], [place], [address], 09/27/2025 10:54:13 MAMMO, screening , digital, bilateral - Please call patient to schedule. [address] [facility], [address] [place], [address], 09/02/2025 10:04:03 DEXA, axial skeleton - Please call patient to schedule. [address] [facility], [address] [place], [address], 08/03/2025 17:24:06 MAMMO, screening , digital, bilateral [address] ([facility]), [address] [place], [address], 04/01/2025 17:33:09 DEXA, axial skeleton - Please call patient to schedule. 2024 025 [email or web address] Justin Warren, [address] [place] [address] [address], [place], [address], 05/04/2025 17:10:36 Medication Orders albuterol sulfate HFA 90 mcg/actua tion aerosol inhaler 2024 025 [facility], [address] [place] [address], [address], 09/22/2025 09:11:34 Trelegy Ellipta 100 mcg-62.5 mcg-25 mcg powder for inhalatio n 2024 025 [facility], [address] [place] [address], [address], 09/22/2025 09:11:34 albuterol sulfate HFA 90 mcg/actua tion aerosol inhaler 2024 025 [facility], [address] [place] [address], [address], 09/15/2025 10:54:38 Trelegy Ellipta 100 mcg-62.5 mcg-25 mcg powder for inhalatio n 2024 025 [email or web address], [address] [place] [address], [address], 09/15/2025 10:54:35 albuterol sulfate HFA 90 mcg/actua tion aerosol inhaler 2024 025 [email or web address] [facility] #[id number], [address] [place], [address], 09/15/2025 10:20:33 prednison e 20 mg tablet 2024 025 [email or web address] [facility] #[id number], [address] [place], [address], 09/03/2025 11:00:28 Patient TargetsNo targets recorded. Patient Instructions Encounter Date Encounter Id Patient Instructions Last Modified By Organization Details Last Modified Time 09/13/2025 [id number] Thank you for your visit to our office today. We would like to request that you reach out to your referring or previous provider and request that they send us a Summary of Care in electronic form, so that we may have it on file in your medical record. At your visit, we had the medical records we needed to provide you with the best possible care; however, for insurance purposes, an electronic Summary of Care is beneficial. Thank you for your assistance in obtaining this information and we look forward to providing continued care to you. Please review your medication list from the Summary of Care for this visit. If there are any differences from what you are currently taking at home, please call us to discuss. [email or web address] Not available 09/13/2025 13:04:52 Homebound Status : Does not meet homebound status Required Home Health Services: none Durable Medical Equipment needed: none Billing Guidelines CPT code 29880- Transitional Care Management services with moderate medical decision complexity ([id number] visit within 14 days of discharge). CPT code 12647- Transitional Care Management services with high medical decision complexity (tmjk-[id number] visit within 7 days of discharge). [email or web address] Not available 09/13/2025 13:09:04 Reason for Referral Cage Manager Referral for Co ronary arteriosclerosis Please call patient to schedule an appointment. Thank you. Referring Physician: Ken Rocha Internal Medicine, Encounter Date: 04/01/2025 Bobbin Painter Referral for C hronic obstructive pulmonary disease Please call pt to schedule appt. Thank you Referring Physician: Neda Bean Medicine, Encounter Date: 04/01/2025 Mixing Supervisor Referral for Ch ronic kidney disease Please call patient to schedule an appointment. Thank you. Referring Physician: Ken Rocha Internal Medicine, Encounter Date: 04/01/2025 Cage Manager Referral for Co ronary arteriosclerosis Please call patient to schedule an appointment. Thank you. Referring Physician: Ken Rocha Internal Medicine, Encounter Date: 08/03/2025 Bobbin Painter Referral for C hronic obstructive pulmonary disease Please call pt to schedule appt. Thank you Referring Physician: Neda Bean Medicine, Encounter Date: 08/03/2025 Cage Manager Referral for Co ronary arteriosclerosis Please call patient to schedule an appointment. Thank you. Referring Physician: Neda Bean Medicine, Encounter Date: 09/13/2025 Bobbin Painter Referral for C hronic obstructive pulmonary disease Please call pt to schedule appt. Thank you Referring Physician: Ken Rocha, Internal Medicine, Encounter Date: 09/13/2025 Results Created Date Observation Date Name Description Value Unit Range Abnormal Flag Note LastModifiedBy Organization Detail LastModifiedTime 05/11/20 25 05/10/2025 US, retro perit oneum No observ ation record ed. [address], [place], [address], 09/03/2025 11:03:38 09/07/2009/07/2025 imagi ng/di agnos tic resul t No observ ation record ed. [address], [place], [address], 09/07/2025 13:44:00 09/08/2009/08/2025 imagi ng/di agnos tic resul t No observ ation record ed. [address], [place], [address], 09/08/2025 12:30:43 09/08/2009/08/2025 imagi ng/di agnos tic resul t No observ ation record ed. [address], [place], [address], 09/08/2025 12:36:56 09/09/2009/09/2025 imagi ng/di agnos tic resul t No observ ation record ed. [address], [place], [address], 09/09/2025 11:39:38 09/10/2009/10/2025 imagi ng/di agnos tic resul t No observ ation record ed. [address], [place], [address], 09/10/2025 14:33:52 09/24/2009/22/2025 6 minut e walk test* No observ ation record ed. BARCODE Not Available 2024 12:33:37 09/29/2009/29/2025 imagi ng/kem de león tic resul t No observ ation record ed. [facility] [address], [place], [address], 09/29/2025 16:30:10 Result Notes None recorded. Problems Name Problem SNOMED Code Status Onset Date Resolution Date Notes Provider Name and Address Organization Details Recorded Time COVID-19 146940219 Active 2021 Not Available [facility] 3 05:06:24 Vitamin D deficiency 24296654 Active 2021 Israel Sanchez MD [address], [address], [place], [address] , Mr. Number [employer] 11:07:39 Hyperlipidemi a 71847062 Active 2021 Israel Sanchez MD [address], [address], [place], [address] , [email or web address] 11:07:08 Prediabetes 653193970 Active 2021 Israel Sanchez MD [address], [address], [place], [address] , [employer] 11:02:22 Smoker 06890753 Active 2022 Israel Sanchez MD [address], [place], [address] , Mr. Number [employer] 11:02:10 Microalbuminu delta 736496532 Active 2022 Israel Sanchez MD [address], [place], [address] , Mr. Number [employer] 5 11:02:24 Serum vitamin B12 below reference range 960839806 Active 2022 Israel Sanchez MD [address], [place], [address] , Mr. Number [employer] 11:06:25 Severe chronic obstructive pulmonary disease 826561255 Active 2024 Israel Sanchez MD [address] [facility], [address] [address], [place], [address] , [facility] [employer] [facility] 5 11:01:32 History of nicotine dependence Active 2024 Israel Sanchez MD [address] [facility], [address] [address], [place], [address] , [facility] [employer] [facility] [employer] 5 10:54:08 Notes:Medical History: COVID infection 06/2022 Rhinosinusitis Eosinophils 100/uL IgE 7 IU/mL AAT PiMM 221 mg% Severe COPD, 3 Lpm exertional O2 c/o Provider Plus, could not afford pulm rehab Bronchiectasis (+) Quantiferon TB Gold on Rifampin 02/2023 - 06/2023 Granulomatous disease (chest, liver, and spleen) Hyperlipidemia Prediabetes with microalbuminuria Mild TR/RI EF 60% Hepatic steatosis Gallbladder polyp Right hydronephrosis Vit B12 deficiency Vit D deficiency Lumbar osteopenia Procedure History: T&A 1969 Lumbar fusion 2011 Cervical fusion 2012 Colonoscopy with polypectomy 2020 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 Procedures Surgical History Date Name Laterality Status Provider Name and Address Organization Details Recorded Time 09/13/20 25 Transitional_Ca re_Management completed Ken Rocha MD [address] [facility], [address] [address], [place], [address], [facility] [employer] 09/13/2025 13:09:09 12/31/19 25 Medicare Wellness CPT Code, Initial completed Sherri Kyle MA [facility] [employer] 12/31/2024 16:05:18 fusion completed Not Available [facility] 11/2022 07:28:37 Colonoscopy completed Not Available [facility] 01/09/2023 07:28:37 Imaging Results None recorded. Procedure Notes None recorded. Medical Equipment None Reported. Allergies No known drug allergies Medications Name Sig Start Date Stop Date Status Note LastModified by Organization Details LastModified Time Prescripti on - Prior Authorizat ion Request active Not Available Not Available Not Available cyclobenza thor 10 mg tablet TAKE 1 TABLET BY MOUTH TWICE A DAY NEEDED active Not Available Not Available No t Available amoxicilli n 500 mg capsule 06/13 completed Not Available Not Available Not Available atorvastat in 40 mg tablet TAKE 1 TABLET BY MOUTH EVERY DAY active Not Available Not Available No t Available metformin 500 mg tablet Take 1 tablet twice a day by oral route for 90 days. 08/25 completed Not Available Not Available Not Available bupropion HCl SR 150 mg tablet,12 hr sustained- release TAKE 1 TABLET BY MOUTH ONCE DAILY FOR 3 DAYS, THEN 1 TABLET TWICE DAILY active Not Available Not Available No t Available prednisone 10 mg tablet 4 DAILY FOR 4 DAYS, 3 FOR 3 DAYS, 2 FOR 2 DAYS, THEN 1 TABLET UNTIL DONE 07/[address] Rivero Not Available Not Available Not Available atorvastat in 10 mg tablet TAKE 1 TABLET ONCE A DAY FOR CHOLESTER OL 06/13 completed Not Available Not Available Not Available azithromyc in 250 mg tablet TAKE 2 TABLETS BY MOUTH TODAY, THEN TAKE 1 TABLET DAILY FOR 4 DAYS DIRECTED 09/03 completed Not Available Not Available Not Available valacyclov ir 1 gram tablet Take 1 tablet 3 times a day by oral route for 7 days. 01/22 completed Not Available Not Available Not Available cephalexin 250 mg capsule Take 1 capsule 4 times a day by oral route for 7 days. active Not Available Not Available No t Available hydrocodon e 5 mg-acetami nophen 325 mg tablet active Not Available Not Available No t Available meloxicam 15 mg tablet TAKE ONE TABLET BY MOUTH EVERY DAY 04/12 completed Not Available Not Available Not Available prednisone 20 mg tablet TAKE 3 TABLETS BY MOUTH EVERY DAY FOR 3 DAYS, 2 TABS DAILY X 3 DAYS, THEN 1 TAB DAILY X 3 DAYS 09/03 completed Not Available Not Available Not Available alendronat e 70 mg tablet TAKE 1 TABLET BY MOUTH ONE TIME PER WEEK active Not Available Not Available No t Available hydrocodon e 10 mg-acetami nophen 325 mg tablet TAKE 1 TABLET BY MOUTH EVERY 6 HOURS active Not Available Not Available No t Available doxycyclin e monohydrat e 100 mg tablet TAKE 1 TABLET BY MOUTH TWICE A DAY FOR 7 DAYS 09/13 completed Not Available Not Available Not Available amitriptyl ine 50 mg tablet TAKE 1 TABLET BY MOUTH EVERYDAY AT BEDTIME 06/13 completed Not Available Not Available Not Available spironolac tone 25 mg tablet TAKE 1/2 TABLET DAILY BY MOUTH active Not Available Not Available No t Available oxycodone- acetaminop hen 5 mg-325 mg tablet active Not Available Not Available Not Available rifampin 300 mg capsule TAKE 1 CAPSULE BY MOUTH EVERY DAY 07/01 completed Not Available Not Available Not Available hydrocodon e 7.5 mg-acetami nophen 325 mg tablet TAKE 1 TABLET BY MOUTH TWICE PER DAY NEEDED 08/03 completed Not Available Not Available Not Available cephalexin 500 mg capsule 01/22 completed Not Available Not Available Not Available prednisone 50 mg tablet TAKE 1 TABLET BY MOUTH EVERY DAY 08/25 completed Not Available Not Available Not Available losartan 25 mg tablet TAKE 1 TABLET BY MOUTH EVERY DAY FOR 90 DAYS 05/28 completed Not Available Not Available Not Available nicotine 21 mg/24 hr daily transderma l patch 04/12 completed Not Available Not Available Not Available gabapentin 300 mg capsule TK 1T PO BID 12/05 completed Not Available Not Available Not Available morphine ER 15 mg tablet,ext ended release TAKE 1 TABLET BY MOUTH EVERY 12 HOURS 08/03 completed Not Available Not Available Not Available bisacodyl 5 mg tablet,del ayed release 07/25 completed Not Available Not Available Not Available furosemide 20 mg tablet TAKE 1 TABLET BY MOUTH DAILY FOR 30 DAYS 09/15 completed Not Available Not Available Not Available gabapentin 100 mg capsule TAKE 1 CAPSULE BY MOUTH TWICE A DAY FOR 30 DAYS 07/01 completed Not Available Not Available Not Available ergocalcif yamileth (vitamin D2) 1,250 mcg (50,000 unit) capsule TAKE 1 CAPSULE BY MOUTH TWICE A WEEK active Not Available Not Available No t Available levofloxac in 750 mg tablet TAKE 1 TABLET BY MOUTH EVERY DAY 05/28 completed Not Available Not Available Not Available methylpred nisolone 4 mg tablets in a dose pack TAKE 6 TABLETS ON DAY 1 DIRECTED ON PACKAGE AND DECREASE BY 1 TAB EACH DAY FOR A TOTAL OF 6 DAYS 09/03 completed Not Available Not Available Not Available albuterol sulfate HFA 90 mcg/actuat ion aerosol inhaler Inhale 1 puff every 4 hours by inhalatio n route as needed. 2024 active Not Available Not Available Not Avai lable cefdinir 300 mg capsule active Not Available Not Available Not Available fluticason e propionate 50 mcg/actuat ion nasal spray,susp ension INSTILL 2 SPRAYS INTO EACH NOSTRIL EVERY DAY FOR 60 DAYS active Not Available Not Available No t Available metformin ER 500 mg tablet,ext ended release 24 hr Take 1 tablet twice a day by oral route for 90 days. 04/01 completed Not Available Not Available Not Available calcitriol 0.25 mcg capsule TAKE 1 CAPSULE BY MOUTH EVERY DAY active Not Available Not Available No t Available amoxicilli n 875 mg-potassi um clavulanat e 125 mg tablet Take 1 tablet every 12 hours by oral route for 7 days. 08/06 completed Not Available Not Available Not Available rosuvastat in 40 mg tablet Take 1 tablet every day by oral route for 90 days. 02/08 completed Not Available Not Available Not Available Gavilyte-C 240 gram-22.72 gram-6.72 gram-5.84 gram oral solution 07/25 completed Not Available Not Available Not Available Prolia 60 mg/mL subcutaneo us syringe 07/01 completed Not Available Not Available Not Available Anoro Ellipta 62.5 mcg-25 mcg/actuat ion powder for inhalation INHALE 1 PUFF BY MOUTH DAILY AT THE SAME TIME EACH DAY 06/13 completed Not Available Not Available Not Available Hysingla ER 60 mg tablet, crush resistant, extended release TAKE 1 TABLET BY MOUTH EVERY 24 HOURS 02/10 completed Not Available Not Available Not Available hydrocodon e bitartrate ER 20 mg capsule, oral only, extended rel 12 hr TAKE 1 CAPSULE BY MOUTH EVERY 12 HOURS 05/19 completed Not Available Not Available Not Available ProAir RespiClick 90 mcg/actuat ion breath activated TAKE 2 PUFFS INHALED EVERY 4 - 6 HOURS NEEDED FOR SHORTNESS OF BREATH OR WHEEZING active Not Available Not Available No t Available naloxone 4 mg/actuati on nasal spray 1 SPRAY INTRANASA LLY ONCE FOR OVERSEDAT ION, REPEAT IN 2-3 MINUTES IF NEEDED 2 DOSES active Not Available Not Available No t Available Trelegy Ellipta 100 mcg-62.5 mcg-25 mcg powder for inhalation Inhale 1 puff every day by inhalatio n route. 2024 active Not Available Not Available Not Avai lable Kerendia 10 mg tablet Take 1 tablet every day by oral route for 30 days. 04/01 completed Not Available Not Available Not Available Paxlovid 300 mg (150 mg x 2)-100 mg tablets in a dose pack Take 3 tablets twice a day by oral route for 5 days. 07/17 completed Not Available Not Available Not Available Vitals Date Recorded Body height Body mass index (BMI) Body weight Body temperature Heart rate Systolic And Diastolic Provider Name and Address Organization Details Last Updated DateTime 5 160.02 cm 14.2 kg/m2 50514.3 9 g 97.6 [degF] 90 /min 110/60 mm[Hg] PAUL Umana [facility] [employer] 5 16:23:27 Date Recorded Body height Body mass index (BMI) Body weight Body temperature Pain severity - 0-10 verbal numeric rating [Score] - Reported Heart rate Oxygen saturation Oxygen saturation in Arterial blood by Pulse oximetry Systolic And Diastolic Provider Name and Address Organization Details Last Updated DateTime 5 160.02 cm 13.3 kg/m2 49790.4 3 g 95.3 [degF] 10 104 /min 83 % 83 % 110/60 mm[Hg] Sherri Kyle MA [facility] [employer] 5 15:52:39 Date Recorded Body height Body mass index (BMI) Body weight Body temperature Pain severity - 0-10 verbal numeric rating [Score] - Reported Heart rate Oxygen saturation Oxygen saturation in Arterial blood by Pulse oximetry Systolic And Diastolic Provider Name and Address Organization Details Last Updated DateTime 5 160.02 cm 13.3 kg/m2 25812.4 3 g 97.8 [degF] 6 64 /min 87 % 87 % 80/60 mm[Hg] Sherri Kyle MA [facility] [employer] [facility] 5 12:28:25 Date Recorded Heart rate Oxygen saturation Oxygen saturation in Arterial blood by Pulse oximetry Heart rate Respiratory rate Systolic And Diastolic Provider Name and Address Organization Details Last Updated DateTime 5 103 /min 97 % 97 % 103 /min 17 /min 90/60 mm[Hg] Israel Sanchez MD [address], [place], [address], [facility] [employer] 10:41:58 Date Recorded Body height Body mass index (BMI) Body weight Body temperature Provider Name and Address Organization Details Last Updated DateTime 09/15/2025 160.02 cm 13.2 kg/m2 13787.27 g 98 [degF] Francine Walden MA [facility] [employer] 09/15/2025 10:23:28 Date Recorded Respiratory rate Heart rate Provider N ema and Address Organization Details Last Updated DateTime 09/22/2025 17 /min 104 /min Israel Sanchez MD [address], [facility] [address], [place], [address], [facility] [employer] 09/22/2025 09:14:03 Date Recorded Body height Body mass index (BMI) Body weight Body temperature Heart rate Oxygen saturation Oxygen saturation in Arterial blood by Pulse oximetry Systolic And Diastolic Provider Name and Address Organization Details Last Updated DateTime 160.02 cm 14.3 kg/m2 63520.9 8 g 97.8 [degF] 104 /min 93 % 93 % 92/60 mm[Hg] Francine Walden MA [facility] [employer] 08:54:51 Social History Question Answer Notes LastModified by Organization Details LastModified Time Tobacco Smoking Status Former Smoker quit april 2022 Started again; quit again 12/2023 Tanesha Ruiz, Morgan null, [facility] [employer] 02/11/2024 14:07:12 Do You Have An Advance Directive? No [id number].030 [id number] Information not available 01/09/2023 What Is Your Level Of Caffeine Consumption? Heavy PER PT 4-5 DIET SODAS DAILY MIGRATION.030 [id number] Information not available 01/09/2023 In The 14 Days Before Symptom Onset, Have You Had Close Contact With A Laboratory-conf irmed COVID-19 While That Case Was Ill? No MIGRATION.030 [id number] Information not available 01/09/2023 In The 14 Days Before Symptom Onset, Have You Had Close Contact With A Person Who Is Under Investigation For COVID-19 While That Person Was Ill? No MIGRATION.0301 [id number] Information not available 01/09/2023 What Type Of Diet Are You Following? REGULAR MIGRATION.0301 [id number] Information not available 01/09/2023 What Is The Highest Grade Or Level Of School You Have Completed Or The Highest Degree You Have Received? [id number] MIGRATION.0301 [id number] Information not available 01/09/2023 Do You Have An Electrostatic Air Filter? No MIGRATION.0301 [id number] Information not available 01/09/2023 Have There Been Any Changes To Your Family Or Social Situation? No MIGRATION.0301 [id number] Information not available 01/09/2023 What Is The Fluoride Status Of Your Home? Unknown MIGRATION.0301 [id number] Information not available 01/09/2023 Are There Any Guns Present In Your Home? No MIGRATION.0301 [id number] Information not available 01/09/2023 Do You Have A Humidifier? No MIGRATION.0301 633956 Information not available 01/09/2023 Do You Use Insect Repellent Routinely? No MIGRATION.0301 [id number] Information not available 01/09/2023 Where Do You Live? [place] MIGRATION.0301 [id number] Information not available 01/09/2023 Do You Have A Medical Power Of Melt House Supervisor? No MIGRATION.0301 350873 Information not available 01/09/2023 Do You Have Moisture Problems In Your Home? No MIGRATION.0301 [id number] Information not available 01/09/2023 What Was The Date Of Your Most Recent Tobacco Screening? 09/22/2025 [email or web address] Information not available 09/22/2025 Do You Have Any Pets? No MIGRATION.0301 [id number] Information not available 01/09/2023 What Is Your Relationship Status? BOYFRIEND X 20 Years Information not available 12/18/2023 Do You Use Your Seat Belt Or Car Seat Routinely? Yes MIGRATION.0301 [id number] Information not available 01/09/2023 Do You Have Smoke And Carbon Monoxide Detectors In Your Home? Yes MIGRATION.0301 [id number] Information not available 01/09/2023 At What Age Did You Start Smoking Tobacco? 19 MIGRATION.0301 [id number] Information not available 01/09/2023 Are You Passively Exposed To Smoke? Yes MIGRATION.0301 [id number] Information not available 01/09/2023 Are There Any Smokers In Your House? Yes MIGRATION.0301 [id number] Information not available 01/09/2023 How Much Tobacco Do You Smoke? No Was 1/2 Ppd Information not available 02/11/2024 What Types Of Sporting Activities Do You Participate In? None MIGRATION.0301 [id number] Information not available 01/09/2023 Do You Use Sunscreen Routinely? Yes MIGRATION.0301 [id number] Information not available 01/09/2023 How Many Years Have You Smoked Tobacco? 40 Information not available 12/18/2023 Have You Recently Traveled Abroad? No MIGRATION.0301 235245 Information not available 01/09/2023 Do You Have Any Dietary Restrictions? No MIGRATION.0301 [id number] Information not available 01/09/2023 Sex: Female Functional Status Question Answer Note LastModified by [employer] ion Details LastModified Time Do you use any illicit or recreational drugs? No [id number] Information not available 01/09/2023 Do you or have you ever used any other forms of tobacco or nicotine? No MIGRATION.[id number] 026 Information not available 01/09/2023 What is your level of alcohol consumption? None MIGRATION.[id number] 026 Information not available 01/09/2023 Are you currently employed? Yes Information not available 05/28/2023 Have you been exposed to chemicals or toxins? Not that aware of Information not available 12/18/2023 What is your occupation? [employer] MIGRATION.[id number] 026 Information not available 01/09/2023 What is your exercise level? None MIGRATION.[id number] 026 Information not available 01/09/2023 Mental Status Question Answer Note LastModified by [employer] Details LastModified Time Do you feel stressed (tense, restless, nervous, or anxious, or unable to sleep at night)? [id number] [id number] Information not available 01/09/2023 Family History Relationship Description Onset Age of this Age Resolved Age Notes LastModified by Organization Details LastModified Time Sister Chronic obstructive pulmonary disease MIGRATION.363 [id number] Not available 01/09/2023 07:28:40 Mother Malignant neoplasm of urinary bladder MIGRATION.895 [id number] Not available 01/09/2023 07:28:40 Father Malignant neoplasm of bone MIGRATION.760 [id number] Not available 01/09/2023 07:28:40 Medical History Condition Response NERVE DISEASE N BLINDNESS N RHEUMATIC FEVER N KIDNEY STONES N BLADDER PROBLEMS N MRSA N OTHER # 1 N POLIO N LUNG DISEASE/DISORDER Y HISTORY OF DRUG ABUSE N COPD Y RADIATION / CHEMOTHERAPY N Other # 2 N BLOOD DISEASES N EAR OR HEARING PROBLEMS N MUMPS N SHINGLES N DEPRESSION (INCLUDING POST ) N BOWEL PROBLEMS N STROKE/TIA N ULCERS N BENIGN PROSTATIC HYPERPLASIA N MEASLES N HYPOTENSION N MYOCARDIAL INFARCTION N OBESITY N GERD/NAUSEA N ANEURYSM N URINARY/BLADDER/KIDNEY PROBLEMS N CORONARY ARTERY DISEASE (CAD) N ADDICTION CONCERNS N Impotence N ENDOMETRIOSIS N USE OF BLOOD THINNERS N SKIN PROBLEMS N GASTROINTESTINAL DISORDER N PERIPHERAL VASCULAR DISEASE N MUSCLE,JOINT OR BONE PROBLEMS N GASTROINTESTINAL BLEEDING N BLOOD CLOTS N ASTHMA N CATARACTS N ERECTILE DYSFUNCTION N VARICOSITIES N GI PROBLEMS N Low Testosterone N INFERTILITY N AIDS/HIV N CHEMOTHERAPY / RADIATION N LIVER DISEASE N MALE HYPOGONADISM N HYPERTENSION N Deficiency Y TOURETTE'S N ANXIETY DISORDER N BLOOD TRANSFUSION N ANEMIA/BLOOD DISORDER N CHRONIC EAR INFECTIONS N BRONCHITIS N TUBERCULOSIS N GLAUCOMA N FOOT PROBLEM N DIVERTICULITIS N SLEEP APNEA N CHICKENPOX N INFECTIOUS DISEASE N PROSTATE N HEART ARRHYTHMIA N INSOMNIA N HIGH CHOLESTEROL / HYPERLIPIDEMIA Y HYPERTHYROIDISM N EYE PROBLEMS N EDEMA N CHRONIC PAIN SYNDROME N HYPOTHYROIDISM N CONSTIPATION N CAROTID BLOCKAGE N BACK / NECK PROBLEMS Y ATHEROSCLEROSIS N BREAST PROBLEMS N DIALYSIS N ECZEMA N OSTEOPOROSIS N ARTHRITIS N APPENDICITIS N DIABETES, TYPE N BAD TEETH N ENT N HEARTBURN / REFLUX N AUTISM SPECTRUM DISORDER (ASD) N HEPATITIS / LIVER DISEASE N GOUT N SLEEP DISORDER N ALZHEIMER'S DISEASE N Brain Problems N HERPES N DEMENTIA N SEIZURES/EPILEPSY N HEADACHES/MIGRAINES N VASCULAR DISEASE N PACEMAKER N Blood Disorder N DIZZINESS N KIDNEY DISEASE N HEART DISEASE/HEART PROBLEMS N MULTIPLE SCLEROSIS N CARDIAC ARRHYTHMIA N CANCER: SPECIFY N Gall Stones N ATRIAL FIBRILLATION N PULMONARY EMBOLISM N AUTOIMMUNE DISEASE N Gynecological History Statement/Question Response How many live births 1 Date of Last Mammogram Date of Last Colonoscopy Date of Last Mammogram Date of LMP Date of Last Pap Current Control Method Menopause Obstetrics History GPAL:G 1 P 1 0 0 1 Type Value Multiple Births 0 Full Term 1 Induced 0 Spontaneous 0 Premature 0 Living 1 Ectopics 0 Total 1 Immunizations Vaccine Type Date Status Note Provider Nam e and Address Organization Details Recorded Time COVID-19 vaccine, vector-nr, rS-Ad26, PF, 0.5 mL 1 completed Robert Encarnacion LPN null, [facility] 05/13/2024 13:53:58 Tdap 0 completed Robert Encarnacion LPN null, [facility] 05/13/2024 13:53:58 COVID-19, mRNA, LNP-S, PF, 100 mcg/0.5mL dose or 50 mcg/0.25mL dose 1 completed Not Available [facility] 10/02/2023 05:06:24 COVID-19, mRNA, LNP-S, PF, 100 mcg/0.5mL dose or 50 mcg/0.25mL dose 1 completed Robert Encarnacion LPN null, [facility] 05/13/2024 13:53:58 COVID-19, mRNA, LNP-S, PF, 100 mcg/0.5mL dose or 50 mcg/0.25mL dose 1 completed Robert Encarnacion LPN null, [facility] 05/13/2024 13:53:58 Influenza, split virus, quadrivalent, PF 2 completed Not Available [facility] 10/02/2023 05:06:24 Td (adult), 5 Lf tetanus toxoid, preservative free, adsorbed 1 completed Not Available [facility] 10/02/2023 05:06:24 Influenza, split virus, trivalent, PF 4 completed Ken Rocha MD [address], [place], [address], [facility] 08/31/2024 17:16:20 Past Encounters Encounter ID Performer Location Encounter Start Date Encounter Closed Date Diagnosis/Indication Diagnosis SNOMED-CT Code Diagnosis ICD10 Code Diagnosis IMO Codes Diagnosis Note [id number] Ken li MD [facility] [address] [place] [address] 06/13/2021 00:00:00 07/25/2021 09:22:50 [id number] MD HERBERT Patiño_GMG Internal Med [facility] [address] [place] [address] Ave[address] [address] 07/25/2021 00:00:00 08/07/2021 10:44:13 [id number] MD HERBERT Patiño_[facility]G Internal Med [facility] [address] [place], [place] [address]e., [address] [address] 12/05/2021 00:00:00 01/08/2022 12:03:21 [id number] MD HERBERT Patiño_[facility] Internal Med [facility] [address] [place], [place] [address]e., [address] [address] 04/12/2022 00:00:00 04/12/2022 16:33:44 [id number] MD HERBERT Patiño_[facility] Internal Med [facility] [address] [place], [place] [address]e., [address] [address] 07/17/2022 00:00:00 07/17/2022 12:46:07 [id number] MD HERBERT Patiño_[facility] Internal Med [facility] [address] [place], [place] [address]e., [address] [address] 08/14/2022 00:00:00 08/22/2022 10:34:35 [id number] MD HERBERT Dong_DIOGO [address] [address] 09/17/2022 00:00:00 09/17/2022 15:48:01 [id number] MD HERBERT Patiño_[facility]G Internal Med [facility] [address] [place], [place] [address]e., [address] [address] 10/23/2022 00:00:00 10/23/2022 16:26:01 [id number] MD HERBERT Dong_DIOGO [facility] [address] [address] 11/26/2022 00:00:00 11/27/2022 16:44:50 [id number] Ken li MD S[facility] Internal Med [facility] [address] [facility], [facility] [address] [place] [address] 01/22/2023 15:13:01 01/22/2023 15:47:47 Screening - NAD 919142655 Z13.9 C-scope: 07/11/2021 : Dr Sanchez, next in 7 years Mammogram: 06/20/2021 : NegMammogr am: 10/18/2022 : Neg PAP: Dr Irby as per her history and did PAP and it was normal DEXA: 06/05/2021 : Osteopenia should do calcium and vit d UTD on flu shot 08/14/2022 UTD on COVID 19 vaccineGet Td as she has had the pertusis vaccine one year agoGet Shingrix if not done RTC in 3 monthsDo labsER if worseShe did verbalize her understand ing of the above Chronic ob structive pulmonary disease 13631636 J44.9 On albuterol inhalerOn trelegyOff prednisone Dr Sanchez Hyperlipidemia 27963622 E78.5 Renew crestor 40mg daily 01/22/2023 Diet and exerciseGe t labs Unintentio nal weight loss 472940269 R63.4 EK06/13/2021 : NSR no obvious STT changesShe denies any [facility] complaints todayGet labsDo all the health [facility] eMay need to see hem/onc, referral again provided Smoker 93690882 F17.200 OV 07/25/2021 :She has seen Dr Rivero her pulmonolog ist who has done a CT chest, get the reportAdvi sed to quit!Again declines chantix, states that she does have nicotine patches and will use theseOV 04/12/2022 :Advised to quitOV 08/14/2022 :1PPD for 40 yearsShe did quit, congratula luís, need LDCT, but she does see Dr Rivero and she did have a CT chest 2-3 months ago, get the reportOV 10/23/2022 :LDCT 09/07/2022 : CAD OV 01/22/2023 :Repeat the LDCT in 08/2023 Low back pain 798528003 M54.50 Not on gabapentin 300mg bidOn cyclobenza thor 10mg bidOn hydrocodon e 10mg every 6 hours, filled by Rogelio Taveras narcanSees pain management Rogelio Macias see Dr Raphael Craig MP referred to NS by pain management Coronary arteriosclerosis 31862614 I25.10 Seen on LDCT, get an apt with [facility] Prediabetes 164864853 R7 3.03 On metformin bid renewed 01/22/2023 Diet is neededRepe at the labs Screening for osteoporosis 911830892 Z13.820 Vitamin D deficiency 347 55598 E55.9 Serum fransisco min B12 below reference range 529834709 R79.89 [id number] Israel Sanchez MD [place] [address] 03/05/2023 14:37:48 03/06/2023 08:30:24 Smoker 94153963 F17.218 F17.219 Z87.891 Severe chr onic obstructive pulmonary disease 121833623 J44.9 [id number] Ken li MD S[facility] Internal Med [place] [id number] 1 05/28/2023 15:38:08 05/28/2023 16:17:04 Screening - NAD [id number] Z13.9 C-scope: 07/11/2021 : Dr Sanchez, next in 7 years Mammogram: 06/20/2021 : NegMammogr am: 10/18/2022 : Neg PAP: Dr Irby as per her history and did PAP and it was normal DEXA: 06/05/2021 : Osteopenia should do calcium and vit d UTD on flu shot 08/14/2022 UTD on COVID 19 vaccineGet Td as she has had the pertusis vaccine one year agoGet Shingrix if not done RTC in 3 monthsDo labsER if worseShe did verbalize her understand ing of the above Chronic ob structive pulmonary disease 65365576 J44.9 On albuterol inhalerOn trelegyOff prednisone Dr Sanchez 03/05/2023 , next 12/05/2023 Hyperlipidemia 35642632 E78.5 Not on crestor 40mg daily 01/22/2023 On atorvastat in 40mg daily Diet and exerciseGe t labs Unintentio nal weight loss 588360645 R63.4 EK06/13/2021 : NSR no obvious STT changesShe denies any CVS complaints todayGet labsDo all the health maintenanc eMay need to see hem/onc, referral again provided Dr Hernandez 01/10/2023 , f/u PRN Smoker 65578510 F17.200 OV 07/25/2021 :She has seen Dr Rivero her pulmonolog ist who has done a CT chest, get the reportAdvi sed to quit!Again declines chantix, states that she does have nicotine patches and will use theseOV 04/12/2022 :Advised to quitOV 08/14/2022 :1PPD for 40 yearsShe did quit, congratula luís, need LDCT, but she does see Dr Rivero and she did have a CT chest 2-3 months ago, get the reportOV 10/23/2022 :LDCT 09/07/2022 : CAD OV 01/22/2023 :Repeat the LDCT in 08/2023 OV 05/28/2023 : Get the LDCT Low back pain [id number] M54.50 Not on gabapentin 300mg bid On cyclobenza thor 10mg bidOn hydrocodon e 10mg every 6 hours, filled by Rogelio doherty Sees pain management Rogelio Jett Did see Dr Raphael Craig MP referred to NS by pain management Coronary arteriosclerosis [id number] I25.10 Seen on LDCT, get an apt with [facility] Prediabetes 139587449 R7 3.03 On metformin bid renewed 01/22/2023 Diet is neededRepe at the labsDoes not want to see podiatry at this time 05/28/2023 Screening for osteoporosis 486916595 Z13.820 Vitamin D deficiency 347 64159 E55.9 Serum fransisco min B12 below reference range 709908403 R79.89 Chronic ki dney disease 074903237 N18.9 On VIT DOn calcitriol , given by Dr Humphreys IJ [id number] Israel Sanchez MD [facility] [place] [address] [address] 07/01/2023 15:11:17 07/02/2023 07:56:06 Smoker 50789758 F17.218 F17.219 Z87.891 Severe chr onic obstructive pulmonary disease 284875921 J44.9 [id number] Ken li MD [facility] [address] [place] [address] 12/17/2023 15:54:38 12/17/2023 17:03:25 Screening - NAD 012099620 Z13.9 C-scope: 07/11/2021 : Dr Sanchez, next in 7 years Mammogram: 06/20/2021 : NegMammogr am: 10/18/2022 : Neg PAP: Dr Irby as per her history and did PAP and it was normal DEXA: 06/05/2021 : Osteopenia should do calcium and vit d UTD on flu shot 08/14/2022 UTD on COVID 19 vaccineGet Td as she has had the pertusis vaccine one year agoGet Shingrix if not done RTC in 3 monthsDo labsER if worseShe did verbalize her understand ing of the above Chronic ob structive pulmonary disease 47811110 J44.9 On albuterol inhalerOn trelegyOff prednisone Dr Sanchez next apt 12/18/2023 Hyperlipidemia 06784047 E78.5 Not on crestor 40mg daily 01/22/2023 On atorvastat in 40mg daily Diet and exerciseGe t labs Unintentio nal weight loss 971597624 R63.4 EK06/13/2021 : NSR no obvious STT changesShe denies any CVS complaints todayGet labsDo all the health maintenanc eMay need to see hem/onc, referral again provided Dr Hernandez 01/10/2023 , f/u PRN Smoker 41896793 F17.200 OV 07/25/2021 :She has seen Dr Rivero her pulmonolog ist who has done a CT chest, get the reportAdvi sed to quit!Again declines chantix, states that she does have nicotine patches and will use theseOV 04/12/2022 :Advised to quitOV 08/14/2022 :1PPD for 40 yearsShe did quit, congratgeetha staley, need LDCT, but she does see Dr Rivero and she did have a CT chest 2-3 months ago, get the reportOV 10/23/2022 :LDCT 09/07/2022 : CAD OV 01/22/2023 :Repeat the LDCT in 08/2023 OV 05/28/2023 : Get the LDCT LDCT 09/30/2023 : Worsening bronchiect asisNeeds to see Dr Sanchez OV 12/17/2023 : Now sees Dr Sanchez, treated with bupropion SR 150mg Low back pain [id number] M54.50 Not on gabapentin 300mg bid On cyclobenza thor 10mg bidOn hydrocodon e 10mg every 6 hours, filled by Rogelio Taveras narcan Sees pain management Rogelio Jett Did see Dr Raphael Craig referred to NS by pain management , no surgery as per Rogelio Jett [employer]'s note on 10/31/2023 Coronary arteriosclerosis 78316223 I25.10 Seen on LDCT, get an apt with [facility] Prediabetes 734495527 R7 3.03 On metformin bidDiet is neededRepe at the labsDoes not want to see podiatry at this time 05/28/2023 Screening for osteoporosis 741838685 Z13.820 Vitamin D deficiency 347 41080 E55.9 Serum fransisco min B12 below reference range 673062878 R79.89 Chronic ki dney disease 962928904 N18.9 On VIT DOn calcitriol , given by Dr Humphreys IJ Screening mammography 24 731298 Z12.31 Liver enzy mes level above reference range 086583996 R74.01 US liver 12/06/2023 : Neg [id number] Israel Sanchez MD [facility] [address] [address] 12/18/2023 14:48:13 12/19/2023 08:37:27 Smoker 75999006 F17.218 F17.219 Z87.891 Severe chr onic obstructive pulmonary disease 722029874 J44.9 J18.9 Chronic ob structive pulmonary disease 54934796 J44.9 [id number] Ken li MD [facility] [address] [place] [address] 02/11/2024 13:58:10 02/11/2024 14:13:29 Eruption 361536546 R21 Mild hyepremic rash noted on the cheeks and R lower eye lid [id number] Ken li MD [facility] [address] [place] [address] 05/19/2024 15:42:47 05/19/2024 16:27:30 Screening - NAD 555898535 Z13.9 C-scope: 07/11/2021 : Dr Sanchez, next in 7 years Mammogram: 06/20/2021 : NegMammogr am: 10/18/2022 : NegMammogr am: 01/14/2024 : Neg PAP: Dr Irby as per her history and did PAP and it was normal DEXA: 06/05/2021 : Osteopenia should do calcium and vit d UTD on flu shot 08/14/2022 UTD on COVID 19 vaccineGet Td as she has had the pertusis vaccine one year agoGet Shingrix if not done RTC in 3 monthsDo labsER if worseShe did verbalize her understand ing of the above Chronic ob structive pulmonary disease 61515633 J44.9 On albuterol inhalerOn trelegyOff prednisone Dr Sanchez next 12/18/2023 Hyperlipidemia 55952992 E78.5 Not on crestor 40mg daily 01/22/2023 On atorvastat in 40mg daily, renewed 05/19/2024 Diet and exercise, does not want to increase the doseGet labs Unintentio nal weight loss 780446468 R63.4 EK06/13/2021 : NSR no obvious STT changesShe denies any CVS complaints todayGet labsDo all the health maintenanc eMay need to see hem/onc, referral again provided Dr Hernandez 01/10/2023 , f/u PRN Smoker 36988087 F17.200 OV 07/25/2021 :She has seen Dr Rivero her pulmonolog ist who has done a CT chest, get the reportAdvi sed to quit!Again declines rosamaria, states that she does have nicotine patches and will use theseOV 04/12/2022 :Advised to quitOV 08/14/2022 :1PPD for 40 yearsShe did quit, congrmelchor staley, need LDCT, but she does see Dr Rivero and she did have a CT chest 2-3 months ago, get the reportOV 10/23/2022 :LDCT 09/07/2022 : CAD OV 01/22/2023 :Repeat the LDCT in 08/2023 OV 05/28/2023 : Get the LDCT LDCT 09/30/2023 : Worsening bronchiect asisNeeds to see Dr Sanchez OV 12/17/2023 : Now sees Dr Sanchez, treated with bupropion SR 150mgOV 05/19/2024 : Needs to see Dr Sanchez Low back pain 458211175 M54.50 Not on gabapentin 300mg bid On cyclobenza thor 10mg bidOn hydrocodon e 7.5mg every 6 hours, filled by Rogelio Taveras morphine ER 15mg bidOn narcan Sees pain management Rogelio Jett Did see Dr Raphael Craig referred to NS by pain management , no surgery as per Rogelio Jett [employer]'s note on 10/31/2023 Coronary arteriosclerosis 54352935 I25.10 Seen on LDCT, get an apt with [facility] Prediabetes 414698952 R7 3.03 On metformin bid, renewed 05/19/2024 Diet is [facility]Re[facility] at this time 05/28/2023 Screening for osteoporosis 562102992 Z13.820 Vitamin D deficiency 347 99486 E55.9 Renewed 05/19/2024 Serum fransisco min B12 below reference range 918560831 R79.89 Chronic ki dney disease 212005105 N18.9 On VIT D weeklyOn calcitriol , given by Dr Jesse JESUS Screening mammography 24 671431 Z12.31 Liver enzy mes level above reference range 423047638 R74.01 US liver 12/06/2023 : Neg [id number] Ken li MD [facility] [place] [address], [address] [place] [address] 08/25/2024 15:58:14 08/25/2024 17:04:30 Screening - NAD 296719627 Z13.9 C-scope: 07/11/2021 : Dr Sanchez, next in 7 years Mammogram: 06/20/2021 : NegMammogr am: 10/18/2022 : NegMammogr am: 01/14/2024 : Neg PAP: Dr Irby as per her history and did PAP and it was normal DEXA: 06/05/2021 : Osteopenia should do calcium and vit dDEXA: 05/31/2023 : OP, on fosamax, understand s how to take this, do not take 2 weeks prior to any dental procedure UTD on flu shot 08/14/2022 UTD on COVID 19 vaccineGet Td as she has had the pertusis vaccine one year agoGet Shingrix if not done RTC in 3 monthsDo labsER if worseShe did verbalize her understand ing of the above Chronic ob structive pulmonary disease 54988439 J44.9 On albuterol inhalerOn trelegyOff prednisone Dr Sanchez 12/18/2023 Hyperlipidemia 48478767 E78.5 Not on crestor 40mg daily 01/22/2023 On atorvastat in 40mg daily, renewed 05/19/2024 Diet and exercise, does not want to increase the doseGet labs Unintentio nal weight loss 029267313 R63.4 EK06/13/2021 : NSR no obvious STT changesShe denies any CVS complaints todayGet labsDo all the health [facility], referral again provided Dr Hernandez 01/10/2023 , f/u PRN Smoker 18892210 F17.200 OV 07/25/2021 :She has seen Dr Rivero her pulmonolog ist who has done a CT chest, get the reportAdvi sed to quit!Again declines chantix, states that she does have nicotine patches and will use theseOV 04/12/2022 :Advised to quitOV 08/14/2022 :1PPD for 40 yearsShe did quit, congratula luís, need LDCT, but she does see Dr Rivero and she did have a CT chest 2-3 months ago, get the reportOV 10/23/2022 :LDCT 09/07/2022 : CAD OV 01/22/2023 :Repeat the LDCT in 08/2023 OV 05/28/2023 : Get the LDCT LDCT 09/30/2023 : Worsening bronchiect asisNeeds to see Dr Sanchez OV 12/17/2023 : Now sees Dr Sanchez, treated with bupropion SR 150mgOV 05/19/2024 : Needs to see Dr SanchezOV 08/25/2024 : Referred to Dr Sanchez Low back pain 391333270 M54.50 Not on gabapentin 300mg bid On cyclobenza thor 10mg bidOn hydrocodon e 7.5mg every 6 hours, filled by Rogelio Taveras morphine ER 15mg bidOn narcan Sees pain management Rogelio Jett Did see Dr Raphael Craig referred to NS by pain management , no surgery as per Rogelio Jett [employer] note on 10/31/2023 Coronary arteriosclerosis 89456316 I25.10 Seen on LDCT, [facility] an [facility] with [facility] Prediabetes 750971120 R7 3.03 On metformin bid, renewed 05/19/2024 Diet is neededRepe at the labsDoes not want to see podiatry at this time 05/28/2023 Vitamin D deficiency 347 57824 E55.9 Renewed 05/19/2024 Serum fransisco min B12 below reference range 714196750 R79.89 Chronic ki dney disease 835593539 N18.9 On VIT D weeklyOn calcitriol , given by Dr Humphreys IJ Liver enzy mes level above reference range 929613668 R74.01 US liver 12/06/2023 : Neg Administra tion of influenza vaccine 94897287 Z23 [id number] Ken li MD [facility] [address] [facility] [address] [place] [address] 12/31/2024 15:59:31 12/31/2024 17:05:31 Screening - NAD 818589363 Z13.9 C-scope: 07/11/2021 : Dr Sanchez, next in 7 years Mammogram: 06/20/2021 : NegMammogr am: 10/18/2022 : NegMammogr am: 01/14/2024 : Neg PAP: Dr Irby as per her history and did PAP and it was normal DEXA: 06/05/2021 : Osteopenia should do calcium and vit dDEXA: 05/31/2023 : OP, on fosamax, understand s how to take this, do not take 2 weeks prior to any dental procedure UTD on flu shot 08/14/2022 UTD on COVID 19 vaccineGet Td as she has had the pertusis vaccine one year agoGet Shingrix if not done RTC in 3 monthsDo labsER if worseShe did verbalize her understand ing of the above Chronic ob structive pulmonary disease 21236393 J44.9 On albuterol inhalerNot taking trelegyOff prednisone Dr Sanchez 12/18/2023 , needs a f/u apt Hyperlipidemia 17301217 E78.5 Not on crestor 40mg dailyOn atorvastat in 40mg daily, has not taken for past 3 months, self stopped, renewed 12/31/2024 Diet and exercise, does not want to increase the dose understand s the risks for elevated lipidsGet labs Unintentio nal weight loss 518814641 R63.4 EK06/13/2021 : NSR no obvious STT changesShe denies any CVS complaints todayGet labsDo all the health [facility] need to see hem/onc, referral again provided Dr Hernandez 01/10/2023 , f/u PRN Smoker 75272373 F17.200 OV 07/25/2021 :She has seen Dr Rivero her pulmonolog ist who has done a CT chest, get the reportAdvi sed to quit!Again declines chantix, states that she does have nicotine patches and will use theseOV 04/12/2022 :Advised to quitOV 08/14/2022 :1PPD for 40 yearsShe did quit, congratula luís, need LDCT, but she does see Dr Rivero and she did have a CT chest 2-3 months ago, get the reportOV 10/23/2022 :LDCT 09/07/2022 : CAD OV 01/22/2023 :Repeat the LDCT in 08/2023 OV 05/28/2023 : Get the LDCT LDCT 09/30/2023 : Worsening bronchiect asisNeeds to see Dr Sanchez OV 12/17/2023 : Now sees Dr Sanchez, treated with bupropion SR 150mg OV 05/19/2024 : Needs to see Dr Sanchez OV 08/25/2024 : Referred to Dr Sanchez OV 12/31/2024 : Referred again to Dr Sanchez Low back pain 374188024 M54.50 Not on gabapentin 300mg bid On cyclobenza thor 10mg bidOn hydrocodon e 7.5mg every 6 hours, filled by Rogelio Taveras morphine ER 15mg bidOn narcan Sees pain management Rogelio Jett Did see Dr Raphael Craig referred to NS by pain management , no surgery as per Rogelio Jett [employer]'s note on 10/31/2023 Coronary arteriosclerosis 19646518 I25.10 Seen on LDCT, get an apt with [facility] Prediabetes 025365582 R7 3.03 On metformin bid, renewed 05/19/2024 Diet is neededRepe at the labsDoes not want to see podiatry at this time 05/28/2023 Vitamin D deficiency 347 74757 E55.9 Renewed 05/19/2024 Serum fransisco min B12 below reference range 568307535 R79.89 Chronic ki dney disease 945470686 N18.9 On VIT D weeklyOn calcitriol , given by Dr Jesse Hoff has declined any more referrals to Dr Jesse JESUS as she cannot afford the copaysHas heavy proteinuri a, is agreeable to start on Karenida Liver enzy mes level above reference range 998644953 R74.01 US liver 12/06/2023 : NegLFTs Stable 12/17/2024 Proteinuria 71614696 R80 .9 Can start on kerendia 10mg daily, will need to get K level in one month if stable then can increase to 20mg daily [id number] Ken li MD [facility] [place] [address] [facility] [address] [place] [address] 04/01/2025 16:11:11 04/01/2025 17:19:35 Screening - NAD 397444063 Z13.9 C-scope: 07/11/2021 : Dr Sanchez, next in 7 years Mammogram: 06/20/2021 : NegMammogr am: 10/18/2022 : NegMammogr am: 01/14/2024 : Neg PAP: Dr Irby as per her history and did PAP and it was normal DEXA: 06/05/2021 : Osteopenia should do calcium and vit dDEXA: 05/31/2023 : OP, on fosamax, understand s how to take this, do not take 2 weeks prior to any dental procedure UTD on flu shot 08/14/2022 UTD on COVID 19 vaccineGet Td as she has had the pertusis vaccine one year agoGet Shingrix if not doneGet RSV vaccineGet prevnar #20 RTC in 3 monthsDo labsER if worseShe did verbalize her understand ing of the above 45 minutes spent with the patient, personal call placed to Dr Jesse JESUS to discuss the proteinuri a, labs reviewed and referral provided Chronic ob structive pulmonary disease 90359213 J44.9 On albuterol inhalerNot taking trelegyOff prednisone Dr Sanchez 12/18/2023 , needs a f/u apt, referred again 04/01/2025 Hyperlipidemia 52824973 E78.5 Not on crestor 40mg dailyOn atorvastat in 40mg dailyDiet and exercise, does not want to increase the dose understand s the risks for elevated lipidsGet labs Unintentio nal weight loss 070606505 R63.4 EK06/13/2021 : NSR no obvious STT changesShe denies any CVS complaints todayGet labsDo all the health [facility] need to see hem/onc, referral again provided Dr Hernandez 01/10/2023 , f/u PRN Smoker 02118517 F17.200 OV 07/25/2021 :She has seen Dr Rivero her pulmonolog ist who has done a CT chest, get the reportAdvi sed to quit!Again declines chantix, states that she does have nicotine patches and will use theseOV 04/12/2022 :Advised to quitOV 08/14/2022 :1PPD for 40 yearsShe did quit, congratula luís, need LDCT, but she does see Dr Rivero and she did have a CT chest 2-3 months ago, get the reportOV 10/23/2022 :LDCT 09/07/2022 : CAD OV 01/22/2023 :Repeat the LDCT in 08/2023 OV 05/28/2023 : Get the LDCT LDCT 09/30/2023 : Worsening bronchiect asisNeeds to see Dr Sanchez OV 12/17/2023 : Now sees Dr Sanchez, treated with bupropion SR 150mg OV 05/19/2024 : Needs to see Dr Sanchez OV 08/25/2024 : Referred to Dr Sanchez OV 12/31/2024 : Referred again to Dr Sanchez OV 04/01/2025 : Referred to Dr Sanchez Low back pain [id number] M54.50 Not on gabapentin 300mg bid On cyclobenza thor 10mg bidOn hydrocodon e 7.5mg every 6 hours, filled by Rogelio Taveras morphine ER 15mg bidOn narcan Sees pain management Rogelio Jett Did see Dr Raphael Craig referred to NS by pain management , no surgery as per Rogelio Jett [employer] note on 10/31/2023 Coronary arteriosclerosis 57404723 I25.10 Seen on LDCT, get an apt with [facility] Prediabetes 600908017 R7 3.03 Not on metformin bid, renewed 05/19/2024 [facility]Re[facility] at [facility] not want to see podiatry at this time 05/28/2023 Vitamin D deficiency 347 79191 E55.9 Renewed 05/19/2024 Serum fransisco min B12 below reference range 117224878 R79.89 Chronic ki dney disease 080785331 N18.9 On VIT D weeklyOn calcitriol , given by Dr Jesse Hoff has declined any more referrals to Dr Jesse JESUS as she cannot afford the copaysHas heavy proteinuri a, is agreeable to start on Karenida OV 04/01/2025 : Get a referral Liver enzy mes level above reference range 401533419 R74.01 US liver 12/06/2023 : NegLFTs Stable 12/17/2024 Proteinuria 72250562 R80 .9 Can start on kerendia 10mg daily, will need to get K level in one month if stable then can increase to 20mg daily OV 04/01/2025 : Get a referral to nephrology Screening mammography 24 742088 Z12.31 64096122 Postmenopausal state 764 [address]116 Z78.0 264278 [id number] Ken li MD [facility] Internal Med [facility] [address] [facility], [facility] [address] [place] [address] 08/03/2025 15:45:56 08/03/2025 16:29:22 Screening - NAD 050360651 Z13.9 C-scope: 07/11/2021 : Dr Sanchez, next in 7 years Mammogram: 06/20/2021 : NegMammogr am: 10/18/2022 : NegMammogr am: 01/14/2024 : Neg PAP: Dr Irby as per her history and did PAP and it was normal DEXA: 06/05/2021 : Osteopenia should do calcium and vit dDEXA: 05/31/2023 : OP, on fosamax, understand s how to take this, do not take 2 weeks prior to any dental procedure UTD on flu shot 08/14/2022 UTD on COVID 19 vaccineGet Td as she has had the pertusis vaccine one year agoGet Shingrix if not doneGet RSV vaccineGet prevnar #20 RTC in 2 months, and review the labsER if worseShe did verbalize her understand ing of the above Chronic ob structive pulmonary disease 95257949 J44.9 On albuterol inhalerNot taking trelegyOff prednisone Dr Sanchez 12/18/2023 , needs a f/u apt, referred again 04/01/2025 Hyperlipidemia 09863834 E78.5 Not on crestor 40mg dailyOn atorvastat in 40mg dailyDiet and exercise, does not want to increase the dose understand s the risks for elevated lipidsGet labs Unintentio nal weight loss 307010223 R63.4 EK06/13/2021 : NSR no obvious STT changesShe denies any CVS complaints todayGet labsDo all the health maintenanc eMay need to see hem/onc, referral again provided Dr Hernandez 01/10/2023 , f/u PRN Smoker 13646979 F17.200 OV 07/25/2021 :She has seen Dr Riveor her pulmonolog ist who has done a CT chest, get the reportAdvi sed to quit!Again declines anax, states that she does have nicotine patches and will use theseOV 04/12/2022 :Advised to quitOV 08/14/2022 :1PPD for 40 yearsShe did quit, congratula luís, need LDCT, but she does see Dr Rivero and she did have a CT chest 2-3 months ago, get the reportOV 10/23/2022 :LDCT 09/07/2022 : CAD OV 01/22/2023 :Repeat the LDCT in 08/2023 OV 05/28/2023 : Get the LDCT LDCT 09/30/2023 : Worsening bronchiect asisNeeds to see Dr Sanchez OV 12/17/2023 : Now sees Dr Sanchez, treated with bupropion SR 150mg OV 05/19/2024 : Needs to see Dr Sanchez OV 08/25/2024 : Referred to Dr Sanchez OV 12/31/2024 : Referred again to Dr Sanchez OV 04/01/2025 : Referred to Dr Sanchez OV 08/03/2025 : Sees Dr Sanchez Low back pain [id number] M54.50 Not on gabapentin 300mg bid On cyclobenza thor 10mg bidOn hydrocodon e 7.5mg every 6 hours, filled by Rogelio JettNot on morphine ER 15mg bidOn narcan Sees pain management Rogelio Jett Did see Dr Raphael Craig referred to NS by pain management , no surgery as per Rogelio Jett [employer] note on 10/31/2023 Coronary arteriosclerosis 18693373 I25.10 Seen on LDCT, get an apt with [facility] Prediabetes 594871595 R7 3.03 Not on metformin bid, renewed 05/19/2024 Diet is neededRepe at the [facility] not want to see podiatry at this time 05/28/2023 Vitamin D deficiency 347 49771 E55.9 Renewed 05/19/2024 Serum fransisco min B12 below reference range 042343635 R79.89 Chronic ki dney disease 697421385 N18.9 On VIT D weeklyOn calcitriol , given by Dr Jesse Cowane has declined any more referrals to Dr Jesse JESUS as she cannot afford the [facility]ss heavy proteinuri a, is agreeable to start on Karenida OV 04/01/2025 : Get a referral OV 08/03/2025 :Did see Dr Jesse Brooks on vit d, calcitriol , spironolac tone Liver enzy mes level above reference range 596380299 R74.01 US liver 12/06/2023 : NegLFTs Stable 12/17/2024 Proteinuria 09979027 R80 .9 Can start on kerendia 10mg daily, will need to get K level in one month if stable then can increase to 20mg daily OV 04/01/2025 : Get a referral to nephrology Screening mammography 24 281839 Z12.31 11219222 Postmenopausal state 764 [address]9950 Z78.0 154958 Acute sinusitis 55906675 J01.90 935130510 On augmentinS ee caseStill has redness of the nose, sinus congestion Requesting prendisone that was given in the past and she wants the 20mg tablets with the course for 9 days [id number] Ken li MD [facility] [address] [place] [address] 09/13/2025 12:17:06 09/13/2025 13:09:16 Screening - NAD 027737573 Z13.9 C-scope: 07/11/2021 : Dr Sanchez, next in 7 years Mammogram: 06/20/2021 : NegMammogr am: 10/18/2022 : NegMammogr am: 01/14/2024 : Neg PAP: Dr Irby as per her history and did PAP and it was normal DEXA: 06/05/2021 : Osteopenia should do calcium and vit dDEXA: 05/31/2023 : OP, on fosamax, understand s how to take this, do not take 2 weeks prior to any dental procedure UTD on flu shot 08/14/2022 UTD on COVID 19 vaccineGet Td as she has had the pertusis vaccine one year agoGet Shingrix if not doneGet RSV vaccineGet prevnar #20 RTC in 2 months, and review the labsER if worseShe did verbalize her understand ing of the above Chronic ob structive pulmonary disease 31678409 J44.9 On albuterol inhalerNot taking trelegyOff prednisone Dr Sanchez 12/18/2023 , needs a f/u apt, referred again 04/01/2025 Seen in 08/29/2025 , treated with antibiotic s and X-ray was negativeDr Sanchez 09/07/2025 Hyperlipidemia 40483848 E78.5 Not on crestor 40mg dailyOn atorvastat in 40mg dailyDiet and exercise, does not want to increase the dose understand s the risks for elevated lipidsGet labs Unintentio nal weight loss 718232974 R63.4 EK06/13/2021 : NSR no obvious STT changesShe denies any CVS complaints todayGet labsDo all the health maintenanc eMay need to see hem/onc, referral again provided Dr Hernandez 01/10/2023 , f/u PRN Smoker 72085923 F17.200 OV 07/25/2021 :She has seen Dr Rivero her pulmonolog ist who has done a CT chest, get the reportAdvi sed to quit!Again declines chantix, states that she does have nicotine patches and will use theseOV 04/12/2022 :Advised to quitOV 08/14/2022 :1PPD for 40 yearsShe did quit, congratula luís, need LDCT, but she does see Dr Rivero and she did have a CT chest 2-3 months ago, get the reportOV 10/23/2022 :LDCT 09/07/2022 : CAD OV 01/22/2023 :Repeat the LDCT in 08/2023 OV 05/28/2023 : Get the LDCT LDCT 09/30/2023 : Worsening bronchiect asisNeeds to see Dr Sanchez OV 12/17/2023 : Now sees Dr Sanchez, treated with bupropion SR 150mg OV 05/19/2024 : Needs to see Dr Sanchez OV 08/25/2024 : Referred to Dr Sanchez OV 12/31/2024 : Referred again to Dr Sanchez OV 04/01/2025 : Referred to Dr Sanchez OV 08/03/2025 : Sees Dr Sanchez OV 09/13/2025 :Needs to see Dr Hinkle apt 09/15/2025 Low back pain 918154076 M54.50 Not on gabapentin 300mg bid On cyclobenza thor 10mg bidOn hydrocodon e 7.5mg every 6 hours, filled by Rogelio Amato on morphine ER 15mg bidOn narcan Sees pain management Rogelio Jett Did see Dr Raphael Craig referred to NS by pain management , no surgery as per Rogelio Jett BREAKDOWN 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 note on 10/31/2023 Coronary arteriosclerosis [id number] I25.10 Seen on LDCT, get an apt with Brandenw on lasixS/p d/c from [facility] on 09/10/2025 , referred Prediabetes [id number] R7 3.03 Not on metformin bid, renewed 05/19/2024 Diet is neededRepe at the labsDoes not want to see podiatry at this time 05/28/2023 Vitamin D deficiency [phone] E55.9 Renewed 05/19/2024 Serum fransisco min B12 below reference range [id number] R79.89 Chronic ki dney disease [id number] N18.9 On VIT D weeklyOn calcitriol , given by Dr Jesse Hoff has declined any more referrals to Dr Jesse JESUS as she cannot afford the copaysHas heavy proteinuri a, is agreeable to start on Karenida OV 04/01/2025 : Get a referral OV 08/03/2025 :Did see Dr Jesse Brooks on vit d, calcitriol , spironolac tone OV 09/13/2025 :Is to see Dr Jesse JESUS on 09/20/2025 Liver enzy mes level above reference range [id number] R74.01 US liver 12/06/2023 : NegLFTs Stable 12/17/2024 Proteinuria [id number] R80 .9 Can start on kerendia 10mg daily, will need to get K level in one month if stable then can increase to 20mg daily OV 04/01/2025 : Get a referral to nephrology Screening mammography 24 [id number] Z12.31 [id number] Postmenopausal state [id number] 49875 Z78.0 875624 Acute sinusitis 03203368 J01.90 [id number] On augmentinS ee caseStill has redness of the nose, sinus congestion Requesting prendisone that was given in the past and she wants the 20mg tablets with the course for 9 days Acute resp iratory failure [id number] J96.01 [id number] [facility] sNow on lasixNow on proairNeed s to see Dr Humphre[facility] and Dr Sanchez Severe chr onic obstructive pulmonary disease [id number] J44.9 On albuterol inhalerNot taking trelegyOff prednisone Dr Sanchez 12/18/2023 , needs a f/u apt, referred again 04/01/2025 Seen in 08/29/2025 , treated with antibiotic s and X-ray was negativeDr Sanchez 09/07/2025 Transition of care [id number] 105 Z75.8 [id number] Israel Sanchez MD [facility] [place] [id number] 09/15/2025 10:10:35 09/17/2025 16:30:15 Severe chronic obstructive pulmonary disease [id number] J44.9 J18.9 History of nicotine dependence [id number] 76113401 Z87.891 F17.218 F17.861 [id number] Israel Sanchez MD [facility] [place] [id number] 09/22/2025 08:44:09 09/22/2025 11:10:13 Severe chronic obstructive pulmonary disease [id number] J44.9 J18.9 History of nicotine dependence [id number] Z87.891 F17.218 F17.443 [id number] Health Concerns Section Related Observation LastModified by Organization Detai ls LastModified Time None Recorded Concern Status LastModified by Organization Details LastModified Time None Recorded Advance Directives Directive N: Payers Insurance Date Sequence Insurance Name Policy Number Policy Allison Covered Member ID Allison Member ID Guarantor Name 09/21/2025 1 [facility] [id number] Yoon Galvan [id number] Yoon Galvan Notes Date Note Type Note Provider Name and Address Organization Details Recorded Time 04/01/20 25 text/htm l OV 06/13/2021:Here to establish carePast Hx:LBP s/p surgeryHLDCOPDSmokerReviewed social family and surgical historyHere to discuss aboveShe needs to do labsShe has noted some unintentional weight loss and wants to get to 'check that out'OV 07/25/2021:Here for her routine aptShe is doing wellShe did do the labsOV 12/05/2021:Here for her routine aptShe is doing wellNo new labs notedNot here with Kia Deal her sister OV 04/12/2022:Here for tele visitShe is agreeable to this visitNo recent labs noted OV 07/17/2022:ACV:Rash noted on the nose and the face, itchy, started as a small pimple, but worsened after her diagnosis of COVID 19 on 07/10/2022, mildly tender, no fevers or chills, no d/c, no blisters or vesiclesOV 08/14/2022:Here for her f/u apt, she is here for her wellness visit, she has no new labs, she feels very well now that she has quit smokingOV 10/23/2022:Here for her f/u apt, she is doing well at this time, she did do the labs OV 01/22/2023:Here for her f/u apt, she feels well, has to do labs OV 05/28/2023: Here for her f/u apt, she is doing well at this time, she did see Dr Hernandez and now has no more apt OV 12/17/2023: Here for her routine apt, she states that she is doing very well, she has cut down her smoking now to 8 cigarettes per day OV 02/11/2024: ACV: Here as she has noted a rash on her face, mildly tender and red, no obvious exposure, has some URI sx such as nasal congestion, no cough, fevers or chills OV 05/19/2024: Here for her f/u apt, she is doing well today, she would like to get a refill for her meds including her VIT D OV 08/25/2024: Here for her f/u apt, she is doing well today, she did the labs on 08/24/2024 and is here to review these OV 12/31/2024: Here for her f/u apt, she feels well today, she has done her labs with [facility], she states that she self stopped her statin OV 04/01/2025: Here for her f/u apt, she is doing well today, has done her labs, states that she has not been eating well and has lost weight, states that her Kerendia was not approved eKn Rocha MD [address] [facility], [place], [address], [place] [facility] 04/01/2025 17:21:14 08/03/20 25 text/htm l OV 06/13/2021:Here to establish carePast Hx:LBP s/p surgeryHLDCOPDSmokerReviewed social family and surgical historyHere to discuss aboveShe needs to do labsShe has noted some unintentional weight loss and wants to get to 'check that out'OV 07/25/2021:Here for her routine aptShe is doing wellShe did do the labsOV 12/05/2021:Here for her routine aptShe is doing wellNo new labs notedNot here with Kia Deal her sister OV 04/12/2022:Here for tele visitShe is agreeable to this visitNo recent labs noted OV 07/17/2022:ACV:Rash noted on the nose and the face, itchy, started as a small pimple, but worsened after her diagnosis of COVID 19 on 07/10/2022, mildly tender, no fevers or chills, no d/c, no blisters or vesiclesOV 08/14/2022:Here for her f/u apt, she is here for her wellness visit, she has no new labs, she feels very well now that she has quit smokingOV 10/23/2022:Here for her f/u apt, she is doing well at this time, she did do the labs OV 01/22/2023:Here for her f/u apt, she feels well, has to do labs OV 05/28/2023: Here for her f/u apt, she is doing well at this time, she did see Dr Hernandez and now has no more apt OV 12/17/2023: Here for her routine apt, she states that she is doing very well, she has cut down her smoking now to 8 cigarettes per day OV 02/11/2024: ACV: Here as she has noted a rash on her face, mildly tender and red, no obvious exposure, has some URI sx such as nasal congestion, no cough, fevers or chills OV 05/19/2024: Here for her f/u apt, she is doing well today, she would like to get a refill for her meds including her VIT D OV 08/25/2024: Here for her f/u apt, she is doing well today, she did the labs on 08/24/2024 and is here to review these OV 12/31/2024: Here for her f/u apt, she feels well today, she has done her labs with [facility], she states that she self stopped her statin OV 04/01/2025: Here for her f/u apt, she is doing well today, has done her labs, states that she has not been eating well and has lost weight, states that her Kerendia was not approved OV 08/03/2025: Here for her f/u apt, she still has sinus and nasal congestion, no fevers or chills, no chest pain or SOB, no cough, is on augmentin but now is requesting prednisoneShe has not yet done any labs Ken Rocha MD [address] [facility], [place], [address], [place] [facility] 08/03/2025 16:19:25 09/13/20 25 text/htm l OV 06/13/2021:Here to establish carePast Hx:LBP s/p surgeryHLDCOPDSmokerReviewed social family and surgical historyHere to discuss aboveShe needs to do labsShe has noted some unintentional weight loss and wants to get to 'check that out'OV 07/25/2021:Here for her routine aptShe is doing wellShe did do the labsOV 12/05/2021:Here for her routine aptShe is doing wellNo new labs notedNot here with Kia Deal her sister OV 04/12/2022:Here for tele visitShe is agreeable to this visitNo recent labs noted OV 07/17/2022:ACV:Rash noted on the nose and the face, itchy, started as a small pimple, but worsened after her diagnosis of COVID 19 on 07/10/2022, mildly tender, no fevers or chills, no d/c, no blisters or vesiclesOV 08/14/2022:Here for her f/u apt, she is here for her wellness visit, she has no new labs, she feels very well now that she has quit smokingOV 10/23/2022:Here for her f/u apt, she is doing well at this time, she did do the labs OV 01/22/2023:Here for her f/u apt, she feels well, has to do labs OV 05/28/2023: Here for her f/u apt, she is doing well at this time, she did see Dr Hernandez and now has no more apt OV 12/17/2023: Here for her routine apt, she states that she is doing very well, she has cut down her smoking now to 8 cigarettes per day OV 02/11/2024: ACV: Here as she has noted a rash on her face, mildly tender and red, no obvious exposure, has some URI sx such as nasal congestion, no cough, fevers or chills OV 05/19/2024: Here for her f/u apt, she is doing well today, she would like to get a refill for her meds including her VIT D OV 08/25/2024: Here for her f/u apt, she is doing well today, she did the labs on 08/24/2024 and is here to review these OV 12/31/2024: Here for her f/u apt, she feels well today, she has done her labs with [facility], she states that she self stopped her statin OV 04/01/2025: Here for her f/u apt, she is doing well today, has done her labs, states that she has not been eating well and has lost weight, states that her Kerendia was not approved OV 08/03/2025: Here for her f/u apt, she still has sinus and nasal congestion, no fevers or chills, no chest pain or SOB, no cough, is on augmentin but now is requesting prednisoneShe has not yet done any labs OV 09/13/2025: Here for her post hosp f/u apt, she is doing well now, now is on lasix, still has to see pulmonary and also Dr Jesse JESUS and Dr Jesse Ruiz is here with her Ken Rocha MD [address], [facility] [address], [place], [address], [place] [facility] 09/13/2025 13:10:15 09/15/20 25 text/htm l Primary care/Referring provider: Ken Rocha MD CC: I retired and never came back. I ran out of my inhalers and got admitted to [facility] for respiratory failure. I quit smoking then. I cannot tolerate the BPAP I was sent home with. I will use the exertional O2 only.Patient is here to go over her COPD management.Initial development of shortness of breath: 2018Duration of shortness of breath: 7 yearsCondition of shortness of breath: stableTiming of shortness of breath: noneFrequency: up to 2 times a dayLimits activities: yesAggravating factors: walking, picking up 30-lb boxesAlleviating factors: restModified [employer] (mMRC) Dyspnea Scale - Grade 1Grade 0 I only get breathless with strenuous exercise .Grade 1 I get short of breath when hurrying on the level or walking up a slight hill .Grade 2 I walk slower than people of the same age on the level because of breathlessness or have to stop for breath when walking at my own pace on the level .Grade 3 I stop for breath after walking about 100 yards or after a few minutes on the level .Grade 4 I am too breathless to leave the house or I am breathless when dressing .Treatment history:albuterol HFA as needed 2020 onlyAnoro Ellipta 62.5/25 mcg 1 inhalation daily 2019 onlyTrelegy Ellipta 100/62.5/25 mcg 1 inhalation daily since 10/2020Other symptoms:Drooling: noDysarthria: noDysphagia: noWeak mastication: noFacial weakness: noNasal speech: noProtruding tongue: noProductive cough: noWheezing: noChest tightness: yesOrthopnea: noFrequent throat clearing or swallowing: noPalpitations: noHeartburn: noEdema: noEnvironmental exposures:Nicotine smoke: 1 ppd 4187-4323 = 43 pack yearsPaint: noDye: noDust mites: yesMold: noDamp basement: noWood burning stove: noAnimal dander: noCockroaches: noPollen: yesArsenic: noAsbestos: noBeryllium: noCadmium: noChromium: noCoal smoke: noDiesel fumes: noNickel: noSilica: noSoot: noEPWORTH SLEEPINESS SCALE (ESS)CHANCE OF DOZING SCORE0 = would never doze1 = slight chance of dozing2 = moderate chance of dozing3 = high chance of dozingSITUATION AND CHANCE OF DOZINGSitting and reading - 1Watching television - 1Sitting inactive in a public place (e.g. a theater or meeting) - 0As a passenger in a car for an hour without a break - 0Lying down to rest in the afternoon when circumstances permit - 2Sitting and talking to someone - 0Sitting quietly after lunch without alcohol - 1In a car, while stopped for a few minutes in the traffic - 0TOTAL SCORE 5Subjectively, patient has a slight chance of dozing. Israel Sanchez MD [address] [place] [address], [address], [place] [facility] 09/16/2025 17:25:55 09/22/20 25 text/htm l Primary care/Referring provider: Ken Rocha MD CC: I got admitted to [facility] for respiratory failure from 09/06/25 -> 09/10/25. I quit smoking then. I cannot tolerate the BPAP I was sent home with and I am returning it. I will use the exertional O2 only if I still need it.Patient is here to go over her COPD management.Initial development of shortness of breath: 2018Duration of shortness of breath: 7 yearsCondition of shortness of breath: stableTiming of shortness of breath: noneFrequency: up to 2 times a dayLimits activities: yesAggravating factors: walking, picking up 30-lb boxesAlleviating factors: restModified [employer] (mMRC) Dyspnea Scale - Grade 1Grade 0 I only get breathless with strenuous exercise .Grade 1 I get short of breath when hurrying on the level or walking up a slight hill .Grade 2 I walk slower than people of the same age on the level because of breathlessness or have to stop for breath when walking at my own pace on the level .Grade 3 I stop for breath after walking about 100 yards or after a few minutes on the level .Grade 4 I am too breathless to leave the house or I am breathless when dressing .Treatment history:albuterol HFA as needed 2020 onlyAnoro Ellipta 62.5/25 mcg 1 inhalation daily 2019 onlyTrelegy Ellipta 100/62.5/25 mcg 1 inhalation daily since 10/2020Other symptoms:Drooling: noDysarthria: noDysphagia: noWeak mastication: noFacial weakness: noNasal speech: noProtruding tongue: noProductive cough: noWheezing: noChest tightness: yesOrthopnea: noFrequent throat clearing or swallowing: noPalpitations: noHeartburn: noEdema: noEnvironmental exposures:Nicotine smoke: 1 ppd 2525-0225 = 43 pack yearsPaint: noDye: noDust mites: yesMold: noDamp basement: noWood burning stove: noAnimal dander: noCockroaches: noPollen: yesArsenic: noAsbestos: noBeryllium: noCadmium: noChromium: noCoal smoke: noDiesel fumes: noNickel: noSilica: noSoot: noEPWORTH SLEEPINESS SCALE (ESS)CHANCE OF DOZING SCORE0 = would never doze1 = slight chance of dozing2 = moderate chance of dozing3 = high chance of dozingSITUATION AND CHANCE OF DOZINGSitting and reading - 1Watching television - 2Sitting inactive in a public place (e.g. a theater or meeting) - 0As a passenger in a car for an hour without a break - 0Lying down to rest in the afternoon when circumstances permit - 1Sitting and talking to someone - 0Sitting quietly after lunch without alcohol - 1In a car, while stopped for a few minutes in the traffic - 0TOTAL SCORE 5Subjectively, patient has a slight chance of dozing. Israel Sanchez MD [address] [place] [address], [facility] [address], [place], [address], [facility] [employer] [facility] 09/22/2025 09:18:15 OBGyn Episode No OBEpisode recorded.
--- OUTSIDE RECORDS SUMMARY | 2025-09-29 22:59 | XMS_ITS | Clinical Summary ---
Author Organization [facility] Address [address] [place] [address] Care Team Providers Care Solvent Recoverer Name Role Phone Unavailable Primary Care Provider Unavailabl e Immunizations Immunization Administration Dates Next Due Covid-19 Vaccine, Vector-nr, Rs-ad26, Pf, 0.5 Ml ([employer]) 10/03/2021 Social History Tobacco Use Types Packs/Day Years Used Date Smoking Tobacco: Never Assessed Comments Unknown Sex and Gender Information Value Date Recorded Sex Assigned at Not on file Legal Sex Female 9:54 PM CDT Gender Identity Not on file Sexual Orientation Not on file Plan of Treatment Health Maintenance Due Date Last Done Comments Hepatitis C Virus (HCV) Screening 1965 Varicella Immunization (1 of 2 - 13+ 2-dose series) 1977 Pap Smear 1985 Cervical Cancer Screening (CCS) [...]
== END 2025-09-29 14:48 | disposition home or self-care (01) ==
PROVIDERS: PCP Internal Medicine; Visit Provider Internal Medicine Pulmonary Disease
DX: Z12.2 Encounter for screening for malignant neoplasm of respiratory organs (principal); Z87.891 Personal history of nicotine dependence
CPT/HCPCS: 71271

== ENCOUNTER 2025-11-08 10:41 | Emergency (ER) | payer OTHER, SELFPAY ==
--- NOTE | ~2025-11-08 | XR_ITS ---
Examination: XR chest 2V Clinical History: cough, HX COPD, HX smoker Comparison: CT chest 09/29/2025 Technique: PA and Lateral Findings: Cardiomediastinal silhouette normal size and configuration. Right basilar airspace disease. Emphysema and chronic interstitial changes. No acute bony abnormality. IMPRESSION: 1. Right lower lobe aspiration and/or pneumonia. Reviewed, dictated and finalized at location [facility]
--- NOTE | 2025-11-08 10:51 | ED_ITS ---
HPI - URI/Sore Throat General Chief Complaint: Upper Respiratory Infection Stated Complaint: Thinks she has Pneumonia / hard to breathe Time Seen by Provider: 11/08/25 11:15 Source: patient, RN notes reviewed and old records reviewed Mode of arrival: ambulatory Limitations: no limitations History of Present Illness HPI Narrative: 60-year-old female presents to the [facility] with concerns that she has pneumonia. Patient reports increasing shortness of breath for 1 week. States that started as a sinus issue, has ?moved down to my chest. ? Has history of COPD. 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 40 mg Instructions: Resume on 09/17/25. HOLD until liver enzymes are rechecked and you follow-up with your PCP. Atorvastatin can elevated the liver enzymes hydrocodone 10 mg-acetaminophen 1 tablet PO Q6H 11/08/25 09/06/25 08:00 History 325 mg tablet 1 tablet spironolactone 25 mg tablet 12.5 mg PO DAILY 09/06/25 11/08/25 09/03/25 08:00 History 12.5 mg alendronate 70 mg tablet mg PO 11/08/25 Unknown Hist ory fluticasone propionate 50 intranasal 11/08/25 Unknown History mcg/actuation nasal spray,suspension Allergies Allergy/AdvReac Type Severity Reaction Status Date / Time No Known Allergies Allergy Verified 11/08/25 10:49 Review of Systems Review of Systems: All systems reviewed & are unremarkable except as noted in HPI and below Constitutional: Constitutional: Reports no additional constitutional complaints ENT: Reports as per HPI Cardiovascular: Cardiovascular: Reports no additional cardiovascular complaints, Denies chest pain and Denies dyspnea Respiratory: Respiratory: Reports as per HPI, Reports chest congestion, Reports cough and Reports dyspnea Musculoskeletal: Musculoskeletal: Reports no additional musculoskeletal complaints Integumentary/Breasts: Skin/Breast: Reports system reviewed and no additional complaints, except as docu PMFSH Past Medical History Medical History Dilated bile duct Cor pulmonale Neck problem bone fusion on neck Chronic obstructive pulmonary disease (COPD) Lung nodule Mildly underweight adult Recurrent pneumonia Shortness of breath Tobacco abuse Surgical History Surgical History H/O LEEP 1997 History of tubal ligation 2003 History of endometrial ablation 02/11/09 hscope d&c/novasure ablation History of dilation and curettage 02/11/09 hscope d&c/novasure ablation History of back surgery 2011 Family History Family History Sibling Chronic obstructive lung disease sister Mother Malignant tumor of urinary bladder Father Malignant neoplasm of bone Social History Social History Smoking packs per day: 1 Smoking cigarettes per day: 20.0 Years smoked: 40 Smoking pack-years: 40.00 Smoking status: Former smoker Tobacco type: cigarettes Second hand tobacco smoke exposure: Yes Smoking end date: 09/03/25 Alcohol intake: former Substance use: never Substance use type: painkillers Other substance usage details: prescrption pain pills per patient Lack of Transportation: No Lack of Food: Never True Current Housing: I Do Not Have Housing Concerned About Future Housing: No Difficulty Paying Gas/Electric Bills: No Difficulty Paying for Meds: No Currently Unemployed: No Education: Associate Degree Difficulty w/ Childcare or Family Care: No Living arrangements: with family Additional living arrangements comments: 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 There is no relevant family history pertinent to the patient complaint. Exam Const: General: cooperative, no acute distress, well developed, alert, ill appearing chronically; not acutely, uncomfortable and well nourished Nutritional Appearance: well nourished Orientation/consciousness: patient oriented x3 Limitations: no limitations HENMT: Head: normal to inspection Mouth: Yes Normal oral and palatal mucosa present, Yes lip normal and Yes tongue normal Eyes: General: appearance normal, both eyes and all related structures Alignment and Position: alignment normal Neck: Neck: normal visual inspection, full ROM, no lymphadenopathy and no meningeal signs Chest: Chest palpation & inspection: normal inspection of the chest Resp: Effort & Inspection: normal respiratory effort and able to speak in complete sentences Auscultation: clear to auscultation bilaterally, no crackles, no rales, no rhonchi, no wheezes and diminished lung sounds bilateral in the lower lung calero Cardio: Rate: regular rate Skin: General skin exam: normal color and no rashes or lesions noted Neuro: General: patient oriented x3, gait normal, moves all extremities and no meningeal signs Cognition (Neuro): normal cognition Speech: normal speech Gait exam (Neuro): Normal gait present Extrem: General: normal to inspection, full ROM, capillary refill normal and normal gait Psych: Appearance: grossly normal and well kempt Mental Status: mental status grossly normal Speech and movement: Normal speech and movement present and Clear speech present Affect: normal affect Attitude: cooperative Course Course Level of Care: Express Care Visit Vital Signs Vital signs: Vital Signs Temperature 98.9 F 11/08/25 10:57 Pulse Rate 120 H 11/08/25 10:57 Respiratory Rate 16 11/08/25 10:57 Blood Pressure 100/65 11/08/25 10:57 Pulse Oximetry 96 11/08/25 10:57 Temperature 98.9 F 11/08/25 10:57 Pulse Rate 120 H 11/08/25 10:57 Respiratory Rate 16 11/08/25 10:57 Blood Pressure 100/65 11/08/25 10:57 Pulse Oximetry 96 11/08/25 10:57 reviewed MDM MDM Narrative Medical decision making narrative: Patient sitting in exam. Patient is nontoxic, vitals stable. Patient presents with cough, concern for. Flu and COVID negative. Patient with concerns for right lower lobe pneumonia. Patient is appropriate for outpatient treatment with strict signs and symptoms to proceed to the emergency room which she verbalized understanding Discharge instructions reviewed with patient, as well as provided in writing per nursing staff. The instructions also include specific and strict return/GO TO THE ER as well as f/u information. All questions have been answered, and the patient deny any further questions with discharge and discharge plan. Some parts of this dictation were generated by voice recognition software and may contain typographical and/or grammatical inaccuracies. Differential Diagnosis Differential Diagnosis: Differential diagnostic considerations for upper respiratory infection include upper respiratory infection, croup, otitis media, sinusitis, viral infection, bronchitis, influenza, pharyngitis, strep, uvulitis.? Lab Data MDM Lab Attestation statement: I personally reviewed the patient's lab results. Labs: Lab Results 11/08/25 11/08/25 Range/Units 10:57 11:20 POC Influenza A Ag Negative Negative (Negative) POC Influenza B Ag Negative Negative (Negative) POC SARS CoV-2 Ag Negative Negative (Negative) Reviewed Imaging Data Radiologist's impression: ITS Impressions Chest X-Ray 11/08/25 11:41 IMPRESSION: 1. Right lower lobe aspiration and/or pneumonia. Examination: XR chest 2V Clinical History: cough, HX COPD, HX smoker Comparison: CT chest 09/29/2025 Technique: PA and Lateral Findings: Cardiomediastinal silhouette normal size and configuration. Right basilar airspace disease. Emphysema and chronic interstitial changes. No acute bony abnormality. IMPRESSION: 1. Right lower lobe aspiration and/or pneumonia. Discharge Plan Discharge Clinical Impression: History of COPD Right lower lobe pneumonia Qualifiers: Pneumonia type: due to unspecified organism Qualified Code(s): J18.9 - Pneumonia, unspecified organism Patient Disposition: Home Condition: Stable Instructions: Antibiotic Form, Pneumonia (ED) Additional Instructions: Your chest x-ray showed a right lower lobe pneumonia. You open covered with an antibiotic. Please use your inhalers as prescribed. Use your albuterol every 4-5 hours while awake. Your rapid COVID test were negative Your rapid flu test was negative Your symptoms are likely due to a viral illness, which is not treated with antibiotics. Typically viral infections last 7-10 days, can linger for couple of weeks. It is very important to treat your symptoms. Drink plenty of water, Gatorade, Pedialyte, ice pops or Jell-O. -Alternate Tylenol and Motrin per package directions for fever or pain. You can alternate every 4 hours -You can also use Mucinex. Be sure to drink plenty of water with this medication at least 8 ounces with every dose and it is important to drink 8 to 10 glasses of water per day. Water is a natural decongestant -Eat and drink things that are easy to swallow, like tea or soup, or popsicles. -Oral rinses such as: Salt water gargles and/or may use topical anesthetic (eg. Chloraseptic spray) or lozenges to relieve dryness or throat pain). -Frequent hand washing or hand control valve mechanic is one of the best ways to prevent spread of infection. -Using a vaporizer or humidifier at night will also help thin secretions and help with coughing up phlegm. -Follow up with primary care provider in 7-10 days if condition is not improving - For new or worsening symptoms go directly to the nearest ER Patient Language: Amharic Prescriptions: New azithromycin 250 mg tablet See Rx Instructions PO .COMPLEX Qty: 6 0RF Rx Instructions: take 500 mg today (day 1), then 250 mg for 4 days (days 2-5) amoxicillin-pot clavulanate 875-125 mg tablet 1 tablet PO Q12H Qty: 14 0RF No Action ergocalciferol (vitamin D2) 1,250 mcg (50,000 unit) capsule 1 cap PO WEEKLY alendronate 70 mg tablet PO fluticasone propionate 50 mcg/actuation spray,suspension INTRANASAL calcitriol 0.25 mcg capsule 0.25 mcg PO DAILY cyclobenzaprine 10 mg tablet 10 mg PO TID hydrocodone-acetaminophen 10-325 mg tablet 1 tablet PO Q6H atorvastatin 40 mg tablet 40 mg PO QPM spironolactone 25 mg tablet 12.5 mg PO DAILY umeclidinium-vilanterol [Anoro Ellipta] 62.5-25 mcg/actuation blister with device 1 inh inhalation DAILY Qty: 60 0RF albuterol sulfate 90 mcg/actuation aerosol powdr breath activated 2 inh inhalation Q4-6H PRN (Reason: shortness of breath or wheezing) Qty: 1 0RF furosemide 20 mg Tablet 20 mg PO DAILY 30 Days Qty: 30 0RF guaifenesin [Mucus Relief ER] 600 mg Tablet Extended Release 12hr 1,200 mg PO Q12HR PRN (Reason: congestion) Qty: 120 0RF umeclidinium-vilanterol [Anoro Ellipta] 62.5-25 mcg/actuation blister with device 1 inh inhalation DAILY Qty: 60 0RF Follow-up/Referrals: Josefina,MD Ken [Primary Care Provider, Unknown] - 1 Week Clinical Impression: History of COPD; Right lower lobe pneumonia Stand Alone Forms: Work/School Release IP Time of Disposition: 11:51
[2025-11-08 10:57] VITALS: BP 100/65; PULSE 120; RESP 16; TEMP 37.2; O2SAT 96
[2025-11-08 11:22] LABS: EDCOVIDSCREEN Negative (Negative); EDINFLUASCREEN Negative (Negative); EDINFLUBSCREEN Negative (Negative)
[2025-11-08 11:22] LABS: EDCOVIDSCREEN Negative (Negative); EDINFLUASCREEN Negative (Negative); EDINFLUBSCREEN Negative (Negative)
== END 2025-11-08 11:56 | disposition home or self-care (01) ==
PROVIDERS: Emergency Provider Nurse Practitioner; PCP Internal Medicine
DX: J44.9 Chronic obstructive pulmonary disease, unspecified (principal); J18.9 Pneumonia, unspecified organism; Z20.822 Contact with and (suspected) exposure to COVID-19; Z87.891 Personal history of nicotine dependence
CPT/HCPCS: 71046; 87426; 87804; 99213; G0463